=== PATIENT | male | born 1950 | race Caucasian/White ===

== ENCOUNTER 2024-09-20 18:44 | Emergency (ER) | payer MEDICARE, SELFPAY ==
[2024-09-20 18:48] VITALS: BP 142/91; PULSE 74; TEMP 37.2; O2SAT 94; BMI 26.5
[2024-09-20 19:08] VITALS: TEMP 36.7
--- NOTE | 2024-09-20 19:21 | ED.DIZZY1 ---
HPI - Dizziness General Chief Complaint: Dizziness Stated Complaint: Dizziness NECK PAIN Time Seen by Provider: 09/20/24 19:01 Source: patient and family Source comment: Daughter Mode of arrival: walk-in History of Present Illness HPI Narrative: This 74-year-old male with a history of vertigo is brought to the emergency department by his daughter. For the past 3 days he has had increased dizziness. The patient states he feels like he is on a boat. He has a history of vertigo and has been seen by neurologist and multiple specialist. It is thought that his dizziness may come from his neck. He does have a history of neck injuries in the past. Last December the patient was seen at [facility] and had a CT angio of the head and neck that was essentially normal. He has also had an MRI in the past year. The patient walks his dogs every day and uses a stroller to walk them to help with his balance but had trouble getting back to his house earlier today due to the dizziness. His daughter states he has also been walking into unger. The symptoms all started last spring when the patient was placed on doxycycline empirically after he had a tick bite. The patient complains of pain in both sides of his neck. Denies any recent neck injury. He has had some blurred vision recently. He has not had any slurred speech or confusion. The daughter states basically he just has not been feeling well for the past week. He denies any nausea vomiting or diarrhea. He is not currently taking any meclizine. Related Data Home Medications ?Medication ?Instructions ?Recorded ?Confirmed No Known Home Medications 09/20/24 09/20/24 Allergies Allergy/AdvReac Type Severity Reaction Status Date / Time doxycycline Allergy Severe Dizziness Verified 09/20/24 19:01 Review of Systems ROS Status of ROS 10 or more systems reviewed and unremarkable except as noted in history and below PFSH PFSH Social History Little interest or pleasure in doing things: not at all Feeling down, depressed, or hopeless: not at all Exam Narrative Exam Narrative: Vital signs and Nursing Notes reviewed: Is afebrile with a normal pulse, blood pressure is mildly elevated at 142/91, he is not hypoxic with pulse ox of 94% on room air General: Awake, alert, oriented, no acute distress, he is sitting on the stretcher and rocking his torso, GCS 15, no respiratory distress HEENT: Normocephalic atraumatic, mucous membranes are moist and pink, eyes are clear, normal conjunctiva, no nystagmus noted, vision is grossly intact, posterior pharynx is normal in appearance. Tympanic membranes are normal bilaterally Neck: Supple, no pulsatile masses. No bruits appreciated Chest: Lungs are clear to auscultation with good air entry, there is no wheezing rhonchi or rales appreciated no accessory muscle use, patient is speaking in complete sentences-no chest wall tenderness to palpation CVS: Regular rate and rhythm S1-S2, no murmurs rubs or gallops, pulses are brisk and equal bilaterally ABD: Soft, nondistended, nontender, no rebound guarding or rigidity, bowel sounds are normal, no pulsatile masses appreciated Extremities: Moving all extremities, no lower extremity tenderness or swelling noted, negative Homans' sign, pulses are brisk and equal bilaterally Skin: Normal in appearance without rash,pallor, petechiae or purpura Neuro: No focal deficits, speech is clear, 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, no facial droop noted Constitutional Vital Signs, click to edit/add: Last Vital Signs Temp 98.0 F 09/20/24 19:08 Pulse 74 09/20/24 18:48 Resp 16 09/20/24 18:48 BP 142/91 H 09/20/24 18:48 Pulse Ox 94 L 09/20/24 18:48 O2 Del Method Room Air 09/20/24 18:48 Course Vital Signs Vital signs: Vital Signs Temperature 99.0 F 09/20/24 18:48 Pulse Rate 74 09/20/24 18:48 Respiratory Rate 16 09/20/24 18:48 Blood Pressure 142/91 H 09/20/24 18:48 Pulse Oximetry 94 L 09/20/24 18:48 Oxygen Delivery Method Room Air 09/20/24 18:48 Temperature 98.0 F 09/20/24 19:08 Pulse Rate 74 09/20/24 18:48 Respiratory Rate 16 09/20/24 18:48 Blood Pressure 142/91 H 09/20/24 18:48 Pulse Oximetry 94 L 09/20/24 18:48 Oxygen Delivery Method Room Air 09/20/24 18:48 MDM - Dizziness MDM Narrative Medical decision making narrative: This 74-year-old male with a history of vertigo is brought to emergency department by his daughter for worsening vertiginous symptoms for the past 3 days. His workup was essentially normal. He has had a CT angio of the head and neck in the past year as well as MRIs and follows up with neurology. The patient's physical exam was benign. He states he feels like he is rocking on a boat. I ordered a cardiac workup on him as well as a CT scan of his brain and medications to treat his vertigo. Prior to initiation of his workup the patient stated that he wishes to leave and does not want any workup to be done at this time. I went to the room and discussed this with the patient and his daughter. The daughter states she feels that he is just tired of being in doctors offices and emergency departments. He was encouraged to return the emergency department for worsening symptoms or if he changes his mind. He does have a follow-up appointment with Dr. Laughlin on which he was encouraged to keep. Discharge Plan Discharge Stand Alone Forms: Portal Instructions Chief Complaint: Dizziness Clinical Impression: Dizziness, Neck pain Patient Disposition: Left Against Medical Advice Time of Disposition Decision: 19:33 Condition: Fair Prescriptions / Home Meds: No Action No Known Home Medications Print Language: Telugu Referrals: Physician,Non-Staff, MD [Primary Care Provider] - 1 week
== END 2024-09-20 19:31 | disposition left against medical advice (07) ==
PROVIDERS: Emergency Provider Emergency Medicine; Family Provider Family Medicine
DX: Z53.29 Procedure and treatment not carried out because of patient's decision for other reasons (principal); R42 Dizziness and giddiness; M54.2 Cervicalgia
CPT/HCPCS: 80053; 84484; 85652; 86140; 87804; 87811; 99285

== ENCOUNTER 2024-09-30 09:37 | Outpatient (OUT) | payer MEDICARE, SELFPAY ==
--- NOTE | 2024-09-30 09:46 | MR_ITS ---
The [address] [address] Patient Name: MARQUISE HOFFMAN MRN: [facility]:[id number] date: 1950 Sex: M Assigned Patient Location: MRI Current Patient Location: Accession/Order Number: [id number] Exam Date: 09/30/2024 10:00 Report Date: 10/01/2024 09:12 At the request of: WANG TAN Procedure: MR head/brain wo con EXAMINATION: MR head/brain wo con, 09/30/2024 10:00 AM EST HISTORY: Vertigo COMPARISON: None. TECHNIQUE: MRI of the brain was performed without IV contrast. HISTORY: Vertigo FINDINGS: CEREBRUM: No edema, hemorrhage, mass, acute infarction, or inappropriate atrophy. CEREBELLUM: No edema, hemorrhage, mass, acute infarction, or inappropriate atrophy. BRAINSTEM: No edema, hemorrhage, mass, acute infarction, or inappropriate atrophy. CSF SPACES: Ventricles, cisterns, and sulci are appropriate for age. No hydrocephalus, subarachnoid hemorrhage, or mass. SKULL: No mass or other significant visible lesion. SINUSES: Left ethmoid sinus disease ORBITS: Limited views are unremarkable. OTHER: Negative. MR/MR head/brain wo con IMPRESSION: No acute intracranial abnormality. Electronically authenticated by: LYNN BRADY Date: 10/01/2024 09:12
--- NOTE | 2024-09-30 09:46 | MR_ITS ---
[address] [address] Patient Name: MARQUISE HOFFMAN MRN: [facility]:[id number] date: 1950 Sex: M Assigned Patient Location: MRI Current Patient Location: MRI Accession/Order Number: [id number] Exam Date: 09/30/2024 10:00 Report Date: 10/01/2024 09:15 At the request of: WANG TAN Procedure: MR angio neck wo con PROCEDURE: MR angio neck wo con COMPARISON: None. HISTORY: Vertigo TECHNIQUE: MR images of the extracranial carotid and vertebral arteries were performed without and with Dotarem contrast in the usual manner. Multi-planar 2D and 3D reformatted images were created and interpreted to optimize visualization of vascular anatomy. Carotid stenosis is reported according to NASCET criteria. FINDINGS: RIGHT INTERNAL CAROTID: No hemodynamically significant stenosis or dissection. EXTERNAL CAROTID: No hemodynamically significant stenosis or dissection. COMMON CAROTID: No hemodynamically significant stenosis or dissection. VERTEBRAL: No hemodynamically significant stenosis or dissection. LEFT INTERNAL CAROTID: No hemodynamically significant stenosis or dissection. EXTERNAL CAROTID: No hemodynamically significant stenosis or dissection. COMMON CAROTID: No hemodynamically significant stenosis or dissection. VERTEBRAL: No hemodynamically significant stenosis or dissection. OTHER: The visualized soft tissues of the neck are also unremarkable. MR/MR angio neck wo con IMPRESSION: No hemodynamically significant stenosis or dissection. Electronically authenticated by: LYNN BRADY Date: 10/01/2024 09:15
--- NOTE | 2024-09-30 09:46 | MR_ITS ---
The [address] [address] Patient Name: MARQUISE HOFFMAN MRN: [id number] date: 1950 Sex: M Assigned Patient Location: MRI Current Patient Location: MRI Accession/Order Number: [id number] Exam Date: 09/30/2024 10:00 Report Date: 10/01/2024 09:19 At the request of: WANG TAN Procedure: MR angio head wo con EXAMINATION: MR angio head wo con HISTORY: Vertigo COMPARISON: No relevant comparison available. TECHNIQUE: MR angiography was performed in the usual manner. Multiplanar reconstructed 2D and 3D images of the cerebral arteries were created and interpreted. FINDINGS: INTERNAL CAROTIDS: No visible stenosis or aneurysm. ANTERIOR CEREBRALS: No visible stenosis or aneurysm. MIDDLE CEREBRALS: No visible stenosis or aneurysm. POSTERIOR CEREBRALS: No visible stenosis or aneurysm. BASILAR: No visible stenosis or aneurysm. VERTEBRALS: No visible stenosis or aneurysm. OTHER: Negative with no evidence of a vascular malformation. Diminutive right posterior communicating artery MR/MR angio head wo con IMPRESSION: No large vessel occlusion. Electronically authenticated by: LYNN BRADY Date: 10/01/2024 09:19
== END 2024-09-30 09:38 | disposition home or self-care (01) ==
LOC: MRI 09:38
PROVIDERS: Family Provider Family Medicine; PCP Family Medicine; Visit Provider Family Medicine
DX: R42 Dizziness and giddiness (principal)
CPT/HCPCS: 70544; 70547; 70551

== ENCOUNTER 2024-11-11 16:10 | Outpatient (OUT) | payer MEDICARE, SELFPAY ==
--- OUTSIDE RECORDS SUMMARY | 2024-11-11 16:28 | XMS_ITS | CCD ---
Author Organization [facility] Care Team Providers Care Data Center Manager Name Role Phone Unavailable Primary Care Provider Unavailabl e Starla Curry PA-C A Primary Care Provider Starla Curyr PA-C A Primary Care Provider Unavailable Primary Care Provider Unavailabl e NO FAMILY, PHYSICIAN Primary Care Provider Unava MD Patel Kelly Jr Emergency Provider MD Jorje Gu Admit Provider MD Jorje Gu Attending Provider DO Jared Easley Attending Provider NO FAMILY, PHYSICIAN Primary Care Provider Unava MD Patel Kelly Jr Emergency Provider MD Jorje Gu Admit Provider DO Jared Easley Attending Provider MD Fly Meza Attending Provider Unavailable Primary Care Provider Unavailabl e DO Micah Jackson Emergency Provider [phone] [place] STUDIO PRODUCER-C Rachel Primary Care Provider DO Yasmine Marc Emergency Provider DO Jared Easley Admit Provider [phone] Attila Luis Attending Unavailable Dr. Attila Luis Unavailable Unavailable DO Yasmine Marc Emergency Provider DO Jared Easley Admit Provider [phone] MD Kaitlynn Wiggins Attending Provider [phone] MD Olivia Fischer Other Provider MD Polly Cavazos Other Provider MD Robel Wallace Other Provider EUGENE Burr Other Provider DO Pascual Mares Jr Other Provider MD Emilio Christian Other Provider MD Olivia Fischer Attending Provider ANGELICA Harrington Attending Provider [phone] MD Owen Shea Referring Provider YUDELKA Byrd-C Rachel Primary Care Provider MD Love Tinsley Emergency Provider Aixa Tong DO Primary Care Provider HIRAM CASTILLO Attending Unavailable NERYYRACHEL Attending Unavailable NERYYRACHEL Referring Unavailable LUBYRACHEL Attending Unavailable CUTHIRAM PASCUAL Referring Unavailable LUBYRACHEL Attending Unavailable RACHEL BYRD Attending Unavailable AIXA TONG Referring Unavailable OLIVIA MCALLISTER Attending Unavailable NERYYDENILSONNA iMla Referring Unavailable DOUGIE MCKNIGHT Attending Unavailable DOUGIE MCKNIGHT Referring Unavailable OLIVIA MCALLISTER Attending Unavailable HIRAM CASTILLO Attending Unavailable DOUGIE MCKNIGHT Attending Unavailable ERIKA FELDER Attending Unavailable NERYY RACHEL L Referring Unavailable BRANDAN HARRINGTON Attending Unavailable AIXA TONG Referring Unavailable BRANDAN HARRINGTON Attending Unavailable AIXA TONG Referring Unavailable BRANDAN HARRINGTON Attending Unavailable OLIVIA MCALLISTER Attending Unavailable [facility] PHYSICIAN-NPC, WILFREDO Referring Unavailab ERIKA Plummer Attending Unavailable [facility]ICE PHYSICIAN-NPC, WILFREDO Referring Unavailab OLIVIA Bird Attending Unavailable SABAS, JOSE Referring Unavailable OLIVIA MCALLISTER Attending Unavailable SABAS, JOSE Referring Unavailable MIKO FINE Attending Unavailable SABAS, JOSE Referring Unavailable ERIKA FELDER Attending Unavailable SABAS, JOSE Referring Unavailable ERIKA FELDER Attending Unavailable SABAS, JOSE Referring Unavailable Luby STUDIO PRODUCER-C, Rachel Primary Care Provider [phone] Jessie Hammond Attending Provider Wang Laughlin MD Attending Provider Wang Laughlin MD Attending Unavaila lia Byrd STUDIO PRODUCER-C Rachel Primary Care Provider Rachel Byrd Primary Care Unavailable Melina Jacksoned M Admitting Unavailable Renetta Micah M Attending Unavailable Jessie Hammond Admitting Unavailable Jessie Hammond Attending Unavailable Rachel Byrd Primary Care Unavailable Rachel Byrd Primary Care Unavailable Wang Laughlin M Admitting Unavailable Wang Laughlin Attending Unavailable Kaitlynn Wiggins Attending Unavailable NeryRachel Primary Care Unavailable Jared Easley Admitting Unavailable Olivia Fischer Consulting Unavailable Polly Cavazos Consulting Unavailable Robel Wallace Consulting Unavailable Leno, Kayla Consulting Unavailable Pascual Marse Jr Consulting UnavailEmilio Waller Consulting Unavaila lia Rachel Byrd Primary Care Unavailable Wang Laughlin Admitting Unavailable Wang Laughlin Attending Unavailable NO FAMILY, PHYSICIAN Primary Care Unavailable Asaad, Imad Admitting Unavailable Asaad, Imad Attending Unavailable Rachel Byrd Primary Care Unavailable Olivia Fischer Admitting Unavailable Olivia Fischer Attending Unavailable Brandan Harrington Admitting Unavailable Brandan Harrington Attending Unavailable NeryRachel hand Primary Care Unavailable Owen Shea Referring Unavail able Love Tinsley Attending Unavailable Rachel Byrd Primary Care Unavailable Love Tinsley Admitting Unavailable Mirta LEE Referring Unavailable OLIVIA LAZCANO Referring Unavailable JANY STANTON Referring Unavailable BRANDAN HARRINGTON Referring Unavailable OLIVIA LAZCANO Attending Unavailable SELF Referring Unavailable JOSE BABIN Attending Unavailable Mirta LEE Attending Unavailable HAILE LEE Attending Unavailable SELF Referring Unavailable HAILE LEE Referring Unavailable HAILE LEE Attending Unavailable KATHARINA RUSSELL Attending Unavailable Allergies Allergy Classification Reported Allergen(s) Allergy Type Date of Onset Reaction(s) Facility (12 sources) Doxycycline; Translations: [Doxycycline] Drug Allergy 01-06-2024 [facility] Repository Medications Current Medications Medication Drug Class(es) Dates Sig (Normalized) Sig (Original) acetaminophen 325 mg oral tablet (6 sources) Start: 10-01-2023 End: 10-31-2023 take 2 tablets by mouth every six hours as needed acetaminophen (TYLENOL) 325 mg tablet Take 2 tablets by mouth every 6 hours as needed (Mild Pain (1-3) - Enteral). 40 tablet 0 10/01/2023 10/31/2023 Active Comment on above: Take 2 tablets by mo [facility] every 6 hours as needed (Mild Pain (1- 3) - Enteral). amoxicillin 875 mg / clavulanate 125 mg oral tablet (4 sources) Penicillin-class Antibacterial Start: 10-04-2023 End: 10-11-2023 take 1 tablet by mouth twice daily amoxicillin-clavul anate potassium (AUGMENTIN) 875-125 mg per tablet Take 1 tablet by mouth two times a day for 7 days. 14 tablet 0 10/04/2023 10/11/2023 Active Comment on above: Take 1 tablet by darryl two times a day for 7 days. aspirin 81 mg oral tablet (7 sources) Platelet Aggregation Inhibitor, Nonsteroidal Anti-inflammatory Drug Start: 12-31-2023 take 1 tablet by mouth in the morning Aspirin Tablet 81 MG 1 tablet Tablet Oral Give 1 tablet by mouth in the morning related to OTHER SPECIFIED PERSONAL RISK FACTORS, NOT ELSEWHERE CLASSIFIED (Z91.89 12/31/2023 9:00:00 Start: 12-30-2023 End: 02-10-2024 take 1 tablet by mouth once daily Aspirin 81 mg Tablet,Delayed Release (Dr/Ec) Discontinued 81 MG PO Daily 0 December 29, 2023 11:00pm February 10, 2024 1:12pm dexamethasone 2 mg oral tablet (9 sources) Corticosteroid Start: 02-29-2024 take 1 tablet by mouth in the morning dexAMETHasone (Decadron) 2 MG tablet Indications: Vestibular neuronitis of right ear Take 1 tablet (2 mg) by mouth in the morning and 1 tablet (2 mg) in the evening. Take with meals. 60 tablet 2 02/29/2024 Active diazePAM 5 mg oral tablet (7 sources) Benzodiazepine Start: 12-30-2023 take 1 tablet by mouth every twelve hours as needed for anxiety diazePAM Oral Tablet 5 MG 1 tablet Tablet Oral Give 1 tablet by mouth every 12 hours as needed for Anxiety/sleep related to OTHER SPECIFIED PERSONAL RISK FACTORS, NOT ELSEWHERE CLASSIFIED (Z91.89) 12/30/2023 15:45:00 Start: 12-30-2023 End: 02-10-2024 take 1 tablet by mouth twice daily as needed Diazepam 5 mg Tablet Discontinued 5 MG PO Twice daily as needed for vertigo 10 7 December 29, 2023 11:00pm February 10, 2024 1:13pm fludrocortisone acetate 0.1 mg oral tablet (9 sources) Start: 02-09-2024 take 0.5 tablet by mouth in the morning fludrocortisone (Florinef) 0.1 MG tablet Indications: Vestibular neuronitis of right ear Take 0.5 tablets (0.05 mg) by mouth in the morning and in the evening 60 tablet 3 02/09/2024 Active hydrOXYzine hydrochloride 10 mg oral tablet (9 sources) Antihistamine Start: 02-01-2024 take 1 tablet by mouth once hydrOXYzine HCl (Atarax) 10 MG tablet Indications: Vestibular neuronitis of right ear Take 1 tablet (10 mg) by mouth every 12 (twelve) hours if needed for anxiety (Vertigo) 60 tablet 2 02/01/2024 Active iv contrast (will be provided with radiology test) (1 source) Start: 09-08-2024 End: 09-09-2024 iv contrast (will be provided with radiology test) Indications: IPMN (intraductal papillary mucinous neoplasm) MRI PANC/WAI Inject, intravenously, once for 1 dose. No IV access, insert saline lock prior to the beginning of sedation, infusion, injection of imaging exam. Discontinue saline lock post exam. If Pt. has a central line or IVAD, may access for administration according to line specific nursing protocol. Once exam is complete flush line and de-access according to line specific nursing protocol in the MR contrast administration guidelines link. 1 Each 09/08/2024 09/09/2024 Active [place] (No Known Home Meds) (3 sources) Start: 04-09-2024 [place] (No Known Home Meds) Active April 08, 2024 11:00pm Start: 04-09-2024 [place] (No Kn own Home Meds) Active April 09, 2024 12:00am triazolam 0.25 mg oral tablet (1 source) Benzodiazepine Start: 10-30-2023 End: 10-30-2023 take 1 tablet by mouth once triazolam (HALCION) 0.25 mg tablet Indications: Retained dental root Take 1 tablet by mouth one time only for 1 dose. Take it 45 min before the dental procedure. 1 tablet 0 10/30/2023 10/30/2023 Active Comment on above: Take 1 tablet by mouth one time only for 1 dose. Take it 45 min before the dental procedure. Completed/Discontinued Medications Medication Drug Class(es) Dates Sig (Normalized) Sig (Original) atorvastatin 80 mg oral tablet (2 sources) HMG-CoA Reductase Inhibitor Start: 05-27-2023 take 1 tablet by mouth once daily atorvastatin (LIPITOR) 80 mg tablet Take 1 tablet by mouth once daily. 30 tablet 0 05/27/2023 Active Comment on above: Take 1 tablet by [facility] once daily. doxycycline hyclate 100 mg oral capsule (9 sources) Tetracycline-cla ss Drug Start: 12-17-2023 End: 12-27-2023 take 1 capsule by mouth twice daily Doxycycline Hyclate 100 mg capsule Discontinued 100 MG PO Twice daily December 16, 2023 11:00pm December 26, 2023 11:59pm Start: 12-22-2021 take 1 capsule by [facility] twice daily doxycycline hyclate (VIBRAMYCIN) 100 mg capsule TAKE 1 CAPSULE BY MOUTH TWICE DAILY FOR 7 DAYS 0 12/22/2021 Active Comment on above: TAKE 1 CAPSULE [address] [facility] TWICE DAILY FOR 7 DAYS famotidine 20 mg oral tablet (15 sources) Histamine-2 Receptor Antagonist Start: 05-27-20 End: 07-19-20 take 1 tablet enteral route every twelve hours as needed famotidine (PEPCID) 20 mg tablet 1 tablet by ORAL/FEEDING TUBE route two times a day as needed (heartburn). 05/27/2023 07/19/2024 Discontinued (Other) Comment on above: 1 tablet by ORAL/FEE DING TUBE route two times a day as needed (heartburn). fluticasone (12 sources) Corticosteroid Start: 12-08-19 End: 12-27-19 take 1 puff(s) by inhalation every twelve hours Fluticasone Propionate Discontinued 1 PUFF INHALATION Every 12 hours December 08, 2023 12:00am December 27, 2023 12:58am Start: 12-08-2023 take 1 puff(s) by in halation every twelve hours Fluticasone Propionate Active 1 PUFF INHALATION Every 12 hours December 08, 2023 12:00am Start: 12-21-2021 fluticasone (F LONASE) 50 mcg/actuation nasal spray Fluticasone Propionate 110 mcg/actuation HFA aerosol inhaler (2 sources) Start: 12-08-2023 End: 12-27-2023 take 1 puff(s) by inhalation every twelve hours Fluticasone Propionate 110 mcg/actuation HFA aerosol inhaler Discontinued 1 PUFF INHALATION Every 12 hours December 07, 2023 11:00pm December 26, 2023 11:58pm levoFLOXacin 500 mg oral tablet (2 sources) Quinolone Antimicrobial Start: 12-23-2021 take 1 tablet by mouth every twenty-four hours levoFLOXacin (LEVAQUIN) 500 mg tablet TAKE 1 TABLET BY MOUTH EVERY 24 HOURS FOR 5 DAYS 0 12/23/2021 Active Comment on above: TAKE 1 TABLET BY DARRYL TH EVERY 24 HOURS FOR 5 DAYS meclizine hydrochloride 25 mg oral tablet (20 sources) Antiemetic Start: 12-30-2023 End: 02-10-2024 take 1 tablet by mouth every eight hours as needed Meclizine 25 mg Tablet Discontinued 25 MG PO Q8H as needed for Vertigo December 29, 2023 11:00pm February 10, 2024 1:13pm Start: 12-26-2023 End: 12-27-2023 take 1 tablet by mouth three times daily as needed Meclizine 25 mg tablet Discontinued 25 MG PO Three times daily as needed for Vertigo December 25, 2023 11:00pm December 26, 2023 11:58pm omeprazole 20 mg delayed release oral capsule (20 sources) Proton Pump Inhibitor Start: 09-30-2023 End: 12-27-2023 take 1 capsule by mouth once daily as needed Omeprazole 20 mg capsule,delayed release(DR/EC) Discontinued 20 MG PO Daily as needed December 08, 2023 1:28pm December 26, 2023 11:58pm Start: 08-06-2022 End: 09-05-2022 take 1 capsule by mouth once daily omeprazole (PRILOSEC) 40 mg capsule Take 1 capsule by mouth once daily. 30 capsule 2 08/06/2022 Active Start: 01-09-2022 End: 08-04-2022 take 1 capsule by mouth once daily omeprazole (PRILOSEC) 40 mg capsule Take 1 capsule by mouth once daily. 30 capsule 2 04/23/2022 08/04/2022 Discontinued Comment on above: Take 1 capsule by mo [facility] once daily. ondansetron 4 mg disintegrating oral tablet (13 sources) Serotonin-3 Receptor Antagonist Start: 12-26-2023 End: 12-27-2023 Ondansetron 4 mg tablet,disintegrating Discontinued 4 MG PO every 6 to 8 hours as needed for Nausea December 25, 2023 11:00pm December 26, 2023 11:58pm Start: 10-01-2023 End: 10-31-2023 take 1 tablet by mouth every eight hours as needed ondansetron orally disintegrating (ZOFRAN ODT) 4 mg disintegrating tablet Take 1 tablet by mouth every 8 hours as needed for nausea/vomiting. 30 tablet 0 10/01/2023 10/31/2023 Active Comment on above: Take 1 tablet by darryl every 8 hours as needed for nausea/vomiting. sennosides, jail 8.6 mg oral tablet (15 sources) Start: 05-27-20 End: 07-19-20 take 1 tablet by mouth twice daily Senna 8.6 mg tab Take 1 tablet by mouth two times a day. 05/27/2023 07/19/2024 Discontinued (Other) Comment on above: Take 1 tablet by darryl two times a day. tadalafil 5 mg oral tablet (20 sources) Phosphodiesterase 5 Inhibitor Start: 01-29-20 End: 07-27-20 Tadalafil 5 mg tablet Discontinued 5 MG PO February 09, 2024 11:00pm April 09, 2024 4:40pm Start: 08-26-2019 take 1 tablet by darryl once daily Tadalafil (CIALIS) 5 mg tablet Take 1 tablet by mouth once daily. 90 tablet 3 08/26/2019 Active Comment on above: Take 1 tablet by darryl once daily. tamsulosin hydrochloride 0.4 mg oral capsule (20 sources) alpha-Adrenergic Bhargav Start: End: take 1 capsule by mouth once daily Tamsulosin 0.4 mg capsule Discontinued 0.4 MG PO Daily December 26, 2023 11:00pm February 10, 2024 1:13pm Comment on above: Take 1 capsule by mo [facility] once daily. 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] Onset: 5 09-08-2024 Chronic Conditions associated with dizziness or vertigo (1 source) Conditions associated with dizziness or vertigo Onset: 4 Diseases of white blood cells (20 sources) Elevated white blood cell count, unspecified; Translations: [Leukocytosis] Onset: 4 01-07-2024 Chronic Disorders of teeth and jaw (2 sources) Retained dental root; Translations: [Retained dental root] 10-30-2023 Episodic Esophageal disorders (20 sources) Gastroesophageal reflux disease; Translations: [Gastro-esophageal reflux disease without esophagitis] Onset: 2 Chronic Genitourinary symptoms and ill-defined conditions (2 sources) Retention of urine; Translations: [Retention of urine, unspecified] 10-05-2023 Episodic Hyperplasia of prostate (20 sources) Benign prostatic hyperplasia; Translations: [Benign prostatic hyperplasia without lower urinary tract symptoms] Onset: 2 Chronic Immunizations and screening for infectious disease (1 source) Viral screening status; Translations: [Encounter for screening for other viral diseases] Episodic Other aftercare (1 source) Encounter for other specified aftercare; Translations: [ENCOUNTER FOR OTHER SPECIFIED AFTERCARE] Onset: 4 Episodic Other circulatory disease (1 source) Low blood pressure; Translations: [Hypotension, unspecified] 03-14-2024 Episodic Other diseases of kidney and ureters (20 sources) Cyst of kidney; Translations: [Cyst of kidney, acquired] Onset: 4 09-30-2023 Episodic Other diseases of kidney and ureters (5 sources) Cyst of kidney, acquired; Translations: [Cystic kidney disease, unspecified] 09-30-2023 Episodic Other eye disorders (1 source) Unspecified nystagmus; Translations: [UNSPECIFIED NYSTAGMUS] Onset: 4 Chronic Other eye disorders (10 sources) Nystagmus; Translations: [Unspecified nystagmus] Onset: 4 2024 Chronic Other gastrointestinal disorders (15 sources) Diarrhea; Translations: [Diarrhea, unspecified] Onset: 4 01-07-2024 Episodic Other liver diseases (20 sources) Steatosis of liver; Translations: [Fatty (change of) liver, not elsewhere classified] Onset: 3 06-02-2023 Chronic Other liver diseases (18 sources) Liver cyst; Translations: [Other specified diseases of liver] Onset: 4 12-08-2023 Chronic Other liver diseases (8 sources) Fatty (change of) liver, not elsewhere classified; Translations: [Other chronic nonalcoholic liver disease] Onset: 4 12-08-2023 Chronic Other liver diseases (7 sources) Liver mass; Translations: [Hepatomegaly, not elsewhere classified] 12-11-2023 Episodic Other nervous system disorders (15 sources) Impairment of balance; Translations: [Other abnormalities of gait and mobility] Onset: 4 07-19-2024 Episodic Spondylosis; intervertebral disc disorders; other back problems (16 sources) Cervicocranial syndrome; 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] Onset: 4 07-19-2024 Episodic Syncope (1 source) Syncope and collapse; Translations: [Syncope and collapse] Onset: Episodic Unclassified (1 source) Parkinson's disease; Translations: [Parkinson's disease with dyskinesia, unspecified whether manifestations fluctuate (CMS/HCC)] 08-16-2024 Chronic Unclassified (8 sources) Onset: 4 Unclassified (1 source) APPOINTMENT CANCELLED 09-21-2024 Past or Other Problems Problem Classification Problem Date Documented Da te Episodic/Chronic Biliary tract disease (20 sources) Finding of measures of gallbladder; Translations: [Other specified diseases of gallbladder] Onset: 10-23-2023 09-30-2023 Episodic Conditions associated with dizziness or vertigo (20 sources) Vertigo; Translations: [Dizziness and giddiness] Onset: 12-28-2023 12-26-2023 Episodic E Codes: Natural/environment (20 sources) Tick bite; Translations: [Bitten or stung by nonvenomous insect and other nonvenomous arthropods, initial encounter] Onset: 12-28-2023 12-25-2023 Episodic Malaise and fatigue (10 sources) Asthenia; Translations: [Weakness] Onset: 12-30-2023 2024 Episodic Mood disorders (9 sources) Mood disorders Onset: 11-25-2023 11-25-2023 Nausea and vomiting (20 sources) Nausea and vomiting; Translations: [Nausea with vomiting, unspecified] Onset: 12-28-2023 12-26-2023 Episodic Neoplasms of unspecified nature or uncertain behavior (20 sources) Benign neoplasm of pancreas; Translations: [Neoplasm of unspecified behavior of digestive system] Onset: 05-27-2023 05-27-2023 Episodic Nonspecific chest pain (12 sources) Chest pain; Translations: [Chest pain, unspecified] Onset: 04-16-2018 Resolved: 04-17-2018 04-17-2018 Episodic Open wounds of extremities (1 source) Laceration without foreign body of right thumb without damage to nail, subsequent encounter; Translations: [Laceration of right thumb without foreign body, nail damage status unspecified, subsequent encounter] Onset: 11-16-2023 Episodic Other circulatory disease (9 sources) Elevated blood-pressure reading without diagnosis of hypertension; Translations: [Elevated blood-pressure reading, without diagnosis of hypertension] Onset: 2024 2024 Episodic Other circulatory disease (1 source) Hypotension, unspecified; Translations: [Hypotension, unspecified hypotension type] Onset: 03-15-2024 Episodic Other connective tissue disease (20 sources) Pain in right foot; Translations: [Pain in right foot] Onset: 06-02-2018 06-02-2018 Episodic Other gastrointestinal disorders (12 sources) Constipation; Translations: [Other constipation] Onset: 05-27-2023 Resolved: 05-27-2023 05-27-2023 Episodic Other gastrointestinal disorders (5 sources) Diarrhea, unspecified; Translations: [Diarrhea] Onset: 12-28-2023 12-30-2023 Episodic Other liver diseases (12 sources) Enzyme level - finding; Translations: [Transaminitis] Onset: 05-27-2023 Resolved: 05-27-2023 05-27-2023 Episodic Other nervous system disorders (20 sources) Postoperative pain ; Translations: [Other acute postprocedural pain] Onset: 10-01-2023 10-01-2023 Episodic Other nervous system disorders (9 sources) Tremor due to central nervous system disease; Translations: [Disorder of central nervous system, unspecified] Onset: 2024 03-16-2024 Episodic Other nervous system disorders (9 sources) Incoordination; Translations: [Other lack of coordination] Onset: 12-30-2023 2024 Episodic Other nutritional; endocrine; and metabolic disorders (9 sources) Body mass index 25-29 - overweight; Translations: [Overweight] Onset: 2024 2024 Episodic Other screening for suspected conditions (not mental disorders or infectious disease) (2 sources) Patient encounter status; Translations: [Encounter for screening for other disorder] Onset: 07-08-2024 10-05-2023 Episodic Other skin disorders (1 source) Disorder of pigmentation, unspecified; Translations: [Discoloration of skin] Onset: 11-16-2023 Episodic Pancreatic disorders (not diabetes) (20 sources) Mass of pancreas; Translations: [Other specified diseases of pancreas] Onset: 05-26-2023 Resolved: 10-02-2023 05-27-2023 Episodic Residual codes; unclassified (20 sources) Swelling; Translations: [Edema, unspecified] Onset: 06-02-2018 06-02-2018 Episodic Residual codes; unclassified (20 sources) Postprocedural state finding; Translations: [Other specified postprocedural states] Onset: 10-07-2023 10-07-2023 Episodic Residual codes; unclassified (10 sources) Other specified personal risk factors, not elsewhere classified; Translations: [Other specified personal history presenting hazards to health] Onset: 12-30-2023 2024 Episodic Skin and subcutaneous tissue infections (1 source) Cellulitis of right finger; Translations: [Cellulitis of finger of right hand] Onset: 11-16-2023 Episodic Sprains and strains (20 sources) Sprain of right ankle; Translations: [Sprain of unspecified ligament of right ankle, initial encounter] Onset: 06-02-2018 06-02-2018 Episodic Superficial injury; contusion (20 sources) Insect bite (nonvenomous), left thigh, subsequent encounter; Translations: [Insect bite (nonvenomous) of lower back and pelvis, subsequent encounter] Onset: 12-17-2023 2024 Episodic Results Test Name Value Interpretation Reference Range Facility MRI 3D POST PROCESSINGon MRI 3D POST PROCESSING * * *Final Report * * * DATE OF EXAM: Oct 18 2024 9:06PM QBM [id number] - MRI 3D POST PROCESSING / PROCEDURE REASON: IPMN (intraductal papillary mucinous neoplasm) * * * * Physician Interpretation * * * * MRI ABDOMEN WITHOUT AND WITH IV CONTRAST , 3D REFORMATTED IMAGES CLINICAL HISTORY: Follow-up cystic pancreatic lesion. TECHNIQUE: Magnet: 1.5T scanner. Multiplanar MRI of the abdomen with multiple sequences, performed before and after intravenous contrast. Additional MR cholangiopancreatography sequences were performed. Image post-processing {Maximum intensity Projection (MIP), Volume-rendered (VR), Surface shaded display images (SSD) or complex volumetric analysis} was performed at an off-line workstation with concurrent physician supervision, with images created, reviewed and archived. Contrast: Intravenous: 18 ml of Dotarem COMPARISON: CT abdomen pelvis 10/04/2023. RESULT: Liver: Normal morphology. Diffuse hepatic steatosis. Multiple small bilobar hepatic cysts. No suspicious mass. Biliary: No intrahepatic or extrahepatic bile duct dilation. No biliary filling defect. Cholecystectomy. Spleen: No mass. No splenomegaly. Pancreas: 0.7 cm cystic pancreatic tail lesion (4:17), unchanged from 05/25/2023. No worrisome features. No solid mass or duct dilation. Adrenals: No mass. Kidneys: Benign cysts, largest measuring 8.5 cm in the left interpolar region. No solid mass. No hydronephrosis. GI: Small hiatal hernia. No dilated bowel or wall thickening along imaged segments. Lymph nodes: No abdominal lymphadenopathy. Mesentery / Peritoneum / Retroperitoneum: No ascites or mass. Vasculature: The celiac axis and SMA are patent. The portal vein and branches, splenic vein, SMV, and hepatic veins are patent. No aortic or iliac artery aneurysm. Bones/Soft Tissues: Degenerative changes. Lower chest: Unremarkable. Localizer images: No additional findings. 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 Special Delivery Clerk: TATIANA Transcribe Date/Time: Oct 19 2024 8:12A Dictated by : TOY EPSTEIN MD This examination was interpreted and the report reviewed and electronically signed by: WANG MOONEY MD on Oct 19 2024 3:45PM EST [id number] Normal [facility] MRI PANC/WAI WO/W IVCONon MRI PANC/WAI WO/W IVCON * * *Final Report* * * DATE OF EXAM: Oct 18 2024 9:06PM QBM 0730 - MRI PANC/WAI WO/W IVCON / PROCEDURE REASON: multiple diagnoses * * * * Physician Interpretation * * * * MRI ABDOMEN WITHOUT AND WITH IV CONTRAST , 3D REFORMATTED IMAGES CLINICAL HISTORY: Follow-up cystic pancreatic lesion. TECHNIQUE: Magnet: 1.5T scanner. Multiplanar MRI of the abdomen with multiple sequences, performed before and after intravenous contrast. Additional MR cholangiopancreatography sequences were performed. Image post-processing {Maximum intensity Projection (MIP), Volume-rendered (VR), Surface shaded display images (SSD) or complex volumetric analysis} was performed at an off-line workstation with concurrent physician supervision, with images created, reviewed and archived. Contrast: Intravenous: 18 ml of Dotarem COMPARISON: CT abdomen pelvis 10/04/2023. RESULT: Liver: Normal morphology. Diffuse hepatic steatosis. Multiple small bilobar hepatic cysts. No suspicious mass. Biliary: No intrahepatic or extrahepatic bile duct dilation. No biliary filling defect. Cholecystectomy. Spleen: No mass. No splenomegaly. Pancreas: 0.7 cm cystic pancreatic tail lesion (4:17), unchanged from 05/25/2023. No worrisome features. No solid mass or duct dilation. Adrenals: No mass. Kidneys: Benign cysts, largest measuring 8.5 cm in the left interpolar region. No solid mass. No hydronephrosis. GI: Small hiatal hernia. No dilated bowel or wall thickening along imaged segments. Lymph nodes: No abdominal lymphadenopathy. Mesentery / Peritoneum / Retroperitoneum: No ascites or mass. Vasculature: The celiac axis and SMA are patent. The portal vein and branches, splenic vein, SMV, and hepatic veins are patent. No aortic or iliac artery aneurysm. Bones/Soft Tissues: Degenerative changes. Lower chest: Unremarkable. Localizer images: No additional findings. 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 Special Delivery Clerk: TATIANA Transcribe Date/Time: Oct 19 2024 8:12A Dictated by : TOY EPSTEIN MD This examination was interpreted and the report reviewed and electronically signed by: WANG OMONEY MD on Oct 19 2024 3:45PM EST [id number] Normal [facility] CT angio neckon 10-14-2024 CT angio neck [facility] [place] [address] [place] [address] CT Scan Report Signed Patient: Jama Green MR#: [id number] 122 : 1950 Acct:[id number] Age/Sex: 74 / M ADM Date: 10/14/24 Loc: CT Room: Type: [facility] Attending Dr: Wang Laughlin MD Copies to: Wang Laughlin MD Ordering Provider: Wang Laughlin MD Date of Service: 10/14/24 CT/CT angio neck: R42 CT angio neck 10/14/2024 4:18 PM SIGNS AND SYMPTOMS: R42 TECHNIQUE: Multi-detector CT angiography axial slices of the neck during intravenous administration of IV contrast material. Sagittal, coronal, and 3-D reconstructions were performed and viewed on a separate workstation. CT was performed with one or more of the following dose reduction techniques: Automated exposure control, adjustment of the mA and/or kV according to patient size, or use of iterative reconstruction technique. Stenoses were measured using the NASCET criteria. COMPARISON: 12/26/2023. FINDINGS: CTA NECK: There is a normal three-vessel arch. The subclavian arteries are within normal limits. The vertebral arteries arise from the subclavian arteries and are normal in course and caliber up to the skull base. The common and internal carotid arteries are within normal limits. origin left posterior cerebral artery. Visualized lung parenchyma demonstrates emphysematous changes.. No acute bony abnormalities are identified. The paraspinous soft tissues are within normal limits. CT/CT angio neck IMPRESSION: No evidence of hemodynamically significant stenosis or occlusion involving the cervical arterial vessels. Impression dictated by: Darrell Power M.D.10/14/2024 5:30 PM Dictation Location: [place] [address] Transcribed By: MANISHA 10/14/24 1730 Dictated By: Darrell Power MD 10/14/24 1727 Signed By: 10/14/24 1730 Normal [facility] A1C with Estimated Average G bola 10-01-2024 Glucose [Mass/Vol] 120 mg/dL Normal [facility] Comment on above: Order Comment: OTHER TEST FAIL MEDICAL NECESSITY, PT ISN'T DOING THOSE TESTS Result Comment: PERF ORMED BY: [place] [address] PATHOLOGIST [employer] F[employer]OR COVERING INSTALLER LAXMI HORTON M.D. Performed By: #### U RDS, ADDONUAPLUS #### [address] HbA1c (Bld) [Mass fraction] 5.8 % High 4.3-5.6 [facility] Comment on above: Order Comment: OTHER TEST FAIL MEDICAL NECESSITY, PT ISN'T DOING THOSE TESTS Result Comment: Incr eased risk for diabetes: 5.7 - 6.4 diabetes: >6.4 glycemic control for adults with diabetes: <7.0 Performed By: #### U RDS, ADDONUAPLUS #### [facility] [address] [place] [address] Alanine aminotransferase [En zymatic activity/volume] in Serum or PlasmaOrdered By: Wang Laughlin on 10-01-2024 ALT [Catalytic activity/Vol] Alanine aminotransferase [Enzymatic activity/volume] in Serum or Plasma 7-52 [facility] Albumin [Mass/volume] in Ser um or Plasma by Bromocresol green (BCG) dye binding methoOrdered By: Wang Laughlin on 10-01-2024 Albumin BCG dye [Mass/Vol] Albumin [Mass/volume] in Serum or Plasma by Bromocresol green (BCG) dye binding metho 3.5-5.7 [facility] Alkaline phosphatase [Enzyma tic activity/volume] in Serum or PlasmaOrdered By: Wang Laughlin on 10-01-2024 ALP [Catalytic activity/Vol] Alkaline phosphatase [Enzymatic activity/volume] in Serum or Plasma 34-104 [facility] Aspartate aminotransferase [ Enzymatic activity/volume] in Serum or PlasmaOrdered By: Wang Laughlin on 10-01-2024 AST [Catalytic activity/Vol] Aspartate aminotransferase [Enzymatic activity/volume] in Serum or Plasma 13-39 [facility] Basophils Auto (Bld) [#/Vol] Ordered By: Wang Laughlin on 10-01-2024 Basophils (Bld) [#/Vol] Automated basophil count 0.0-0.2 [facility] Basophils/100 WBC Auto (Bld) Ordered By: Wang Laughlin on 10-01-2024 Basophils/100 WBC (Bld) Automated basophil % . [facility] Bilirubin.total [Mass/volume ] in Serum or PlasmaOrdered By: Wang Laughlin on 10-01-2024 Bilirubin [Mass/Vol] Bilirubin.total [Mass/volume] in Serum or Plasma 0.3-1.0 [facility] Blood estimated average gluc ose determination by estimation from glycated hemoglobinOrdered By: Wang Laughlin on 10-01-2024 Average glucose Estimated from glycated hemoglobin (Bld) [Mass/Vol] Glucose mean value [Mass/volume] in Blood Estimated from glycated hemoglobin [facility] Borrelia burgdorferi Ab [Int erpretation] in SerumOrdered By: Wang Laughlin on 10-01-2024 B. burgdorferi Ab (S) [Interp] Borrelia burgdorferi Ab [Interpretation] in Serum [facility] Borrelia burgdorferi IgG Ab [Presence] in Serum or Plasma by ImmunoassayOrdered By: Wang Laughlin on 10-01-2024 B. burgdorferi IgG IA Ql Borrelia burgdorferi IgG Ab [Presence] in Serum or Plasma by Immunoassay [facility] Borrelia burgdorferi IgG+IgM Ab [Presence] in Serum by ImmunoassayOrdered By: Wang Laughlin on 10-01-2024 B. burgdorferi IgG+IgM IA Ql (S) Borrelia burgdorferi IgG+IgM Ab [Presence] in Serum by Immunoassay Negative [facility] Comment on above: Lyme antibodies not detected. Reflex testing is notindicated.No laboratory evidence of infection with B. burgdorferi(Lyme disease). Negative results may occur in patientsrecently infected (less than or equal to 14 days) with B.burgdorferi. If recent infection is suspected, repeattesting on a new sample collected in 7 to 14 days isrecommended.Performed at: [facility] [id number] [place], [place] [id number] Director: Raghu Richard PhD, Phone: [phone] Borrelia burgdorferi IgM Ab [Presence] in Serum or Plasma by ImmunoassayOrdered By: Wang Laughlin on 10-01-2024 B. burgdorferi IgM IA Ql Borrelia burgdorferi IgM Ab [Presence] in Serum or Plasma by Immunoassay [facility] Calcium [Mass/volume] in Ser um or PlasmaOrdered By: Wang Laughlin on 10-01-2024 Calcium [Mass/Vol] Calcium [Mass/volume ] in Serum or Plasma 8.6-10.3 [facility] Carbon dioxide, total [Moles /volume] in Serum or PlasmaOrdered By: Wang Laughlin on 10-01-2024 CO2 [Moles/Vol] Carbon dioxide, tota l [Moles/volume] in Serum or Plasma 21.0-31.0 [facility] Chloride [Moles/volume] in S bairon or PlasmaOrdered By: Wang Laughlin on 10-01-2024 Chloride [Moles/Vol] Chloride [Moles/vol ume] in Serum or Plasma High 98-107 [facility] Complete Blood Count Auto Di ffon 10-01-2024 Basophils (Bld) [#/Vol] 0.1 10*3/uL Normal 0.0-0.2 [facility] Comment on above: Order Comment: OTHER TEST FAIL MEDICAL NECESSITY, PT ISN'T DOING THOSE TESTS Result Comment: PERF ORMED BY: [place] [address] PATHOLOGIST [employer] COVERING INSTALLER LAXMI HORTON M.D. Performed By: #### U RDS, ADDONUAPLUS #### [facility] [address] [place] [address] [place] Basophils/100 WBC (Bld) 1.1 % Normal . [facility] Comment on above: Order Comment: OTHER TEST FAIL MEDICAL NECESSITY, PT ISN'T DOING THOSE TESTS Performed By: #### U RDS, ADDONUAPLUS #### [facility] [address] [place] [address] [place] Eosinophils (Bld) [#/Vol] 0.2 10*3/uL Normal 0.0-0.45 [facility] Comment on above: Order Comment: OTHER TEST FAIL MEDICAL NECESSITY, PT ISN'T DOING THOSE TESTS Performed By: #### U RDS, ADDONUAPLUS #### [facility] [address] [place] [address] [place] Eosinophils/100 WBC (Bld) 1.8 % Normal . [facility] Comment on above: Order Comment: OTHER TEST FAIL MEDICAL NECESSITY, PT ISN'T DOING THOSE TESTS Performed By: #### U RDS, ADDONUAPLUS #### [address] Erythrocyte distribution width (RBC) [Ratio] 13.2 % Normal 12.0-14.8 [facility] Comment on above: Order Comment: OTHER TEST FAIL MEDICAL NECESSITY, PT ISN'T DOING THOSE TESTS Performed By: #### U RDS, ADDONUAPLUS #### [place] [address] [place] Hematocrit (Bld) [Volume fraction] 45.3 % Normal 38.8-50.0 [facility] Comment on above: Order Comment: OTHER TEST FAIL MEDICAL NECESSITY, PT ISN'T DOING THOSE TESTS Performed By: #### U RDS, ADDONUAPLUS #### [place] [address] [place] Hemoglobin (Bld) [Mass/Vol] 15.5 g/dL Normal 13.0-17.0 [facility] Comment on above: Order Comment: OTHER TEST FAIL MEDICAL NECESSITY, PT ISN'T DOING THOSE TESTS Performed By: #### U RDS, ADDONUAPLUS #### [place] [id number] [place] Lymphocytes (Bld) [#/Vol] 2.7 10*3/uL Normal 1.00-4.8 [facility] Comment on above: Order Comment: OTHER TEST FAIL MEDICAL NECESSITY, PT ISN'T DOING THOSE TESTS Performed By: #### U RDS, ADDONUAPLUS #### [place] [id number] [place] Lymphocytes/100 WBC (Bld) 30.0 % Normal . [facility] Comment on above: Order Comment: OTHER TEST FAIL MEDICAL NECESSITY, PT ISN'T DOING THOSE TESTS Performed By: #### U RDS, ADDONUAPLUS #### [address] MCH (RBC) [Entitic mass] 33.9 pg Normal 27.5-35.2 [facility] Comment on above: Order Comment: OTHER TEST FAIL MEDICAL NECESSITY, PT ISN'T DOING THOSE TESTS Performed By: #### U RDS, ADDONUAPLUS #### [address] MCV (RBC) [Entitic vol] 98.9 fL Normal 83.5-101 [facility] Comment on above: Order Comment: OTHER TEST FAIL MEDICAL NECESSITY, PT ISN'T DOING THOSE TESTS Performed By: #### U RDS, ADDONUAPLUS #### [address] Mean Corpuscular HGB Conc 34.2 g/dL Normal 32.5-35.6 [facility] Comment on above: Order Comment: OTHER TEST FAIL MEDICAL NECESSITY, PT ISN'T DOING THOSE TESTS Performed By: #### U RDS, ADDONUAPLUS #### [address] Monocytes (Bld) [#/Vol] 0.9 10*3/uL High 0.0-0.8 [facility] Comment on above: Order Comment: OTHER TEST FAIL MEDICAL NECESSITY, PT ISN'T DOING THOSE TESTS Performed By: #### U RDS, ADDONUAPLUS #### [address] Monocytes/100 WBC (Bld) 10.2 % Normal . [facility] Comment on above: Order Comment: OTHER TEST FAIL MEDICAL NECESSITY, PT ISN'T DOING THOSE TESTS Performed By: #### U RDS, ADDONUAPLUS #### [address] Neutrophils (Bld) [#/Vol] 5.1 10*3/uL Normal 1.8-7.7 [facility] Comment on above: Order Comment: OTHER TEST FAIL MEDICAL NECESSITY, PT ISN'T DOING THOSE TESTS Performed By: #### U RDS, ADDONUAPLUS #### [address] Neutrophils/100 WBC (Bld) 56.9 % Normal . [facility] Comment on above: Order Comment: OTHER TEST FAIL MEDICAL NECESSITY, PT ISN'T DOING THOSE TESTS Performed By: #### U RDS, ADDONUAPLUS #### [address] NRBC% 0.1 /100{WBC} Normal 0-0.5 [facility] Comment on above: Order Comment: OTHER TEST FAIL MEDICAL NECESSITY, PT ISN'T DOING THOSE TESTS Performed By: #### U RDS, ADDONUAPLUS #### [address] Platelet mean volume (Bld) [Entitic vol] 7.9 fL Normal 6.6-10.1 [facility] Comment on above: Order Comment: OTHER TEST FAIL MEDICAL NECESSITY, PT ISN'T DOING THOSE TESTS Performed By: #### U RDS, ADDONUAPLUS #### [place] [id number] [place] Platelets (Bld) [#/Vol] 230 10*3/uL Normal 150-450 [facility] Comment on above: Order Comment: OTHER TEST FAIL MEDICAL NECESSITY, PT ISN'T DOING THOSE TESTS Performed By: #### U RDS, ADDONUAPLUS #### [address] RBC (Bld) [#/Vol] 4.58 10*6/uL Normal 3.90-5.60 [facility] Comment on above: Order Comment: OTHER TEST FAIL MEDICAL NECESSITY, PT ISN'T DOING THOSE TESTS Performed By: #### U RDS, ADDONUAPLUS #### [place] [id number] [facility] WBC (Bld) [#/Vol] 9.0 10*3/uL Normal 4.1-10.5 [facility] Comment on above: Order Comment: OTHER TEST FAIL MEDICAL NECESSITY, PT ISN'T DOING THOSE TESTS Performed By: #### U RDS, ADDONUAPLUS #### [address] Comprehensive Metabolic Pane umair 10-01-2024 Albumin [Mass/Vol] 4.1 g/dL Normal 3.5-5.7 [facility] Comment on above: Order Comment: OTHER TEST FAIL MEDICAL NECESSITY, PT ISN'T DOING THOSE TESTS Performed By: #### U RDS, ADDONUAPLUS #### [address] Albumin/Globulin [Mass ratio] 1.5 {ratio} Normal [facility] Comment on above: Order Comment: OTHER TEST FAIL MEDICAL NECESSITY, PT ISN'T DOING THOSE TESTS Performed By: #### U RDS, ADDONUAPLUS #### [address] ALP [Catalytic activity/Vol] 64 U/L Normal 34-104 [facility] Comment on above: Order Comment: OTHER TEST FAIL MEDICAL NECESSITY, PT ISN'T DOING THOSE TESTS Result Comment: PERF ORMED BY: [place] [address] PATHOLOGIST [employer]OVERING INSTALLER LAXMI HORTON M.D. Performed By: #### U RDS, ADDONUAPLUS #### [address] ALT [Catalytic activity/Vol] 27 U/L Normal 7-52 [facility] Comment on above: Order Comment: OTHER TEST FAIL MEDICAL NECESSITY, PT ISN'T DOING THOSE TESTS Performed By: #### U RDS, ADDONUAPLUS #### [place] [id number] [facility] Anion gap [Moles/Vol] 10.8 mmol/L Normal 6.0-15.0 [facility] Comment on above: Order Comment: OTHER TEST FAIL MEDICAL NECESSITY, PT ISN'T DOING THOSE TESTS Performed By: #### U RDS, ADDONUAPLUS #### [address] AST [Catalytic activity/Vol] 24 U/L Normal 13-39 [facility] Comment on above: Order Comment: OTHER TEST FAIL MEDICAL NECESSITY, PT ISN'T DOING THOSE TESTS Performed By: #### U RDS, ADDONUAPLUS #### [facility] [address] Bilirubin [Mass/Vol] 0.6 mg/dL Normal 0.3-1.0 [facility] Comment on above: Order Comment: OTHER TEST FAIL MEDICAL NECESSITY, PT ISN'T DOING THOSE TESTS Performed By: #### U RDS, ADDONUAPLUS #### [address] Calcium [Mass/Vol] 9.1 mg/dL Normal 8.6-10.3 [facility] Comment on above: Order Comment: OTHER TEST FAIL MEDICAL NECESSITY, PT ISN'T DOING THOSE TESTS Performed By: #### U RDS, ADDONUAPLUS #### [place] [address] [place] Chloride [Moles/Vol] 108 mmol/L High 98-107 [facility] Comment on above: Order Comment: OTHER TEST FAIL MEDICAL NECESSITY, PT ISN'T DOING THOSE TESTS Performed By: #### U RDS, ADDONUAPLUS #### [address] CO2 [Moles/Vol] 25.3 mmol/L Normal 21.0-31.0 [facility] Comment on above: Order Comment: OTHER TEST FAIL MEDICAL NECESSITY, PT ISN'T DOING THOSE TESTS Performed By: #### U RDS, ADDONUAPLUS #### [place] [address] [place] Creatinine [Mass/Vol] 0.86 mg/dL Normal 0.70-1.30 [facility] Comment on above: Order Comment: OTHER TEST FAIL MEDICAL NECESSITY, PT ISN'T DOING THOSE TESTS Performed By: #### U RDS, ADDONUAPLUS #### [place] [address] [place] GFR/1.73 sq M.predicted MDRD (S/P/Bld) [Vol rate/Area] mL/min/{1.73_m2} Normal [facility] Comment on above: Order Comment: OTHER TEST FAIL MEDICAL NECESSITY, PT ISN'T DOING THOSE TESTS Performed By: #### U RDS, ADDONUAPLUS #### [facility] [address] Globulin (S) [Mass/Vol] 2.7 g/dL Normal [facility] Comment on above: Order Comment: OTHER TEST FAIL MEDICAL NECESSITY, PT ISN'T DOING THOSE TESTS Performed By: #### U RDS, ADDONUAPLUS #### [address] Glucose [Mass/Vol] 88 mg/dL Normal 70-100 [facility] Comment on above: Order Comment: OTHER TEST FAIL MEDICAL NECESSITY, PT ISN'T DOING THOSE TESTS Result Comment: [facility] Glucose Reference Range is dependent on time and content of last meal. Glucose of more than 200 mg/dL in a nonstressed, ambulatory subject supports the diagnosis of Diabetes Mellitus. ADA recommended reference range Performed By: #### U RDS, ADDONUAPLUS #### [place] [address] [place] Potassium [Moles/Vol] 4.1 mmol/L Normal 3.5-5.1 [facility] Comment on above: Order Comment: OTHER TEST FAIL MEDICAL NECESSITY, PT ISN'T DOING THOSE TESTS Performed By: #### U RDS, ADDONUAPLUS #### [place] [address] [place] Protein [Mass/Vol] 6.8 g/dL Normal 6.4-8.9 [facility] Comment on above: Order Comment: OTHER TEST FAIL MEDICAL NECESSITY, PT ISN'T DOING THOSE TESTS Performed By: #### U RDS, ADDONUAPLUS #### [place] [id number] [place] Sodium [Moles/Vol] 140 mmol/L Normal 136-145 [facility] Comment on above: Order Comment: OTHER TEST FAIL MEDICAL NECESSITY, PT ISN'T DOING THOSE TESTS Performed By: #### U RDS, ADDONUAPLUS #### [address] [place] [address] [facility] Urea nitrogen [Mass/Vol] 18 mg/dL Normal 7-25 [facility] Comment on above: Order Comment: OTHER TEST FAIL MEDICAL NECESSITY, PT ISN'T DOING THOSE TESTS Performed By: #### U RDS, ADDONUAPLUS #### [facility] [address] [place] [id number] [facility] Creatinine [Mass/volume] in Serum or PlasmaOrdered By: Wang Laughlin on 10-01-2024 Creatinine [Mass/Vol] Creatinine [Mass/v olume] in Serum or Plasma 0.70-1.30 [facility] Eosinophils Auto (Bld) [#/Vo l]Ordered By: Wang Laughlin on 10-01-2024 Eosinophils (Bld) [#/Vol] Automated eosinophil count 0.0-0.45 [facility] Eosinophils/100 WBC Auto (Bl d)Ordered By: Wang Laughlin on 10-01-2024 Eosinophils/100 WBC (Bld) Automated eosinophil % . [facility] Erythrocyte distribution wid th Auto (RBC) [Ratio]Ordered By: Wang Laughlin on 10-01-2024 Erythrocyte distribution width (RBC) [Ratio] Erythrocyte distribution width [Ratio] by Automated count 12.0-14.8 [facility] Globulin Calc (S) [Mass/Vol] Ordered By: Wang Laughlin on 10-01-2024 Globulin (S) [Mass/Vol] Serum globulin measurement by calculation (mass/volume) [facility] Glucose [Mass/volume] in Ser um or PlasmaOrdered By: Wang Laughlin on 10-01-2024 Glucose [Mass/Vol] Glucose [Mass/volume ] in Serum or Plasma 70-100 [facility] Comment on above: ADA recommended refe rence rangeRandom Glucose Reference Range is dependent on time and content of last meal. Glucose of more than 200 mg/dL in a nonstressed, ambulatory subject supports the diagnosis of Diabetes Mellitus. Hematocrit Auto (Bld) [Volum e fraction]Ordered By: Wang Laughlin on 10-01-2024 Hematocrit (Bld) [Volume fraction] Hematocrit [Volume Fraction] of Blood by Automated count 38.8-50.0 [facility] Hemoglobin A1c/Hemoglobin.to jordon in BloodOrdered By: Wang Laughlin on 10-01-2024 HbA1c (Bld) [Mass fraction] Hemoglobin A1c percentage High 4.3-5.6 [facility] Comment on above: Increased risk for d iabetes: 5.7 - 6.4diabetes: >6.4glycemic control for adults with diabetes: <7.0 Hemoglobin [Mass/volume] in BloodOrdered By: Wang Laughlin on 10-01-2024 Hemoglobin (Bld) [Mass/Vol] Hemoglobin [Mass/volume] in Blood 13.0-17.0 [facility] Insulinon 10-01-2024 Insulin 9.8 u[iU]/mL Normal 2.6-24.9 [facility] Comment on above: Order Comment: OTHER TEST FAIL MEDICAL NECESSITY, PT ISN'T DOING THOSE TESTS Result Comment: Perf ormed at: [email or web address] [id number] Roller Helper: Raghu Richard PhD, Phone: [phone] Performed By: #### U RDS, ADDONUAPLUS #### [facility] [address] [place] [address] Leukocytes [#/volume] correc erum for nucleated erythrocytes in Blood by Automated counOrdered By: Wang Laughlin on 10-01-2024 WBC corrected for nucl RBC Auto (Bld) [#/Vol] Leukocytes [#/volume] corrected for nucleated erythrocytes in Blood by Automated coun 4.1-10.5 [facility] Lyme, Total Ab with Reflexon 10-01-2024 Lyme Total Antibody Negative Normal Negative [facility] Comment on above: Order Comment: OTHER TEST FAIL MEDICAL NECESSITY, PT ISN'T DOING THOSE TESTS Result Comment: Lyme antibodies not detected. Reflex testing is not indicated. No laboratory evidence of infection with B. burgdorferi (Lyme disease). Negative results may occur in patients recently infected (less than or equal to 14 days) with B. burgdorferi. If recent infection is suspected, repeat testing on a new sample collected in 7 to 14 days is recommended. Performed at: [employer] [facility] [id number] Roller Helper: Raghu Richard PhD, Phone: [phone] PERFORMED BY: [place] [address] PATHOLOGIST COMMERCIAL FLOOR COVERING INSTALLER LAXMI HORTON M.D. Performed By: #### LEROY MASON #### [address] Lymphocytes Auto (Bld) [#/Vo l]Ordered By: Wang Laughlin on 10-01-2024 Lymphocytes (Bld) [#/Vol] Lymphocytes [#/volume] in Blood by Automated count 1.00-4.8 [facility] Lymphocytes/100 WBC Auto (Bl d)Ordered By: Wang Laughlin on 10-01-2024 Lymphocytes/100 WBC (Bld) Lymphocytes/100 leukocytes in Blood by Automated count . [facility] MCH Auto (RBC) [Entitic mass ]Ordered By: Wang Laughlin on 10-01-2024 MCH (RBC) [Entitic mass] MCH [Entitic mass] by Automated count 27.5-35.2 [facility] MCHC Auto (RBC) [Mass/Vol]Or dered By: Wang Laughlin on 10-01-2024 MCHC (RBC) [Mass/Vol] MCHC [Mass/volume] by Automated count 32.5-35.6 [facility] MCV Auto (RBC) [Entitic vol] Ordered By: Wang Laughlin on 10-01-2024 MCV (RBC) [Entitic vol] MCV [Entitic volume] by Automated count 83.5-101 [facility] Monocytes Auto (Bld) [#/Vol] Ordered By: Wagn Laughlin on 10-01-2024 Monocytes (Bld) [#/Vol] Automated blood monocyte count High 0.0-0.8 [facility] Monocytes/100 WBC Auto (Bld) Ordered By: Wang Laughlin on 10-01-2024 Monocytes/100 WBC (Bld) Automated monocyte % . [facility] Neutrophils Auto (Bld) [#/Vo l]Ordered By: Wang Laughlin on 10-01-2024 Neutrophils (Bld) [#/Vol] Neutrophils [#/volume] in Blood by Automated count 1.8-7.7 [facility] Neutrophils/100 WBC Auto (Bl d)Ordered By: Wang Laughlin on 10-01-2024 Neutrophils/100 WBC (Bld) Automated neutrophil % . [facility] No Panel InformationOrdered By: Wang Laughlin on 10-01-2024 Estimated GFR (CKD-EPI) > 60.0 mL/Min [facility] Creatinine Clearance (Chem N/A [facility] Nucleated erythrocytes [Pres ence] in Blood by Automated countOrdered By: Wang Laughlin on 10-01-2024 Nucleated RBC Auto Ql (Bld) Nucleated erythrocytes [Presence] in Blood by Automated count 0-0.5 [facility] Platelet mean volume Auto (B ld) [Entitic vol]Ordered By: Wang Laughlin on 10-01-2024 Platelet mean volume (Bld) [Entitic vol] Platelet mean volume [Entitic volume] in Blood by Automated count 6.6-10.1 [facility] Platelets Auto (Bld) [#/Vol] Ordered By: Wang Laughlin on 10-01-2024 Platelets (Bld) [#/Vol] Platelets [#/volume] in Blood by Automated count 150-450 [facility] Potassium [Moles/volume] in Serum or PlasmaOrdered By: Wang Laughlin on 10-01-2024 Potassium [Moles/Vol] Potassium [Moles/v olume] in Serum or Plasma 3.5-5.1 [facility] Protein [Mass/volume] in Ser um or PlasmaOrdered By: Wang Laughlin on 10-01-2024 Protein [Mass/Vol] Protein [Mass/volume ] in Serum or Plasma 6.4-8.9 [facility] RBC Auto (Bld) [#/Vol]Ordere d By: Wang Laughlin on 10-01-2024 RBC (Bld) [#/Vol] Erythrocytes [#/volu me] in Blood by Automated count 3.90-5.60 [facility] Serum or plasma albumin/glob ulin mass ratioOrdered By: Wang Laughlin on 10-01-2024 Albumin/Globulin [Mass ratio] Serum or plasma albumin/globulin mass ratio [facility] Serum or plasma anion gap de terminationOrdered By: Wang Laughlin on 10-01-2024 Anion gap [Moles/Vol] Serum or plasma an ion gap determination 6.0-15.0 [facility] Serum or plasma insulin eleni urement (units/volume)Ordered By: Wang Laughlin on 10-01-2024 Insulin Qn Serum or plasma insu richie measurement (units/volume) 2.6-24.9 [facility] Comment on above: Performed at: [address] [id number] Director: Raghu Richard PhD, Phone: [phone] Sodium [Moles/volume] in Ser um or PlasmaOrdered By: Wang Laughlin on 10-01-2024 Sodium [Moles/Vol] Sodium [Moles/volume ] in Serum or Plasma 136-145 [facility] Urea nitrogen [Mass/volume] in Serum or PlasmaOrdered By: Wang Laughlin on 10-01-2024 Urea nitrogen [Mass/Vol] Urea nitrogen [Mass/volume] in Serum or Plasma 7-25 [facility] WBC Auto (Bld) [#/Vol]Ordere d By: Wang Laughlin on 10-01-2024 WBC (Bld) [#/Vol] Leukocytes [#/volume ] in Blood by Automated count 4.1-10.5 [facility] CNPNon 09-20-2024 CNPN Telephone (NHMNS2) -- JAMA GREEN ([id number]) 1950 M T Date Time Provider Department 09/20/24 JOSE BABIN [facility] During your visit today, we recorded the following information about you: Hannah Teague 09/20/2024 4:37 PM Signed Call received for Jose Babin MD regarding Jama Green 1950. Caller: Family member: Daughter Patient Identified by Name and : Yes Was permission obtained from patient ? Yes Reason for Call: Other: Patient's daughter would like a nurse to call [facility]. States that her father seems to be getting worse and suffering from Vertigo more and he is very weak. She said that this is an emergency and needs to talk to someone now. Dr. Babin's first available in November, I schedule with Yvonne, she would like to talk to someone to see if this is warranted. Patient's daughter said that he became very dizzy on a walk and felt very weak. Suggested ED, she said that wouldn't help. Last Office Visit: 07/19/2024 Last Distance Health visit: Visit date not found Next scheduled appointment: 09/21/2024 Best number to reach caller: [phone] Best time to reach caller: Is it OK to leave a detailed voice message? Yes Maria De Jesus Rondon, RN 09/20/2024 5:05 PM Signed Called pt and family back Pt walking and bad dizziness today while on his 2 mile/day walk with his dogs.. Stated felt Very weak. BP, POx no fever, all normal once home. Stated feels as if going to pass out. Walks weaving back and forth when occurs Pain in the neck L side on and off/ getting worse Having more frequent bouts of same for the past few weeks. Cardiology has cleared Carotids clear in December [place] better when lifted up neck during exam w/ Dr Babin PT appointment regularly every 2 weeks Exercises been done at home Daughter would like cervical spine x-rayed or imaged Pt wont go to ED. Too costly and dont find anything. PCP appt on afternoon scheduled. Would like to switch to virtual the scheduled appt, for tomorrow. Appt made for tomorrow but daughter unable to bring pt in Recommended pt be seen in ED, [place] if symptoms occur again or get worse. Pt on no medications. Doesn't want any Admin and schedulers notified. Message sent to Dr Babin and provider scheduled for any other advice. Advised message will be sent to provider and follow up will be provided with any further instructions or recommendations. Patient verbalized understanding. Maria De Jesus Sol, RN 09/23/2024 9:28 AM Signed Noted that pt saw PCP 09/22/24 - labs and imaging ordered Allergies As of Date: 09/20/2024 (No Known Allergies) Date Reviewed: 07/19/2024 Reviewed by: Luna Kay MA - Fully Assessed Reason for Visit: Patient Update [1234] Problem List As Of Date 09/20/2024 Noted Resolved Chest pain [R07.9] 04/16/2018 04/17/2018 Sprain of right ankle [S93.401A] 06/02/2018 Pain in right foot [M79.671] 06/02/2018 Swelling [R60.9] 06/02/2018 Chronic GERD [K21.9] 01/10/2022 Benign prostatic hyperplasia without lower urin*01/10/2022 Pancreatic mass [K86.89] 05/26/2023 Other constipation [K59.09] 05/27/2023 05/27/2023 IPMN (intraductal papillary mucinous neoplasm) *05/27/2023 Transaminitis [R74.01] 05/27/2023 05/27/2023 Hepatic steatosis [K76.0] 05/27/2023 Acute biliary pancreatitis with uninfected necr*09/30/2023 10/02/2023 Post-op pain [G89.18] 10/01/2023 S/P laparoscopic cholecystectomy [Z90.49] 10/02/2023 Other specified postprocedural states [Z98.890] 10/07/2023 Encounter Status:Closed by MARIA DE JESUS SOL on 09/23/24 [facility] 07-20-2024 CNPN Telephone (NHMNS2) -- JAMA GREEN ([id number]) 1950 M [facility] Date Time Provider Department 07/20/24 JOSE BABIN [id number] During your visit today, we recorded the following information about you: Graciela Rios 07/20/2024 10:10 AM Signed Call received for Jose Babin MD regarding Jama Green 1950. Caller: Self Patient Identified by Name and : Yes Was permission obtained from patient ? Yes Reason for Call: Orders Type of order requested : Vestibular Therapy Are you going to external facility ? YES. External order to be sent to [facility] at fax number [phone] Last Office Visit: 07/19/24 with [facility] Last Distance Health visit: Visit date not found Next scheduled appointment: Not scheduled. Best number to reach caller: [phone] Best time to reach caller: anytime Is it OK to leave a detailed voice message? Yes Jose Lynch MD 07/20/2024 11:01 AM Signed Script forwarded to you yesterday Thx Eve Davis 07/20/2024 2:11 PM Signed Faxed PT order dated 07/19/2024 and demographic facesheet to facility listed below. Allergies As of Date: 07/20/2024 (No Known Allergies) Date Reviewed: 07/19/2024 Reviewed by: Luna Kay MA - Fully Assessed Reason for Visit: Orders [681] Problem List As Of Date 07/20/2024 Noted Resolved Chest pain [R07.9] 04/16/2018 04/17/2018 Sprain of right ankle [S93.401A] 06/02/2018 Pain in right foot [M79.671] 06/02/2018 Swelling [R60.9] 06/02/2018 Chronic GERD [K21.9] 01/10/2022 Benign prostatic hyperplasia without lower urin*01/10/2022 Pancreatic mass [K86.89] 05/26/2023 Other constipation [K59.09] 05/27/2023 05/27/2023 IPMN (intraductal papillary mucinous neoplasm) *05/27/2023 Transaminitis [R74.01] 05/27/2023 05/27/2023 Hepatic steatosis [K76.0] 05/27/2023 Acute biliary pancreatitis with uninfected necr*09/30/2023 10/02/2023 Post-op pain [G89.18] 10/01/2023 S/P laparoscopic cholecystectomy [Z90.49] 10/02/2023 Other specified postprocedural states [Z98.890] 10/07/2023 Encounter Status:Closed by JOSE BABIN on 07/20/24 [facility] CNOVon 07-19-2024 CNOV Office Visit (NEUVMS ) -- JAMA GREEN ([id number]) 1950 M [facility] Date Time Provider Department 07/19/24 3:00 PM JOSE BABIN NEUVMS During your visit today, we recorded the following information about you: Pulse Blood pressure Weight Height 79/minute 149/78 89.5 kg 1.778 m Jose Babin MD 07/20/2024 11:29 PM Addendum OTONEUROLOGY CONSULTATION Referral source: Brandan Harrington PA (pcp) Chief Complaint: Dizziness: a slow turning sensation Off balanced Problems with concentration ########################## ########################## ############## ########################## ########################## ############## Impressions: Complex issues of dizziness, imbalance, and neck pain. Possibe overlap between a peripheral vestibular disturbance and abnormal upper cervical spine biomechanics. Initial onset may have been related to an acute peripheral vestibular event. Residual symptoms may be cervically-mediated. Disorders include: Possible peripheral vestibular disturbance on the right (neurolabyrinthitis) at some point in time. Patient manifests an asymmetry of upper cervical spine biomechanics. This may be the consequence of the combination of a peripheral vestibular disorder, trauma, arthritis, and posture. This may underlie issues of cervicalgia and may interfere with vestibular compensation. Recommendations/Plan: Physical therapy: cervical / vestibular - [facility] Further testing: none at this time Medications: May consider a medication such as gabapentin or duloxetine Follow-up: PRN. Patient to contact us after PT has been completed ########################## ########################## ############## ########################## ########################## ############## ########################## ########################## ############## History: Preceding URI symptoms: No Onset of symptoms: In usual state of health until 12/24/2023. (1st week of December - tick bite / red area / tested negative for Lyme though was put on doxycycline for two weeks though d/c after 4 days - started to feel dizzy / presyncope) About one week later, onset of severe dizziness and nausea after doing work in the yard (chainsaw / cutting trees). Had difficulty walking up steps. Started to vomit. EMS to Er / hosp x 5 days. Nothing found. The severe dizziness lasted at least 24 hours. Ongoing / no sig change except for one day of no dizziness last week for 6-8 hours Now: Dizziness: a slow turning sensation Constant w/ fluctuation (ave - severe ) Worse with looking up / down Off balanced Problems with concentration ########################## ########################## ############## # Dizziness # # Inc Dec N/C Visual motion sens. 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 # Bending Store: Y # Upon Up # # Stress x # # Time of Day x # ########################## ########################## ############## Vestibular: Dizziness: (see hpi) Imbalance: on/off - worse when more dizzy Veering: R/L Falls: x1 into the wall (was going to the right?) Hearing: I just ordered hearing aids / bad / worse on the right - gradual decline Tinnitus: intermittent AU - Ringing x yrs Left ear - sloshing sound at times - over the past few months No clear correlation with the dizziness Can hear it at times when sitting Musculosketal Ear: none Neck: sides of neck (below the ear) - sharp - on/off, over the past 3-4 weeks - 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 Self-massage is of benefit Headaches: Denies ########################## ########################## ############## Review of Systems: General: Energy: good Sleep: poor / newer issue - not sure why Insomnia - Yes Frequent awakenings - Yes Weakness: generalized at times / no clear correlation with the dizziness Sensory: normal GI - Bowel dysfunction: normal - Bladder dysfunction: normal Visual dysfunction: worse over time Wears glasses - for reading Swallow problems: normal Cardiac: Chest pain: no Orthstatic Intolerance: LOC - no Palp - none Pulmonary: Dyspnea on Exertion: none Psychiatry: Anxiety / Depression: none ########################## ########################## ############## The diagnostic work-up for this problem thus far has included: Consultation Dx Date Location Er/Hosp y vestibular neuritis PCP y ENT Y Neuro Marlin Mcknight ([facility]) - ? Cards M Faulx - evaluation of lightheadedness and malaise. (03/15/24) - His history and exam are otherwise reassuring without evidence of cardiac pathology. Given that this all began after tooth extraction, our highest suspicion would be for vestibul (more content not included)... Normal [facility] A1C with Estimated Average [facility] 07-08-2024 Glucose [Mass/Vol] 128 mg/dL Normal [facility] Comment on above: Result Comment: PERF ORMED BY: [facility] [address] [place] [address] PATHOLOGIST COMMERCIAL FLOOR COVERING INSTALLER LAXIM HORTON M.D. Performed By: #### L YME AB wRFX #### [facility] , HbA1c (Bld) [Mass fraction] 6.1 % High 4.3-5.6 [facility] Comment on above: Result Comment: Incr eased risk for diabetes: 5.7 - 6.4 diabetes: >6.4 glycemic control for adults with diabetes: <7.0 Performed By: #### L YME AB wRFX #### [facility] , Alanine aminotransferase [En zymatic activity/volume] in Serum or PlasmaOrdered By: Jessie Hammond on 07-08-2024 ALT [Catalytic activity/Vol] Alanine aminotransferase [Enzymatic activity/volume] in Serum or Plasma [facility] Albumin [Mass/volume] in Ser um or Plasma by Bromocresol green (BCG) dye binding methoOrdered By: Jessie Hammond on 07-08-2024 Albumin BCG dye [Mass/Vol] Albumin [Mass/volume] in Serum or Plasma by Bromocresol green (BCG) dye binding metho 3.5-5.7 [facility] Alkaline phosphatase [Enzyma tic activity/volume] in Serum or PlasmaOrdered By: Jessie Hammond on 07-08-2024 ALP [Catalytic activity/Vol] Alkaline phosphatase [Enzymatic activity/volume] in Serum or Plasma 34-104 [facility] Aspartate aminotransferase [ Enzymatic activity/volume] in Serum or PlasmaOrdered By: Jessie Hammond on 07-08-2024 AST [Catalytic activity/Vol] Aspartate aminotransferase [Enzymatic activity/volume] in Serum or Plasma 13-39 [facility] Basophils Auto (Bld) [#/Vol] Ordered By: Jessie Hammond on 07-08-2024 Basophils (Bld) [#/Vol] Automated basophil count 0.0-0.2 [facility] Basophils/100 WBC Auto (Bld) Ordered By: Jessie Hammond on 07-08-2024 Basophils/100 WBC (Bld) Automated basophil % . [facility] Bilirubin.total [Mass/volume ] in Serum or PlasmaOrdered By: Jessie Hammond on 07-08-2024 Bilirubin [Mass/Vol] Bilirubin.total [Mass/volume] in Serum or Plasma 0.3-1.0 [facility] Blood estimated average gluc ose determination by estimation from glycated hemoglobinOrdered By: Jessie Hammond on 07-08-2024 Average glucose Estimated from glycated hemoglobin (Bld) [Mass/Vol] Glucose mean value [Mass/volume] in Blood Estimated from glycated hemoglobin [facility] Calcium [Mass/volume] in Ser um or PlasmaOrdered By: Jessie Hammond on 07-08-2024 Calcium [Mass/Vol] Calcium [Mass/volume ] in Serum or Plasma 8.6-10.3 [facility] Carbon dioxide, total [Moles /volume] in Serum or PlasmaOrdered By: Jessie Hammond on 07-08-2024 CO2 [Moles/Vol] Carbon dioxide, tota l [Moles/volume] in Serum or Plasma 21.0-31.0 [facility] Chloride [Moles/volume] in S bairon or PlasmaOrdered By: Jessie Hammond on 07-08-2024 Chloride [Moles/Vol] Chloride [Moles/vol ume] in Serum or Plasma 98-107 [facility] Complete Blood Count Auto Di ffon 07-08-2024 Basophils (Bld) [#/Vol] 0.1 10*3/uL Normal 0.0-0.2 [facility] Comment on above: Result Comment: PERF ORMED BY: [place] [address] PATHOLOGIST COMMERCIAL FLOOR COVERING INSTALLER LAXMI HORTON M.D. Performed By: #### U RDS, ADDONUAPLUS #### [address] Basophils/100 WBC (Bld) 1.1 % Normal . [facility] Comment on above: Performed By: #### U RDS, ADDONUAPLUS #### [address] Eosinophils (Bld) [#/Vol] 0.1 10*3/uL Normal 0.0-0.45 [facility] Comment on above: Performed By: #### U RDS, ADDONUAPLUS #### [address] Eosinophils/100 WBC (Bld) 0.7 % Normal . [facility] Comment on above: Performed By: #### U RDS, ADDONUAPLUS #### [address] Erythrocyte distribution width (RBC) [Ratio] 13.2 % Normal 12.0-14.8 [facility] Comment on above: Performed By: #### U RDS, ADDONUAPLUS #### [address] Hematocrit (Bld) [Volume fraction] 43.4 % Normal 38.8-50.0 [facility] Comment on above: Performed By: #### U RDS, ADDONUAPLUS #### [address] Hemoglobin (Bld) [Mass/Vol] 14.7 g/dL Normal 13.0-17.0 [facility] Comment on above: Performed By: #### U RDS, ADDONUAPLUS #### [address] Lymphocytes (Bld) [#/Vol] 2.8 10*3/uL Normal 1.00-4.8 [facility] Comment on above: Performed By: #### U RDS, ADDONUAPLUS #### [address] Lymphocytes/100 WBC (Bld) 31.0 % Normal . [facility] Comment on above: Performed By: #### U RDS, ADDONUAPLUS #### [address] MCH (RBC) [Entitic mass] 33.2 pg Normal 27.5-35.2 [facility] Comment on above: Performed By: #### U RDS, ADDONUAPLUS #### [address] MCV (RBC) [Entitic vol] 98.2 fL Normal 83.5-101 [facility] Comment on above: Performed By: #### U RDS, ADDONUAPLUS #### [address] Mean Corpuscular HGB Conc 33.8 g/dL Normal 32.5-35.6 [facility] Comment on above: Performed By: #### U RDS, ADDONUAPLUS #### [address] Monocytes (Bld) [#/Vol] 0.9 10*3/uL High 0.0-0.8 [facility] Comment on above: Performed By: #### U RDS, ADDONUAPLUS #### [place] [address] [place] Monocytes/100 WBC (Bld) 9.8 % Normal . [facility] Comment on above: Performed By: #### U RDS, ADDONUAPLUS #### [address] Neutrophils (Bld) [#/Vol] 5.1 10*3/uL Normal 1.8-7.7 [facility] Comment on above: Performed By: #### U RDS, ADDONUAPLUS #### [address] Neutrophils/100 WBC (Bld) 57.4 % Normal . [facility] Comment on above: Performed By: #### U RDS, ADDONUAPLUS #### [address] NRBC% 0.1 /100{WBC} Normal 0-0.5 [facility] Comment on above: Performed By: #### U RDS, ADDONUAPLUS #### [address] Platelet mean volume (Bld) [Entitic vol] 7.9 fL Normal 6.6-10.1 [facility] Comment on above: Performed By: #### U RDS, ADDONUAPLUS #### [address] Platelets (Bld) [#/Vol] 248 10*3/uL Normal 150-450 [facility] Comment on above: Performed By: #### U RDS, ADDONUAPLUS #### [address] RBC (Bld) [#/Vol] 4.42 10*6/uL Normal 3.90-5.60 [facility] Comment on above: Performed By: #### U RDS, ADDONUAPLUS #### [address] WBC (Bld) [#/Vol] 8.9 10*3/uL Normal 4.1-10.5 [facility] Comment on above: Performed By: #### U RDS, ADDONUAPLUS #### [address] Comprehensive Metabolic Pane umair 07-08-2024 Albumin [Mass/Vol] 4.0 g/dL Normal 3.5-5.7 [facility] Comment on above: Performed By: #### U RDS, ADDONUAPLUS #### [address] Albumin/Globulin [Mass ratio] 1.5 {ratio} Normal [facility] Comment on above: Performed By: #### U RDS, ADDONUAPLUS #### [address] ALP [Catalytic activity/Vol] 69 U/L Normal 34-104 [facility] Comment on above: Performed By: #### U RDS, ADDONUAPLUS #### [address] ALT [Catalytic activity/Vol] 23 U/L Normal 7-52 [facility] Comment on above: Performed By: #### U RDS, ADDONUAPLUS #### [address] Anion gap [Moles/Vol] 10.5 mmol/L Normal 6.0-15.0 [facility] Comment on above: Performed By: #### U RDS, ADDONUAPLUS #### [address] AST [Catalytic activity/Vol] 24 U/L Normal 13-39 [facility] Comment on above: Performed By: #### U RDS, ADDONUAPLUS #### [address] Bilirubin [Mass/Vol] 0.5 mg/dL Normal 0.3-1.0 [facility] Comment on above: Performed By: #### U RDS, ADDONUAPLUS #### [address] Calcium [Mass/Vol] 9.0 mg/dL Normal 8.6-10.3 [facility] Comment on above: Performed By: #### U RDS, ADDONUAPLUS #### [place] [address] [place] Chloride [Moles/Vol] 105 mmol/L Normal 98-107 [facility] Comment on above: Performed By: #### U RDS, ADDONUAPLUS #### [place] [address] [place] CO2 [Moles/Vol] 27.5 mmol/L Normal 21.0-31.0 [facility] Comment on above: Performed By: #### U RDS, ADDONUAPLUS #### [address] [address] Creatinine [Mass/Vol] 0.90 mg/dL Normal 0.70-1.30 [facility] Comment on above: Performed By: #### U RDS, ADDONUAPLUS #### [place] [address] [place] GFR/1.73 sq M.predicted MDRD (S/P/Bld) [Vol rate/Area] mL/min/{1.73_m2} Normal [facility] Comment on above: Performed By: #### U RDS, ADDONUAPLUS #### [place] [address] [place] Globulin (S) [Mass/Vol] 2.7 g/dL Normal [facility] Comment on above: Performed By: #### U RDS, ADDONUAPLUS #### [address] Glucose [Mass/Vol] 107 mg/dL High 70-100 [facility] Comment on above: Result Comment: [place] Glucose Reference Range is dependent on time and content of last meal. Glucose of more than 200 mg/dL in a nonstressed, ambulatory subject supports the diagnosis of Diabetes Mellitus. ADA recommended reference range Performed By: #### U RDS, ADDONUAPLUS #### [place] [address] [place] Potassium [Moles/Vol] 4.0 mmol/L Normal 3.5-5.1 [facility] Comment on above: Performed By: #### U RDS, ADDONUAPLUS #### [place] [address] [place] Protein [Mass/Vol] 6.7 g/dL Normal 6.4-8.9 [facility] Comment on above: Performed By: #### U RDS, ADDONUAPLUS #### [place] [address] [place] Sodium [Moles/Vol] 139 mmol/L Normal 136-145 [facility] Comment on above: Performed By: #### U SWATI, ADDONUAPLUS #### [facility] [address] Urea nitrogen [Mass/Vol] 17 mg/dL Normal 7-25 [facility] Comment on above: Performed By: #### U SWATI, ADDONUAPLUS #### [facility] [address] [place] [address] [place] Creatinine [Mass/volume] in Serum or PlasmaOrdered By: Jessie Hammond on 07-08-2024 Creatinine [Mass/Vol] Creatinine [Mass/v olume] in Serum or Plasma 0.70-1.30 [facility] Eosinophils Auto (Bld) [#/Vo l]Ordered By: Jessie Hammond on 07-08-2024 Eosinophils (Bld) [#/Vol] Automated eosinophil count 0.0-0.45 [facility] Eosinophils/100 WBC Auto (Bl d)Ordered By: Jessie Hammond on 07-08-2024 Eosinophils/100 WBC (Bld) Automated eosinophil % . [facility] Erythrocyte distribution wid th Auto (RBC) [Ratio]Ordered By: Jessie Hammond on 07-08-2024 Erythrocyte distribution width (RBC) [Ratio] Erythrocyte distribution width [Ratio] by Automated count 12.0-14.8 [facility] Folateon 07-08-2024 Folate 15.9 ng/mL Normal >5.9 [facility] Comment on above: Result Comment: [place] reference range: >5.9 ng/ml The WHO technical consultation on folate and vitamin b12 deficiencies has determined that folate concentrations less than 4 ng/ml are considered deficient. Performed By: #### U SWATI, ADDONUAPLUS #### [facility] [address] [place] [address] [place] Folate [Mass/volume] in Seru m or PlasmaOrdered By: Jessie Hammond on 07-08-2024 Folate [Mass/Vol] Folate [Mass/volume] in Serum or Plasma >5.9 [facility] Comment on above: Folate reference ran ge: >5.9 ng/mlThe WHO technical consultation on folate and vitamin [id number] has determined that folate concentrations lessthan 4 ng/ml are considered deficient. Globulin Calc (S) [Mass/Vol] Ordered By: Jessie Hammond on 07-08-2024 Globulin (S) [Mass/Vol] Serum globulin measurement by calculation (mass/volume) [facility] Glucose [Mass/volume] in Ser um or PlasmaOrdered By: Jessie Hammond on 07-08-2024 Glucose [Mass/Vol] Glucose [Mass/volume ] in Serum or Plasma High 70-100 [facility] Comment on above: ADA recommended refe rence rangeRandom Glucose Reference Range is dependent on time and content of last meal. Glucose of more than 200 mg/dL in a nonstressed, ambulatory subject supports the diagnosis of Diabetes Mellitus. Hematocrit Auto (Bld) [Volum e fraction]Ordered By: Jessie Hammond on 07-08-2024 Hematocrit (Bld) [Volume fraction] Hematocrit [Volume Fraction] of Blood by Automated count 38.8-50.0 [facility] Hemoglobin A1c/Hemoglobin.to jordon in BloodOrdered By: Jessie Hammond on 07-08-2024 HbA1c (Bld) [Mass fraction] Hemoglobin A1c percentage High 4.3-5.6 [facility] Comment on above: Increased risk for d iabetes: 5.7 - 6.4diabetes: >6.4glycemic control for adults with diabetes: <7.0 Hemoglobin [Mass/volume] in BloodOrdered By: Jessie Hammond on 07-08-2024 Hemoglobin (Bld) [Mass/Vol] Hemoglobin [Mass/volume] in Blood 13.0-17.0 [facility] Leukocytes [#/volume] correc erum for nucleated erythrocytes in Blood by Automated counOrdered By: Jessie Hammond on 07-08-2024 WBC corrected for nucl RBC Auto (Bld) [#/Vol] Leukocytes [#/volume] corrected for nucleated erythrocytes in Blood by Automated coun 4.1-10.5 [facility] Lymphocytes Auto (Bld) [#/Vo l]Ordered By: Jessie Hammond on 07-08-2024 Lymphocytes (Bld) [#/Vol] Lymphocytes [#/volume] in Blood by Automated count 1.00-4.8 [facility] Lymphocytes/100 WBC Auto (Bl d)Ordered By: Jessie Hammond on 07-08-2024 Lymphocytes/100 WBC (Bld) Lymphocytes/100 leukocytes in Blood by Automated count . [facility] MCH Auto (RBC) [Entitic mass ]Ordered By: Jessie Hammond on 07-08-2024 MCH (RBC) [Entitic mass] MCH [Entitic mass] by Automated count 27.5-35.2 [facility] MCHC Auto (RBC) [Mass/Vol]Or dered By: Jessie Hammond on 07-08-2024 MCHC (RBC) [Mass/Vol] MCHC [Mass/volume] by Automated count 32.5-35.6 [facility] MCV Auto (RBC) [Entitic vol] Ordered By: Jessie Hammond on 07-08-2024 MCV (RBC) [Entitic vol] MCV [Entitic volume] by Automated count 83.5-101 [facility] Monocytes Auto (Bld) [#/Vol] Ordered By: Jessie Hammond on 07-08-2024 Monocytes (Bld) [#/Vol] Automated blood monocyte count High 0.0-0.8 [facility] Monocytes/100 WBC Auto (Bld) Ordered By: Jessie Hammond on 07-08-2024 Monocytes/100 WBC (Bld) Automated monocyte % . [facility] Neutrophils Auto (Bld) [#/Vo l]Ordered By: Jessie Hammond on 07-08-2024 Neutrophils (Bld) [#/Vol] Neutrophils [#/volume] in Blood by Automated count 1.8-7.7 [facility] Neutrophils/100 WBC Auto (Bl d)Ordered By: Jessie Hammond on 07-08-2024 Neutrophils/100 WBC (Bld) Automated neutrophil % . [facility] No Panel InformationOrdered By: Jessie Hammond on 07-08-2024 Estimated GFR (CKD-EPI) > 60.0 mL/Min [facility] Creatinine Clearance (Chem N/A [facility] Nucleated erythrocytes [Pres ence] in Blood by Automated countOrdered By: Jessie Hammond on 07-08-2024 Nucleated RBC Auto Ql (Bld) Nucleated erythrocytes [Presence] in Blood by Automated count 0-0.5 [facility] Platelet mean volume Auto (B ld) [Entitic vol]Ordered By: Jessie Hammond on 07-08-2024 Platelet mean volume (Bld) [Entitic vol] Platelet mean volume [Entitic volume] in Blood by Automated count 6.6-10.1 [facility] Platelets Auto (Bld) [#/Vol] Ordered By: Jessie Hammond on 07-08-2024 Platelets (Bld) [#/Vol] Platelets [#/volume] in Blood by Automated count 150-450 [facility] Potassium [Moles/volume] in Serum or PlasmaOrdered By: Jessie Hammond on 07-08-2024 Potassium [Moles/Vol] Potassium [Moles/v olume] in Serum or Plasma 3.5-5.1 [facility] Protein [Mass/volume] in Ser um or PlasmaOrdered By: Jessie Hammond on 07-08-2024 Protein [Mass/Vol] Protein [Mass/volume ] in Serum or Plasma 6.4-8.9 [facility] RBC Auto (Bld) [#/Vol]Ordere d By: Jessie Hammond on 07-08-2024 RBC (Bld) [#/Vol] Erythrocytes [#/volu me] in Blood by Automated count 3.90-5.60 [facility] Serum or plasma albumin/glob ulin mass ratioOrdered By: Jessie Hammond on 07-08-2024 Albumin/Globulin [Mass ratio] Serum or plasma albumin/globulin mass ratio [facility] Serum or plasma anion gap de terminationOrdered By: Jessie Hammond on 07-08-2024 Anion gap [Moles/Vol] Serum or plasma an ion gap determination 6.0-15.0 [facility] Sodium [Moles/volume] in Ser um or PlasmaOrdered By: Jessie Hammond on 07-08-2024 Sodium [Moles/Vol] Sodium [Moles/volume ] in Serum or Plasma 136-145 [facility] Thyroid Stimulating Hormoneo n 07-08-2024 TSH Qn 0.78 m[IU]/L Normal 0.45-5.33 [facility] Comment on above: Performed By: #### U RDS, ADDONUAPLUS #### [facility] [address] [place] [id number] [facility] Thyrotropin [Units/volume] i n Serum or PlasmaOrdered By: Jessie Hammond on 07-08-2024 TSH Qn Thyrotropin [Units/v olume] in Serum or Plasma 0.45-5.33 [facility] Urea nitrogen [Mass/volume] in Serum or PlasmaOrdered By: Jessie Hammond on 07-08-2024 Urea nitrogen [Mass/Vol] Urea nitrogen [Mass/volume] in Serum or Plasma 7-25 [facility] Vitamin B12on 07-08-2024 Cobalamin (Vitamin B12) [Mass/Vol] 225 pg/mL Normal 180-914 [facility] Comment on above: Performed By: #### U RDS, ADDONUAPLUS #### [facility] [address] [place] [id number] [facility] Vitamin B12 ser/plasOrdered By: Jessie Hammond on 07-08-2024 Cobalamin (Vitamin B12) [Mass/Vol] Vitamin B12 ser/plas 180-914 [facility] Vitamin D 25 Hydroxy Totalon 07-08-2024 Vitamin D 25 Hydroxy Total 11.6 ng/mL Low 30-100 [facility] Comment on above: Result Comment: KIRAN MIN D STATUS 25(OH)VITAMIN D RANGE (ng/mL) Deficient <20 Insufficient 20 to <30 Sufficient 30 to 100 Reference: Shanique MF,Rayna NC, Vijaya CHRISTINA, et al. Evaluation,treatment, and prevention of vitamin D deficiency; an Endocrine Society clinical practice guideline. JCEM. 2010; 96(7):1911-30. PERFORMED BY: [facility] [address] [place] [id number] PATHOLOGIST [employer] INST[employer]ER LAXMI HORTON M.D. Performed By: #### L YME AB wRFX #### [facility] , Vitamin D+Metabolites [Mass/ volume] in Serum or PlasmaOrdered By: Jessie Hammond on 07-08-2024 Vitamin D+Metabolites [Mass/Vol] Vitamin D+Metabolites [Mass/volume] in Serum or Plasma Low 30-100 [facility] Comment on above: VITAMIN D STATUS 25( [place])VITAMIN D RANGE (ng/mL) Deficient <20 Insufficient 20 to <30Sufficient 30 to 100Reference: Shanique MF,Rayna RODRIGUEZ, Vijaya CHRISTINA, et al. Evaluation,treatment, and prevention of vitamin D deficiency; an Endocrine Society clinical practice guideline. JCEM. 2010; 96(7):1911-30. WBC Auto (Bld) [#/Vol]Ordere d By: Jessie Hammond on 07-08-2024 WBC (Bld) [#/Vol] Leukocytes [#/volume ] in Blood by Automated count 4.1-10.5 [facility] CNPNon 04-26-2024 CNPN Telephone (NECVS8) -- JAMA GREEN ([id number]) 1950 [facility] Date Time Provider Department 04/26/24 NEUROLOGY PROVIDER NECVS8 During your visit today, we recorded the following information about you: Tatiana Dickson 04/26/2024 12:22 PM Signed CV PHONE Name of caller : Cassandra Relationship to patient : Daugther If not self Will need patient permission to release results or disclose health information with called documented in fyi. Patient identified by Name and Date of . ( Jama Green, 1950). Yes Number to return call [phone] Reason for Call: Patient's daughter is calling to advise is unable to assist with appointment. Patient is frustrated with Zoom and prefers to cancel appointment. Patient does not have Hx of Stroke. Patient daughter wanted to discuss his diagnosis to ensure this is an appropriate appointment. I encouraged his daughter Cassandra to call back and reschedule at later day if she prefers. She acknowledged understanding. No new appointment schedule at this time. FYI. Thank you calling [facility]. You will receive a return call within 48 hours ( or 2 business days if close to the weekend). If you feel that this is an urgent issue and needs immediate attention, it is recommended that you contact your primary care provider office or proceed to your nearest Urgent Care Center of Emergency Room ED for evaluation/treatment. Allergies As of Date: 04/26/2024 (No Known Allergies) Date Reviewed: 03/15/2024 Reviewed by: Izabela White MA - Fully Assessed Reason for Visit: Patient Question [5757] Prescriptions as of 06/07/2024 - Tadalafil (CIALIS) 5 mg tablet Take 1 tablet by mouth once daily as needed. Take 1-2 hours before sexual activity. - tamsulosin (FLOMAX) 0.4 mg Take 1 capsule by mouth once daily. - famotidine (PEPCID) 20 mg tablet 1 tablet by ORAL/FEEDING TUBE route two times a day as needed (heartburn). - Senna 8.6 mg tab Take 1 tablet by mouth two times a day. Problem List As Of Date 04/26/2024 Noted Resolved Chest pain [R07.9] 04/16/2018 04/17/2018 Sprain of right ankle [S93.401A] 06/02/2018 Pain in right foot [M79.671] 06/02/2018 Swelling [R60.9] 06/02/2018 Chronic GERD [K21.9] 01/10/2022 Benign prostatic hyperplasia without lower urin*01/10/2022 Pancreatic mass [K86.89] 05/26/2023 Other constipation [K59.09] 05/27/2023 05/27/2023 IPMN (intraductal papillary mucinous neoplasm) *05/27/2023 Transaminitis [R74.01] 05/27/2023 05/27/2023 Hepatic steatosis [K76.0] 05/27/2023 Acute biliary pancreatitis with uninfected necr*09/30/2023 10/02/2023 Post-op pain [G89.18] 10/01/2023 S/P laparoscopic cholecystectomy [Z90.49] 10/02/2023 Other specified postprocedural states [Z98.890] 10/07/2023 Encounter Status:Closed by TATIANA DICKSON on 06/07/24 Normal [facility] Activated partial thrombopla stin time (aPTT) in platelet poor plasma by coagulation aOrdered By: Love Tinsley on 04-09-2024 aPTT Coag (PPP) [Time] 29.6 s 25.1-36.5 [facility] Comment on above: A hematocrit value g reater than 55% may lead to inaccurate results in coagulation testing. Patients having hematocrit values >55% require a special collection tube for coagulation studies. Please contact the laboratory at [phone] for redraw instructions. Amylase [Enzymatic activity/ volume] in Serum or PlasmaOrdered By: Love Tinsley on 04-09-2024 Amylase [Catalytic activity/Vol] 66 U/L Normal 29-103 [facility] Comment on above: Performed By: #### U A, ADDONUAPLUS #### [address] Automated basophil %Ordered By: Love Tinsley on 04-09-2024 Basophils/100 WBC (Bld) 0.6 % Normal . [facility] Comment on above: Performed By: #### U A, ADDONUAPLUS #### [address] Automated basophil countOrde red By: Love Tinsley on 04-09-2024 Basophils (Bld) [#/Vol] 0.1 10*3/uL Normal 0.0-0.2 [facility] Comment on above: Result Comment: PERF ORMED BY: [place] [address] PATHOLOGIST [employer]ER MINESH MARTINES M.D. Performed By: #### U A, ADDONUAPLUS #### [address] Automated blood monocyte cou ntOrdered By: Love Tinsley on 04-09-2024 Monocytes (Bld) [#/Vol] 0.9 10*3/uL High 0.0-0.8 [facility] Comment on above: Performed By: #### U A, ADDONUAPLUS #### [address] Automated eosinophil %Ordere d By: Love Tinsley on 04-09-2024 Eosinophils/100 WBC (Bld) 2.4 % Normal . [facility] Comment on above: Performed By: #### U A, ADDONUAPLUS #### [address] Automated eosinophil countOr dered By: Love Tinsley on 04-09-2024 Eosinophils (Bld) [#/Vol] 0.2 10*3/uL Normal 0.0-0.45 [facility] Comment on above: Performed By: #### U A, ADDONUAPLUS #### [address] Automated monocyte %Ordered By: Love Tinsley on 04-09-2024 Monocytes/100 WBC (Bld) 10.7 % Normal . [facility] Comment on above: Performed By: #### U A, ADDONUAPLUS #### [address] Automated neutrophil %Ordere d By: Love Tinsley on 04-09-2024 Neutrophils/100 WBC (Bld) 51.9 % Normal . [facility] Comment on above: Performed By: #### U A, ADDONUAPLUS #### [address] BNP ser/plasOrdered By: Love Tinsley on 04-09-2024 Natriuretic peptide B (Bld) [Mass/Vol] 31.0 pg/mL Normal 5-100 [facility] Comment on above: Result Comment: PERF ORMED BY: [place] [address] PATHOLOGIST [employer] INST[employer]ER MINESH MARTINES M.D. Performed By: #### U A, ADDONUAPLUS #### [facility] [address] [place] [address] Bacteria [Presence] in Urine by AutomatedOrdered By: Love Tinsley on 04-09-2024 Bacteria Auto Ql (U) None seen [HPF] None Seen [facility] Basic Metabolic Panelon 03-18 Creatinine Clr Calc Pharmacy 76.33 Normal [facility] Comment on above: Performed By: #### U A, ADDONUAPLUS #### [address] GFR/1.73 sq M.predicted MDRD (S/P/Bld) [Vol rate/Area] mL/min/{1.73_m2} Normal [facility] Comment on above: Performed By: #### U A, ADDONUAPLUS #### [address] Bilirubin Test strip Ql (U)O rdered By: Love Tinsley on 04-09-2024 Bilirubin Ql (U) Negative Negative [facility] Calcium [Mass/volume] in Ser um or PlasmaOrdered By: Love Tinsley on 04-09-2024 Calcium [Mass/Vol] 8.8 mg/dL Normal 8.6-10.3 [facility] Comment on above: Performed By: #### U A, ADDONUAPLUS #### [address] Capillary blood glucose eleni urement by glucometer (mass/volume)Ordered By: Love Tinsley on 04-09-2024 Glucose [Mass/Vol] 95 mg/dL Normal [facility] Comment on above: Random Glucose Refer ence Range is dependent on time and content of last meal. Glucose of more than 200 mg/dL in a nonstressed, ambulatory subject supports the diagnosis of Diabetes Mellitus. Result Comment: [place] om Glucose Reference Range is dependent on time and content of last meal. Glucose of more than 200 mg/dL in a nonstressed, ambulatory subject supports the diagnosis of Diabetes Mellitus. PERFORMED BY: [place] [address] PATHOLOGIST [employer] INST[employer]ER MINESH MARTINES M.D. Performed By: #### G LEILANI #### Point of Care testing , Carbon dioxide, total [Moles /volume] in Serum or PlasmaOrdered By: Love Tinsley on 04-09-2024 CO2 [Moles/Vol] 24.2 mmol/L Normal 21.0-31.0 [facility] Comment on above: Performed By: #### U A, ADDONUAPLUS #### [place] [address] [place] Chloride [Moles/volume] in S bairon or PlasmaOrdered By: Love Tinsley on 04-09-2024 Chloride [Moles/Vol] 105 mmol/L Normal 98-107 [facility] Comment on above: Performed By: #### U A, ADDONUAPLUS #### [address] Color of Urine by AutoOrdere d By: Love Tinsley on 04-09-2024 Color (U) Light-yellow Normal Yellow [facility] Comment on above: Order Comment: Name Collection Type:: Clean-Voided Midstream Performed By: #### U A, ADDONUAPLUS #### [address] Complete Blood Count Auto Di ffon 04-09-2024 Mean Corpuscular HGB Conc 34.2 g/dL Normal 32.5-35.6 [facility] Comment on above: Performed By: #### U A, ADDONUAPLUS #### [place] [address] [place] Monocytes/100 WBC (Bld) 16.11 % Normal 0.00-20.00 [facility] Comment on above: Performed By: #### U A, ADDONUAPLUS #### [address] NRBC% 0.1 /100{WBC} Normal 0-0.5 [facility] Comment on above: Performed By: #### U A, ADDONUAPLUS #### [place] [address] [place] Creatine kinase [Enzymatic a ctivity/volume] in Serum or PlasmaOrdered By: Love Tinsley on 04-09-2024 CK [Catalytic activity/Vol] 189 U/L Normal 30-223 [facility] Comment on above: Performed By: #### U A, ADDONUAPLUS #### [place] [address] [place] Creatinine [Mass/volume] in Serum or PlasmaOrdered By: Love Tinsley on 04-09-2024 Creatinine [Mass/Vol] 0.89 mg/dL Normal 0.70-1.30 [facility] Comment on above: Performed By: #### U A, ADDONUAPLUS #### [facility] [address] [place] [address] [place] Dipstick and Microscopicon 0 04-09-2024 Bacteria,Urine None Seen Normal None Seen [facility] Comment on above: Order Comment: Name Collection Type:: Clean-Voided Midstream Performed By: #### U A, ADDONUAPLUS #### [place] [address] [place] Hyaline Casts,Urine None Normal 0-8 [facility] Comment on above: Order Comment: Name Collection Type:: Clean-Voided Midstream Performed By: #### U A, ADDONUAPLUS #### [place] [address] [place] Mucus,Urine Rare Normal [facility] Comment on above: Order Comment: Name Collection Type:: Clean-Voided Midstream Result Comment: PERF ORMED BY: [place] [address] PATHOLOGIST [employer] INST[employer]ER MINESH MARTINES M.D. Performed By: #### U A, ADDONUAPLUS #### [place] [address] [place] RBC,Urine 1-2 Normal 0-4 [facility] Comment on above: Order Comment: Name Collection Type:: Clean-Voided Midstream Performed By: #### U A, ADDONUAPLUS #### [place] [address] [place] WBC,Urine 1-2 Normal 0-4 [facility] Comment on above: Order Comment: Name Collection Type:: Clean-Voided Midstream Performed By: #### U A, ADDONUAPLUS #### [place] [address] [place] ECG 12 lead ECGon 04-09-2024 ECG 12 lead ECG [facility] [place] [address] [place] [address] Electrocardiograph Report Signed Patient: Jama Green MR#: [id number] 122 : 1950 Acct:[id number] Age/Sex: 74 / M ADM Date: 04/09/24 Loc: ER Room: Type: [facility] ER Attending Dr: Ordering Provider: Love Tinsley MD Date of Service: 04/09/24 ECG/ECG 12 lead ECG: blurry vision, dizzy Copies to: Test Reason : Blood Pressure : 143/73 mmHG Vent. Rate : 58 BPM Atrial Rate : 58 BPM P-R Int : 158 ms QRS Dur : 84 ms QT Int : 408 ms P-R-T Axes : 58 36 20 degrees QTcB Int : 400 ms Sinus bradycardia Otherwise normal ECG When compared with ECG of 26-Dec-2023 20:43, No significant change was found Confirmed by LOVE TINSLEY MD ([id number]) on 04/10/2024 1:21:46 AM Referred By: Electronically Signed By: LOVE TINSLEY MD Transcribed By: MUS Signed By Love Tinsley MD 04/10/24 0121 Normal [facility] Epithelial cells.squamous [# /area] in Urine sediment by Automated countOrdered By: Love Tinsley on 04-09-2024 Epithelial cells.squamous Auto (Urine sed) [#/Area] N/A [facility] Erythrocyte distribution wid th [Ratio] by Automated countOrdered By: Love Tinsley on 04-09-2024 Erythrocyte distribution width (RBC) [Ratio] 13.2 % Normal 12.0-14.8 [facility] Comment on above: Performed By: #### U LEROY Amador #### [address] Erythrocytes [#/area] in Uri ne sediment by Automated countOrdered By: Love Tinsley on 04-09-2024 RBC Auto (Urine sed) [#/Area] 1-2 [HPF] 0-4 [facility] Erythrocytes [#/volume] in B lood by Automated countOrdered By: Love Tinsley on 04-09-2024 RBC (Bld) [#/Vol] 4.32 10*6/uL Normal 3.90-5.60 [facility] Comment on above: Performed By: #### U LIZANDRO AmadorPLUS #### [facility] [address] [place] [address] [place] Glucose [Mass/volume] in Ser um or PlasmaOrdered By: Love Tinsley on 04-09-2024 Glucose [Mass/Vol] 84 mg/dL Normal 70-100 [facility] Comment on above: ADA recommended refe rence rangeRandom Glucose Reference Range is dependent on time and content of last meal. Glucose of more than 200 mg/dL in a nonstressed, ambulatory subject supports the diagnosis of Diabetes Mellitus. Result Comment: [place] om Glucose Reference Range is dependent on time and content of last meal. Glucose of more than 200 mg/dL in a nonstressed, ambulatory subject supports the diagnosis of Diabetes Mellitus. ADA recommended reference range Performed By: #### U A, ADDONUAPLUS #### [facility] [facility] [address] [place] [address] [place] Glucose [Mass/volume] in Uri ne by Test stripOrdered By: Love Tinsley on 04-09-2024 Glucose Test strip (U) [Mass/Vol] Normal mg/dL Normal [facility] Hematocrit [Volume Fraction] of Blood by Automated countOrdered By: Love Tinsley on 04-09-2024 Hematocrit (Bld) [Volume fraction] 42.3 % Normal 38.8-50.0 [facility] Comment on above: Performed By: #### U A, ADDONUAPLUS #### [address] Hemoglobin Test strip Ql (U) Ordered By: Love Tinsley on 04-09-2024 Hemoglobin Ql (U) Trace High Negative [facility] Hemoglobin [Mass/volume] in BloodOrdered By: Love Tinsley on 04-09-2024 Hemoglobin (Bld) [Mass/Vol] 14.5 g/dL Normal 13.0-17.0 [facility] Comment on above: Performed By: #### U A, ADDONUAPLUS #### [place] [address] [place] Hyaline casts [#/area] in Ur ine sediment by Automated countOrdered By: Love Tinsley on 04-09-2024 Hyaline casts Auto (Urine sed) [#/Area] None [LPF] 0-8 [facility] INR in Platelet poor plasma by Coagulation assayOrdered By: Love Tinsley on 04-09-2024 INR Coag (PPP) [Relative time] 0.9 {INR} Normal [facility] Comment on above: INR Therapeutic Rang e A) Pre- and Peroperative OAT started two weeks before surgery. NOT HIP SURGERY: 1.5 - 2.5 HIP SURGERY: 2 - 3B) Primary and secondary prevention of venous THROMBOSIS: 2 - 3C) Active venous thrombosis, pulmonary embolismand prevention of recurrent venous thrombosis: 2 - 3D) Prevention of arterial thromboembolismincluding patients with mechanical heart valves: 3 - 4.5 Result Comment: INR Therapeutic Range A) Pre- and Peroperative OAT started two weeks before surgery. NOT HIP SURGERY: 1.5 - 2.5 HIP SURGERY: 2 - 3 B) Primary and secondary prevention of venous THROMBOSIS: 2 - 3 C) Active venous thrombosis, pulmonary embolism and prevention of recurrent venous thrombosis: 2 - 3 D) Prevention of arterial thromboembolism including patients with mechanical heart valves: 3 - 4.5 Performed By: #### U A, ADDONUAPLUS #### [facility] [address] [place] [address] [place] Ketones [Presence] in Urine by Test stripOrdered By: Love Tinsley on 04-09-2024 Ketones Ql (U) Negative Normal Negative [facility] Comment on above: Order Comment: Name Collection Type:: Clean-Voided Midstream Performed By: #### U A, ADDONUAPLUS #### [facility] [address] [place] [address] [place] Leukocyte esterase [Presence ] in Urine by Test stripOrdered By: Love Tinsley on 04-09-2024 Leukocyte esterase Test strip Ql (U) Negative Normal Negative [facility] Comment on above: Order Comment: Name Collection Type:: Clean-Voided Midstream Performed By: #### U A, ADDONUAPLUS #### [facility] [address] [place] [address] [place] Leukocytes [#/area] in Urine sediment by Automated countOrdered By: Love Tinsley on 04-09-2024 WBC Auto (Urine sed) [#/Area] 1-2 [HPF] 0-4 [facility] Leukocytes [#/volume] correc erum for nucleated erythrocytes in Blood by Automated counOrdered By: Love Tinsley on 04-09-2024 WBC corrected for nucl RBC Auto (Bld) [#/Vol] 8.7 10*3/uL 4.1-10.5 [facility] Leukocytes [#/volume] in Blo od by Automated countOrdered By: Love Tinsley on 04-09-2024 WBC (Bld) [#/Vol] 8.7 10*3/uL Normal 4.1-10.5 [facility] Comment on above: Performed By: #### U A, ADDONUAPLUS #### [facility] [address] [place] [address] [place] Lipase [Enzymatic activity/v olume] in Serum or PlasmaOrdered By: Love Tinsley on 04-09-2024 Lipase [Catalytic activity/Vol] 15.0 U/L Normal 11.0-82.0 [facility] Comment on above: Result Comment: PERF ORMED BY: [place] [address] PATHOLOGIST [employer] INST[employer]ER MINESH MARTINES M.D. Performed By: #### U A, ADDONUAPLUS #### [facility] [address] [place] [address] [place] Lymphocytes [#/volume] in Bl ood by Automated countOrdered By: Love Tinsley on 04-09-2024 Lymphocytes (Bld) [#/Vol] 3.0 10*3/uL Normal 1.00-4.8 [facility] Comment on above: Performed By: #### U A, ADDONUAPLUS #### [facility] [address] [place] [address] [place] Lymphocytes/100 leukocytes i n Blood by Automated countOrdered By: Love Tinsley on 04-09-2024 Lymphocytes/100 WBC (Bld) 34.4 % Normal . [facility] Comment on above: Performed By: #### U A, ADDONUAPLUS #### [facility] [address] [place] [address] [place] MCH [Entitic mass] by Automa erum countOrdered By: Love Tinsley on 04-09-2024 MCH (RBC) [Entitic mass] 33.6 pg Normal 27.5-35.2 [facility] Comment on above: Performed By: #### U LIZANDRO AmadorPLUS #### [facility] [address] [place] [address] MCHC Auto (RBC) [Mass/Vol]Or dered By: Love Tinsley on 04-09-2024 MCHC (RBC) [Mass/Vol] 34.2 g/dL 32.5-35.6 [facility] MCV [Entitic volume] by Auto mated countOrdered By: Love Tinsley on 04-09-2024 MCV (RBC) [Entitic vol] 98.1 fL Normal 83.5-101 [facility] Comment on above: Performed By: #### U LIZANDRO AmadorPLUS #### [facility] [address] [place] [address] Monocyte distribution width [Entitic volume] in Blood by AutomatedOrdered By: Love Tinsley on 04-09-2024 Monocyte distribution width Auto (Bld) [Entitic vol] 16.11 % 0.00-20.00 [facility] Mucus [Presence] in Urine by AutomatedOrdered By: Love Tinsley on 04-09-2024 Mucus Auto Ql (U) Rare [LPF] [facility] Neutrophils [#/volume] in Bl ood by Automated countOrdered By: Love Tinsley on 04-09-2024 Neutrophils (Bld) [#/Vol] 4.5 10*3/uL Normal 1.8-7.7 [facility] Comment on above: Performed By: #### U LIZANDRO AmadorPLUS #### [facility] [address] [place] [address] Nitrite Test strip Ql (U)Ord ered By: Love Tinsley on 04-09-2024 Nitrite Ql (U) Negative Negative [facility] No Panel InformationOrdered By: Love Tinsley on 04-09-2024 Estimated GFR (CKD-EPI) > 60.0 mL/Min [facility] Creatinine Clearance (Chem 76.33 [facility] Nucleated erythrocytes [Pres ence] in Blood by Automated countOrdered By: Love Tinsley on 04-09-2024 Nucleated RBC Auto Ql (Bld) 0.1 /100{WBC} 0-0.5 [facility] Partial Thromboplastin Timeo n 04-09-2024 aPTT Coag (Bld) [Time] 29.6 s Normal 25.1-36.5 [facility] Comment on above: Result Comment: A he matocrit value greater than 55% may lead to inaccurate results in coagulation testing. Patients having hematocrit values >55% require a special collection tube for coagulation studies. Please contact the laboratory at [phone] for redraw instructions. PERFORMED BY: [place] [address] PATHOLOGIST [employer] INST[employer]ER MINESH MARTINES M.D. Performed By: #### U A, ADDONUAPLUS #### [address] Platelet mean volume [Entiti c volume] in Blood by Automated countOrdered By: Love Tinsley on 04-09-2024 Platelet mean volume (Bld) [Entitic vol] 7.3 fL Normal 6.6-10.1 [facility] Comment on above: Performed By: #### U A, ADDONUAPLUS #### [place] [address] [place] Platelets [#/volume] in Bloo d by Automated countOrdered By: Love Tinsley on 04-09-2024 Platelets (Bld) [#/Vol] 238 10*3/uL Normal 150-450 [facility] Comment on above: Performed By: #### U A, ADDONUAPLUS #### [place] [address] [place] Potassium [Moles/volume] in Serum or PlasmaOrdered By: Love Tinsley on 04-09-2024 Potassium [Moles/Vol] 3.9 mmol/L Normal 3.5-5.1 [facility] Comment on above: Performed By: #### U A, ADDONUAPLUS #### [address] Protein Test strip (U) [Mass /Vol]Ordered By: Love Tinsley on 04-09-2024 Protein (U) [Mass/Vol] Negative Negative [facility] Prothrombin time (PT)Ordered By: Love Tinsley on 04-09-2024 PT Coag (PPP) [Time] 11.0 s Normal 9.0-12.9 [facility] Comment on above: A hematocrit value g reater than 55% may lead to inaccurate results in coagulation testing. Patients having hematocrit values >55% require a special collection tube for coagulation studies. Please contact the laboratory at [phone] for redraw instructions. Result Comment: A he matocrit value greater than 55% may lead to inaccurate results in coagulation testing. Patients having hematocrit values >55% require a special collection tube for coagulation studies. Please contact the laboratory at [phone] for redraw instructions. Performed By: #### U A, ADDONUAPLUS #### [facility] [address] [place] [address] Serum or plasma anion gap de terminationOrdered By: Love Tinsley on 04-09-2024 Anion gap [Moles/Vol] 11.7 mmol/L Normal 6.0-15.0 [facility] Comment on above: Performed By: #### U A, ADDONUAPLUS #### [facility] [address] [place] [address] Sodium [Moles/volume] in Ser um or PlasmaOrdered By: Love Tinsley on 04-09-2024 Sodium [Moles/Vol] 137 mmol/L Normal 136-145 [facility] Comment on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 03/02/24 1650 Signed By: 03/07/24 0906 Normal [facility] Borrelia burgdorferi Ab [Int erpretation] in SerumOrdered By: Olivia Fischer on 02-10-2024 B. burgdorferi Ab (S) [Interp] N/A [facility] Borrelia burgdorferi IgG Ab [Presence] in Serum or Plasma by ImmunoassayOrdered By: Olivia Fischer on 02-10-2024 B. burgdorferi IgG IA Ql N/A [facility] Borrelia burgdorferi IgG+IgM Ab [Presence] in Serum by ImmunoassayOrdered By: Olivia Fischer on 02-10-2024 B. burgdorferi IgG+IgM IA Ql (S) Negative Negative [facility] Comment on above: Lyme antibodies not detected. Reflex testing is notindicated.No laboratory evidence of infection with B. burgdorferi(Lyme disease). Negative results may occur in patientsrecently infected (less than or equal to 14 days) with B.burgdorferi. If recent infection is suspected, repeattesting on a new sample collected in 7 to 14 days isrecommended.Performed at: [employer] [id number] Director: Raghu Richard PhD, Phone: [phone] Borrelia burgdorferi IgM Ab [Presence] in Serum or Plasma by ImmunoassayOrdered By: Olivia Fischer on 02-10-2024 B. burgdorferi IgM IA Ql N/A [facility] Lyme, Total Ab with Reflexon 02-10-2024 Lyme Total Antibody Negative Normal Negative [facility] Comment on above: Result Comment: Lyme antibodies not detected. Reflex testing is not indicated. No laboratory evidence of infection with B. burgdorferi (Lyme disease). Negative results may occur in patients recently infected (less than or equal to 14 days) with B. burgdorferi. If recent infection is suspected, repeat testing on a new sample collected in 7 to 14 days is recommended. Performed at: [employer] [address] [id number] Roller Helper: Raghu Richard PhD, Phone: [phone] PERFORMED BY: [facility] [place] [address] PATHOLOGIST [employer]OVERING INSTALLER MINESH MARTINES M.D. Performed By: #### L YME AB wRFX #### [facility] , Bacteria Ur Culton 4 Bacteria identified Cx Nom (U) ORGANISM ID: 1 10,000 -<50,000 CFU/ml Normal urogenital bob Normal [facility] Comment on above: Performed By: #### 6 30-4 ####[facility] LABCLIA [id number] [address] [address] [place] Basic metabolic 2000 panelon 02-08-2024 Anion gap [Moles/Vol] 11 mmol/L Normal 8-[address] [facility] Comment on above: Order Comment: Speci men Type: BLOOD SPECIMENOrdering Facility: [facility] Address: [address] [place] [address] Performed By: #### 2 4321-2, 11809-7 ####[facility] LABCLIA [id number] [place] [address] Calcium [Mass/Vol] 9.3 mg/dL Normal 8.5-10.2 [facility] Comment on above: Order Comment: Speci men Type: BLOOD SPECIMENOrdering Facility: [facility] Address: [address] [place] [address] Performed By: #### 2 4321-2, 70745-0 ####[facility] LABCLIA [id number] [place] [address] Chloride [Moles/Vol] 98 mmol/L Normal 98-107 [facility] Comment on above: Order Comment: Speci men Type: BLOOD SPECIMENOrdering Facility: [facility] Address: [address] [place] [address] Performed By: #### 2 4321-2, 10569-3 ####[facility] LABCLIA [id number] [place] [address] CO2 [Moles/Vol] 24 mmol/L Normal 22-30 [facility] Comment on above: Order Comment: Speci men Type: BLOOD SPECIMENOrdering Facility: [facility] Address: [address] [place] [address] Performed By: #### 2 432-2, 22955-0 ####[facility] LABCLIA [id number] [place] [address] Creatinine [Mass/Vol] 1.05 mg/dL Normal 0.73-1.[address] [facility] Comment on above: Order Comment: Speci men Type: BLOOD SPECIMENOrdering Facility: [facility] Address: [address] [place] [address] Performed By: #### 2 432-2, 46220-9 ####[facility] LABCLIA [id number] [place] [address] Creatinine and Glomerular filtration rate.predicted panel (S/P/Bld) 75 mL/min/1.73m??? Normal >=60 [facility] Comment on above: Order Comment: Speci men Type: BLOOD SPECIMENOrdering Facility: [facility] Address: [address] [place] [address] Result Comment: Humera mated Glomerular Filtration Rate (eGFR) is calculated using the 2020 CKD-EPI creatinine equation. This equation utilizes serum creatinine, sex, and age as parameters. The creatinine assay has traceable calibration to isotope dilution-mass spectrometry. Refer to KDIGO guidelines for clinical interpretation. In patients with unstable renal function, e.g. those with acute kidney injury, the eGFR may not accurately reflect actual GFR. Performed By: #### 2 4321-2, 62319-5 ####[facility] LABCLIA [id number] [place] [address] Glucose [Mass/Vol] 198 mg/dL High 74-99 [facility] Comment on above: Order Comment: Speci men Type: BLOOD SPECIMENOrdering Facility: [facility] Address: [address] [place] [address] Result Comment: The [place] Diabetes Association (ADA) provides guidance for cutoff values for fasting glucose and random glucose. The ADA defines fasting as no caloric intake for at least 8 hours. Fasting plasma glucose results between 100 to 125 mg/dL indicate increased risk for diabetes (prediabetes). Fasting plasma glucose results greater than or equal to 126 mg/dL meet the criteria for diagnosis of diabetes. In the absence of unequivocal hyperglycemia, results should be confirmed by repeat testing. In a patient with classic symptoms of hyperglycemia or hyperglycemic crisis, random plasma glucose results greater than or equal to 200 mg/dL meet the criteria for diagnosis of diabetes. Reference: Standards of Medical Care in Diabetes 2016, [place] [employer]. Diabetes Care. 2016.39(Suppl 1). Performed By: #### 2 4321-2, 26923-3 ####[facility] LABCLIA [id number] [place] [address] Potassium [Moles/Vol] 4.5 mmol/L Normal 3.7-5.[address] [facility] Comment on above: Order Comment: Speci men Type: BLOOD SPECIMENOrdering Facility: [facility] Address: [address] [place] [address] Performed By: #### 2 4321-2, 58845-6 ####[facility] LABCLIA [id number] [place] [address] Sodium [Moles/Vol] 133 mmol/L Low 136-144 [facility] Comment on above: Order Comment: Speci men Type: BLOOD SPECIMENOrdering Facility: [facility] Address: [address] [place] [address] Performed By: #### 2 432-2, 27702-0 ####[facility] LABCLIA [id number] [place] [address] Urea nitrogen [Mass/Vol] 21 mg/dL Normal 9-24 [facility] Comment on above: Order Comment: Speci men Type: BLOOD SPECIMENOrdering Facility: [facility] Address: [address] [place] [address] Performed By: #### 2 4321-2, 04594-3 ####[facility] LABCLIA [id number] [place] [address] CBC W Auto Differential pane l (Bld)on 02-08-2024 Basophils (Bld) [#/Vol] 0.06 10*3/uL Normal <0.11 [facility] Comment on above: Order Comment: Speci men Type: BLOOD SPECIMENOrdering Facility: [facility] Address: [address] [place] [address] Performed By: #### 5 7021-8 ####[facility] LABCLIA [id number] [place] [address] Basophils/100 WBC (Bld) 0.5 % Normal [facility] Comment on above: Order Comment: Speci men Type: BLOOD SPECIMENOrdering Facility: [facility] Address: [address] [place] [address] Performed By: #### 5 7021-8 ####[facility] LABCLIA [id number] [place] [address] Differential cell count method Nom (Bld) Auto Normal [facility] Comment on above: Order Comment: Speci men Type: BLOOD SPECIMENOrdering Facility: [facility] Address: [address] [place] [address] Performed By: #### 5 7021-8 ####[facility] LABCLIA [id number] [place] [address] Eosinophils (Bld) [#/Vol] 10*3/uL Normal <0.46 [facility] Comment on above: Order Comment: Speci men Type: BLOOD SPECIMENOrdering Facility: [facility] Address: [address] [place] [address] Performed By: #### 5 7021-8 ####[facility] LABCLIA [id number] [place] [address] Eosinophils/100 WBC (Bld) 0.0 % Normal [facility] Comment on above: Order Comment: Speci men Type: BLOOD SPECIMENOrdering Facility: [facility] Address: [address] [place] [address] Performed By: #### 5 7021-8 ####[facility] LABCLIA [id number] [place] [address] Erythrocyte distribution width (RBC) [Ratio] 12.6 % Normal 11.5-15.0 [facility] Comment on above: Order Comment: Speci men Type: BLOOD SPECIMENOrdering Facility: [facility] Address: [address] [place] [address] Performed By: #### 5 7021-8 ####[facility] LABCLIA [id number] [place] [address] Hematocrit (Bld) [Volume fraction] 46.1 % Normal 39.0-51.0 [facility] Comment on above: Order Comment: Speci men Type: BLOOD SPECIMENOrdering Facility: [facility] Address: [address] [place] [address] Performed By: #### 5 7021-8 ####[facility] LABCLIA [id number] [place] [address] Hemoglobin (Bld) [Mass/Vol] 15.6 g/dL Normal 13.0-17.0 [facility] Comment on above: Order Comment: Speci men Type: BLOOD SPECIMENOrdering Facility: [facility] Address: [address] [place] [address] Performed By: #### 5 7021-8 ####[facility] LABCLIA [id number] [place] [address] Immature granulocytes (Bld) [#/Vol] 0.46 10*3/uL High <0.10 [facility] Comment on above: Order Comment: Speci men Type: BLOOD SPECIMENOrdering Facility: [facility] Address: [address] [place] [address] Performed By: #### 5 7021-8 ####[facility] LABCLIA [id number] [place] [address] Immature granulocytes/100 WBC (Bld) 3.8 % Normal [facility] Comment on above: Order Comment: Speci men Type: BLOOD SPECIMENOrdering Facility: [facility] Address: [address] [place] [address] Performed By: #### 5 7021-8 ####[facility] LABCLIA [id number] [place] [address] Lymphocytes (Bld) [#/Vol] 1.51 10*3/uL Normal 1.00-4.00 [facility] Comment on above: Order Comment: Speci men Type: BLOOD SPECIMENOrdering Facility: [facility] Address: [address] [place] [address] Performed By: #### 5 7021-8 ####[facility] LABCLIA [id number] [place] [address] Lymphocytes/100 WBC (Bld) 12.5 % Normal [facility] Comment on above: Order Comment: Speci men Type: BLOOD SPECIMENOrdering Facility: [facility] Address: [address] [place] [address] Performed By: #### 5 7021-8 ####[facility] LABCLIA [id number] [place] [address] MCH (RBC) [Entitic mass] 32.6 pg Normal 26.0-34.0 [facility] [facility] Comment on above: Order Comment: Speci men Type: BLOOD SPECIMENOrdering Facility: [facility] Address: [address] [place] [address] Performed By: #### 5 7021-8 ####[facility] LABCLIA [id number] [place] [address] MCHC (RBC) [Mass/Vol] 33.8 g/dL Normal 30.5-36.[address] [facility] Comment on above: Order Comment: Speci men Type: BLOOD SPECIMENOrdering Facility: [facility] Address: [address] [place] [address] Performed By: #### 5 7021-8 ####[facility] LABCLIA [id number] [place] [address] MCV (RBC) [Entitic vol] 96.2 fL Normal 80.0-100.0 [facility] Comment on above: Order Comment: Speci men Type: BLOOD SPECIMENOrdering Facility: [facility] Address: [address] [place] [address] Performed By: #### 5 7021-8 ####[facility] LABCLIA [id number] [place] [address] Monocytes (Bld) [#/Vol] 0.59 10*3/uL Normal <0.87 [facility] Comment on above: Order Comment: Speci men Type: BLOOD SPECIMENOrdering Facility: [facility] Address: [address] [place] [address] Performed By: #### 5 7021-8 ####[facility] LABIA [id number] [place] [address] Monocytes/100 WBC (Bld) 4.9 % Normal [facility] Comment on above: Order Comment: Speci men Type: BLOOD SPECIMENOrdering Facility: [facility] Address: [address] [place] [address] Performed By: #### 5 7021-8 ####[facility] LABCLIA [id number] [place] [address] Neutrophils (Bld) [#/Vol] 9.43 10*3/uL High 1.45-7.50 [facility] Comment on above: Order Comment: Speci men Type: BLOOD SPECIMENOrdering Facility: [facility] Address: [address] [place] [address] Performed By: #### 5 7021-8 ####[facility] LABCLIA [id number] [place] [address] Neutrophils/100 WBC (Bld) 78.3 % Normal [facility] Comment on above: Order Comment: Speci men Type: BLOOD SPECIMENOrdering Facility: [facility] Address: [address] [place] [address] Performed By: #### 5 7021-8 ####[facility] LABCLIA [id number] [place] [address] Nucleated RBC (Bld) [#/Vol] 10*3/uL Normal <0.01 [facility] Comment on above: Order Comment: Speci men Type: BLOOD SPECIMENOrdering Facility: [facility] Address: [address] [place] [address] Performed By: #### 5 7021-8 ####[facility] LABCLIA [id number] [place] [address] Nucleated RBC/100 WBC (Bld) [Ratio] 0.0 /100 WBC Normal [facility] Comment on above: Order Comment: Speci men Type: BLOOD SPECIMENOrdering Facility: [facility] Address: [address] [place] [address] Performed By: #### 5 7021-8 ####[facility] LABCLIA [id number] [place] [address] Platelet mean volume (Bld) [Entitic vol] 8.9 fL Low 9.0-12.7 [facility] Comment on above: Order Comment: Speci men Type: BLOOD SPECIMENOrdering Facility: [facility] Address: [address] [place] [address] Performed By: #### 5 7021-8 ####[facility] LABCLIA [id number] [place] [address] Platelets (Bld) [#/Vol] 278 10*3/uL Normal 150-400 [facility] Comment on above: Order Comment: Speci men Type: BLOOD SPECIMENOrdering Facility: [facility] Address: [address] [place] [address] Performed By: #### 5 7021-8 ####[facility] LABIA [id number] [place] [address] RBC (Bld) [#/Vol] 4.79 10*6/uL Normal 4.20-6.00 [facility] Comment on above: Order Comment: Speci men Type: BLOOD SPECIMENOrdering Facility: [facility] Address: [address] [place] [address] Performed By: #### 5 7021-8 ####[facility] LABIA [id number] [place] [address] WBC (Bld) [#/Vol] 12.05 10*3/uL High 3.70-11.00 [facility] Comment on above: Order Comment: Speci men Type: BLOOD SPECIMENOrdering Facility: [facility] Address: [address] [place] [address] Performed By: #### 5 7021-8 ####[facility] LABIA [id number] [place] [address] Hepatic function 2000 panelo n 02-08-2024 Albumin [Mass/Vol] 4.2 g/dL Normal 3.9-4.9 [facility] Comment on above: Order Comment: Speci men Type: BLOOD SPECIMENOrdering Facility: [facility] Address: [address] [place] [address] Performed By: #### 2 4321-2, 90459-5 ####[facility] LABIA [id number] [place] [address] ALP [Catalytic activity/Vol] 93 U/L Normal 38-113 [facility] Comment on above: Order Comment: Speci men Type: BLOOD SPECIMENOrdering Facility: [facility] Address: [address] [place] [address] Performed By: #### 2 4321-2, 49406-5 ####[facility] LABCLIA [id number] [place] [address] ALT [Catalytic activity/Vol] 29 U/L Normal 10-54 [facility] Comment on above: Order Comment: Speci men Type: BLOOD SPECIMENOrdering Facility: [facility] Address: [address] [place] [address] Performed By: #### 2 4321-2, 42264-9 ####[facility] LABCLIA [id number] [place] [address] AST [Catalytic activity/Vol] 20 U/L Normal 14-40 [facility] Comment on above: Order Comment: Speci men Type: BLOOD SPECIMENOrdering Facility: [facility] Address: [address] [place] [address] Performed By: #### 2 4321-2, 86021-6 ####[facility] LABCLIA [id number] [place] [address] Bilirubin [Mass/Vol] 0.3 mg/dL Normal 0.2-1.3 [facility] Comment on above: Order Comment: Speci men Type: BLOOD SPECIMENOrdering Facility: [facility] Address: [address] [place] [address] Performed By: #### 2 4321-2, 95490-0 ####[facility] LABCLIA [id number] [place] [address] Bilirubin.conjugated [Mass/Vol] mg/dL Normal <0.2 [facility] Comment on above: Order Comment: Speci men Type: BLOOD SPECIMENOrdering Facility: [facility] Address: [address] [place] [address] Performed By: #### 2 4321-2, 16513-5 ####[facility] LABCLIA [id number] [place] [address] Protein [Mass/Vol] 7.5 g/dL Normal 6.3-8.0 [facility] Comment on above: Order Comment: Speci men Type: BLOOD SPECIMENOrdering Facility: [facility] Address: [address] [place] [address] Performed By: #### 2 4321-2, 66200-8 ####[facility] LABCLIA [id number] [place] [address] PT panel Coag (PPP)on 2023 INR Coag (PPP) [Relative time] 1.0 {INR} Normal 0.9-1.3 [facility] Comment on above: Order Comment: Speci men Type: BLOOD SPECIMENOrdering Facility: [facility] Address: [address] [place] [address] Result Comment: Kiran min K Antagonist (VKA) Therapeutic Range: INR 2 to 3 (Target INR of 2.5) Note: For patients treated with VKA drugs, such as warfarin, the [place] [employer] 2012 Guideline recommends a therapeutic INR range of 2 to 3 (target INR of 2.5). This recommendation includes high-risk patients with antiphospholipid syndrome with previous arterial or venous thromboembolism, current-generation mechanical or bioprosthetic aortic heart valve replacement. Note: Patients with mechanical aortic valve replacement and additional risk factors for thromboembolic events (atrial fibrillation, previous thromboembolism, LV dysfunction, hypercoagulable conditions) or an older generation mechanical AVR (i.e., ball in-Cage) or any mechanical MVR should have a INR therapeutic range of 2.5 to 3.5 (target INR of 3). Pauline GH, et al. Chest 2012, 141:7S-47S Mell RA et al. [facility] 2017, 70: 252-289 Performed By: #### 3 4528-0 ####[facility] LABCLIA [id number] [facility] [id number] [address] [place] PT Coag (PPP) [Time] 10.2 s Normal 9.7-13.0 [facility] Comment on above: Order Comment: Speci men Type: BLOOD SPECIMENOrdering Facility: [facility] Address: [address] [place] [address] Performed By: #### 3 4528-0 ####[facility] GEOFF [id number] [place] [id number] [place] Anshul 01-29-2024 RADHAN Telephone (UROLMN) -- NORMAJAMA Kirby ([id number]) 1950 M [facility] Date Time Provider Department 01/29/24 JAEL TATE During your visit today, we recorded the following information about you: Jael Tate PA 01/29/2024 5:56 PM Addendum Returned his daughter's call regarding complications with flomax. His daughter reports that he suddenly developed vertigo in early December. More recently his blood pressure has been much lower and was found to be 90/60. His PCP believes this may be caused by the flomax he was taking. He has not taken flomax in 2 days and feels like his blood pressure is better today. When his blood pressure was low he felt like he could pass out and he feels this has improved after discontinuing the flomax. The flomax does help his urine stream and he is worried that it will become more difficult to void after stopping the flomax. I discussed it is reasonable to discontinue the flomax. His daughter mentions that he has previously taken cialis and that had worked well for him. He did not have any side effects with cialis. I discussed he can try cialis and fully discontinue flomax at this time. Rx for cialis sent to their preferred pharmacy. His daughter also requests urine culture results and CBC check. All questions answered. 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 Take 1-2 hours before sexual activity.Disp: 30 tabletRfl: 5 COMPLETE BLOOD COUNT [SQCBC] Order #: [id number] FUTURE URINE CULTURE [SQURCUL] Order #: [id number] FUTURE Prescriptions as of 01/29/2024 - Tadalafil (CIALIS) 5 mg tablet Take 1 tablet by mouth once daily as needed. Take 1-2 hours before sexual activity. - tamsulosin (FLOMAX) 0.4 mg Take 1 capsule by mouth once daily. - famotidine (PEPCID) 20 mg tablet 1 tablet by ORAL/FEEDING TUBE route two times a day as needed (heartburn). - Senna 8.6 mg tab Take 1 tablet by mouth two times a day. Problem List As Of Date 01/29/2024 Noted Resolved Chest pain [R07.9] 04/16/2018 04/17/2018 Sprain of right ankle [S93.401A] 06/02/2018 Pain in right foot [M79.671] 06/02/2018 Swelling [R60.9] 06/02/2018 Chronic GERD [K21.9] 01/10/2022 Benign prostatic hyperplasia without lower urin*01/10/2022 Pancreatic mass [K86.89] 05/26/2023 Other constipation [K59.09] 05/27/2023 05/27/2023 IPMN (intraductal papillary mucinous neoplasm) *05/27/2023 Transaminitis [R74.01] 05/27/2023 05/27/2023 Hepatic steatosis [K76.0] 05/27/2023 Acute biliary pancreatitis with uninfected necr*09/30/2023 10/02/2023 Post-op pain [G89.18] 10/01/2023 S/P laparoscopic cholecystectomy [Z90.49] 10/02/2023 Other specified postprocedural states [Z98.890] 10/07/2023 Prescriptions ordered this encounter Disp Refills Start End TADALAFIL 5 MG TABLET 30 t* 5 01/29/2024 07/27/2024 Route: ORAL Sig: Take 1 tablet by mouth once daily as needed. Take 1-2 hours before sexual activity. Encounter Status:Closed by JAEL TATE on 01/29/24 Normal [facility] MR BRAIN W AND WO CONTRAST ( ROUTINE)on 01-21-2024 MR BRAIN W AND WO CONTRAST (ROUTINE) EXAM: MR BRAIN W AND WO CONTRAST (ROUTINE) History: Vertigo Technique: Multiplanar multisequence MRI of the brain was performed without and with contrast including thin slice pre and postcontrast sequences through the internal auditory canals. Comparison: None available Findings: Prominence of the sulci and ventricles compatible with mild generalized parenchymal volume loss. No edema, hemorrhage, mass, mass effect, midline shift, or abnormal extra-axial fluid collection. Midline structures are within normal limits. The posterior fossa is within normal limits. There is no diffusion restriction. No susceptibility artifact is identified on the gradient echo sequence. Cranial nerves VII and VIII are normal in course and contour. No enhancing mass is present in the cerebellopontine angles or internal auditory canals. There is normal fluid signal of the inner ear structures including cochlea and vestibules. There is intact osseous covering over the superior semicircular canals. The major intracranial vascular flow voids are maintained. Minimal paranasal sinus mucosal thickening. Small amount of fluid within the bilateral mastoid air cells, right greater than left compatible with nonspecific mastoid air cell effusions. IMPRESSION: No acute intracranial process. Normal appearance of cranial nerves VII/VIII. ELECTRONICALLY SIGNED BY: Musa Chowdhury, DO Normal Not Available Comment on above: Order Comment: WITH ATTENTION to: Internal Auditory Canal (IAC) Automated basophil %Ordered By: Kaitlynn Wiggins on 12-28-2023 Basophils/100 WBC (Bld) 0.5 % Normal . [facility] Comment on above: Performed By: #### L YME AB wRFX #### [facility] , Automated basophil countOrde red By: Kaitlynn Wiggins on 12-28-2023 Basophils (Bld) [#/Vol] 0.0 10*3/uL Normal 0.0-0.2 [facility] Comment on above: Result Comment: PERF ORMED BY: [facility] [place] [address] PATHOLOGIST [employer]ST[employer]ER MINESH MARTINES M.D. Performed By: #### L YME AB wRFX #### [facility] , Automated blood monocyte cou ntOrdered By: Kaitlynn Wiggins on 12-28-2023 Monocytes (Bld) [#/Vol] 0.9 10*3/uL High 0.0-0.8 [facility] Comment on above: Performed By: #### L YME AB wRFX #### [facility] , Automated eosinophil %Ordere d By: Kaitlynn Wiggins on 12-28-2023 Eosinophils/100 WBC (Bld) 1.6 % Normal . [facility] Comment on above: Performed By: #### L YME AB wRFX #### [facility] , Automated eosinophil countOr dered By: Kaitlynn Wiggins on 12-28-2023 Eosinophils (Bld) [#/Vol] 0.1 10*3/uL Normal 0.0-0.45 [facility] Comment on above: Performed By: #### L YME AB wRFX #### [facility] , Automated monocyte %Ordered By: Kaitlynn Wiggins on 12-28-2023 Monocytes/100 WBC (Bld) 9.1 % Normal . [facility] Comment on above: Performed By: #### L YME AB wRFX #### [facility] , Automated neutrophil %Ordere d By: Kaitlynn Wiggins on 12-28-2023 Neutrophils/100 WBC (Bld) 54.9 % Normal . [facility] Comment on above: Performed By: #### L YME AB wRFX #### [facility] , Basic Metabolic Panelon 05-1 3-2024 Creatinine Clr Calc Pharmacy 70.35 Normal [facility] Comment on above: Result Comment: PERF ORMED BY: [facility] [place] [address] PATHOLOGIST [employer] INST[employer]ER MINESH MARTINES M.D. Performed By: #### G LULS #### Point of Care testing , GFR/1.73 sq M.predicted MDRD (S/P/Bld) [Vol rate/Area] mL/min/{1.73_m2} Normal [facility] Comment on above: Performed By: #### G LULS #### Point of Care testing , Calcium [Mass/volume] in Ser um or PlasmaOrdered By: Jared Easley on 12-28-2023 Calcium [Mass/Vol] 8.3 mg/dL Low 8.6-10.3 [facility] Comment on above: Performed By: #### G LULS #### Point of Care testing , Carbon dioxide, total [Moles /volume] in Serum or PlasmaOrdered By: Jared Easley on 12-28-2023 CO2 [Moles/Vol] 28.9 mmol/L Normal 21.0-31.0 [facility] Comment on above: Performed By: #### G LULS #### Point of Care testing , Chloride [Moles/volume] in S bairon or PlasmaOrdered By: Jared Easley on 12-28-2023 Chloride [Moles/Vol] 105 mmol/L Normal 98-107 [facility] Comment on above: Performed By: #### G LULS #### Point of Care testing , Complete Blood Count Auto Di ffon 12-28-2023 Mean Corpuscular HGB Conc 34.0 g/dL Normal 32.5-35.6 [facility] Comment on above: Performed By: #### L YME AB wRFX #### [facility] , NRBC% 0.1 /100{WBC} Normal 0-0.5 [facility] Comment on above: Performed By: #### L YME AB wRFX #### [facility] , Creatinine [Mass/volume] in Serum or PlasmaOrdered By: Jared Easley on 12-28-2023 Creatinine [Mass/Vol] 0.98 mg/dL Normal 0.70-1.30 [facility] Comment on above: Performed By: #### G LULS #### Point of Care testing , Erythrocyte distribution wid th [Ratio] by Automated countOrdered By: Kaitlynn Wiggins on 12-28-2023 Erythrocyte distribution width (RBC) [Ratio] 12.9 % Normal 12.0-14.8 [facility] Comment on above: Performed By: #### L YME AB wRFX #### [facility] , Erythrocytes [#/volume] in B lood by Automated countOrdered By: Kaitlynn Wiggins on 12-28-2023 RBC (Bld) [#/Vol] 4.12 10*6/uL Normal 3.90-5.60 [facility] Comment on above: Performed By: #### L YME AB wRFX #### [facility] , Glucose [Mass/volume] in Ser um or PlasmaOrdered By: Jared Easley on 12-28-2023 Glucose [Mass/Vol] 83 mg/dL Normal 70-100 [facility] Comment on above: ADA recommended refe rence rangeRandom Glucose Reference Range is dependent on time and content of last meal. Glucose of more than 200 mg/dL in a nonstressed, ambulatory subject supports the diagnosis of Diabetes Mellitus. Result Comment: [place] om Glucose Reference Range is dependent on time and content of last meal. Glucose of more than 200 mg/dL in a nonstressed, ambulatory subject supports the diagnosis of Diabetes Mellitus. ADA recommended reference range Performed By: #### G LULS #### Point of Care testing , Hematocrit [Volume Fraction] of Blood by Automated countOrdered By: Kaitlynn Wiggins on 12-28-2023 Hematocrit (Bld) [Volume fraction] 40.3 % Normal 38.8-50.0 [facility] Comment on above: Performed By: #### L YME AB wRFX #### [facility] , Hemoglobin [Mass/volume] in BloodOrdered By: Kaitlynn Wiggins on 12-28-2023 Hemoglobin (Bld) [Mass/Vol] 13.7 g/dL Normal 13.0-17.0 [facility] Comment on above: Performed By: #### L YME AB wRFX #### [facility] , Leukocytes [#/volume] correc erum for nucleated erythrocytes in Blood by Automated counOrdered By: Kaitlynn Wiggins on 12-28-2023 WBC corrected for nucl RBC Auto (Bld) [#/Vol] 9.5 10*3/uL 4.1-10.5 [facility] Leukocytes [#/volume] in Blo od by Automated countOrdered By: Kaitlynn Wiggins on 12-28-2023 WBC (Bld) [#/Vol] 9.5 10*3/uL Normal 4.1-10.5 [facility] Comment on above: Performed By: #### L YME AB wRFX #### [facility] , Lymphocytes [#/volume] in Bl ood by Automated countOrdered By: Kaitlynn Wiggins on 12-28-2023 Lymphocytes (Bld) [#/Vol] 3.2 10*3/uL Normal 1.00-4.8 [facility] Comment on above: Performed By: #### L YME AB wRFX #### [facility] , Lymphocytes/100 leukocytes i n Blood by Automated countOrdered By: Kaitlynn Wiggins on 12-28-2023 Lymphocytes/100 WBC (Bld) 33.9 % Normal . [facility] Comment on above: Performed By: #### L YME AB wRFX #### [facility] , MCH [Entitic mass] by Automa erum countOrdered By: Kaitlynn Wiggins on 12-28-2023 MCH (RBC) [Entitic mass] 33.3 pg Normal 27.5-35.2 [facility] Comment on above: Performed By: #### L YME AB wRFX #### [facility] , MCHC Auto (RBC) [Mass/Vol]Or dered By: Kaitlynn Wiggins on 12-28-2023 MCHC (RBC) [Mass/Vol] 34.0 g/dL 32.5-35.6 [facility] MCV [Entitic volume] by Auto mated countOrdered By: Kaitlynn Wiggins on 12-28-2023 MCV (RBC) [Entitic vol] 97.8 fL Normal 83.5-101 [facility] Comment on above: Performed By: #### L YME AB wRFX #### [facility] , MR head/brain wo/w conon MR head/brain wo/w con [facility] Main [place] [address] [place] [address] MRI Report Signed Patient: Jama Green MR#: [id number] 122 : 1950 Acct:[id number] Age/Sex: 73 / M ADM Date: 12/28/23 Loc: Room: [address] [place] [address] Type: ADM IN Attending Dr: Kaitlynn Wiggins MD Copies to: Kaitlynn Wiggins MD Ordering Provider: Kaitlynn Wiggins MD Date of Service: 12/28/23 MR/MR head/brain wo/w con: vertigo MR head/brain wo/w con 12/27/2023 10:53 AM SIGN AND SYMPTOMS: Nausea, vomiting, diarrhea PROTOCOL: Multiplanar multisequence MR images of the brain were obtained with and without IV contrast CONTRAST: 17 mL of intravenous ProHance COMPARISON: 12/26/2023 FINDINGS: Extra axial spaces: Age appropriate. Hemorrhage: None. Ventricular system: Within normal limits. Basal cisterns: Within normal limits and not effaced. Cerebral parenchyma: Mild nonspecific T2 and FLAIR hyperintense signal is noted in the periventricular white matter suggesting mild chronic microvascular ischemic change. No abnormal postcontrast enhancement. Midline shift: None.. Cerebellum: Within normal limits. Brainstem: Within normal limits. OTHER: Calvarium: Normal marrow signal. Vascular system: Satisfactory flow voids within the anterior and posterior circulation. Visualized Paranasal sinuses: Within normal limits. Visualized Orbits: Within normal limits. Visualized upper cervical spine: Within normal limits. Sella and skull base: Within normal limits. MR/MR head/brain wo/w con IMPRESSION: No acute intracranial pathology or abnormal postcontrast enhancement. Mild chronic microvascular ischemic changes are noted. Impression dictated by: Kvng Ohara M.D.12/28/2023 12:53 PM Dictation Location: [place] [address] Transcribed By: [facility] 12/28/23 1253 Dictated By: Kvng Ohara II, MD 12/28/23 1240 Signed By: 12/28/23 1253 Normal [facility] Neutrophils [#/volume] in Bl ood by Automated countOrdered By: Kaitlynn Wiggins on 12-28-2023 Neutrophils (Bld) [#/Vol] 5.2 10*3/uL Normal 1.8-7.7 [facility] Comment on above: Performed By: #### L YME AB wRFX #### [facility] , No Panel InformationOrdered By: Jared Easley on 12-28-2023 Estimated GFR (CKD-EPI) > 60.0 mL/Min [facility] Creatinine Clearance (Chem 70.35 [facility] Nucleated erythrocytes [Pres ence] in Blood by Automated countOrdered By: Kaitlynn Wiggins on 12-28-2023 Nucleated RBC Auto Ql (Bld) 0.1 /100{WBC} 0-0.5 [facility] Platelet mean volume [Entiti c volume] in Blood by Automated countOrdered By: Kaitlynn Wiggins on 12-28-2023 Platelet mean volume (Bld) [Entitic vol] 7.7 fL Normal 6.6-10.1 [facility] Comment on above: Performed By: #### L YME AB wRFX #### [facility] , Platelets [#/volume] in Bloo d by Automated countOrdered By: Kaitlynn Wiggins on 12-28-2023 Platelets (Bld) [#/Vol] 223 10*3/uL Normal 150-450 [facility] Comment on above: Performed By: #### L YME AB wRFX #### [facility] , Potassium [Moles/volume] in Serum or PlasmaOrdered By: Jared Easley on 12-28-2023 Potassium [Moles/Vol] 4.3 mmol/L Normal 3.5-5.1 [facility] Comment on above: Performed By: #### G LULS #### Point of Care testing , Serum or plasma anion gap de terminationOrdered By: Jared Easley on 12-28-2023 Anion gap [Moles/Vol] 10.4 mmol/L Normal 6.0-15.0 [facility] Comment on above: Performed By: #### G LULS #### Point of Care testing , Sodium [Moles/volume] in Ser um or PlasmaOrdered By: Jared Easley on 12-28-2023 Sodium [Moles/Vol] 140 mmol/L Normal 136-145 [facility] Comment on above: Performed By: #### G LULS #### Point of Care testing , Urea nitrogen [Mass/volume] in Serum or PlasmaOrdered By: Jared Easley on 12-28-2023 Urea nitrogen [Mass/Vol] 11 mg/dL Normal 7-25 [facility] Comment on above: Performed By: #### G LULS #### Point of Care testing , A1C with Estimated Average G mitchellflavia 12-27-2023 Glucose [Mass/Vol] 120 mg/dL Normal [facility] Comment on above: Result Comment: PERF ORMED BY: [facility] [address] [place] [address] PATHOLOGIST [employer]ERCIAL FLOOR COVERING INSTALLER MINESH MARTINES M.D. Performed By: #### H BSAG, HAABT, HBSAB, HBCAB, HCV RX PCR #### [facility] , Amphetamine Screen Ql (U)Ord ered By: Yasmine Marc on 12-27-2023 Amphetamines Ql (U) Negative Negative [facility] Bacteria [Presence] in Urine by AutomatedOrdered By: Yasmine Marc on 12-27-2023 Bacteria Auto Ql (U) None seen [HPF] None Seen [facility] Bacterial blood cultureOrder ed By: Yasmine Marc on 12-27-2023 Bacteria identified Cx Nom (Bld) NO GROWTH 5 DAYS [facility] Bacteria identified Cx Nom (Bld) NO GROWTH 5 DAYS [facility] Barbiturates [Presence] in U rine by Screen methodOrdered By: Yasmine Marc on 12-27-2023 Barbiturates Screen Ql (U) Negative Negative [facility] Basic Metabolic Panelon 12-15 Anion gap [Moles/Vol] 12.1 mmol/L Normal 6.0-15.0 [facility] Comment on above: Performed By: #### L YME AB wRFX #### [facility] , Calcium [Mass/Vol] 8.7 mg/dL Normal 8.6-10.3 [facility] Comment on above: Performed By: #### L YME AB wRFX #### [facility] , Chloride [Moles/Vol] 104 mmol/L Normal 98-107 [facility] Comment on above: Performed By: #### L YME AB wRFX #### [facility] , CO2 [Moles/Vol] 26.9 mmol/L Normal 21.0-31.0 [facility] Comment on above: Performed By: #### L YME AB wRFX #### [facility] , Creatinine [Mass/Vol] 0.88 mg/dL Normal 0.70-1.30 [facility] Comment on above: Performed By: #### L YME AB wRFX #### [facility] , Creatinine Clr Calc Pharmacy 84.74 Normal [facility] Comment on above: Performed By: #### L YME AB wRFX #### [facility] , GFR/1.73 sq M.predicted MDRD (S/P/Bld) [Vol rate/Area] mL/min/{1.73_m2} Normal [facility] Comment on above: Performed By: #### L YME AB wRFX #### [facility] , Glucose [Mass/Vol] 104 mg/dL High 70-100 [facility] Comment on above: Result Comment: [place] Glucose Reference Range is dependent on time and content of last meal. Glucose of more than 200 mg/dL in a nonstressed, ambulatory subject supports the diagnosis of Diabetes Mellitus. ADA recommended reference range Performed By: #### L YME AB wRFX #### [facility] , Potassium [Moles/Vol] 4.0 mmol/L Normal 3.5-5.1 [facility] Comment on above: Performed By: #### L YME AB wRFX #### [facility] , Sodium [Moles/Vol] 139 mmol/L Normal 136-145 [facility] Comment on above: Performed By: #### L YME AB wRFX #### [facility] , Urea nitrogen [Mass/Vol] 10 mg/dL Normal 7-25 [facility] Comment on above: Performed By: #### L YME AB wRFX #### [facility] , Benzodiazepines Screen Ql (U )Ordered By: Yasmine Marc on 12-27-2023 Benzodiazepines Ql (U) Negative Negative [facility] Benzoylecgonine [Presence] i n Urine by Screen methodOrdered By: Yasmine Marc on 12-27-2023 Benzoylecgonine Screen Ql (U) Negative Negative [facility] Bilirubin Test strip Ql (U)O rdered By: Yasmine Marc on 12-27-2023 Bilirubin Ql (U) Negative Negative [facility] Blood Cultureon 12-27-2023 Bacteria identified Cx Nom (Bld) NO GROWTH 5 DAYS PERFORMED BY: [facility] [address] [place] [address] PATHOLOGIST COMMERCIAL FLOOR COVERING INSTALLER MINESH MARTINES M.D. Normal [facility] Comment on above: Performed By: #### G LULS #### Point of Care testing , Bacteria identified Cx Nom (Bld) NO GROWTH 5 DAYS PERFORMED BY: [address] [address] PATHOLOGIST COMMERCIAL FLOOR COVERING INSTALLER MINESH MARTINES M.D. Normal [facility] Comment on above: Performed By: #### G LULS #### Point of Care testing , Borrelia burgdorferi IgG+IgM Ab [Presence] in Serum by ImmunoassayOrdered By: Kaitlynn Wiggins on 12-27-2023 B. burgdorferi IgG+IgM IA Ql (S) Negative Negative [facility] Comment on above: Lyme antibodies not detected. Reflex testing is notindicated.No laboratory evidence of infection with B. burgdorferi(Lyme disease). Negative results may occur in patientsrecently infected (less than or equal to 14 days) with B.burgdorferi. If recent infection is suspected, repeattesting on a new sample collected in 7 to 14 days isrecommended.Performed at: [facility] [place] [id number] Director: Raghu Ricahrd PhD, Phone: [phone] C reactive protein [Mass/vol ume] in Serum or PlasmaOrdered By: Kaitlynn Wiggins on 12-27-2023 CRP [Mass/Vol] < 0.5 mg/dL 0.0-0.5 [facility] C-Reactive Proteinon 024 CRP [Mass/Vol] mg/L Normal 0.0-0.5 [facility] Comment on above: Result Comment: PERF ORMED BY: [address] [address] PATHOLOGIST COMMERCIAL FLOOR COVERING INSTALLER MINESH MARTINES M.D. Performed By: #### G LULS #### Point of Care testing , CT angio neckon 12-27-2023 CT angio neck [facility] Main [address] [address] [address] Scan Report Signed Patient: Jama Green MR#: [id number] 122 : 1950 Acct:[id number] Age/Sex: 73 / M ADM Date: 12/27/23 Loc: Room: [address] [place] [address] Type: ADM INOo Attending Dr: Kaitlynn Wiggins MD Copies to: DO Kaitlynn Livingston MD Ordering Provider: Yasmine Marc DO Date of Service: 12/26/23 CT/CT angio head: vertigo ([id number]) CT/CT angio neck: vertigo, ataxia CTA Head and Neck TECHNIQUE: Axial imaging of the head and neck with 2-D and 3-D reconstruction. 90cc of Isovue-370. The CT exam was performed using one or more the following dose reduction techniques: Automated exposure control, adjustment of the MA and/or Kv according to patient size, or use of the iterative reconstruction technique. Stenoses were measured using the NASCET criteria. COMPARISON: None HISTORY: Vertigo. Ataxia. The visualized aortic arch and great vessels are unremarkable. Subclavian arteries are patent mild atherosclerosis. No carotid dissection, critical stenosis or occlusion identified. No vertebral dissection, occlusion or abrupt cut off identified. The RIGHT vertebral artery poorly visualized secondary to motion artifact. The carotid siphons and vertebral basilar systems are patent. No intracranial aneurysm, dissection, abrupt cut off or critical stenosis identified.. 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 Emphysematous changes of the lung apices. Cervical spine degeneration. CT/CT angio head IMPRESSION: No occlusion, critical stenosis or dissection of the extracranial or intracranial circulation. Limited assessment of the RIGHT vertebral artery secondary to motion artifact. Impression dictated by: Dwanie Wilkinson M.D.12/27/2023 9:42 AM Dictation Location: [place] [address] Transcribed By: [facility] 12/27/23 0942 Dictated By: Dwaine Wilkinson DO 12/27/23 0938 Signed By: 12/27/23 0942 Normal [facility] CT head/brain wo [facility] 12-26 CT head/brain wo [facility] [place] [address] CT Scan Report Signed Patient: Jama Green MR#: [id number] 122 : 1950 Acct:[id number] Age/Sex: 73 / M ADM Date: 12/27/23 Loc: 3T Room: [address] [place] [address] Type: ADM INOo Attending Dr: Kaitlynn Wiggins MD Copies to: DO Kaitlynn Livingston MD Ordering Provider: Yasmine Marc DO Date of Service: 12/26/23 CT/CT head/brain wo con: vertigo Unenhanced head CT TECHNIQUE: Contiguous axial imaging of the head. The CT exam was performed using one or more the following dose reduction techniques: Automated exposure control, adjustment of the MA and/or Kv according to patient size, or use of the iterative reconstruction technique. COMPARISON: None HISTORY: Vertigo. Ataxia. Nausea and vomiting. VENTRICLES: Within normal limits ATROPHY: None BRAIN PARENCHYMA: Adequate lao-white matter differentiation identified. HEMORRHAGE: None HERNIATION: No mass effect or herniation INFARCTION: No recent vascular distribution infarction is seen. EXTRA-AXIAL FLUID COLLECTIONS None MIDBRAIN: Unremarkable COURTNEY: Unremarkable MEDULLA: Unremarkable SINUSES: Unremarkable ORBITS: Grossly unremarkable MASTOIDS: Unremarkable BONY STRUCTURES Intact ADDITIONAL FINDINGS: CT/CT head/brain wo con IMPRESSION: No acute findings. Impression dictated by: Dwaine Wilkinson M.D.12/27/2023 9:38 AM Dictation Location: [place] [address] Transcribed By: [facility] 12/27/23 0938 Dictated By: Dwaine Wilkinson DO 12/27/23 0936 Signed By: 12/27/2338 Normal [facility] Cannabinoids [Presence] in U rine by Screen methodOrdered By: Yasmine Marc on 12-27-2023 Cannabinoids Screen Ql (U) Negative Negative [facility] Comment on above: These are unconfirme d results and should not be used for legal purposes. Drug Cut-Off Concentration: AMPH 1000 ng/mL JOHANN 200 ng/mL MARAL 200 ng/mL COCM 300 ng/mL OP 300 ng/mL PCP 25 ng/mL THC 20 ng/mL Cholesterol [Mass/volume] in Serum or PlasmaOrdered By: Jared Easley on 12-27-2023 Cholesterol [Mass/Vol] 188 mg/dL Normal 140-200 [facility] Comment on above: Chol less than 200 m g/dl low riskChol 201-239 mg/dl borderline riskChol 240 mg/dl and greater high risk Result Comment: Chol less than 200 mg/dl low risk Chol 201-239 mg/dl borderline risk Chol 240 mg/dl and greater high risk Performed By: #### L YME AB wRFX #### [facility] , Cholesterol in LDL Calc [Mas s/Vol]Ordered By: Jared Easley on 12-27-2023 Cholesterol in LDL [Mass/Vol] 130 mg/dL High 0-100 [facility] Comment on above: LDL ATP III CLASSIFI CATIONLDL less than 100 mg/dL OptimalLDL 100-129 mg/dL Near or above optimalLDL 130-159 mg/dL Borderline highLDL 160-189 mg/dL HighLDL greater than 189 mg/dL Very high Cholesterol in VLDL Calc [Ma ss/Vol]Ordered By: Jared Easley on 12-27-2023 Cholesterol in VLDL [Mass/Vol] 20 mg/dL [facility] Color of Urine by AutoOrdere d By: Yasmine Marc on 12-27-2023 Color (U) Yellow Normal Yellow [facility] Comment on above: Order Comment: Name Collection Type:: Clean-Voided Midstream Performed By: #### U RDS, ADDONUAPLUS #### [address] Complete Blood Count Auto Di ffon 12-27-2023 Basophils (Bld) [#/Vol] 0.0 10*3/uL Normal 0.0-0.2 [facility] Comment on above: Result Comment: PERF ORMED BY: [place] [address] PATHOLOGIST COMMERCIAL FLOOR COVERING INSTALLER MINESH MARTINES M.D. Performed By: #### L YME AB wRFX #### [facility] , Basophils/100 WBC (Bld) 0.3 % Normal . [facility] Comment on above: Performed By: #### L YME AB wRFX #### [facility] , Eosinophils (Bld) [#/Vol] 0.0 10*3/uL Normal 0.0-0.45 [facility] Comment on above: Performed By: #### L YME AB wRFX #### [facility] , Eosinophils/100 WBC (Bld) 0.1 % Normal . [facility] Comment on above: Performed By: #### L YME AB wRFX #### [facility] , Erythrocyte distribution width (RBC) [Ratio] 13.2 % Normal 12.0-14.8 [facility] Comment on above: Performed By: #### L YME AB wRFX #### [facility] , Hematocrit (Bld) [Volume fraction] 40.3 % Normal 38.8-50.0 [facility] Comment on above: Performed By: #### L YME AB wRFX #### [facility] , Hemoglobin (Bld) [Mass/Vol] 13.7 g/dL Normal 13.0-17.0 [facility] Comment on above: Performed By: #### L YME AB wRFX #### [facility] , Lymphocytes (Bld) [#/Vol] 2.1 10*3/uL Normal 1.00-4.8 [facility] Comment on above: Performed By: #### L YME AB wRFX #### [facility] , Lymphocytes/100 WBC (Bld) 15.8 % Normal . [facility] Comment on above: Performed By: #### L YME AB wRFX #### [facility] , MCH (RBC) [Entitic mass] 33.0 pg Normal 27.5-35.2 [facility] Comment on above: Performed By: #### L YME AB wRFX #### [facility] , MCV (RBC) [Entitic vol] 97.2 fL Normal 83.5-101 [facility] Comment on above: Performed By: #### L YME AB wRFX #### [facility] , Mean Corpuscular HGB Conc 33.9 g/dL Normal 32.5-35.6 [facility] Comment on above: Performed By: #### L YME AB wRFX #### [facility] , Monocytes (Bld) [#/Vol] 0.9 10*3/uL High 0.0-0.8 [facility] Comment on above: Performed By: #### L YME AB wRFX #### [facility] , Monocytes/100 WBC (Bld) 19.42 % Normal 0.00-20.00 [facility] Comment on above: Performed By: #### L YME AB wRFX #### [facility] , Monocytes/100 WBC (Bld) 6.6 % Normal . [facility] Comment on above: Performed By: #### L YME AB wRFX #### [facility] , Neutrophils (Bld) [#/Vol] 10.4 10*3/uL High 1.8-7.7 [facility] Comment on above: Performed By: #### L YME AB wRFX #### [facility] , Neutrophils/100 WBC (Bld) 77.2 % Normal . [facility] Comment on above: Performed By: #### L YME AB wRFX #### [facility] , NRBC% 0.0 /100{WBC} Normal 0-0.5 [facility] Comment on above: Performed By: #### L YME AB wRFX #### [facility] , Platelet mean volume (Bld) [Entitic vol] 7.9 fL Normal 6.6-10.1 [facility] Comment on above: Performed By: #### L YME AB wRFX #### [facility] , Platelets (Bld) [#/Vol] 237 10*3/uL Normal 150-450 [facility] Comment on above: Performed By: #### L YME AB wRFX #### [facility] , RBC (Bld) [#/Vol] 4.14 10*6/uL Normal 3.90-5.60 [facility] Comment on above: Performed By: #### L YME AB wRFX #### [facility] , WBC (Bld) [#/Vol] 13.5 10*3/uL High 4.1-10.5 [facility] Comment on above: Performed By: #### L YME AB wRFX #### [facility] , Creatine kinase [Enzymatic a ctivity/volume] in Serum or PlasmaOrdered By: Kaitlynn Wiggins on 12-27-2023 CK [Catalytic activity/Vol] 121 U/L Normal 30-223 [facility] Comment on above: Result Comment: PERF ORMED BY: [place] [address] PATHOLOGIST COMMERCIAL FLOOR COVERING INSTALLER MINESH MARTINES M.D. Performed By: #### L YME AB wRFX #### [facility] , Dipstick and Microscopicon 0 12-27-2023 Appearance (U) Cloudy Critically abnormal Clear [facility] Comment on above: Order Comment: Name Collection Type:: Clean-Voided Midstream Performed By: #### U RDS, ADDONUAPLUS #### [address] Bacteria,Urine None Seen Normal None Seen [facility] Comment on above: Order Comment: Name Collection Type:: Clean-Voided Midstream Performed By: #### U RDS, ADDONUAPLUS #### [address] Bilirubin,Urine Negative Normal Negative [facility] Comment on above: Order Comment: Name Collection Type:: Clean-Voided Midstream Performed By: #### U RDS, ADDONUAPLUS #### [facility] [address] [place] [address] [place] Glucose Ql (U) Normal Normal Normal [facility] Comment on above: Order Comment: Name Collection Type:: Clean-Voided Midstream Performed By: #### U RDS, ADDONUAPLUS #### [place] [address] [place] Hyaline Casts,Urine None Seen Normal 0-8 [facility] Comment on above: Order Comment: Name Collection Type:: Clean-Voided Midstream Result Comment: PERF ORMED BY: [place] [address] PATHOLOGIST COMMER[employer] FLOOR COVERING INSTALLER MINESH MARTINES M.D. Performed By: #### U RDS, ADDONUAPLUS #### [address] Ketones Ql (U) 1+ High Negative [facility] Comment on above: Order Comment: Name Collection Type:: Clean-Voided Midstream Performed By: #### U RDS, ADDONUAPLUS #### [address] Leukocyte esterase Test strip Ql (U) Negative Normal Negative [facility] Comment on above: Order Comment: Name Collection Type:: Clean-Voided Midstream Performed By: #### U RDS, ADDONUAPLUS #### [place] [address] [place] Nitrite,Urine Negative Normal Negative [facility] Comment on above: Order Comment: Name Collection Type:: Clean-Voided Midstream Performed By: #### U RDS, ADDONUAPLUS #### [place] [address] [place] Occult Blood,Urine Negative Normal Negative [facility] Comment on above: Order Comment: Name Collection Type:: Clean-Voided Midstream Result Comment: PERF ORMED BY: [place] [address] PATHOLOGIST [employer]ER[employer] FLOOR COVERING INSTALLER MINESH MARTINES M.D. Performed By: #### U RDS, ADDONUAPLUS #### [place] [address] [place] Protein,Urine Negative Normal Negative [facility] Comment on above: Order Comment: Name Collection Type:: Clean-Voided Midstream Performed By: #### U RDS, ADDONUAPLUS #### [place] [address] [place] RBC,Urine 3-4 Normal 0-4 [facility] Comment on above: Order Comment: Name Collection Type:: Clean-Voided Midstream Performed By: #### U RDS, ADDONUAPLUS #### [address] Specificy [place],Urine 1.048 High 1.001-1.030 [facility] Comment on above: Order Comment: Name Collection Type:: Clean-Voided Midstream Performed By: #### U RDS, ADDONUAPLUS #### [place] [address] [place] Squamous Epithelial Cell,Urine None Seen Normal 0-2 [facility] Comment on above: Order Comment: Name Collection Type:: Clean-Voided Midstream Performed By: #### U RDS, ADDONUAPLUS #### [address] Urobilinogen,Urine Normal Normal Normal [facility] Comment on above: Order Comment: Name Collection Type:: Clean-Voided Midstream Performed By: #### U RDS, ADDONUAPLUS #### [place] [address] [place] WBC,Urine None Seen Normal 0-4 [facility] Comment on above: Order Comment: Name Collection Type:: Clean-Voided Midstream Performed By: #### U RDS, ADDONUAPLUS #### [place] [address] [place] Drug Screen,Urineon 12-27-19 24 Amphetamine Screen,Urine Negative Normal Negative [facility] Comment on above: Performed By: #### U RDS, ADDONUAPLUS #### [place] [address] [place] Barbiturate Screen,Urine Negative Normal Negative [facility] Comment on above: Performed By: #### U RDS, ADDONUAPLUS #### [place] [address] [place] Benzodiazepines Screen,Urine Negative Normal Negative [facility] Comment on above: Performed By: #### U RDS, ADDONUAPLUS #### [place] [address] [place] Cannabinoid Screen,Urine Negative Normal Negative [facility] Comment on above: Result Comment: Thes e are unconfirmed results and should not be used for legal purposes. Drug Cut-Off Concentration: AMPH 1000 ng/mL JOHANN 200 ng/mL MARAL 200 ng/mL COCM 300 ng/mL OP 300 ng/mL PCP 25 ng/mL THC 20 ng/mL PERFORMED BY: [place] [address] PATHOLOGIST [employer]LOOR COVERING INSTALLER MINESH MARTINES M.D. Performed By: #### U RDS, ADDONUAPLUS #### [address] Cocaine Screen,Urine Negative Normal Negative [facility] Comment on above: Performed By: #### U RDS, ADDONUAPLUS #### [address] Opiate Screen,Urine Negative Normal Negative [facility] Comment on above: Performed By: #### U RDS, ADDONUAPLUS #### [address] Phencyclidine Screen,Urine Negative Normal Negative [facility] Comment on above: Performed By: #### U RDS, ADDONUAPLUS #### [address] Erythrocyte Sedimentation Ra antonette 12-27-2023 ESR (Bld) [Velocity] 8 mm/h Normal 0-19 [facility] Comment on above: Result Comment: PERF ORMED BY: [place] [address] PATHOLOGIST [employer]ER[employer]OR COVERING INSTALLER MINESH MARTINES M.D. Performed By: #### L YME AB wRFX #### [facility] , Erythrocyte sedimentation ra te by Photometric methodOrdered By: Kaitlynn Wiggins on 12-27-2023 ESR Photometric method (Bld) [Velocity] 8 mm/hr 0-19 [facility] Erythrocytes [#/area] in Uri ne sediment by Automated countOrdered By: Yasmine Marc on 05-12-2024 RBC Auto (Urine sed) [#/Area] 3-4 [HPF] 0-4 [facility] Glucose mean value [Mass/vol ume] in Blood Estimated from glycated hemoglobinOrdered By: Jared Easley on 12-27-2023 Average glucose Estimated from glycated hemoglobin (Bld) [Mass/Vol] 120 mg/dL [facility] Hemoglobin A1c percentageOrd ered By: Jared Easley on 12-27-2023 HbA1c (Bld) [Mass fraction] 5.8 % High 4.3-5.6 [facility] Comment on above: Increased risk for d iabetes: 5.7 - 6.4diabetes: >6.4glycemic control for adults with diabetes: <7.0 Result Comment: Incr eased risk for diabetes: 5.7 - 6.4 diabetes: >6.4 glycemic control for adults with diabetes: <7.0 Performed By: #### H BSAG, HAABT, HBSAB, HBCAB, HCV RX PCR #### [facility] , Ketones Auto test strip (U) [Mass/Vol]Ordered By: Yasmine Marc on 12-27-2023 Ketones (U) [Mass/Vol] 1+ High Negative [facility] - UrinalysisOrder ed By: Yasmine Marc on 12-27-2023 Hyaline casts LM Ql (Urine sed) None seen [LPF] 0-8 [facility] Leukocytes [#/area] in Urine sediment by Automated countOrdered By: Yasmine Marc on 12-27-2023 WBC Auto (Urine sed) [#/Area] None seen [HPF] 0-4 [facility] Lipid Panelon 12-27-2023 LDL Cholesterol,Calculated 130 mg/dL High 0-100 [facility] Comment on above: Result Comment: LDL ATP III CLASSIFICATION LDL less than 100 mg/dL Optimal LDL 100-129 mg/dL Near or above optimal LDL 130-159 mg/dL Borderline high LDL 160-189 mg/dL High LDL greater than 189 mg/dL Very high Performed By: #### L YME AB wRFX #### [facility] , Triglyceride w/Reflex 100 mg/dL Normal 0-149 [facility] Comment on above: Result Comment: TRIG ATP III CLASSIFICATION TRIG less than 150 mg/dL Normal TRIG 150-199 mg/dL Borderline high TRIG 200-500 mg/dL High TRIG greater than 500 mg/dL Very high Standard traceable to the Center for Disease Conrtrol and Prevention (CDC) test method. Performed By: #### L YME AB wRFX #### [facility] , VLDL CHOLESTEROL 20 mg/dL Normal [facility] Comment on above: Performed By: #### L YME AB wRFX #### [facility] , Lyme, Total Ab with Reflexon 12-27-2023 Lyme Total Antibody Negative Normal Negative [facility] Comment on above: Result Comment: Lyme antibodies not detected. Reflex testing is not indicated. No laboratory evidence of infection with B. burgdorferi (Lyme disease). Negative results may occur in patients recently infected (less than or equal to 14 days) with B. burgdorferi. If recent infection is suspected, repeat testing on a new sample collected in 7 to 14 days is recommended. Performed at: [facility] [id number] Roller Helper: Raghu Richard PhD, Phone: [phone] PERFORMED BY: [place] [address] PATHOLOGIST COMMERCIAL FLOOR COVERING INSTALLER MINESH MARTINES M.D. Performed By: #### L YME AB wRFX #### [facility] , Magnesium [Mass/volume] in S bairon or PlasmaOrdered By: Jared Easley on 12-27-2023 Magnesium [Mass/Vol] 2.1 mg/dL Normal 1.9-2.7 [facility] Comment on above: Performed By: #### L YME AB wRFX #### [facility] , Monocyte distribution width [Entitic volume] in Blood by AutomatedOrdered By: Jared Easley on 12-27-2023 Monocyte distribution width Auto (Bld) [Entitic vol] 19.42 % 0.00-20.00 [facility] Nitrite Test strip Ql (U)Ord ered By: Yasmine Marc on 12-27-2023 Nitrite Ql (U) Negative Negative [facility] Opiates [Presence] in Urine by Screen methodOrdered By: Yasmine Marc on 12-27-2023 Opiates Screen Ql (U) Negative Negative [facility] Phencyclidine Screen Ql (U)O rdered By: Yasmine Marc on 12-27-2023 Phencyclidine Ql (U) Negative Negative [facility] Protein Auto test strip (U) [Mass/Vol]Ordered By: Yasmine Marc on 12-27-2023 Protein (U) [Mass/Vol] Negative Negative [facility] Serum or plasma high density lipoprotein (HDL) cholesterol measurementOrdered By: Jared Easley on 12-27-2023 Cholesterol in HDL [Mass/Vol] 38 mg/dL Normal 23-92 [facility] Comment on above: HDL CHOL ATP-III CLA SSIFICATION Cardiovascular RiskHDL > or equal to 60 mg/dL LOWHDL < 40 mg/dL HIGH Result Comment: HDL CHOL ATP-III CLASSIFICATION Cardiovascular Risk HDL > or equal to 60 mg/dL LOW HDL < 40 mg/dL HIGH Performed By: #### L YME AB wRFX #### [facility] , Serum or plasma total choles terol/high density lipoprotein (HDL) cholesterol mass ratOrdered By: Jared Easley on 12-27-2023 Cholesterol.total/Chol esterol in HDL [Mass ratio] 4.9 {ratio} Normal <5.0 [facility] Comment on above: Result Comment: PERF ORMED BY: [facility] [address] [place] [address] PATHOLOGIST COMMERCIAL FLOOR COVERING INSTALLER MINESH MARTINES M.D. Performed By: #### L YME AB wRFX #### [facility] , Specific gravity Auto test s trip (U) [Rel density]Ordered By: Yasmine Marc on 12-27-2023 Specific gravity (U) [Rel density] 1.048 High 1.001-1.030 [facility] Squamous epithelial cells de tection in urine sediment by light microscopyOrdered By: Yasmine Marc on 12-27-2023 Epithelial cells.squamous LM Ql (Urine sed) None seen [HPF] 0-2 [facility] Triglyceride [Mass/volume] i n Serum or PlasmaOrdered By: Jared Easley on 12-27-2023 Triglyceride [Mass/Vol] 100 mg/dL 0-149 [facility] Comment on above: TRIG ATP III CLASSIF ICATIONTRIG less than 150 mg/dL NormalTRIG 150-199 mg/dL Borderline highTRIG 200-500 mg/dL High TRIG greater than 500 mg/dL Very highStandard traceable to the Center for Disease Conrtrol and Prevention (CDC) test method. Urine clarity by refractomet ry automatedOrdered By: Yasmine Marc on 12-27-2023 Clarity Refractometry automated (U) Cloudy Abnormal Clear [facility] Urine glucose measurement by automated test strip (mass/volume)Ordered By: Yasmine Marc on 12-27-2023 Glucose Auto test strip (U) [Mass/Vol] Normal mg/dL Normal [facility] Urine hemoglobin detection b y automated test stripOrdered By: Yasmine Marc on 12-27-2023 Hemoglobin Auto test strip Ql (U) Negative Negative [facility] Urine leukocyte esterase det ection by automated test stripOrdered By: Yasmine Marc on 12-27-2023 Leukocyte esterase Auto test strip Ql (U) Negative Negative [facility] Urine pH measurement by auto mated test stripOrdered By: Yasmine Marc on 12-27-2023 pH (U) 7.5 [pH] Normal 5.0-9.0 [facility] Comment on above: Order Comment: Name Collection Type:: Clean-Voided Midstream Performed By: #### U RDS, ADDONUAPLUS #### [address] Urobilinogen Auto test strip (U) [Mass/Vol]Ordered By: Yasmine Marc on 12-27-2023 Urobilinogen (U) [Mass/Vol] Normal mg/dL Normal [facility] Alanine aminotransferase [En zymatic activity/volume] in Serum or PlasmaOrdered By: Yasmine Marc on 12-26-2023 ALT [Catalytic activity/Vol] 23 U/L Normal 7-52 [facility] Comment on above: Performed By: #### G LULS #### Point of Care testing , Albumin [Mass/volume] in Ser um or Plasma by Bromocresol green (BCG) dye binding methoOrdered By: Yasmine Marc on 12-26-2023 Albumin BCG dye [Mass/Vol] 4.3 g/dL 3.5-5.7 [facility] Alkaline phosphatase [Enzyma tic activity/volume] in Serum or PlasmaOrdered By: Yasmine Marc on 12-26-2023 ALP [Catalytic activity/Vol] 74 U/L Normal 34-104 [facility] Comment on above: Performed By: #### G LULS #### Point of Care testing , Aspartate aminotransferase [ Enzymatic activity/volume] in Serum or PlasmaOrdered By: Yasmine Marc on 12-26-2023 AST [Catalytic activity/Vol] 26 U/L Normal 13-39 [facility] Comment on above: Performed By: #### G LULS #### Point of Care testing , Automated basophil %Ordered By: Yasmine Marc on 12-26-2023 Basophils/100 WBC (Bld) 0.4 % Normal . [facility] Comment on above: Performed By: #### G LULS #### Point of Care testing , Automated basophil countOrde red By: Yasmine Marc on 12-26-2023 Basophils (Bld) [#/Vol] 0.1 10*3/uL Normal 0.0-0.2 [facility] Comment on above: Result Comment: PERF ORMED BY: [facility] [address] [place] [address] PATHOLOGIST [employer]ER[employer] FLOOR COVERING INSTALLER MINESH MARTINES M.D. Performed By: #### G LULS #### Point of Care testing , Automated blood monocyte cou ntOrdered By: Yasmine Marc on 12-26-2023 Monocytes (Bld) [#/Vol] 0.8 10*3/uL Normal 0.0-0.8 [facility] Comment on above: Performed By: #### G LULS #### Point of Care testing , Automated eosinophil %Ordere d By: Yasmine Marc on 12-26-2023 Eosinophils/100 WBC (Bld) 0.2 % Normal . [facility] Comment on above: Performed By: #### G LULS #### Point of Care testing , Automated eosinophil countOr dered By: Yasmine Marc on 12-26-2023 Eosinophils (Bld) [#/Vol] 0.0 10*3/uL Normal 0.0-0.45 [facility] Comment on above: Performed By: #### G LULS #### Point of Care testing , Automated monocyte %Ordered By: Yasmine Marc on 12-26-2023 Monocytes/100 WBC (Bld) 4.8 % Normal . [facility] Comment on above: Performed By: #### G LULS #### Point of Care testing , Automated neutrophil %Ordere d By: Yasmine Marc on 12-26-2023 Neutrophils/100 WBC (Bld) 78.3 % Normal . [facility] Comment on above: Performed By: #### G LULS #### Point of Care testing , Basic Metabolic Panelon 12-15 GFR/1.73 sq M.predicted MDRD (S/P/Bld) [Vol rate/Area] mL/min/{1.73_m2} Normal [facility] Comment on above: Performed By: #### G LULS #### Point of Care testing , Bilirubin.direct [Mass/volum e] in Serum or PlasmaOrdered By: Yasmine Marc on 12-26-2023 Bilirubin.direct [Mass/Vol] 0.10 mg/dL 0.03-0.18 [facility] Bilirubin.total [Mass/volume ] in Serum or PlasmaOrdered By: Yasmine Marc on 12-26-2023 Bilirubin [Mass/Vol] 0.6 mg/dL Normal 0.3-1.0 [facility] Comment on above: Performed By: #### G LULS #### Point of Care testing , Calcium [Mass/volume] in Ser um or PlasmaOrdered By: Yasmine Marc on 12-26-2023 Calcium [Mass/Vol] 9.3 mg/dL Normal 8.6-10.3 [facility] Comment on above: Performed By: #### G LULS #### Point of Care testing , Carbon dioxide, total [Moles /volume] in Serum or PlasmaOrdered By: Yasmine Kajal on 12-26-2023 CO2 [Moles/Vol] 26.3 mmol/L Normal 21.0-31.0 [facility] Comment on above: Performed By: #### G LULS #### Point of Care testing , Chloride [Moles/volume] in S bairon or PlasmaOrdered By: Yasmine Marc on 12-26-2023 Chloride [Moles/Vol] 103 mmol/L Normal 98-107 [facility] Comment on above: Performed By: #### G LULS #### Point of Care testing , Complete Blood Count Auto Di ffon 12-26-2023 Mean Corpuscular HGB Conc 33.9 g/dL Normal 32.5-35.6 [facility] Comment on above: Performed By: #### G LULS #### Point of Care testing , Monocytes/100 WBC (Bld) 17.70 % Normal 0.00-20.00 [facility] Comment on above: Performed By: #### G LULS #### Point of Care testing , NRBC% 0.1 /100{WBC} Normal 0-0.5 [facility] Comment on above: Performed By: #### G LULS #### Point of Care testing , Creatinine [Mass/volume] in Serum or PlasmaOrdered By: Yasmine Marc on 12-26-2023 Creatinine [Mass/Vol] 0.92 mg/dL Normal 0.70-1.30 [facility] Comment on above: Performed By: #### G LULS #### Point of Care testing , ECG 12 lead ECGon 12-26-2023 ECG 12 lead ECG [facility] [place] [address] Electrocardiograph Report Signed Patient: Jama Green MR#: [id number] 122 : 1950 Acct:[id number] Age/Sex: 73 / M ADM Date: 12/27/23 Loc: Room: [address] [place] [address] Type: ADM INOo Attending Dr: Jared Easley DO Ordering Provider: Yasmine Marc DO Date of Service: 12/26/2307/10/2103 ECG/ECG 12 lead ECG: Nausea/Vomiting/Diarrhea Copies to: Test Reason : Blood Pressure : 159/078 mmHG Vent. Rate : 074 BPM Atrial Rate : 074 BPM P-R Int : 158 ms QRS Dur : 086 ms QT Int : 402 ms P-R-T Axes : 071 060 047 degrees QTc Int : 446 ms Normal sinus rhythm Normal ECG When compared with ECG of 29-SEP-2023 22:27, Nonspecific T wave abnormality no longer evident in Anterior leads Confirmed by YASMINE MARC DO ([id number]) on 12/27/2023 5:13:04 AM Referred By: Electronically Signed By:YASMINE MARC DO Transcribed By: MUS Signed By Yasmine Marc DO 0513 Normal [facility] Erythrocyte distribution wid th [Ratio] by Automated countOrdered By: Yasmine Marc on 12-26-2023 Erythrocyte distribution width (RBC) [Ratio] 13.6 % Normal 12.0-14.8 [facility] Comment on above: Performed By: #### G LULS #### Point of Care testing , Erythrocytes [#/volume] in B lood by Automated countOrdered By: Yasmine Marc on 12-26-2023 RBC (Bld) [#/Vol] 4.54 10*6/uL Normal 3.90-5.60 [facility] Comment on above: Performed By: #### G LULS #### Point of Care testing , Ethanol [Mass/volume] in Ser um or PlasmaOrdered By: Yasmine Marc on 12-26-2023 Ethanol [Mass/Vol] mg/dL Normal [facility] Comment on above: Performed By: #### U RDS, ADDONUAPLUS #### [address] Ethanol [Mass/Vol] TNP [facility] Comment on above: Test not performed Ethyl Alcohol Profileon 12-15 Percent Ethanol Not performed Normal [facility] Comment on above: Result Comment: PERF ORMED BY: [facility] [address] [place] [address] PATHOLOGIST COMMERCIAL FLOOR COVERING INSTALLER MINESH MARTINES M.D. Performed By: #### U LEROY LONGORIA #### [facility] [address] Glucose [Mass/volume] in Ser um or PlasmaOrdered By: Yasmine Marc on 12-26-2023 Glucose [Mass/Vol] 165 mg/dL High 70-100 [facility] Comment on above: ADA recommended refe rence rangeRandom Glucose Reference Range is dependent on time and content of last meal. Glucose of more than 200 mg/dL in a nonstressed, ambulatory subject supports the diagnosis of Diabetes Mellitus. Result Comment: [place] om Glucose Reference Range is dependent on time and content of last meal. Glucose of more than 200 mg/dL in a nonstressed, ambulatory subject supports the diagnosis of Diabetes Mellitus. ADA recommended reference range Performed By: #### G LULS #### Point of Care testing , Hematocrit [Volume Fraction] of Blood by Automated countOrdered By: Yasmine Marc on 12-26-2023 Hematocrit (Bld) [Volume fraction] 44.2 % Normal 38.8-50.0 [facility] Comment on above: Performed By: #### G LULS #### Point of Care testing , Hemoglobin [Mass/volume] in BloodOrdered By: Yasmine Marc on 12-26-2023 Hemoglobin (Bld) [Mass/Vol] 15.0 g/dL Normal 13.0-17.0 [facility] Comment on above: Performed By: #### G LULS #### Point of Care testing , Hepatic Panelon 12-26-2023 Albumin [Mass/Vol] 4.3 g/dL Normal 3.5-5.7 [facility] Comment on above: Performed By: #### G LULS #### Point of Care testing , Bilirubin,Indirect 0.5 mg/dL Normal [facility] Comment on above: Performed By: #### G LULS #### Point of Care testing , Bilirubin.indirect [Mass/Vol] 0.10 mg/dL Normal 0.03-0.18 [facility] Comment on above: Performed By: #### G LULS #### Point of Care testing , Leukocytes [#/volume] correc erum for nucleated erythrocytes in Blood by Automated counOrdered By: Yasmine Marc on 12-26-2023 WBC corrected for nucl RBC Auto (Bld) [#/Vol] 16.1 10*3/uL 4.1-10.5 [facility] Leukocytes [#/volume] in Blo od by Automated countOrdered By: Yasmine Marc on 12-26-2023 WBC (Bld) [#/Vol] 16.1 10*3/uL High 4.1-10.5 [facility] Comment on above: Performed By: #### G LULS #### Point of Care testing , Lipase [Enzymatic activity/v olume] in Serum or PlasmaOrdered By: Yasmine Marc on 12-26-2023 Lipase [Catalytic activity/Vol] 8.0 U/L Low 11.0-82.0 [facility] Comment on above: Result Comment: PERF ORMED BY: [place] [address] PATHOLOGIST COMMER[employer] FLOOR COVERING INSTALLER MINESH MARTINES M.D. Performed By: #### U RDS, ADDONUAPLUS #### [address] Lymphocytes [#/volume] in Bl ood by Automated countOrdered By: Yasmine Marc on 12-26-2023 Lymphocytes (Bld) [#/Vol] 2.6 10*3/uL Normal 1.00-4.8 [facility] Comment on above: Performed By: #### G LULS #### Point of Care testing , Lymphocytes/100 leukocytes i n Blood by Automated countOrdered By: Yasmine Marc on 12-26-2023 Lymphocytes/100 WBC (Bld) 16.3 % Normal . [facility] Comment on above: Performed By: #### G LULS #### Point of Care testing , MCH [Entitic mass] by Automa erum countOrdered By: Yasmine Marc on 12-26-2023 MCH (RBC) [Entitic mass] 33.0 pg Normal 27.5-35.2 [facility] Comment on above: Performed By: #### G LULS #### Point of Care testing , MCHC Auto (RBC) [Mass/Vol]Or dered By: Yasmine Marc on 12-26-2023 MCHC (RBC) [Mass/Vol] 33.9 g/dL 32.5-35.6 [facility] MCV [Entitic volume] by Auto mated countOrdered By: Yasmine Marc on 12-26-2023 MCV (RBC) [Entitic vol] 97.4 fL Normal 83.5-101 [facility] Comment on above: Performed By: #### G LULS #### Point of Care testing , Magnesiumon 12-26-2023 Magnesium [Mass/Vol] 2.1 mg/dL Normal 1.9-2.7 [facility] Comment on above: Performed By: #### U RDS, ADDONUAPLUS #### [facility] [address] Monocyte distribution width [Entitic volume] in Blood by AutomatedOrdered By: Yasmine Marc on 12-26-2023 Monocyte distribution width Auto (Bld) [Entitic vol] 17.70 % 0.00-20.00 [facility] Neutrophils [#/volume] in Bl ood by Automated countOrdered By: Yasmine Marc on 12-26-2023 Neutrophils (Bld) [#/Vol] 12.6 10*3/uL High 1.8-7.7 [facility] Comment on above: Performed By: #### G LULS #### Point of Care testing , No Panel InformationOrdered By: Yasmine Marc on 12-26-2023 Estimated GFR (CKD-EPI) > 60.0 mL/Min [facility] Creatinine Clearance (Chem N/A [facility] Nucleated erythrocytes [Pres ence] in Blood by Automated countOrdered By: Yasmine Marc on 12-26-2023 Nucleated RBC Auto Ql (Bld) 0.1 /100{WBC} 0-0.5 [facility] Platelet mean volume [Entiti c volume] in Blood by Automated countOrdered By: Yasmine Marc on 12-26-2023 Platelet mean volume (Bld) [Entitic vol] 7.9 fL Normal 6.6-10.1 [facility] Comment on above: Performed By: #### G LULS #### Point of Care testing , Platelets [#/volume] in Bloo d by Automated countOrdered By: Yasmine Marc on 12-26-2023 Platelets (Bld) [#/Vol] 262 10*3/uL Normal 150-450 [facility] Comment on above: Performed By: #### G LULS #### Point of Care testing , Potassium [Moles/volume] in Serum or PlasmaOrdered By: Yasmine Marc on 12-26-2023 Potassium [Moles/Vol] 3.8 mmol/L Normal 3.5-5.1 [facility] Comment on above: Performed By: #### G LULS #### Point of Care testing , Protein [Mass/volume] in Ser um or PlasmaOrdered By: Yasmine Marc on 12-26-2023 Protein [Mass/Vol] 7.5 g/dL Normal 6.4-8.9 [facility] Comment on above: Performed By: #### G LULS #### Point of Care testing , Serum globulin measurement b y calculation (mass/volume)Ordered By: Yasmine Marc on 12-26-2023 Globulin (S) [Mass/Vol] 3.2 g/dL Normal [facility] Comment on above: Performed By: #### G LULS #### Point of Care testing , Serum or plasma albumin/glob ulin mass ratioOrdered By: Yasmine Marc on 12-26-2023 Albumin/Globulin [Mass ratio] 1.3 {ratio} [facility] Comment on above: Performed By: #### G LULS #### Point of Care testing , Serum or plasma anion gap de terminationOrdered By: Yasmine Marc on 12-26-2023 Anion gap [Moles/Vol] 12.5 mmol/L Normal 6.0-15.0 [facility] Comment on above: Performed By: #### G LULS #### Point of Care testing , Serum or plasma non-glucuron idated bilirubin measurement (mass/volume)Ordered By: Yasmine Marc on 12-26-2023 Bilirubin.indirect [Mass/Vol] 0.5 mg/dL [facility] Sodium [Moles/volume] in Ser um or PlasmaOrdered By: Yasmine Marc on 12-26-2023 Sodium [Moles/Vol] 138 mmol/L Normal 136-145 [facility] Comment on above: Performed By: #### G LULS #### Point of Care testing , Urea nitrogen [Mass/volume] in Serum or PlasmaOrdered By: Yasmine Marc on 12-26-2023 Urea nitrogen [Mass/Vol] 14 mg/dL Normal 7-25 [facility] Comment on above: Performed By: #### G LULS #### Point of Care testing , CNOVon 12-14-2023 CNOV Office Visit (DMFPMN ) -- JAMA GREEN ([id number]) 1950 [facility] Date Time Provider Department 12/14/23 9:30 AM [facility] During [facility] visit today, we recorded the following information about you: oJshua Worthy DDS 12/14/2023 7:14 PM Signed SOCIOLOGY ADJUNCT INSTRUCTOR PROCEDURE Date: December 14, 2023 Name: Jama Green HISTORY OF PRESENT ILLNESS: This is a 73 year old male patient who presents, accompanied by his daughter, for dental extraction #10. Today's procedure was originally planned to be completed under oral sedation however patient's daughter reports that his oxygen levels have been low since his recent cholecystectomy. Due to this, she had concerns regarding oral sedation. We discussed the R/B/A of oral sedation and advised the patient to either complete the procedure under local anesthesia alone or to postpone the extraction until the patient is feeling better and no longer noting any respiratory concerns, if he would like to have oral sedation. After discussion at length, the patient opted to complete the procedure today with local anesthesia alone. PROCEDURE: Extraction #10 DIAGNOSIS: Retained root tip None one hour prior to dental appointment. 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 famotidine (PEPCID) 20 mg tablet 1 tablet by ORAL/FEEDING TUBE route two times a day as needed (heartburn). Senna 8.6 mg tab Take 1 tablet by mouth two times a day. No current facility-administered medications on file prior to visit. ALLERGIES No Known Allergies INFORMED CONSENT: The procedure including risks, benefits, options and personnel performing the procedure was discussed with the patient. Jama Green expressed understanding and agreed to proceed. UNIVERSAL PROTOCOL / SAFETY CHECKLIST Procedure to be Performed: Extraction #10 Sign In: A Moment of CARE was completed. Personnel directly involved with the procedure wore the appropriate PPE (Personal Protective Equipment). Patient/Surrogate Stated/Verified: PATIENT VERIFIED(optional for EMERGENT procedures): Patient name, Date of , Relevant allergies, and The intended procedure Time Out Communication: Intended patient and procedure match the source documents. Consent documented and matches the intended procedure. Sign Out: SIGN OUT (optional for EMERGENT procedures): No specimen collected. Post-procedure follow-up management communicated and Plan of Care Visit completed when applicable. Joshua Worthy DDS Anesthetic: 20% benzocaine topical anesthetic gel 1 carpule of (1.8mL) 4% Articaine with 1/100,000 epinephrine via infiltration Proc: Throat shield used throughout procedure #15 blade to create sulcular incision #9-11. Periosteal elevator to release mucoperiosteal tissue and gently reflect full thickness flap tooth #10. Elevator and forceps delivery of tooth #10. Curette socket, irrigate thoroughly with sterile saline. No complications. Gauze placed under biting pressure, hemostasis achieved. Gingival tissue re approximated using 3-0 chromic gut sutures in simple interrupted fashion. Post-operative instructions were given written and verbally. The patient was dismissed in stable condition. The patient tolerated the procedure well. Rx: Rx: None Follow Up: as needed YI Aguirre Sagar, DDS 12/15/2023 10:24 AM Signed STAFF NOTE: I was present with the resident during the history and exam. I discussed the case with the resident and agree with the findings and plan as documented in the resident's note. 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 - famotidine (PEPCID) 20 mg tablet 1 tablet by ORAL/FEEDING TUBE route two times a day as needed (heartburn). - Senna 8.6 mg tab Take 1 tablet by mouth two times a day. Problem List As Of Date 12/14/2023 Noted Resolved Chest pain [R07.9] 04/16/2018 04/17/2018 Sprain of righ (more content not included)... Normal [facility] Hep C Ab wRfx to Qnt PCRon 0 12-10-2023 Hepatitis C Virus Antibody Non-Reactive Normal Non Reactive [facility] Comment on above: Performed By: #### H BSAG, HAABT, HBSAB, HBCAB, HCV RX PCR #### [facility] , Interpretation Hepatitis C Normal . [facility] Comment on above: Result Comment: Not infected with HCV unless early or acute infection is suspected (which may be delayed in an immunocompromised individual), or other evidence exists to indicate HCV infection. Performed By: #### H BSAG, HAABT, HBSAB, HBCAB, HCV RX PCR #### [facility] , Hepatitis A Antibody Totalon 12-10-2023 Hepatitis A Antibody Total Negative Normal Negative [facility] Comment on above: Result Comment: Comm ent: The HAV total antibody assay detects both IgG and IgM but does not differentiate between them. A negative result suggests susceptibility to infection. A positive result could be due to vaccination, previously resolved infection or active infection. Testing for HAV IgM should be performed if active HAV infection is suspected. [facility] offers profiles that will automatically reflex positive HAV total antibody results to IgM (e.g., panel #[id number] HAV Antibody w/ Rfx). Performed at: [address] [id number] Roller Helper: Raghu Richard PhD, Phone: [phone] Performed By: #### H BSAG, HAABT, HBSAB, HBCAB, HCV RX PCR #### [facility] , Hepatitis B Core Antibodyon 12-10-2023 Hepatitis B Core Antibody Negative Normal Negative [facility] Comment on above: Performed By: #### H BSAG, HAABT, HBSAB, HBCAB, HCV RX PCR #### [facility] , Hepatitis B Surface Antibody on 12-10-2023 Hepatitis B Surface Antibody Non-Reactive Normal . [facility] Comment on above: Result Comment: Non Reactive: Inconsistent with immunity, less than 10 mIU/mL Reactive: Consistent with immunity, greater than 9.9 mIU/mL Performed By: #### H BSAG, HAABT, HBSAB, HBCAB, HCV RX PCR #### [facility] , Hepatitis B Surface Antigeno n 12-10-2023 HBsAg Screen Negative Normal Negative [facility] Comment on above: Result Comment: PERF ORMED BY: [place] [address] PATHOLOGIST [employer]OVERING INSTALLER MINESH MARTINES M.D. Performed By: #### U A, ADDONUAPLUS #### [place] [address] [place] CBC W Auto Differential pane l (Bld)on 11-16-2023 Basophils (Bld) [#/Vol] 0.06 10*3/uL Normal <0.11 [facility] Comment on above: Order Comment: Speci men Type: BLOOD SPECIMENOrdering Facility: [facility] Address: [address] [place] [address] Performed By: #### 5 7021-8, 4536-7 ####[facility] LABCLIA [id number] [facility] [place] [address] [place] Basophils/100 WBC (Bld) 0.7 % Normal [facility] Comment on above: Order Comment: Speci men Type: BLOOD SPECIMENOrdering Facility: [facility] Address: [address] [place] [address] Performed By: #### 5 7021-8, 4536-7 ####[facility] LABCLIA [id number] [place] [address] [place] Differential cell count method Nom (Bld) Auto Normal [facility] Comment on above: Order Comment: Speci men Type: BLOOD SPECIMENOrdering Facility: [facility] Address: [address] [place] [address] Performed By: #### 5 7021-8, 4536-7 ####[facility] LABCLIA [id number] [place] [address] [place] Eosinophils (Bld) [#/Vol] 10*3/uL Normal <0.46 [facility] Comment on above: Order Comment: Speci men Type: BLOOD SPECIMENOrdering Facility: [facility] Address: [address] [place] [address] Performed By: #### 5 7021-8, 4536-7 ####[facility] LABCLIA [id number] [place] [address] [place] Eosinophils/100 WBC (Bld) 0.0 % Normal [facility] Comment on above: Order Comment: Speci men Type: BLOOD SPECIMENOrdering Facility: [facility] Address: [address] [place] [address] Performed By: #### 5 7021-8, 7-7 ####[facility] LABIA [id number] [place] [address] [place] Erythrocyte distribution width (RBC) [Ratio] 12.0 % Normal 11.5-15.0 [facility] Comment on above: Order Comment: Speci men Type: BLOOD SPECIMENOrdering Facility: [facility] Address: [address] [place] [address] Performed By: #### 5 7021-8, 4536-7 ####[facility] LABIA [id number] [place] [address] [place] Hematocrit (Bld) [Volume fraction] 45.6 % Normal 39.0-51.0 [facility] Comment on above: Order Comment: Speci men Type: BLOOD SPECIMENOrdering Facility: [facility] Address: [address] [place] [address] Performed By: #### 5 7021-8, 4536-7 ####[facility] LABIA [id number] [place] [address] [place] Hemoglobin (Bld) [Mass/Vol] 15.5 g/dL Normal 13.0-17.0 [facility] Comment on above: Order Comment: Speci men Type: BLOOD SPECIMENOrdering Facility: [facility] Address: [address] [place] [address] Performed By: #### 5 7021-8, 7-7 ####[facility] LABIA [id number] [place] [address] [place] Immature granulocytes (Bld) [#/Vol] 0.05 10*3/uL Normal <0.10 [facility] Comment on above: Order Comment: Speci men Type: BLOOD SPECIMENOrdering Facility: [facility] Address: [address] [place] [address] Performed By: #### 5 7021-8, 4536-7 ####[facility] LABCLIA [id number] [place] [address] [place] Immature granulocytes/100 WBC (Bld) 0.6 % Normal [facility] Comment on above: Order Comment: Speci men Type: BLOOD SPECIMENOrdering Facility: [facility] Address: [address] [place] [address] Performed By: #### 5 7021-8, 4536-7 ####[facility] LABCLIA [id number] [place] [address] [place] Lymphocytes (Bld) [#/Vol] 2.66 10*3/uL Normal 1.00-4.00 [facility] Comment on above: Order Comment: Speci men Type: BLOOD SPECIMENOrdering Facility: [facility] Address: [address] [place] [address] Performed By: #### 5 7021-8, 4536-7 ####[facility] LABIA [id number] [place] [address] [place] Lymphocytes/100 WBC (Bld) 29.3 % Normal [facility] Comment on above: Order Comment: Speci men Type: BLOOD SPECIMENOrdering Facility: [facility] Address: [address] [place] [address] Performed By: #### 5 7021-8, 4536-7 ####[facility] LABCLIA [id number] [place] [address] [place] MCH (RBC) [Entitic mass] 32.8 pg Normal 26.0-34.0 [facility] Comment on above: Order Comment: Speci men Type: BLOOD SPECIMENOrdering Facility: [facility] Address: [address] [place] [address] Performed By: #### 5 7021-8, 7-7 ####[facility] LABIA [id number] [place] [address] [place] MCHC (RBC) [Mass/Vol] 34.0 g/dL Normal 30.5-36.[address] [facility] Comment on above: Order Comment: Speci men Type: BLOOD SPECIMENOrdering Facility: [facility] Address: [address] [place] [address] Performed By: #### 5 7021-8, 4537-7 ####[facility] LABCLIA [id number] [place] [address] [place] MCV (RBC) [Entitic vol] 96.4 fL Normal 80.0-100.0 [facility] Comment on above: Order Comment: Speci men Type: BLOOD SPECIMENOrdering Facility: [facility] Address: [address] [place] [address] Performed By: #### 5 7021-8, 4537-7 ####[facility] LABCLIA [id number] [place] [address] [place] Monocytes (Bld) [#/Vol] 0.77 10*3/uL Normal <0.87 [facility] Comment on above: Order Comment: Speci men Type: BLOOD SPECIMENOrdering Facility: [facility] Address: [address] [place] [address] Performed By: #### 5 7021-8, 7-7 ####[facility] LABCLIA [id number] [place] [address] [place] Monocytes/100 WBC (Bld) 8.5 % Normal [facility] Comment on above: Order Comment: Speci men Type: BLOOD SPECIMENOrdering Facility: [facility] Address: [address] [place] [address] Performed By: #### 5 7021-8, 4537-7 ####[facility] LABCLIA [id number] [place] [address] [place] Neutrophils (Bld) [#/Vol] 5.55 10*3/uL Normal 1.45-7.50 [facility] Comment on above: Order Comment: Speci men Type: BLOOD SPECIMENOrdering Facility: [facility] Address: [address] [place] [address] Performed By: #### 5 7021-8, 4536-7 ####[facility] LABCLIA [id number] [place] [address] [place] Neutrophils/100 WBC (Bld) 60.9 % Normal [facility] Comment on above: Order Comment: Speci men Type: BLOOD SPECIMENOrdering Facility: [facility] Address: [address] [place] [address] Performed By: #### 5 7021-8, 4536-7 ####[facility] LABCLIA [id number] [place] [address] [place] Nucleated RBC (Bld) [#/Vol] 10*3/uL Normal <0.01 [facility] Comment on above: Order Comment: Speci men Type: BLOOD SPECIMENOrdering Facility: [facility] Address: [address] [place] [address] Performed By: #### 5 7021-8, 4536-7 ####[facility] LABCLIA [id number] [place] [address] [place] Nucleated RBC/100 WBC (Bld) [Ratio] 0.0 /100 WBC Normal [facility] Comment on above: Order Comment: Speci men Type: BLOOD SPECIMENOrdering Facility: [facility] Address: [address] [place] [address] Performed By: #### 5 7021-8, 4536-7 ####[facility] LABCLIA [id number] [place] [address] [place] Platelet mean volume (Bld) [Entitic vol] 9.2 fL Normal 9.0-12.7 [facility] Comment on above: Order Comment: Speci men Type: BLOOD SPECIMENOrdering Facility: [facility] Address: [address] [place] [address] Performed By: #### 5 7021-8, 4537-7 ####[facility] LABCLIA [id number] [place] [address] [place] Platelets (Bld) [#/Vol] 268 10*3/uL Normal 150-400 [facility] Comment on above: Order Comment: Speci men Type: BLOOD SPECIMENOrdering Facility: [facility] Address: [address] [place] [address] Performed By: #### 5 7021-8, 4537-7 ####[facility] LABCLIA [id number] [place] [address] [place] RBC (Bld) [#/Vol] 4.73 10*6/uL Normal 4.20-6.00 [facility] Comment on above: Order Comment: Speci men Type: BLOOD SPECIMENOrdering Facility: [facility] Address: [address] [place] [address] Performed By: #### 5 7021-8, 4537-7 ####[facility] LABIA [id number] [place] [address] [place] WBC (Bld) [#/Vol] 9.09 10*3/uL Normal 3.70-11.00 [facility] Comment on above: Order Comment: Speci men Type: BLOOD SPECIMENOrdering Facility: [facility] Address: [address] [place] [address] Performed By: #### 5 7021-8, 4537-7 ####[facility] LABIA [id number] [place] [address] [place] CRP SerPl-mCncon 11-16-2023 CRP [Mass/Vol] mg/L Normal <0.9 [facility] Comment on above: Order Comment: Speci men Type: BLOOD SPECIMENOrdering Facility: [facility] Address: [address] [place] [address] Performed By: #### 2 4323-03, 1987-12 ####[facility] LABCLIA [id number] [address] [address] [place] Comprehensive metabolic 2000 panelon 11-16-2023 Albumin [Mass/Vol] 4.2 g/dL Normal 3.9-4.9 [facility] Comment on above: Order Comment: Speci men Type: BLOOD SPECIMENOrdering Facility: [facility] Address: [address] [id number] Performed By: #### 2 4323-03, 1987-12 ####[facility] LABCLIA [id number] [place] [id number] [place] ALP [Catalytic activity/Vol] 87 U/L Normal 38-113 [facility] Comment on above: Order Comment: Speci men Type: BLOOD SPECIMENOrdering Facility: [facility] Address: [address] [place], [place] [address] Performed By: #### 2 4323-03, 1987-12 ####[facility] LABCLIA [id number] [place] [address] [place] ALT [Catalytic activity/Vol] 27 U/L Normal 10-54 [facility] Comment on above: Order Comment: Speci men Type: BLOOD SPECIMENOrdering Facility: [facility] Address: [address] [place], [place] [address] Performed By: #### 2 4323-03, 1987-12 ####[facility] LABCLIA [id number] [address] [address] [place] Anion gap [Moles/Vol] 12 mmol/L Normal 9-[address] [facility] Comment on above: Order Comment: Speci men Type: BLOOD SPECIMENOrdering Facility: [facility] Address: [address] [place], [place] [address] Performed By: #### 2 4323-03, 1987-12 ####[facility] LABCLIA [id number] [place] [address] [place] AST [Catalytic activity/Vol] 25 U/L Normal 14-40 [facility] Comment on above: Order Comment: Speci men Type: BLOOD SPECIMENOrdering Facility: [facility] Address: [address] [place] [address] Performed By: #### 2 4328, 1987-12 ####[facility] LABCLIA [id number] [place] [address] [place] Bilirubin [Mass/Vol] 0.3 mg/dL Normal 0.2-1.3 [facility] Comment on above: Order Comment: Speci men Type: BLOOD SPECIMENOrdering Facility: [facility] Address: [address] [place] [address] Performed By: #### 2 43210-22, 1987-12 ####[facility] LABCLIA [id number] [place] [address] [place] Calcium [Mass/Vol] 9.2 mg/dL Normal 8.5-10.2 [facility] Comment on above: Order Comment: Speci men Type: BLOOD SPECIMENOrdering Facility: [facility] Address: [address] [place] [address] Performed By: #### 2 43210-22, 1987-12 ####[facility] LABCLIA [id number] [place] [address] [place] Chloride [Moles/Vol] 103 mmol/L Normal 97-105 [facility] Comment on above: Order Comment: Speci men Type: BLOOD SPECIMENOrdering Facility: [facility] Address: [address] [place] [address] Performed By: #### 2 43210-22, 1987-12 ####[facility] LABCLIA [id number] [place] [id number] [place] CO2 [Moles/Vol] 23 mmol/L Normal 22-30 [facility] Comment on above: Order Comment: Speci men Type: BLOOD SPECIMENOrdering Facility: [facility] Address: [address] [place] [address] Performed By: #### 2 43210-22, 1987-12 ####[facility] LABCLIA [id number] [address] [address] [place] Creatinine [Mass/Vol] 0.80 mg/dL Normal 0.73-1.[address] [facility] Comment on above: Order Comment: Speci men Type: BLOOD SPECIMENOrdering Facility: [facility] Address: [address] [place] [address] Performed By: #### 2 43210-22, 1987-12 ####[facility] LABIA [id number] [place] [address] [place] Creatinine and Glomerular filtration rate.predicted panel (S/P/Bld) 94 mL/min/1.73m??? Normal >=60 [facility] Comment on above: Order Comment: Speci men Type: BLOOD SPECIMENOrdering Facility: [facility] Address: [address] [place] [address] Result Comment: Humera mated Glomerular Filtration Rate (eGFR) is calculated using the 2020 CKD-EPI creatinine equation. This equation utilizes serum creatinine, sex, and age as parameters. The creatinine assay has traceable calibration to isotope dilution-mass spectrometry. Refer to KDIGO guidelines for clinical interpretation. In patients with unstable renal function, e.g. those with acute kidney injury, the eGFR may not accurately reflect actual GFR. Performed By: #### 2 4323, 1987-12 ####[facility] LABIA [id number] [place] [address] [place] Glucose [Mass/Vol] 90 mg/dL Normal 74-99 [facility] Comment on above: Order Comment: Speci men Type: BLOOD SPECIMENOrdering Facility: [facility] Address: [address] [place] [address] Result Comment: The [place] Diabetes Association (ADA) provides guidance for cutoff values for fasting glucose and random glucose. The ADA defines fasting as no caloric intake for at least 8 hours. Fasting plasma glucose results between 100 to 125 mg/dL indicate increased risk for diabetes (prediabetes). Fasting plasma glucose results greater than or equal to 126 mg/dL meet the criteria for diagnosis of diabetes. In the absence of unequivocal hyperglycemia, results should be confirmed by repeat testing. In a patient with classic symptoms of hyperglycemia or hyperglycemic crisis, random plasma glucose results greater than or equal to 200 mg/dL meet the criteria for diagnosis of diabetes. Reference: Standards of Medical Care in Diabetes 2016, [place] [employer] Association. Diabetes Care. 2016.39(Suppl 1). Performed By: #### 2 4323-03, 1987-12 ####[facility] LABCLIA [id number] [place] [address] [place] Potassium [Moles/Vol] 4.2 mmol/L Normal 3.7-5.[address] [facility] Comment on above: Order Comment: Speci men Type: BLOOD SPECIMENOrdering Facility: [facility] Address: [address] [place] [address] Performed By: #### 2 4323-03, 1987-12 ####[facility] LABCLIA [id number] [place] [address] [place] Protein [Mass/Vol] 7.4 g/dL Normal 6.3-8.0 [facility] Comment on above: Order Comment: Speci men Type: BLOOD SPECIMENOrdering Facility: [facility] Address: [address] [place], [place] [address] Performed By: #### 2 4323-03, 1987-12 ####[facility] LABIA [id number] [place] [id number] [place] Sodium [Moles/Vol] 138 mmol/L Normal 136-144 [facility] Comment on above: Order Comment: Speci men Type: BLOOD SPECIMENOrdering Facility: [facility] Address: [address] [id number] Performed By: #### 2 4323-03, 1987-12 ####[facility] LABCLIA [id number] [address] [address] [place] Urea nitrogen [Mass/Vol] 11 mg/dL Normal 9-24 [facility] Comment on above: Order Comment: Speci men Type: BLOOD SPECIMENOrdering Facility: [facility] Address: [address] [place] [address] Performed By: #### 2 4323-8, 1987-12 ####[facility] LABCLIA [id number] [address] [address] [place] ED NOTEon 11-16-2023 ED NOTE HNO ID: [id number] Author: PHILL WESLEY CT Service: Emergency Medicine Author Type: Clinical Avid Editor Type: ED Notes Filed: 11/16/2023 17:30 Note Text: Pt declined updating vs Normal [facility] ED PROV NOTEon 11-16-2023 ED PROV NOTE HNO ID: [id number] Author: CASS WILCOX MD Service: Emergency Medicine Author Type: Physician Type: ED Provider Notes Filed: 11/18/2023 21:03 Note Text: ED Provider Note Patient Name: Jama Green : 1950 SERVICE DATE: 11/16/23 History Patient presents with: Hand Pain: Pt presents to the ED with R thumb/hand swelling and pain. Pt notes that he sliced his hand about a month ago, was placed on atb and now noting blueness to his thumb . Jama Green is a 73 year old male with a PMH of GERD, hepatic steatosis, and laparoscopic cholecystectomy who presents to [facility] ED with R thumb pain and discoloration. Patient reports that he cut his right thumb one month ago and was seen two weeks later by an outpatient provider on 11/10/23 at which time he was 1) started on cephlexin 500 mg BID for 10 days and 2) given the Tdap vaccine. He reports that the pain and swelling have improved over the past month; however, he notes that his R thumb appears to be more blue since he was seen outpatient last week. He denies worsening swelling, pain, or changes in range of motion. Patient does report that he had R shoulder pain that limited his range of movement two days ago; however, this fully resolved by the following day and appears to be separate from thumb infection. Denies fevers, chills, nausea, or any new symptoms other than discoloration. PAST MEDICAL HISTORY Diagnosis Date Benign prostatic hyperplasia without lower urinary tract symptoms 01/10/2022 No past surgical history on file. No family history on file. Social History Tobacco Use Smoking status: Never Smokeless tobacco: Never Substance and Sexual Activity Alcohol use: No Drug use: No Sexual activity: Not on file ALLERGIES No Known Allergies Review of Systems Constitutional: Negative for fever. Physical Exam Vitals [11/16/23 1318] BP Pulse Temp Temp src Resp SpO2 Weight Height 113/76 71 36.2 ?C (97.2 ?F) Oral 18 100 % -- -- Physical Exam HENT: Head: Normocephalic and atraumatic. Eyes: Extraocular Movements: Extraocular movements intact. Pupils: Pupils are equal, round, and reactive to light. Cardiovascular: Rate and Rhythm: Regular rhythm. Pulmonary: Effort: No respiratory distress. Breath sounds: Normal breath sounds. No wheezing. Abdominal: General: There is no distension. Palpations: Abdomen is soft. Tenderness: There is no abdominal tenderness. Musculoskeletal: General: No swelling or tenderness. Hands: Comments: Blue quileute - area of mild blue discoloration. Red line - area of cut one month ago. Skin: Capillary Refill: Capillary refill takes less than 2 seconds. Comments: No signs of necrosis. No swelling or other signs concerning for cellulitis. Neurological: Mental Status: He is alert and oriented to person, place, and time. Comments: Resting tremor Psychiatric: Mood and Affect: Mood normal. Diagnostic Testing ED Labs Ordered and Reviewed COMP METABOLIC PANEL - Normal CBC + DIFF LACTATE - ED (POC) LACTATE - ED (POC) Procedures ED Course / Clinical Impression Clinical Impressions as of 11/16/232148 Cellulitis of finger of right hand Discoloration of skin - RESOLVED Laceration of right thumb without foreign body, nail damage status unspecified, subsequent encounter MDM / Disposition / Plan Jmaa Green is a 73 year old male with a PMH of GERD, hepatic steatosis, and laparoscopic cholecystectomy who presents to [facility] ED with R thumb pain and discoloration. Differential diagnosis includes cellulitis from worsening R thumb infection. CBC, CMP, ESR, and CRP were WNL. Lactate on VBG was WNL. Hand XR in ED showed no radiographic evidence of acute osteomyelitis and no radiopaque soft tissue foreign body. Given negative workup, low suspicion for cellulitis, necrotizing fascitis, or osteomyelitis. Area of blue discoloration does not have signs c/f infarction or infection and he has good capillary refill at tip of thumb. Patient reports that he does not use soap regularly on his hands and bluediscoloration resolved after he washed his hands. As such, discoloration was likely residue from a material that patient recently came into contact with. Patient was instructed to complete course of keflex and return if any new or worsening symptoms. Disposition The patient was discharged. Counseled patient regarding lab results, suspected diagnosis and radiology results. SIGNATURE: Daisy Sidhu MD ATTENDING NOTE: I evaluated the patient and personally participated in the moreno components. The moreno components include the history, physical exam, and medical decision making. I agree with the resident's findings and plan as documented and have discussed the case and management of the patient's care with the resident. 73 year old male here with History as above, presenting with bluish discoloration. Cut his tip of his thumb a (more content not included)... Normal [facility] ED Triage Noteon 11-16-2023 ED Triage Note HNO ID: [id number] Author: CHRISTOPHER GRIMM MD Service: Emergency Medicine Author Type: Physician Type: ED Triage Notes Filed: 11/16/2023 13:32 Note Text: ED TRIAGE PROVIDER NOTE Patient Name: Jama Green Service Date: 11/16/23 BRIEF HPI: This is a 73 year old male who presents to the ED with: right hand wound. Remote cut wound, treated, now with blue spot and pain. Outpatient team c/f necrosis BRIEF EXAM: NAD Awake and Alert Non labored breathing Blue ecchymosis at dorsal base right thumb, skin intact, wwp distally, brisk cap refill TRIAGE WORKUP: Orders Placed This Encounter XR HAND GENERAL 3V PA/LAT/OBL RT Lactate - ED (POC) Repeat Lactate (ED-POC) 30 minutes after IV bolus started - Only send if first lactate was greater than 2 CBC with Diff CMP NaCl 0.9% iv flush bag No diagnosis found. SIGNATURE: Christopher Grimm MD Normal [facility] ESR Westergren method (Bld) [Velocity]on 11-16-2023 ESR (Bld) [Velocity] 2 mm/h Normal 0-15 [facility] Comment on above: Order Comment: Speci men Type: BLOOD SPECIMENOrdering Facility: [facility] Address: [address] [place] [address] Performed By: #### 5 [id number], [id number] ####[facility] LABCLIA [id number] [place] [address] [place] XR HAND 3V PA/LAT/OBL RTon 0 11-16-2023 XR HAND 3V PA/LAT/OBL RT * * *Final Report* * * DATE OF EXAM: Nov 16 2023 1:43PM EGX [id number] - XR HAND 3V PA/LAT/OBL RT / PROCEDURE REASON: Osteomyelitis * * * * Physician Interpretation * * * * EXAMINATION: XR HAND 3V PA/LAT/OBL RT PATIENT/TECHNOLOGIST PROVIDED HISTORY: r/o FB base of right thumb; small cut. concern for infection CLINICAL INFORMATION ( PROVIDED BY ORDERING CLINICIAN) : Osteomyelitis TECHNIQUE: XR HAND 3V PA/LAT/OBL RT Laterality: RIGHT Number of different views (projections): 3 M: XB_1 COMPARISON: None RESULT: No acute fracture or dislocation. No focal osseous erosion or periostitis. Mild degenerative change noted at scattered IP joints and MCP joints. Moderate degenerative change of the first CMC joint and severe degenerative change of the triscaphe joint. Mild degenerative change of the distal radioulnar joint. There is soft tissue swelling of the thumb without radiopaque soft tissue foreign body. No dissecting soft tissue gas. IMPRESSION: No radiographic evidence of acute osteomyelitis. No radiopaque soft tissue foreign body. Osteoarthritis. Special Delivery Clerk: PSCB Transcribe Date/Time: Nov 16 2023 1:58P Dictated by : HAYLIE FRANK MD This examination was interpreted and the report reviewed and electronically signed by: HAYLIE FRANK MD on Nov 16 2023 1:59PM EST [id number] Normal [facility] XR HAND 3+ VIEWS RIGHTon XR HAND 3+ VIEWS RIGHT EXAMINATION: XR H AND 3+ VIEWS RIGHT CLINICAL HISTORY: Laceration right thumb 1 month ago COMPARISONS: Comparisons FINDINGS: Three views of the right hand are submitted. There is diffuse generalized osteopenia. No significant periarticular abnormalities or erosions. No dislocations. No focal bony abnormality. No radiographic foreign body. 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 HPI: Underwent gallbladder surgery last month and tooth fractured during the procedure/intubation.prior h/o infection in the tooth. Review of Symptoms: Yes No Symptoms Yes No Symptoms X Facial pain X Spitting out blood X Pain with chewing X Bleeding gums X Recent dental work X Bleeding disorder X Lumps in the neck X Difficulty swallowing X Allergies ___ X Pain on swallowing X Shortness of breath X Bad breath X TMJ pain X Limited mouth opening X Dry mouth X Numbness or tingling X Headaches X Sinus pain X Fever X Chills X Hoarseness X Nausea/Vomiting X Snoring X Nose bleeding Past Medical History: PAST MEDICAL HISTORY Diagnosis Date Benign prostatic hyperplasia without lower urinary tract symptoms 01/10/2022 Past Surgical History: No past surgical history on file. Medication: n Current Outpatient Medications Medication Sig Dispense Refill triazolam (HALCION) 0.25 mg tablet Take 1 tablet by mouth one time only for 1 dose. Take it 45 min before the dental procedure. 1 tablet 0 tamsulosin (FLOMAX) 0.4 mg Take 1 capsule by mouth once daily. 30 capsule 1 acetaminophen (TYLENOL) 325 mg tablet Take 2 tablets by mouth every 6 hours as needed (Mild Pain (1-3) - Enteral). 40 tablet 0 ondansetron orally disintegrating (ZOFRAN ODT) 4 mg disintegrating tablet Take 1 tablet by mouth every 8 hours as needed for nausea/vomiting. 30 tablet 0 famotidine (PEPCID) 20 mg tablet 1 tablet by ORAL/FEEDING TUBE route two times a day as needed (heartburn). Senna 8.6 mg tab Take 1 tablet by mouth two times a day. No current facility-administered medications for this visit. Social History: Social History Tobacco Use Smoking status: Never Smokeless tobacco: Never Substance Use Topics Alcohol use: No Drug use: No Family History: No family history on file. ALLERGIES No Known Allergies CLINICAL EXAMINATION: Extraoral, Head and Neck exam: Constitutional: general appearance of patient NAD No extraoral swelling or erythema Musculoskeletal: TMJ joint seems to be normal. No poping upon opening Maximum mouth opening within normal range Intraoral Soft Tissues: Clear saliva extruded from bilateral [place]'s and [place]'s ducts Tongue soft and non-tender with no apparent lesions Buccal mucosa without lesions bilaterally Hard palate, soft palate, and pharynx are within normal limits no pathology visualized Floor of mouth without an evidence of pathology Gingival tissues are pink, firm, and stippled and without erythema or swelling Dentition: Partially edentulous maxillary and mandibular dental arch No pain to percussion #17 partially fractured - asymptomatic. 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 Severe dental anxiety. Procedure to be done under oral sedation Extraction of #10 under oral sedation. Halcion 0.25mg prescribed. Will monitor #17 for now. 20 Minutes total visit spent face to face with patient. Greater than 50% of the time was spent for counseling and coordination of care, discussing treatment options and recommendations. All of patients questions answered to the best of my ability. The diagnosis and treatment plan options including risks, benefits, options and personnel involved were discussed with the patient. There are no contraindications to the procedure. Jama Green expressed understanding and agreed to proceed. My final recommendations will be communicated back to the requesting physician by way of shared medical record or letter via US mail. Referring Provider: SELF [[id number]] Allergies As of Date: 10/30/2023 (No Known Allergies) Date Reviewed: 10/30/2023 Reviewed by: Guy Richey RD - Fully Assessed Primary Visit Diagnosis:Retained dental root [K08.3] Order(s):EXTRACTION, ERUPTED TOOTH REQUIRING REMOVAL OF BONE AND/OR SECTIONING OF TOOTH, AND INCLUDING ELEVATION OF MUCOPERIOSTE [D7210] Order #: [id number]: 1 FUTURE triazolam (HALCION) 0.25 mg tabletTake 1 tablet by mouth one time only for 1 dose. Take it 45 min before the dental procedure.Disp: 1 tabletRfl: 0 LIMITED ORAL EVALUATION - PROBLEM FOCUSED [D0140] Order #: [id number]: 1 FUTURE PANORAMIC RADIOGRAPHIC IMAGE [D0330] Order #: [id number]: 1 FUTURE LIMITED ORAL EVALUATION - PROBLEM FOCUSED [D0140] Order # (more content not included)... Normal [facility] CNOVon 10-23-2023 CNOV Office Visit (NILSON ) -- JAMA GREEN ([id number]) 1950 [facility] Date Time Provider Department 10/23/23 11:00 AM Mirta LEE During your visit today, we recorded the following information about you: Temperature Pulse Blood pressure Weight 98.4 degrees 121/minute 114/70 81.7 kg Height 1.778 m Cassandra Watson 10/23/2023 12:14 PM Signed What is the reason for your visit today? Post op Who is your referring physician? Dr. Lee Are you having poor oral intake? NO Have you had unintentional weight loss of 15 lbs/7 Kg in the last 3-6 months? NO Bowels: regular or soft Wound: clean AND dry Temperature: No Drains: No Mirta Lee MD 10/23/2023 12:24 PM Signed [facility] STAFF PHYSICIAN NOTE OF PERSONAL INVOLVEMENT IN CARE I have reviewed the progress note obtained and documented by the resident and I personally participated in the moreno components. I have discussed the case and management of the patient's care. The following comments revise or confirm relevant moreno components of the note. IMPRESSION: This is a 73 year old post lap maryann. doing great. incisions well healed. no fever. path discussed. PLAN: follow up in a year with MRI for 4 mm tail cyst. 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 - acetaminophen (TYLENOL) 325 mg tablet Take 2 tablets by mouth every 6 hours as needed (Mild Pain (1-3) - Enteral). - ondansetron orally disintegrating (ZOFRAN ODT) 4 mg disintegrating tablet Take 1 tablet by mouth every 8 hours as needed for nausea/vomiting. - famotidine (PEPCID) 20 mg tablet 1 tablet by ORAL/FEEDING TUBE route two times a day as needed (heartburn). - Senna 8.6 mg tab Take 1 tablet by mouth two times a day. Problem List As Of Date 10/23/2023 Noted Resolved Chest pain [R07.9] 04/16/2018 04/17/2018 Sprain of right ankle [S93.401A] 06/02/2018 Pain in right foot [M79.671] 06/02/2018 Swelling [R60.9] 06/02/2018 Chronic GERD [K21.9] 01/10/2022 Benign prostatic hyperplasia without lower urin*01/10/2022 Pancreatic mass [K86.89] 05/26/2023 Other constipation [K59.09] 05/27/2023 05/27/2023 IPMN (intraductal papillary mucinous neoplasm) *05/27/2023 Transaminitis [R74.01] 05/27/2023 05/27/2023 Hepatic steatosis [K76.0] 05/27/2023 Acute biliary pancreatitis with uninfected necr*09/30/2023 10/02/2023 Post-op pain [G89.18] 10/01/2023 S/P laparoscopic cholecystectomy [Z90.49] 10/02/2023 Other specified postprocedural states [Z98.890] 10/07/2023 Visit Notes: >> Cassandra Watson ThuOct 23, 2023 12:11 PM Status: Signed What is the reason for your visit today? Post op Who is your referring physician? Dr. Lee Are you having poor oral intake? NO Have you had unintentional weight loss of 15 lbs/7 Kg in the last 3-6 months? NO Bowels: regular or soft Wound: clean AND dry Temperature: No Drains: No Encounter Status:Closed by Mirta LEE on 10/23/23 Normal [facility] Alanine aminotransferase [En zymatic activity/volume] in Serum or PlasmaOrdered By: Anita Tinsley on 09-30-2023 ALT [Catalytic activity/Vol] 352 U/L 7-52 [facility] Albumin [Mass/volume] in Ser um or Plasma by Bromocresol green (BCG) dye binding methoOrdered By: Anita Tinsley on 09-30-2023 Albumin BCG dye [Mass/Vol] 4.1 g/dL 3.5-5.7 [facility] Alkaline phosphatase [Enzyma tic activity/volume] in Serum or PlasmaOrdered By: Anita Tinsley on 09-30-2023 ALP [Catalytic activity/Vol] 74 U/L 34-104 [facility] Anisocytosis LM Ql (Bld)Orde red By: Anita Tinsley on 09-30-2023 Anisocytosis Ql (Bld) Slight Fir [facility] Aspartate aminotransferase [ Enzymatic activity/volume] in Serum or PlasmaOrdered By: Anita Tinsley on 09-30-2023 AST [Catalytic activity/Vol] 361 U/L 13-39 [facility] Comment on above: Hemolysis is present at a level that could interfere with the result. Automated erythrocytes count in urine sediment (number/area)Ordered By: Patel Pierson on 09-30-2023 RBC Auto (Urine sed) [#/Area] 0-1 [HPF] 0-4 [facility] Automated leukocytes count i n urine sediment (number/area)Ordered By: Patel Pierson on 09-30-2023 WBC Auto (Urine sed) [#/Area] 0-1 [HPF] 0-4 [facility] Basophils Auto (Bld) [#/Vol] Ordered By: Anita Tinsley on 09-30-2023 Basophils (Bld) [#/Vol] 0.1 10*3/uL 0.0-0.2 [facility] Basophils/100 WBC Auto (Bld) Ordered By: Anita Tinsley on 09-30-2023 Basophils/100 WBC (Bld) 0.4 % . [facility] Bilirubin Test strip Ql (U)O rdered By: Patel Pierson on 09-30-2023 Bilirubin Ql (U) Negative Negative [facility] Bilirubin.direct [Mass/volum e] in Serum or PlasmaOrdered By: Anita Tinsley on 09-30-2023 Bilirubin.direct [Mass/Vol] 0.40 mg/dL 0.03-0.18 [facility] Comment on above: Hemolysis is present at a level that could interfere with the result. Bilirubin.total [Mass/volume ] in Serum or PlasmaOrdered By: Anita Tinsley on 09-30-2023 Bilirubin [Mass/Vol] 1.8 mg/dL 0.3-1.0 [facility] Comment on above: Samples from patient s who have taken Naproxen have shown spurious elevation in Total Bilirubin levels. A metabolite of Naproxen, O-desmethylnaproxen, has been shown to interfere with the Whitley-Kera method for measuring Total Bilirubin. Calcium [Mass/volume] in Ser um or PlasmaOrdered By: Anita Tinsley on 09-30-2023 Calcium [Mass/Vol] 8.5 mg/dL 8.6-10.3 [facility] Carbon dioxide, total [Moles /volume] in Serum or PlasmaOrdered By: Anita Tinsley on 09-30-2023 CO2 [Moles/Vol] 23.6 mmol/L 21.0-31.0 [facility] Chloride [Moles/volume] in S bairon or PlasmaOrdered By: Anita Tinsley on 09-30-2023 Chloride [Moles/Vol] 104 mmol/L 98-107 [facility] Cholesterol [Mass/volume] in Serum or PlasmaOrdered By: Anita Tinsley on 09-30-2023 Cholesterol [Mass/Vol] 194 mg/dL 140-200 [facility] Comment on above: Chol less than 200 m g/dl low riskChol 201-239 mg/dl borderline riskChol 240 mg/dl and greater high risk Cholesterol in LDL Calc [Mas s/Vol]Ordered By: Anita Tinsley on 09-30-2023 Cholesterol in LDL [Mass/Vol] 135 mg/dL 0-100 [facility] Comment on above: LDL ATP III CLASSIFI CATIONLDL less than 100 mg/dL OptimalLDL 100-129 mg/dL Near or above optimalLDL 130-159 mg/dL Borderline highLDL 160-189 mg/dL HighLDL greater than 189 mg/dL Very high Cholesterol in VLDL Calc [Ma ss/Vol]Ordered By: Anita Tinsley on 09-30-2023 Cholesterol in VLDL [Mass/Vol] 17 mg/dL [facility] Color Auto (U)Ordered By: Marely Pierson on 09-30-2023 Color (U) Yellow Yellow [facility] Creatinine [Mass/volume] in Serum or PlasmaOrdered By: Anita Tinsley on 09-30-2023 Creatinine [Mass/Vol] 0.95 mg/dL 0.70-1.30 [facility] Eosinophils Auto (Bld) [#/Vo l]Ordered By: Anita Tinsley on 09-30-2023 Eosinophils (Bld) [#/Vol] 0.0 10*3/uL 0.0-0.45 [facility] Eosinophils/100 WBC Auto (Bl d)Ordered By: Anita Tinsley on 09-30-2023 Eosinophils/100 WBC (Bld) 0.2 % . [facility] Erythrocyte distribution wid th Auto (RBC) [Ratio]Ordered By: Anita Tinsley on 09-30-2023 Erythrocyte distribution width (RBC) [Ratio] 13.3 % 12.0-14.8 [facility] Globulin Calc (S) [Mass/Vol] Ordered By: Anita Tinsley on 09-30-2023 Globulin (S) [Mass/Vol] 2.9 g/dL [facility] Glucose [Mass/volume] in Ser um or PlasmaOrdered By: Anita Tinsley on 09-30-2023 Glucose [Mass/Vol] 137 mg/dL 70-100 [facility] Comment on above: ADA recommended refe rence rangeRandom Glucose Reference Range is dependent on time and content of last meal. Glucose of more than 200 mg/dL in a nonstressed, ambulatory subject supports the diagnosis of Diabetes Mellitus. Hematocrit Auto (Bld) [Volum e fraction]Ordered By: Anita Tinsley on 09-30-2023 Hematocrit (Bld) [Volume fraction] 41.7 % 38.8-50.0 [facility] Hemoglobin [Mass/volume] in BloodOrdered By: Anita Tinsley on 09-30-2023 Hemoglobin (Bld) [Mass/Vol] 14.4 g/dL 13.0-17.0 [facility] Ketones Auto test strip (U) [Mass/Vol]Ordered By: Patel Pierson on 09-30-2023 Ketones (U) [Mass/Vol] Trace Negative [facility] - UrinalysisOrder ed By: Patel Pierson on 09-30-2023 Hyaline casts LM Ql (Urine sed) 0-8 [LPF] 0-8 [facility] Leukocytes [#/volume] correc erum for nucleated erythrocytes in Blood by Automated counOrdered By: Anita Tinsley on 09-30-2023 WBC corrected for nucl RBC Auto (Bld) [#/Vol] 22.6 10*3/uL 4.1-10.5 [facility] Lipase [Enzymatic activity/v olume] in Serum or PlasmaOrdered By: Anita Tinsley on 09-30-2023 Lipase [Catalytic activity/Vol] 2096.0 U/L 11.0-82.0 [facility] Lymphocytes Auto (Bld) [#/Vo l]Ordered By: Anita Tinsley on 09-30-2023 Lymphocytes (Bld) [#/Vol] 1.2 10*3/uL 1.00-4.8 [facility] Lymphocytes/100 WBC Auto (Bl d)Ordered By: Anita Tinsley on 09-30-2023 Lymphocytes/100 WBC (Bld) 5.5 % . [facility] MCH Auto (RBC) [Entitic mass ]Ordered By: Anita Tinsley on 09-30-2023 MCH (RBC) [Entitic mass] 33.6 pg 27.5-35.2 [facility] MCHC Auto (RBC) [Mass/Vol]Or dered By: Anita Tinsley on 09-30-2023 MCHC (RBC) [Mass/Vol] 34.6 g/dL 32.5-35.6 [facility] MCV Auto (RBC) [Entitic vol] Ordered By: Anita Tinsley on 09-30-2023 MCV (RBC) [Entitic vol] 97.0 fL 83.5-101 [facility] Magnesium [Mass/volume] in S bairon or PlasmaOrdered By: Anita Tinsley on 09-30-2023 Magnesium [Mass/Vol] 2.0 mg/dL 1.9-2.7 [facility] Comment on above: Hemolysis is present at a level that could interfere with the result. Monocytes Auto (Bld) [#/Vol] Ordered By: Anita Tinsley on 09-30-2023 Monocytes (Bld) [#/Vol] 1.7 10*3/uL 0.0-0.8 [facility] Monocytes/100 WBC Auto (Bld) Ordered By: Anita Tinsley on 09-30-2023 Monocytes/100 WBC (Bld) 7.6 % . [facility] Neutrophils Auto (Bld) [#/Vo l]Ordered By: Anita Tinsley on 09-30-2023 Neutrophils (Bld) [#/Vol] 19.5 10*3/uL 1.8-7.7 [facility] Neutrophils/100 WBC Auto (Bl d)Ordered By: Anita Tinsley on 09-30-2023 Neutrophils/100 WBC (Bld) 86.3 % . [facility] Nitrite Test strip Ql (U)Ord ered By: Patel Pierson on 09-30-2023 Nitrite Ql (U) Negative Negative [facility] No Panel InformationOrdered By: Anita Tinsley on 09-30-2023 Estimated GFR (CKD-EPI) > 60.0 mL/Min [facility] Creatinine Clearance (Chem 78.94 [facility] Nucleated erythrocytes [Pres ence] in Blood by Automated countOrdered By: Anita Tinsley on 09-30-2023 Nucleated RBC Auto Ql (Bld) 0.1 /100{WBC} 0-0.5 [facility] Platelet adequacy [Presence] in Blood by Light microscopyOrdered By: Anita Tinsley on 09-30-2023 Platelets LM Ql (Bld) Normal Normal [facility] Platelet mean volume Auto (B ld) [Entitic vol]Ordered By: Anita Tinsley on 09-30-2023 Platelet mean volume (Bld) [Entitic vol] 8.3 fL 6.6-10.1 [facility] Platelet morphology finding [Identifier] in BloodOrdered By: Anita Tinsley on 09-30-2023 Platelet morphology finding Nom (Bld) Normal Normal [facility] Platelets Auto (Bld) [#/Vol] Ordered By: Anita Tinsley on 09-30-2023 Platelets (Bld) [#/Vol] 221 10*3/uL 150-450 [facility] Potassium [Moles/volume] in Serum or PlasmaOrdered By: Anita Tinsley on 09-30-2023 Potassium [Moles/Vol] 4.6 mmol/L 3.5-5.1 [facility] Comment on above: Hemolysis is present at a level that could interfere with the result. Protein Auto test strip (U) [Mass/Vol]Ordered By: Patel Pierson on 09-30-2023 Protein (U) [Mass/Vol] Negative Negative [facility] Protein [Mass/volume] in Ser um or PlasmaOrdered By: Anita Tinsley on 09-30-2023 Protein [Mass/Vol] 7.0 g/dL 6.4-8.9 [facility] RBC Auto (Bld) [#/Vol]Ordere d By: Anita Tinsley on 09-30-2023 RBC (Bld) [#/Vol] 4.30 10*6/uL 3.90-5.60 [facility] RBC morphologyOrdered By: Nina Tinsley on 09-30-2023 RBC morphology finding Nom (Bld) N/A [facility] Red blood cell stomatocyte d etectionOrdered By: Anita Tinsley on 09-30-2023 Stomatocytes LM Ql (Bld) Slight [facility] Serum or plasma albumin/glob ulin mass ratioOrdered By: Anita Tinsley on 09-30-2023 Albumin/Globulin [Mass ratio] 1.4 {ratio} [facility] Serum or plasma anion gap de terminationOrdered By: Anita Tinsley on 09-30-2023 Anion gap [Moles/Vol] 12.0 mmol/L 6.0-15.0 [facility] Serum or plasma high density lipoprotein (HDL) cholesterol measurementOrdered By: Anita Tinsley on 09-30-2023 Cholesterol in HDL [Mass/Vol] 41 mg/dL 23-92 [facility] Comment on above: HDL CHOL ATP-III CLA SSIFICATION Cardiovascular RiskHDL > or equal to 60 mg/dL LOWHDL < 40 mg/dL HIGH Serum or plasma non-glucuron idated bilirubin measurement (mass/volume)Ordered By: Anita Tinsley on 09-30-2023 Bilirubin.indirect [Mass/Vol] 1.4 mg/dL [facility] Serum or plasma total choles terol/high density lipoprotein (HDL) cholesterol mass ratOrdered By: Anita Tinsley on 09-30-2023 Cholesterol.total/Chol esterol in HDL [Mass ratio] 4.7 {ratio} <5.0 [facility] Sodium [Moles/volume] in Ser um or PlasmaOrdered By: Anita Tinsley on 09-30-2023 Sodium [Moles/Vol] 135 mmol/L 136-145 [facility] Specific gravity Auto test s trip (U) [Rel density]Ordered By: Patel Pierson on 09-30-2023 Specific gravity (U) [Rel density] 1.045 1.001-1.030 [facility] Squamous epithelial cells de tection in urine sediment by light microscopyOrdered By: Patel Pierson on 09-30-2023 Epithelial cells.squamous LM Ql (Urine sed) None seen [HPF] 0-2 [facility] Triglyceride [Mass/volume] i n Serum or PlasmaOrdered By: Anita Tinsley on 09-30-2023 Triglyceride [Mass/Vol] 88 mg/dL 0-149 [facility] Comment on above: TRIG ATP III CLASSIF ICATIONTRIG less than 150 mg/dL NormalTRIG 150-199 mg/dL Borderline highTRIG 200-500 mg/dL High TRIG greater than 500 mg/dL Very highStandard traceable to the Center for Disease Conrtrol and Prevention (CDC) test method. Urea nitrogen [Mass/volume] in Serum or PlasmaOrdered By: Anita Tinsley on 09-30-2023 Urea nitrogen [Mass/Vol] 15 mg/dL 7-25 [facility] Urine bacteria detection by automated methodOrdered By: Patel Pierson on 09-30-2023 Bacteria Auto Ql (U) None seen None Seen [facility] Urine clarity by refractomet ry automatedOrdered By: Patel Pierson on 09-30-2023 Clarity Refractometry automated (U) Clear Clear [facility] Urine glucose measurement by automated test strip (mass/volume)Ordered By: Patel Pierson on 09-30-2023 Glucose Auto test strip (U) [Mass/Vol] Normal mg/dL Normal [facility] Urine hemoglobin detection b y automated test stripOrdered By: Patel Pierson on 09-30-2023 Hemoglobin Auto test strip Ql (U) Trace Negative [facility] Urine leukocyte esterase det ection by automated test stripOrdered By: Patel Pierson on 09-30-2023 Leukocyte esterase Auto test strip Ql (U) Negative Negative [facility] Urobilinogen Auto test strip (U) [Mass/Vol]Ordered By: Patel Pierson on 09-30-2023 Urobilinogen (U) [Mass/Vol] Normal mg/dL Normal [facility] WBC Auto (Bld) [#/Vol]Ordere d By: Anita Tinsley on 09-30-2023 WBC (Bld) [#/Vol] 22.6 10*3/uL 4.1-10.5 [facility] pH Auto test strip (U)Ordere d By: Patel Pierson on 09-30-2023 pH (U) 5.5 [pH] 5.0-9.0 [facility] [facility] Activated partial thrombopla stin time (aPTT) in platelet poor plasma by coagulation aOrdered By: Patel Pierson on 09-29-2023 aPTT Coag (PPP) [Time] 25.8 s 25.1-36.5 [facility] Comment on above: A hematocrit value g reater than 55% may lead to inaccurate results in coagulation testing. Patients having hematocrit values >55% require a special collection tube for coagulation studies. Please contact the laboratory at [phone] for redraw instructions. Alanine aminotransferase [En zymatic activity/volume] in Serum or PlasmaOrdered By: Patel Pierson on 09-29-2023 ALT [Catalytic activity/Vol] 201 U/L 7-52 [facility] Albumin [Mass/volume] in Ser um or Plasma by Bromocresol green (BCG) dye binding methoOrdered By: Patel Pierson on 09-29-2023 Albumin BCG dye [Mass/Vol] 4.4 g/dL 3.5-5.7 [facility] Alkaline phosphatase [Enzyma tic activity/volume] in Serum or PlasmaOrdered By: Patel Pierson on 09-29-2023 ALP [Catalytic activity/Vol] 81 U/L 34-104 [facility] Aspartate aminotransferase [ Enzymatic activity/volume] in Serum or PlasmaOrdered By: Patel Pierson on 09-29-2023 AST [Catalytic activity/Vol] 272 U/L 13-39 [facility] Basophils Auto (Bld) [#/Vol] Ordered By: Patel Pierson on 09-29-2023 Basophils (Bld) [#/Vol] 0.2 10*3/uL 0.0-0.2 [facility] Basophils/100 WBC Auto (Bld) Ordered By: Patel Pierson on 09-29-2023 Basophils/100 WBC (Bld) 0.9 % . [facility] Bilirubin.total [Mass/volume ] in Serum or PlasmaOrdered By: Patel Pierson on 09-29-2023 Bilirubin [Mass/Vol] 2.1 mg/dL 0.3-1.0 [facility] Comment on above: Samples from patient s who have taken Naproxen have shown spurious elevation in Total Bilirubin levels. A metabolite of Naproxen, O-desmethylnaproxen, has been shown to interfere with the Jendrassik-Grof method for measuring Total Bilirubin. Calcium [Mass/volume] in Ser um or PlasmaOrdered By: Patel Pierson on 09-29-2023 Calcium [Mass/Vol] 9.0 mg/dL 8.6-10.3 [facility] Carbon dioxide, total [Moles /volume] in Serum or PlasmaOrdered By: Patel Pierson on 09-29-2023 CO2 [Moles/Vol] 23.9 mmol/L 21.0-31.0 [facility] Chloride [Moles/volume] in S bairon or PlasmaOrdered By: Patel Pierson on 09-29-2023 Chloride [Moles/Vol] 103 mmol/L 98-107 [facility] Creatinine [Mass/volume] in Serum or PlasmaOrdered By: Patel Pierson on 09-29-2023 Creatinine [Mass/Vol] 1.08 mg/dL 0.70-1.30 [facility] Eosinophils Auto (Bld) [#/Vo l]Ordered By: Patel Pierson on 09-29-2023 Eosinophils (Bld) [#/Vol] 0.0 10*3/uL 0.0-0.45 [facility] Eosinophils/100 WBC Auto (Bl d)Ordered By: Patel Pierson on 09-29-2023 Eosinophils/100 WBC (Bld) 0.1 % . [facility] Erythrocyte distribution wid th Auto (RBC) [Ratio]Ordered By: Patel Pierson on 09-29-2023 Erythrocyte distribution width (RBC) [Ratio] 13.6 % 12.0-14.8 [facility] Globulin Calc (S) [Mass/Vol] Ordered By: Patel Pierson on 09-29-2023 Globulin (S) [Mass/Vol] 3.2 g/dL [facility] Glucose [Mass/volume] in Ser um or PlasmaOrdered By: Patel Pierson on 09-29-2023 Glucose [Mass/Vol] 133 mg/dL 70-100 [facility] Comment on above: ADA recommended refe rence rangeRandom Glucose Reference Range is dependent on time and content of last meal. Glucose of more than 200 mg/dL in a nonstressed, ambulatory subject supports the diagnosis of Diabetes Mellitus. Hematocrit Auto (Bld) [Volum e fraction]Ordered By: Patel Pierson on 09-29-2023 Hematocrit (Bld) [Volume fraction] 45.7 % 38.8-50.0 [facility] Hemoglobin [Mass/volume] in BloodOrdered By: Patel Pierson on 09-29-2023 Hemoglobin (Bld) [Mass/Vol] 15.4 g/dL 13.0-17.0 [facility] INR in Platelet poor plasma by Coagulation assayOrdered By: Patel Pierson on 09-29-2023 INR Coag (PPP) [Relative time] 1.0 {INR} [facility] Comment on above: INR Therapeutic Rang e A) Pre- and Peroperative OAT started two weeks before surgery. NOT HIP SURGERY: 1.5 - 2.5 HIP SURGERY: 2 - 3B) Primary and secondary prevention of venous THROMBOSIS: 2 - 3C) Active venous thrombosis, pulmonary embolismand prevention of recurrent venous thrombosis: 2 - 3D) Prevention of arterial thromboembolismincluding patients with mechanical heart valves: 3 - 4.5 Lactate [Moles/volume] in Se rum or PlasmaOrdered By: Patel Pierson on 09-29-2023 Lactate [Moles/Vol] 1.5 mmol/L 0.5-2.2 [facility] Leukocytes [#/volume] correc erum for nucleated erythrocytes in Blood by Automated counOrdered By: Patel Pierson on 09-29-2023 WBC corrected for nucl RBC Auto (Bld) [#/Vol] 25.1 10*3/uL 4.1-10.5 [facility] Lipase [Enzymatic activity/v olume] in Serum or PlasmaOrdered By: Patel Pierson on 09-29-2023 Lipase [Catalytic activity/Vol] 6901.0 U/L 11.0-82.0 [facility] Lymphocytes Auto (Bld) [#/Vo l]Ordered By: Patel Pierson on 09-29-2023 Lymphocytes (Bld) [#/Vol] 3.0 10*3/uL 1.00-4.8 [facility] Lymphocytes/100 WBC Auto (Bl d)Ordered By: Patel Pierson on 09-29-2023 Lymphocytes/100 WBC (Bld) 11.8 % . [facility] MCH Auto (RBC) [Entitic mass ]Ordered By: Patel Pierson on 09-29-2023 MCH (RBC) [Entitic mass] 32.8 pg 27.5-35.2 [facility] MCHC Auto (RBC) [Mass/Vol]Or dered By: Patel Pierson on 09-29-2023 MCHC (RBC) [Mass/Vol] 33.7 g/dL 32.5-35.6 [facility] MCV Auto (RBC) [Entitic vol] Ordered By: Patel Pierson on 09-29-2023 MCV (RBC) [Entitic vol] 97.4 fL 83.5-101 [facility] Monocyte distribution width [Entitic volume] in Blood by AutomatedOrdered By: Patel Pierson on 09-29-2023 Monocyte distribution width Auto (Bld) [Entitic vol] 17.90 % 0.00-20.00 [facility] Monocytes Auto (Bld) [#/Vol] Ordered By: Patel Pierson on 09-29-2023 Monocytes (Bld) [#/Vol] 1.4 10*3/uL 0.0-0.8 [facility] Monocytes/100 WBC Auto (Bld) Ordered By: Patel Pierson on 09-29-2023 Monocytes/100 WBC (Bld) 5.6 % . [facility] Neutrophils Auto (Bld) [#/Vo l]Ordered By: Patel Pierson on 09-29-2023 Neutrophils (Bld) [#/Vol] 20.5 10*3/uL 1.8-7.7 [facility] Neutrophils/100 WBC Auto (Bl d)Ordered By: Patel Pierson on 09-29-2023 Neutrophils/100 WBC (Bld) 81.6 % . [facility] No Panel InformationOrdered By: Patel Pierson on 09-29-2023 Estimated GFR (CKD-EPI) > 60.0 mL/Min [facility] Creatinine Clearance (Chem 63.84 [facility] Nucleated erythrocytes [Pres ence] in Blood by Automated countOrdered By: Patel Pierson on 09-29-2023 Nucleated RBC Auto Ql (Bld) 0.0 /100{WBC} 0-0.5 [facility] Platelet mean volume Auto (B ld) [Entitic vol]Ordered By: Patel Pierson on 09-29-2023 Platelet mean volume (Bld) [Entitic vol] 7.6 fL 6.6-10.1 [facility] Platelets Auto (Bld) [#/Vol] Ordered By: Patel Pierson on 09-29-2023 Platelets (Bld) [#/Vol] 291 10*3/uL 150-450 [facility] Potassium [Moles/volume] in Serum or PlasmaOrdered By: Patel Pierson on 09-29-2023 Potassium [Moles/Vol] 3.9 mmol/L 3.5-5.1 [facility] Protein [Mass/volume] in Ser um or PlasmaOrdered By: Patel Pierson on 09-29-2023 Protein [Mass/Vol] 7.6 g/dL 6.4-8.9 [facility] Prothrombin time (PT)Ordered By: Patel Pierson on 09-29-2023 PT Coag (PPP) [Time] 11.2 s 9.0-12.9 [facility] Comment on above: A hematocrit value g reater than 55% may lead to inaccurate results in coagulation testing. Patients having hematocrit values >55% require a special collection tube for coagulation studies. Please contact the laboratory at [phone] for redraw instructions. RBC Auto (Bld) [#/Vol]Ordere d By: Patel Pierson on 09-29-2023 RBC (Bld) [#/Vol] 4.69 10*6/uL 3.90-5.60 [facility] Serum or plasma albumin/glob ulin mass ratioOrdered By: Patel Pierson on 09-29-2023 Albumin/Globulin [Mass ratio] 1.4 {ratio} [facility] Serum or plasma anion gap de terminationOrdered By: Patel Pierson on 09-29-2023 Anion gap [Moles/Vol] 12.0 mmol/L 6.0-15.0 [facility] Sodium [Moles/volume] in Ser um or PlasmaOrdered By: Patel Pierson on 09-29-2023 Sodium [Moles/Vol] 135 mmol/L 136-145 [facility] Troponin I.cardiac [Mass/vol ume] in Serum or Plasma by Detection limit <= 0.01 ng/Ordered By: Patel Pierson on 09-29-2023 Troponin I.cardiac DL <= 0.01 ng/mL [Mass/Vol] 4.1 pg/mL 0.0-20.0 [facility] Urea nitrogen [Mass/volume] in Serum or PlasmaOrdered By: Patel Pierson on 09-29-2023 Urea nitrogen [Mass/Vol] 18 mg/dL 7-25 [facility] WBC Auto (Bld) [#/Vol]Ordere d By: Patel Pierson on 09-29-2023 WBC (Bld) [#/Vol] 25.1 10*3/uL 4.1-10.5 [facility] Vital Signs Date Time Vital Sign Value Performing Clinician Facility 07-19-2024 14:56-0500 Body height 177.8 cm Jose Babin MD Work Phone: [facility] 07-19-2024 14:56-0500 Body mass index (BMI) [Ratio] 28.31 kg/m2 Jose Babin MD Work Phone: [facility] 07-19-2024 14:56-0500 Body weight 89.5 kg Jose Babin MD Work Phone: [facility] 07-19-2024 14:56-0500 Diastolic blood pressure 78 mm[Hg] Jose Babin MD Work Phone: [facility] 07-19-2024 14:56-0500 Heart rate 79 /min Jose Babin MD Work Phone: [facility] 07-19-2024 14:56-0500 Systolic blood pressure 149 mm[Hg] Jose Babin MD Work Phone: [facility] 04-09-2024 18:15-0400 Diastolic blood pressure 70 mm[Hg] STUDIO PRODUCER-C Rachel Byrd Work Phone: [facility] 04-09-2024 18:15-0400 Heart rate 57 /min STUDIO PRODUCER-C Rachel Byrd Work Phone: [facility] 04-09-2024 18:15-0400 Respiratory rate 20 /min STUDIO PRODUCER-C Rachel Byrd Work Phone: [facility] 04-09-2024 18:15-0400 SaO2% (BldA) [Mass fraction] 98 % STUDIO PRODUCER-C Rachel Byrd Work Phone: [facility] 04-09-2024 18:15-0400 Systolic blood pressure 130 mm[Hg] STUDIO PRODUCER-C Rachel Byrd Work Phone: [facility] 04-09-2024 16:33-0400 Body height 177.8 cm STUDIO PRODUCER-C Rachel Byrd Work Phone: [facility] 04-09-2024 16:33-0400 Body temperature 98 [degF] STUDIO PRODUCER-C Rachel Byrd Work Phone: [facility] 04-09-2024 16:33-0400 Body weight 86 kg STUDIO PRODUCER-C Rachel Byrd Work Phone: [facility] 03-15-2024 14:32-0400 Body height 177.8 cm Olivia Lazcano MD Work Phone: [facility] 03-15-2024 14:32-0400 Body mass index (BMI) [Ratio] 25.54 kg/m2 Olivia Lazcano MD Work Phone: [facility] 03-15-2024 14:32-0400 Body weight 80.74 kg Olivia Lazcano MD Work Phone: [facility] 03-15-2024 14:32-0400 Diastolic blood pressure 68 mm[Hg] Olivia Lazcano MD Work Phone: [facility] 03-15-2024 14:32-0400 Heart rate 71 /min Olivia Lazcano MD Work Phone: [facility] 03-15-2024 14:32-0400 Respiratory rate 16 /min Olivia Lazcano MD Work Phone: [facility] 03-15-2024 14:32-0400 SaO2% (BldA) [Mass fraction] 94 % Olivia Lazcano MD Work Phone: [facility] 03-15-2024 14:32-0400 Systolic blood pressure 118 mm[Hg] Olivia Lazcano MD Work Phone: [facility] 03-02-2024 10:39-0400 Diastolic blood pressure 84 mm[Hg] DO Micah Renetta Work Phone: [facility] 03-02-2024 10:39-0400 Heart rate 53 /min DO Micah Renetta Work Phone: [facility] 03-02-2024 10:39-0400 Systolic blood pressure 148 mm[Hg] DO Micah Renetta Work Phone: [facility] 02-10-2024 14:14-0400 Body height 177.8 cm DO Micah Renetta Work Phone: [facility] 02-10-2024 14:14-0400 Body mass index (BMI) [Ratio] 27.3 kg/m2 DO Micah Renetta Work Phone: [facility] 02-10-2024 14:14-0400 Body temperature 97.4 [degF] DO Micah Renetta Work Phone: [facility] 02-10-2024 14:14-0400 Body weight 86.63 kg DO Micah Renetta Work Phone: [facility] 02-10-2024 14:14-0400 Diastolic blood pressure 70 mm[Hg] DO Micah Renetta Work Phone: [facility] 02-10-2024 14:14-0400 Heart rate 58 /min DO Micah Renetta Work Phone: [facility] 02-10-2024 14:14-0400 Systolic blood pressure 120 mm[Hg] DO Micah Renetta Work Phone: [facility] 01-03-2024 09:55-0400 PAIN LEVEL 0 {score} Dr. Attila Luis [address] [facility] 01-03-2024 09:53-0400 PAIN LEVEL 0 {score} [facility] 01-03-2024 06:11-0400 Body temperature 98.1 [degF] Dr. Attila Serrano [facility] 01-03-2024 06:11-0400 Diastolic blood pressure 74 mm[Hg] Dr. Attila Luis [facility] 01-03-2024 06:11-0400 Heart rate 75 /min Dr. Attila Serrano [facility] 01-03-2024 06:11-0400 Oxygen saturation in Blood 93 % Dr. Attila Luis [facility] 01-03-2024 06:11-0400 Respiratory rate 17 /min Dr. Attila Serrano [facility] 01-03-2024 06:11-0400 Systolic blood pressure 118 mm[Hg] Dr. Attila Luis [facility] 01-03-2024 04:29-0400 Body temperature 98.1 [degF] Dr. Attila Serrano [facility] 01-03-2024 04:29-0400 Diastolic blood pressure 74 mm[Hg] Dr. Attila Luis [facility] 01-03-2024 04:29-0400 Heart rate 75 /min Dr. Attila Serrano [facility] 01-03-2024 04:29-0400 Oxygen saturation in Blood 93 % Dr. Attila Luis [facility] 01-03-2024 04:29-0400 Respiratory rate 17 /[facility] 04:29-0400 Systolic blood pressure 118 mm[Hg] Dr. Attila Luis [facility] 01-03-2024 01:25-0400 PAIN LEVEL 0 {score} Dr. Attila Serrano [facility] 01-02-2024 19:59-0400 Body temperature 98.1 [degF] Dr. Attila Serrano [facility] 01-02-2024 19:59-0400 Diastolic blood pressure 68 mm[Hg] Dr. Attila Luis [facility] 01-02-2024 19:59-0400 Heart rate 66 /min Dr. Attila Serrano [facility] 01-02-2024 19:59-0400 Oxygen saturation in Blood 91 % Dr. Attila Luis [facility] 01-02-2024 19:59-0400 Respiratory rate 17 /min Dr. Attila Serrano [facility] 01-02-2024 19:59-0400 Systolic blood pressure 113 mm[Hg] Dr. Attila Luis [facility] 01-02-2024 19:31-0400 PAIN LEVEL 0 {score} Dr. Attila Serrano [facility] 01-02-2024 15:58-0400 Body weight 86.[address] Attila Serrano [facility] 01-02-2024 14:18-0400 Body temperature 98.1 [degF] Dr. Attila Serrano [facility] 01-02-2024 14:18-0400 Diastolic blood pressure 68 mm[Hg] Dr. Attila Luis [facility] 01-02-2024 14:18-0400 Heart rate 65 /min Dr. Attila Serrano [facility] 01-02-2024 14:18-0400 Oxygen saturation in Blood 91 % Dr. Attila Luis [facility] 01-02-2024 14:18-0400 Respiratory rate 17 /[facility] 14:18-0400 Systolic blood pressure 108 mm[facility] 08:32-0400 PAIN LEVEL 0 {score} Dr. Attila Serrano [facility] 01-02-2024 08:32-0400 PAIN LEVEL 0 {score} Dr. Attila Serrano [facility] 01-02-2024 03:09-0400 Body temperature 98.1 [degF] Dr. Attila Serrano [facility] 01-02-2024 03:09-0400 Diastolic blood pressure 68 mm[Hg] Dr. Attila Luis [facility] 01-02-2024 03:09-0400 Heart rate 69 /min Dr. Attila Serrano [facility] 01-02-2024 03:09-0400 Oxygen saturation in Blood 91 % Dr. Attila Luis [facility] 01-02-2024 03:09-0400 Respiratory rate 16 /[facility]-02-[facility] 03:09-0400 Systolic blood pressure 105 mm[facility]Hg[facility]-02-[facility] 01:55-0400 Body temperature 98.1 [degF] Dr. Attila Serrano [facility] 01-02-2024 01:55-0400 Diastolic blood pressure 68 mm[Hg] Dr. Attila Luis [facility] 01-02-2024 01:55-0400 Heart rate 69 /min Dr. Attila Serrano [facility] 01-02-2024 01:55-0400 Oxygen saturation in Blood 91 % Dr. Attila Luis [facility] 01-02-2024 01:55-0400 Respiratory rate 16 /min Dr. Attila Serrano [facility] 01-02-2024 01:55-0400 Systolic blood pressure 105 mm[facility]Hg[facility] 01-02-[facility] 00:35-0400 PAIN LEVEL 0 {score} Dr. Attila Serrano [facility] 01-01-2024 20:34-0400 Body temperature 98 [degF] Dr. Attila Serrano [facility] 01-01-2024 20:34-0400 Diastolic blood pressure 78 mm[Hg] Dr. Attila Luis [facility] 01-01-2024 20:34-0400 Heart rate 89 /min Dr. Attila Serrano [facility] 01-01-2024 20:34-0400 Oxygen saturation in Blood 94 % Dr. Attila Luis [facility] 01-01-2024 20:34-0400 Respiratory rate 17 /min Dr. Attila Serrano [facility] 01-01-2024 20:34-0400 Systolic blood pressure 119 mm[Hg] Dr. Attila Luis [facility] 01-01-2024 18:21-0400 PAIN LEVEL 0 {score} Dr. Attila Serrano [facility] 01-01-2024 09:44-0400 PAIN LEVEL 0 {score} Dr. Attial Serrano [facility] 01-01-2024 01:48-0400 Body temperature 98.1 [degF] Dr. Attila Serrano [facility] 01-01-2024 01:48-0400 Diastolic blood pressure 73 mm[Hg] Dr. Attila Luis [facility] 01-01-2024 01:48-0400 Heart rate 74 /min Dr. Attila Serrano [facility] 01-01-2024 01:48-0400 Oxygen saturation in Blood 90 % Dr. Attila Luis [facility] 01-01-2024 01:48-0400 Respiratory rate 16 /min Dr. Attila Luis [facility] 01-01-2024 01:48-0400 Systolic blood pressure 115 mm[Hg] Dr. Attila Luis [facility] 01-01-2024 01:29-0400 Diastolic blood pressure 74 mm[Hg] Dr. Attila Luis [facility] 01-01-2024 01:29-0400 Systolic blood pressure 132 mm[Hg] Dr. Attila Luis [facility] 01-01-2024 00:01-0400 PAIN LEVEL 0 {score} Dr. Attila Serrano [facility] 12-31-2023 21:38-0400 Body temperature 97.9 [facility]degF[facility] 12-[facility]23 21:38-0400 Diastolic blood pressure 74 mm[facility]Hg[facility] 12-31-[facility]23 21:38-0400 Heart rate 81 /min Dr. Attila Serrano [facility] 12-31-2023 21:38-0400 Oxygen saturation in Blood 90 % Dr. Attila Luis [facility] 12-31-2023 21:38-0400 Respiratory rate 18 /min Dr. Attila Serrano [facility] 12-31-2023 21:38-0400 Systolic blood pressure 132 mm[Hg[facility] 12-31-2023 14:29-0400 Body temperature 97.5 [degF] Dr. Attila Serrano [facility] 12-31-2023 14:29-0400 Diastolic blood pressure 76 mm[Hg] Dr. Attila uLis [facility] 12-31-2023 14:29-0400 Heart rate 85 /min Dr. Attila Serrano [facility] 12-31-2023 14:29-0400 Oxygen saturation in Blood 93 % Dr. Attila Luis [facility] 12-31-2023 14:29-0400 Respiratory rate 16 /min Dr. Attila Luis [facility] 12-31-2023 14:29-0400 Systolic blood pressure 113 mm[Hg] Dr. Attila Luis [facility] 12-31-2023 14:12-0400 Body weight 85.[address] Attila Serrano [facility] 12-31-2023 09:48-0400 PAIN LEVEL 0 {score} [facility] 12-31-2023 05:44-0400 Diastolic blood pressure 69 mm[Hg] Dr. Attila Luis [facility] 12-31-2023 05:44-0400 Systolic blood pressure 113 mm[Hg] Dr. Attila Luis [facility] 12-31-2023 02:42-0400 Body temperature 97.9 [degF] Dr. Attila Serrano [facility] 12-31-2023 02:42-0400 Diastolic blood pressure 69 mm[Hg] Dr. Attila Luis [facility] 12-31-2023 02:42-0400 Heart rate 69 /[facility]23 02:42-0400 Oxygen saturation in Blood 92 % Dr. Attila Luis [facility] 12-31-2023 02:42-0400 Respiratory rate 17 /min Dr. Attila Luis [facility] 12-31-2023 02:42-0400 Systolic blood pressure 113 mm[Hg] Dr. Attila Luis [facility] 12-30-2023 23:44-0400 PAIN LEVEL 0 {score} Dr. Attila Deleonrui [facility] 12-30-2023 23:35-0400 Body height 177.[address] Attila Serrano [facility] 12-30-2023 23:35-0400 Diastolic blood pressure 81 mm[Hg] Dr. Attila Luis [facility] 12-30-2023 23:35-0400 Systolic blood pressure 147 mm[Hg] Dr. Attila Luis [facility] 12-30-2023 23:31-0400 Body height 177.[address] Attila Serrano [facility] 12-30-2023 23:24-0400 Body temperature 97.5 [degF] Dr. Attila Serrano [facility] 12-30-2023 23:24-0400 Diastolic blood pressure 81 mm[Hg] Dr. Attila Luis [facility] 12-30-2023 23:24-0400 Systolic blood pressure 147 mm[facility]Hg[facility] 12-30-[facility]23 17:20-0400 PAIN LEVEL 0 {score} Dr. Attila Serrano [facility] 12-30-2023 16:14-0400 Body temperature 97.5 [degF[facility] 16:14-0400 Diastolic blood pressure 81 mm[Hg] Dr. Attila Luis [facility] 12-30-2023 16:14-0400 Heart rate 76 /min Dr. Attila Serrano [facility] 12-30-2023 16:14-0400 Oxygen saturation in Blood 90 % Dr. Attila Luis [facility] 12-30-2023 16:14-0400 Respiratory rate 17 /[facility] 12-30-2023 16:14-0400 Systolic blood pressure 147 mm[Hg] Dr. Attila Luis [facility] 12-30-2023 15:09-0400 [facility] [facility] 13:03-0400 Body temperature 97.6 [degF] DO Micah Renetta Work Phone: [facility] 12-30-2023 13:03-0400 Diastolic blood pressure 86 mm[Hg] DO Micah Renetta Work Phone: [facility] 12-30-2023 13:03-0400 Heart rate 69 /min DO Micah Renetta Work Phone: [facility] 12-30-2023 13:03-0400 Respiratory rate 14 /min DO Micah Renetta Work Phone: [facility] 12-30-2023 13:03-0400 SaO2% (BldA) [Mass fraction] 95 % DO Micah Renetta Work Phone: [facility] 12-30-2023 13:03-0400 Systolic blood pressure 146 mm[Hg] DO Micah Renetta Work Phone: [facility] 12-30-2023 05:37-0400 Body weight 85 kg DO Micah Renetta Work Phone: [facility] 12-29-2023 13:35-0400 Body height 177.8 cm DO Imcah Renetta Work Phone: [facility] 12-27-2023 00:40-0400 Diastolic blood pressure 74 mm[Hg] PHYSICIAN NO [facility] 12-27-2023 00:40-0400 Heart rate 68 /min PHYSICIAN NO [facility] 12-27-2023 00:40-0400 Respiratory rate 20 /min PHYSICIAN NO [facility] 12-27-2023 00:40-0400 SaO2% (BldA) [Mass fraction] 93 % PHYSICIAN NO [facility] 12-27-2023 00:40-0400 Systolic blood pressure 133 mm[Hg] PHYSICIAN NO [facility] 12-27-2023 00:26-0400 Body height 177.8 cm PHYSICIAN NO [facility] 12-27-2023 00:26-0400 Body weight 91.2 kg PHYSICIAN NO [facility] 12-26-2023 23:29-0400 Body temperature 97.5 [degF] PHYSICIAN NO [facility] 12-17-2023 00:51-0400 Body height 177.8 cm PHYSICIAN NO [facility] 12-17-2023 00:51-0400 Body temperature 97.7 [degF] PHYSICIAN NO [facility] 12-17-2023 00:51-0400 Body weight 85.85 kg PHYSICIAN NO [facility] 12-17-2023 00:51-0400 Diastolic blood pressure 69 mm[Hg] PHYSICIAN NO [facility] 12-17-2023 00:51-0400 Heart rate 78 /min PHYSICIAN NO [facility] 12-17-2023 00:51-0400 Respiratory rate 18 /min PHYSICIAN NO [facility] 12-17-2023 00:51-0400 SaO2% (BldA) [Mass fraction] 92 % PHYSICIAN NO [facility] 12-17-2023 00:51-0400 Systolic blood pressure 126 mm[Hg] PHYSICIAN NO [facility] 12-08-2023 14:25-0400 Body height 177.8 cm PHYSICIAN NO [facility] 12-08-2023 14:25-0400 Body mass index (BMI) [Ratio] 26.6 kg/m2 PHYSICIAN NO [facility] 12-08-2023 14:25-0400 Body weight 84.36 kg PHYSICIAN NO [facility] 12-08-2023 14:25-0400 Diastolic blood pressure 63 mm[Hg] PHYSICIAN NO [facility] 12-08-2023 14:25-0400 Heart rate 65 /min PHYSICIAN NO [facility] 12-08-2023 14:25-0400 Systolic blood pressure 115 mm[Hg] PHYSICIAN NO [facility] 10-23-2023 12:09-0500 Body height 177.8 cm RASHID Lee MD Work Phone: [facility] 10-23-2023 12:09-0500 Body temperature 98.4 [degF] RASHID Lee MD Work Phone: [facility] 10-23-2023 12:09-0500 Body weight 81.69 kg RASHID Lee MD Work Phone: [facility] 10-23-2023 12:09-0500 Diastolic blood pressure 70 mm[Hg] RASHID Lee MD Work Phone: [facility] 10-23-2023 12:09-0500 Heart rate 121 /min RASHID Lee MD Work Phone: [facility] 10-23-2023 12:09-0500 Systolic blood pressure 114 mm[Hg] RASHID Lee MD Work Phone: [facility] 10-05-2023 08:53-0500 Body weight 83 kg Marilee Covarrubias HOSPICE PHYSICIAN.[employer] Work Phone: [facility] 10-05-2023 08:53-0500 Diastolic blood pressure 84 mm[Hg] Marilee Covarrubias HOSPICE PHYSICIAN.[employer] Work Phone: [facility] 10-05-2023 08:53-0500 Heart rate 97 /min Marilee Covarrubias HOSPICE PHYSICIAN.[employer] Work Phone: [facility] 10-05-2023 08:53-0500 Systolic blood pressure 134 mm[Hg] Marilee Covarrbuias HOSPICE PHYSICIAN.[employer] Work Phone: [facility] 09-30-2023 08:08-0500 Body temperature 98.2 [degF] PHYSICIAN NO [facility] 09-30-2023 08:08-0500 Diastolic blood pressure 66 mm[Hg] PHYSICIAN NO [facility] 09-30-2023 08:08-0500 Heart rate 63 /min PHYSICIAN NO [facility] 09-30-2023 08:08-0500 Respiratory rate 12 /min PHYSICIAN NO [facility] 09-30-2023 08:08-0500 SaO2% (BldA) [Mass fraction] 91 % PHYSICIAN NO [facility] 09-30-2023 08:08-0500 Systolic blood pressure 107 mm[Hg] PHYSICIAN NO [facility] 09-30-2023 04:42-0500 Body height 177.8 cm PHYSICIAN NO [facility] 09-30-2023 04:42-0500 Body weight 89 kg PHYSICIAN NO [facility] 09-30-2023 01:00-0500 Diastolic blood pressure 79 mm[Hg] PHYSICIAN NO [facility] 09-30-2023 01:00-0500 Heart rate 71 /min PHYSICIAN NO [facility] 09-30-2023 01:00-0500 Inhaled oxygen flow rate 2 L/min PHYSICIAN NO [facility] 09-30-2023 01:00-0500 Respiratory rate 18 /min PHYSICIAN NO [facility] 09-30-2023 01:00-0500 SaO2% (BldA) [Mass fraction] 95 % PHYSICIAN NO [facility] 09-30-2023 01:00-0500 Systolic blood pressure 117 mm[Hg] PHYSICIAN NO [facility] 09-29-2023 22:00-0500 Body height 177.8 cm PHYSICIAN NO [facility] 09-29-2023 22:00-0500 Body temperature 97.7 [degF] PHYSICIAN NO [facility] 09-29-2023 22:00-0500 Body weight 87.1 kg PHYSICIAN NO [facility] 06-02-2023 14:03-0400 Body height 177.8 cm Jany Stanton APRN.[employer] Work Phone: [facility] 06-02-2023 14:03-0400 Body temperature 98.8 [degF] Jany Stanton APRN.[employer] Work Phone: [facility] 06-02-2023 14:03-0400 Body weight 88.54 kg Jany Stanton HOSPICE PHYSICIAN.[employer] Work Phone: [facility] 06-02-2023 14:03-0400 Diastolic blood pressure 63 mm[Hg] Jany Stanton HOSPICE PHYSICIAN.[employer] Work Phone: [facility] 06-02-2023 14:03-0400 Heart rate 67 /min Jany Stanton HOSPICE PHYSICIAN.[employer] Work Phone: [facility] 06-02-2023 14:03-0400 SaO2% (BldA) [Mass fraction] 97 % Jany Stanton HOSPICE PHYSICIAN.[employer] Work Phone: [facility] 06-02-2023 14:03-0400 Systolic blood pressure 132 mm[Hg] Jany Stanton HOSPICE PHYSICIAN.[employer] Work Phone: [facility] 01-09-2022 10:41-0400 Body height 177.8 cm StarlaMamaya PA-C Work Phone: [facility] 01-09-2022 10:41-0400 Body weight 88.91 kg Audiolife PA-C Work Phone: [facility] 01-09-2022 10:41-0400 Diastolic blood pressure 64 mm[Hg] StarlaMamaya PA-C Work Phone: [facility] 01-09-2022 10:41-0400 Heart rate 65 /min StarlaMamaya PA-C Work Phone: [facility] 01-09-2022 10:41-0400 SaO2% (BldA) [Mass fraction] 95 % Starla XOXO Kitchen PA-C Work Phone: [facility] 01-09-2022 10:41-0400 Systolic blood pressure 120 mm[Hg] Audiolife PA-C Work Phone: [facility] Encounters Encounter Date Encounter Type Care Provider Facility Start: 10-05-2025 ambulatory Wang Laughlin MD Facility:[facility] Start: 10-18-2024 ambulatory Mirta Quezada y:[facility] Start: 10-18-2024 End: 10-18-2024 Subsequent hospital visit by physician Mri 7 Radio Main Q (I-Stat/1.5t/3t) Work Phone: MRI Q Comment on above: 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] Start: 10-14-2024 End: 10-14-2024 Patient encounter procedure Rachel Byrd STUDIO PRODUCER-C Work Phone: [facility] [place] Work Phone: Start: 10-14-2024 End: 10-14-2024 ambulatory Rachel Byrd STUDIO PRODUCER-C Work Phone: [facility] Work Phone: Start: 10-01-2024 End: 10-01-2024 Patient encounter procedure Rachel Byrd STUDIO PRODUCER-C Work Phone: [facility]Lab [facility] [place] Work Phone: Start: 10-01-2024 End: 10-01-2024 ambulatory Rachel Byrd STUDIO PRODUCER-C Work Phone: [facility] Work Phone: Start: 09-21-2024 End: 09-21-2024 ambulatory KATHARINA Mendoza DAYAYVESKOFI Facility:[facility] Start: 09-21-2024 End: 09-21-2024 Patient encounter procedure aKtharina Mendoza Yvonne HOSPICE PHYSICIAN.[employer] Work Phone: Neurology Comment on above: APPOINTMENT CANCELLE D (Primary Dx) Start: 09-21-2024 End: 09-21-2024 Telemedicine consultation with patient Katharina Russell HOSPICE PHYSICIAN.[employer] Work Phone: Neurology Start: 09-20-2024 End: 09-23-2024 Telephone encounter Jose Babin MD Work Phone: Neurology Comment on above: Patient Update Start: 09-08-2024 End: 09-08-2024 Orders Only Ivette Turk RN Work Phone: General Surgery Comment on above: Biliary cyst (Primar y Dx); IPMN (intraductal papillary mucinous neoplasm) Start: 08-23-2024 End: 08-23-2024 Bamboo flowsheet Erika Felder TEMPERATURE CONTROL INSPECTOR [facility] Start: 08-23-2024 End: 08-23-2024 Bamboo flowsheet Erika Felder TEMPERATURE CONTROL INSPECTOR [facility] Start: 08-23-2024 End: 08-23-2024 Treatment Erika Felder TEMPERATURE CONTROL INSPECTOR [facility] Comment on above: Cervicalgia (Primary Dx); Vertigo of central origin; Vestibular neuronitis of right ear; Balance disorder; Right-sided vestibular weakness Start: 08-16-2024 End: 08-16-2024 Bamboo flowsheet Erika Felder TEMPERATURE CONTROL INSPECTOR [facility] Start: 08-16-2024 End: 08-16-2024 Bamboo flowsheet Erika Felder TEMPERATURE CONTROL INSPECTOR [facility] Start: 08-16-2024 End: 08-16-2024 Treatment Erika Felder TEMPERATURE CONTROL INSPECTOR [facility] Comment on above: Vertigo of central o rigin (Primary Dx); Cervicalgia; Vestibular neuronitis of right ear; Balance disorder; Right-sided vestibular weakness; Parkinson's disease with dyskinesia, unspecified whether manifestations fluctuate (CMS/HCC); Weakness; Vertigo Start: 08-01-2024 End: 08-01-2024 Bamboo flowsheet Miko Depoy TEMPERATURE CONTROL INSPECTOR Work Phone: [facility] Start: 08-01-2024 End: 08-01-2024 Bamboo flowsheet Miko Depoy TEMPERATURE CONTROL INSPECTOR Work Phone: [facility] Start: 08-01-2024 End: 08-01-2024 Treatment Miko Depoy TEMPERATURE CONTROL INSPECTOR Work Phone: [facility] PT Comment on above: Cervicalgia (Primary Dx); Vertigo of central origin; Vestibular neuronitis of right ear; Balance disorder Start: 07-25-2024 End: 07-25-2024 Treatment Olivia Mcallister PT Work Phone: [facility] PT Comment on above: Cervicalgia (Primary Dx); Vertigo of central origin; Vestibular neuronitis of right ear; Balance disorder Start: 07-22-2024 End: 07-22-2024 Bamboo flowsheet Olivia Mcallister PT Work Phone: [facility] Start: 07-22-2024 End: 07-22-2024 Bamboo flowsheet Olivia Mcallister PT Work Phone: [facility] Start: 07-22-2024 End: 07-22-2024 Evaluation Olivia Mcallister PT Work Phone: [facility] PT Comment on above: Cervicalgia (Primary Dx); Vertigo of central origin; Balance disorder; Right-sided vestibular weakness Start: 07-20-2024 End: 07-20-2024 Telephone encounter Jose Babin MD Work Phone: Neurology Comment on above: Orders Start: 07-19-2024 End: 07-20-2024 ambulatory JOSE BABIN Facility:[facility] Start: 07-19-2024 End: 07-19-2024 Patient encounter procedure Jose Babin MD Work Phone: Neurology Comment on above: Dizziness and giddin ess (Primary Dx); Cervicocranial syndrome; Labyrinthitis of right ear; Imbalance; Neck pain Start: 07-08-2024 End: 07-08-2024 Patient encounter procedure Rachel VALLEJO Work Phone: [facility] [place] Work Phone: Start: 07-08-2024 End: 07-08-2024 ambulatory Jessie Hammond Facility:[facility] Start: 04-26-2024 End: 06-07-2024 Telephone encounter Neurology Provider [facility] Comment on above: Patient Question Start: 04-09-2024 End: 04-09-2024 Emergency department patient visit STUDIO PRODUCER-Silvia Byrd Work Phone: [facility]-Emergency Room Work Phone: Start: 03-30-2024 End: 03-30-2024 ambulatory ERIKA FELDER Not Available Start: 03-23-2024 End: 03-23-2024 ambulatory OLIVIA MCALLISTER Not Available Start: 03-15-2024 End: 03-15-2024 Patient encounter procedure Olivia Lazcano MD Work Phone: Cardiology Comment on above: Vertigo (Primary Dx) ; IPMN (intraductal papillary mucinous neoplasm); Chronic GERD Start: 03-15-2024 End: 03-15-2024 ambulatory OLIVIA LAZCANO Facility:[facility] Start: 03-14-2024 End: 03-14-2024 Orders Only Olivia Lazcano MD Work Phone: Cardiology Comment on above: Hypotension, unspeci fied hypotension type (Primary Dx) Start: 03-02-2024 End: 03-02-2024 Patient encounter procedure DO Micah Renetta Work Phone: [facility] Work Phone: Start: 03-02-2024 End: 03-02-2024 ambulatory DO Micah M Renetta Work Phone: [facility] Work Phone: Start: 02-29-2024 End: 02-29-2024 ambulatory BRANDAN HARRINGTON Not Available Start: 02-10-2024 End: 02-10-2024 ambulatory DO Micah M Renetta Work Phone: [facility] Work Phone: Start: 02-10-2024 End: 02-10-2024 Patient encounter procedure DO Micah Renetta Work Phone: [facility] Work Phone: Start: 02-09-2024 End: 02-09-2024 ambulatory BRANDAN HARRINGTON Not Available Start: 02-08-2024 End: 02-09-2024 ambulatory BRANDAN HARRINGTON Not Available Start: 02-02-2024 End: 02-02-2024 ambulatory ERIKA FELDER Not Available Start: 02-01-2024 End: 02-01-2024 ambulatory DOUGIE MCKNIGHT Not Available Start: 01-29-2024 ambulatory Debra Woods RN [employer]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 Comment on above: Patient Update Start: 01-29-2024 Telephone encounter Jael WOOD Work Phone: Urology Comment on above: Returning Patient's Call Start: 01-28-2024 End: 01-28-2024 ambulatory HIRAM CASTILLO Not Available Start: 01-26-2024 End: 01-26-2024 ambulatory OLIVIA MCALLISTER Not Available Start: 01-21-2024 End: 01-21-2024 ambulatory DOUGIE MCKNIGHT Not Available Start: 2024 End: 2024 ambulatory DOUGIE MCKNIGHT Not Available Start: 01-14-2024 End: 01-14-2024 ambulatory OLIVIA MCALLISTER Not Available Start: 01-06-2024 End: 01-06-2024 ambulatory RACHEL BYRD Not Available Start: 12-30-2023 End: 01-03-2024 Evaluation and management of inpatient Attila Luis [facility] Start: 12-29-2023 End: 12-30-2023 Non-patient / Non-visit DO Micah Renetta Work Phone: [facility] Work Phone: Start: 12-28-2023 End: 12-30-2023 Non-patient / Non-visit DO Micah Renetta Work Phone: [facility] Work Phone: Start: 12-28-2023 End: 12-30-2023 Evaluation and management of inpatient DO Micah Renetta Work Phone: [facility] Work Phone: Start: 12-27-2023 Evaluation and management of inpatient PHYSICIAN EVA THOMPSON [facility] Work Phone: Start: 12-27-2023 observation encounter PHYSICIAN EVA CHAMBERS [facility] Work Phone: Start: 12-17-2023 End: 12-17-2023 ambulatory RACHEL BYRD Not Available Start: 12-17-2023 End: 12-17-2023 Emergency department patient visit PHYSICIAN EVA THOMPSON [facility]Emer[facility] Work Phone: Start: 12-14-2023 End: 12-14-2023 ambulatory HAILE LEE Facility:[facility] Start: 12-14-2023 End: 12-14-2023 Patient encounter procedure Haile Lee DDS Work Phone: Dentistry Comment on above: Retained dental root (Primary Dx) Start: 12-10-2023 End: 12-10-2023 Patient encounter procedure PHYSICIAN NO [facility] Work Phone: Start: 12-10-2023 End: 12-10-2023 ambulatory PHYSICIAN NO [facility] Work Phone: Start: 12-10-2023 Non-patient / Non-visit PHYSICIAN NO [facility] Work Phone: Start: 12-08-2023 End: 12-08-2023 ambulatory PHYSICIAN NO [facility] Work Phone: Start: 12-08-2023 End: 12-08-2023 Patient encounter procedure PHYSICIAN NO [facility] Work Phone: Start: 11-25-2023 Patient encounter status Olivia Mcallister PT Work Phone: [facility] Start: 11-25-2023 End: 11-25-2023 ambulatory RACHEL BYRD Not Available Start: 11-16-2023 End: 11-16-2023 Emergency department patient visit RASHID LEE Facility:[facility] Start: 11-12-2023 End: 11-12-2023 ambulatory RACHEL ROYALY Not Available Start: 11-10-2023 End: 11-10-2023 ambulatory HIRAM CASTILLO Not Available Start: 10-30-2023 End: 10-30-2023 ambulatory HAILE LEE Facility:[facility] Start: 10-30-2023 End: 10-30-2023 Patient encounter procedure Haile Lee DDS Work Phone: Dentistry Comment on above: Retained dental root (Primary Dx) Start: 10-23-2023 End: 10-23-2023 ambulatory Mirta LEE Facility:[facility] Start: 10-23-2023 End: 10-23-2023 Patient encounter procedure Mirta Lee MD Work Phone: General Surgery Comment on above: IPMN (intraductal pa pillary mucinous neoplasm) (Primary Dx); Calculus of gallbladder with acute cholecystitis without obstruction Start: 10-08-2023 Telephone encounter Mirta Lee MD Work Phone: General Surgery Comment on above: Appointment Start: 10-05-2023 ambulatory Marilee calixto HOSPICE PHYSICIAN.[employer] DR[employer] Work Phone: Urology Start: 10-05-2023 Telephone encounter Mirta Lee MD Work Phone: General Surgery Comment on above: Appointment Start: 10-05-2023 End: 10-05-2023 Patient encounter procedure Marilee Covarrubias HOSPICE PHYSICIAN.[employer] Work Phone: Urology Comment on above: Retention of urine ( Primary Dx); Acute urinary retention Start: 10-02-2023 ambulatory Facility:[facility] Start: 09-30-2023 Non-patient / Non-visit PHYSICIAN NO [facility] Work Phone: Start: 09-30-2023 Telephone encounter Jany man HOSPICE PHYSICIAN.[employer] Work Phone: Gastroenterology Comment on above: Patient Update Start: 09-30-2023 End: 09-30-2023 Evaluation and management of inpatient PHYSICIAN NO [facility] Work Phone: Start: 09-29-2023 End: 09-29-2023 Emergency department patient visit Facility:[facility] Start: 06-23-2023 Patient encounter status PHYSICIAN NO [facility] Start: 06-02-2023 End: 06-02-2023 Patient encounter procedure Jany Stanton HOSPICE PHYSICIAN.[employer] Work Phone: Gastroenterology Comment on above: Fatty liver (Primary Dx) Start: 01-21-2023 E-mail encounter fro m caregiver Musa Gonzalez PA-C Work Phone: [facility] Start: 01-21-2023 Patient encounter procedure Musa Gonzalez PA-C Work Phone: Urology Comment on above: Upcoming Appointment and PSA Test Reminder Start: 2023 Orders Only Musa Carlos PA-C Work Phone: Urology Comment on above: BPH with urinary obs truction (Primary Dx) Start: 08-04-2022 Refill Starla Perry Swanson ton PA-C Work Phone: Internal Medicine [facility] Comment on above: Refill Request Start: 04-22-2022 Refill Starla Perry Swanson ton PA-C Work Phone: Neurology Comment on above: Refill Request Start: 01-09-2022 End: 01-09-2022 Patient encounter procedure Starla Curry PA-C Work Phone: Internal Medicine [facility] Comment on above: Chronic GERD (Primar y Dx); Special screening examination for viral disease; Benign prostatic hyperplasia without lower urinary tract symptoms Start: 12-26-2021 ambulatory Stella sutton MD Work Phone: Infectious Disease Procedures Date Procedure Procedure Detail Performing Clinician Start: 10-14-2024 CT angiography of neck vessels Rachel Byrd NP-C Work Phone: Start: 04-09-2024 Plain chest X-ray STUDIO PRODUCER-C Rachel Byrd Work Phone: Start: 03-02-2024 Radionuclide myocardial perfusion stress study STUDIO PRODUCER-Silvia Byrd Work Phone: Start: 12-28-2023 MRI of head DO Micah Renetta Work Phone: Start: 12-27-2023 Blood culture for bacteria, including anaerobic screen DO Micah Renetta Work Phone: Start: 12-26-2023 CT angiography of head DO Micah Renetta Work Phone: Start: 12-26-2023 CT angiography of neck vessels DO Micah Renetta Work Phone: Start: 12-26-2023 CT of head without contrast DO Micah Renetta Work Phone: Start: 12-14-2023 10 REMOVAL OF RESIDUAL TOOTH ROOTS (CUTTING PROCEDURE) Haile Lee DDS Work Phone: Start: 12-10-2023 Ultrasound elastography of liver PHYSICIAN NO FAMILY Start: 10-30-2023 LIMITED ORAL EVALUATION - PROBLEM FOCUSED Haile Lee DDS Work Phone: Start: 10-02-2023 History of cholecystectomy S/P laparoscopic cholecystectomy RASHID Lee MD Work Phone: Start: 09-30-2023 US scan of gallbladder PHYSICIAN NO FAMI [facility] Start: 09-29-2023 Computed tomography of abdomen and pelvis with contrast PHYSICIAN NO FAMILY Start: 09-29-2023 Plain chest X-ray PHYSICIAN NO FAMILY Start: 05-25-2023 Lipid 1996 panel - Serum or Plasma Jany Stanton APRN.CNP Work Phone: Plan of Treatment Date Care Activity Detail Author Start: 11-09-2033 Urine microalbumin profile DTaP,Tdap,Td Vaccine (3 - Td or Tdap) [facility] Start: 04-24-2032 Urine microalbumin profile [facility] Start: 05-25-2028 Lipid 1996 panel - Serum or Plasma Lipid Screening [facility] Start: 05-25-2028 Lipid panel Lipid Screening [facility] Start: 03-14-2027 Diabetes Screening Diabetes Screening [facility] Start: 02-07-2027 Diabetes Screening Diabetes Screening [facility] Start: 11-19-2026 Screening for malignant neoplasm of colon [facility] Start: 11-15-2026 Diabetes Screening Diabetes Screening [facility] Start: 10-04-2026 Diabetes Screening Diabetes Screening [facility] Start: 05-27-2026 Diabetes Screening Diabetes Screening [facility] Start: 2026 RSV Vaccine (1 - 1-dose 75+ series) RSV Vaccine (1 - 1-dose 75+ series) [facility] Start: 12-24-2024 DIABETES SCREEN DIABETES SCREEN [facility] Start: 12-06-2024 End: 12-06-2024 Patient encounter procedure Audiology Comment on above: vertigo/ balance Start: 11-25-2024 End: 11-25-2024 Patient encounter procedure 11/25/2024 11:00 AM EDT Office Visit [facility] [address] [place] [address] Rachel Byrd, STUDIO PRODUCER [address] [place] [address] [facility] Start: 11-24-2024 Pneumococcal Vaccine: 65+ Years (1 of 1 - PCV) Pneumococcal Vaccine: 65+ Years (1 of 1 - PCV) [facility] Comment on above: Postponed from 01/21/2016 (Patient Refus ed) Start: 10-03-2024 End: 10-03-2024 Patient encounter procedure Neurology Comment on above: Dizziness Start: 10-01-2024 [facility] Start: 08-31-2024 End: 08-31-2024 ambulatory 08/31/2024 10:00 AM EST Treatment [facility] [address] [place] [address] Erika Felder PTA [facility] Start: 08-23-2024 End: 08-23-2024 ambulatory [facility] Comment on above: Arrived Start: 08-17-2024 Advance Directive Discussion Advance Directive Discussion [facility] Start: 08-16-2024 End: 08-16-2024 ambulatory [facility] Comment on above: Arrived Start: 08-01-2024 End: 08-01-2024 ambulatory [facility] Comment on above: Arrived Start: 07-26-2024 End: 11-23-2024 MR Biliary ducts and Pancreatic duct WO and W contrast IV MRI PANC/WAI WO/W IVCON Radiology Routine IPMN (intraductal papillary mucinous neoplasm) Expected: 07/26/2024, Expires: 11/23/2024 [facility] Work Phone: Comment on above: Expected: 07/26/2024, Expires: Start: 07-25-2024 End: 07-25-2024 ambulatory 07/25/2024 10:00 AM EST Treatment [facility] [address] [place] [address] Olivia Mcallister, PT [address] [place], [place] [id number] [facility] Start: 07-22-2024 End: 07-22-2024 Evaluation 07/22/2024 8:20 AM EST Evaluation [facility] [address] [place] [id number] Olivia Mcallister, PT [address] [place] [address] Cervicalgia (Primary Dx); Vertigo of central origin; Balance disorder; Right-sided vestibular weakness [facility] Comment on above: Cervicalgia (Primary Dx); Vertigo of central origin; Balance disorder; Right-sided vestibular weakness Start: 07-13-2024 End: 07-13-2024 Patient encounter procedure 07/13/2024 10:00 AM EST Office Visit Urology [address] [address] German Dennis MD [address] [place] [address] B[facility] Urology Comment on above: BPH Start: 06-24-2024 End: 06-24-2024 ambulatory 06/24/2024 1:00 PM EST [facility] Neurology [address] [address] Maya Morgan MD [address] [place], [place] [id number] dizziness,blurry vision sometimes Neurology Comment on above: dizziness,blurry vision sometimes Start: 04-26-2024 End: 04-26-2024 ambulatory 04/26/2024 1:00 PM EDT [facility] [address] [place] [address] Loyd Gregory MD [address] [place] [address] [facility] Comment on above: MILD CHRONIC MICROVASCULAR ISCHEMIA Start: 04-20-2024 End: 04-20-2024 Patient encounter procedure Audiology Comment on above: dizzness Start: 04-17-2024 Covid-19 Vaccine ( season) Covid-19 Vaccine () [facility] Start: 04-17-2024 Influenza vaccination [facility] Start: 03-15-2024 End: 03-15-2024 Patient encounter procedure 03/15/2024 2:30 PM EDT Office Visit Cardiology [address] [id number] Olivia Lazcano MD [address] [place] [address] low blood pressure Cardiology Comment on above: low blood pressure Start: 03-15-2024 End: 03-15-2024 ambulatory 03/15/2024 1:45 PM EDT Results Only Cardiology [address] [id number] low blood pressure Cardiology Comment on above: low blood pressure Start: 03-14-2024 End: 03-14-2024 Patient encounter procedure 03/14/2024 2:15 PM EDT Office Visit [facility] [address] [place] [address] Outside Lab Orders by NINA Harrington [facility] Comment on above: Outside Lab Orders by NINA Harrington Start: 03-02-2024 Radionuclide myocardial perfusion stress study NM jalen perf SPECT rest & str [facility] Start: 02-10-2024 [facility] Start: 02-01-2024 End: 02-01-2024 ambulatory 02/01/2024 3:45 PM EDT Results Only [facility] [address] [place] [address] [facility] Start: 01-29-2024 End: 04-29-2024 Bacteria identified in Urine by Culture URINE CULTURE Microbiology Routine BPH with obstruction/lower urinary tract symptoms Expected: 01/29/2024, Expires: 04/29/2024 [facility] Comment on above: Expected: 01/29/2024, Expires: Start: 01-29-2024 End: 04-29-2024 CBC panel - Blood by Automated count COMPLETE BLOOD COUNT Lab Routine BPH with obstruction/lower urinary tract symptoms Expected: 01/29/2024, Expires: 04/29/2024 [facility] Work Phone: Comment on above: Expected: 01/29/2024, Expires: Start: 12-31-2023 [facility] Start: 12-30-2023 End: 12-30-2023 [facility] Start: 12-29-2023 [facility] Start: 12-28-2023 Referral to rehabilitation physician [facility] Start: 12-28-2023 [facility] Start: 12-27-2023 Bacteria identified in Blood by Culture Blood Culture [facility] Start: 12-27-2023 Referral to infectious diseases physician [facility] Start: 12-27-2023 [facility] Start: 12-27-2023 Sleep disorder assessment [facility] Start: 12-27-2023 Hospital admission [facility] Start: 12-27-2023 Physical therapy procedure [facility] Start: 12-27-2023 Referral to occupational therapist [facility] Start: 12-27-2023 [facility] Start: 12-26-2023 CT angiography of head [facility] Start: 12-26-2023 CT angiography of neck vessels [facility] Start: 12-26-2023 CT of head without contrast CT head/brain wo con [facility] Start: 12-26-2023 CT Unspecified body region WO contrast [facility] Start: 12-26-2023 [facility] Start: 12-10-2023 [facility] Start: 12-10-2023 Hepatitis A virus Ab [Presence] in Serum by Immunoassay [facility] Start: 12-10-2023 Hepatitis B core antibody measurement [facility] Start: 12-10-2023 Hepatitis B virus surface Ab [Presence] in Serum [facility] Start: 12-10-2023 [facility] Start: 09-30-2023 Hepatic function panel [facility] Start: 09-30-2023 US scan of gallbladder US gall bladder [facility] Start: 09-30-2023 End: 09-30-2023 [facility] Start: 09-30-2023 Hospital admission [facility] Start: 09-29-2023 Computed tomography of abdomen and pelvis with contrast CT abdomen pelvis w con [facility] Start: 09-29-2023 CT Abdomen and Pelvis W contrast IV [facility] Start: 09-29-2023 Plain chest X-ray XR chest 1V portable [facility] Start: 09-29-2023 XR Chest Single view [facility] Start: 08-17-2023 Advance Directive Discussion Advance Directive Discussion [facility] Start: 08-17-2023 Behavioral Health Screening Behavioral Health Screening [facility] Start: 08-17-2023 Depression Assessment Depression Assessment [facility] Start: 06-02-2023 End: 09-01-2023 Alpha 1 antitrypsin [Mass/volume] in Serum or Plasma [id number] Lab Routine Fatty liver Expected: 06/02/2023, Expires: 09/01/2023 [facility] Work Phone: Comment on above: Expected: 06/02/2023, Expires: Start: 06-02-2023 End: 06-02-2024 Basic metabolic 2000 panel - Serum or Plasma BASIC METABOLIC PNL Lab Routine Fatty liver Expected: 06/02/2023, Expires: 06/02/2024 [facility] Work Phone: Comment on above: Expected: 06/02/2023, Expires: 4 Start: 06-02-2023 End: 06-02-2024 CBC W Auto Differential panel - Blood CBC + DIFF Lab Routine Fatty liver Expected: 06/02/2023, Expires: 06/02/2024 [facility] Work Phone: Comment on above: Expected: 06/02/2023, Expires: 4 Start: 06-02-2023 End: 09-01-2023 Chronic hepatitis differentiation between hepatitis B and C virus panel - Serum or Plasma HEP REMOTE PANEL BL Lab Routine Fatty liver Expected: 06/02/2023, Expires: 09/01/2023 [facility] Work Phone: Comment on above: Expected: 06/02/2023, Expires: Start: 06-02-2023 End: 09-01-2023 Ferritin [Mass/volume] in Serum or Plasma FERRITIN BLD Lab Routine Fatty liver Expected: 06/02/2023, Expires: 09/01/2023 [facility] Work Phone: Comment on above: Expected: 06/02/2023, Expires: 4 Start: 06-02-2023 End: 06-02-2024 Hepatic function 2000 panel - Serum or Plasma HEPATIC FUNCTION PNL Lab Routine Fatty liver Expected: 06/02/2023, Expires: 06/02/2024 [facility] Work Phone: Comment on above: Expected: 06/02/2023, Expires: Start: 06-02-2023 End: 09-01-2023 HEPATITIS A ANTIBODY, IGG HEPATITIS A ANTIBODY, IGG Lab Routine Fatty liver Expected: 06/02/2023, Expires: 09/01/2023 [facility] Work Phone: Comment on above: Expected: 06/02/2023, Expires: 4 Start: 06-02-2023 End: 09-01-2023 HFE gene targeted mutation analysis in Blood or Tissue by Molecular genetics method HFE (HEMOCHROMATOSIS) Lab Routine Fatty liver Expected: 06/02/2023, Expires: 09/01/2023 [facility] Work Phone: Comment on above: Expected: 06/02/2023, Expires: 4 Start: 06-02-2023 End: 09-01-2023 Iron and Iron binding capacity panel - Serum or Plasma IRON + TIBC Lab Routine Fatty liver Expected: 06/02/2023, Expires: 09/01/2023 [facility] Work Phone: Comment on above: Expected: 06/02/2023, Expires: 4 Start: 06-02-2023 End: 09-01-2023 Nuclear Ab [Presence] in Serum by Immunoassay ANNIKA BLOOD Lab Routine Fatty liver Expected: 06/02/2023, Expires: 09/01/2023 [facility] Work Phone: Comment on above: Expected: 06/02/2023, Expires: 4 Start: 06-02-2023 End: 06-02-2024 PT panel - Platelet poor plasma by Coagulation assay PROTHROMBIN TIME/PT Lab Routine Fatty liver Expected: 06/02/2023, Expires: 06/02/2024 [facility] Work Phone: Comment on above: Expected: 06/02/2023, Expires: 4 Start: 04-17-2023 Covid-19 Vaccine () Covid-19 Vaccine () [facility] Start: 04-17-2023 Covid-19 Vaccine () Covid-19 Vaccine () [facility] Start: 04-17-2023 Influenza vaccination [facility] Start: 04-16-2023 LIPID SCREEN LIPID SCREEN [facility] Start: 2023 End: 03-22-2023 Prostate Specific Ag Free [Mass/volume] in Serum or Plasma PSA FREE Lab Routine BPH with urinary obstruction Expected: 2023, Expires: 03/22/2023 [facility] Work Phone: Comment on above: Expected: 2023, Expires: 3 Start: 01-10-2023 COLORECTAL CANCER SCREENING COLORECTAL CANCER SCREENING [facility] Comment on above: Postponed from 01/21/1996 (Declined at t his time) Start: 01-09-2023 COVID-19 VACCINE (#1) COVID-19 VACCINE (#1) [facility] Comment on above: Postponed from 01/21/1956 (Declined at t his time) Postponed from 07/22 (Declined at this time) Start: 08-17-2022 ADVANCE DIRECTIVE DISCUSSION ADVANCE DIRECTIVE DISCUSSION [facility] Start: 08-17-2022 DEPRESSION ASSESSMENT DEPRESSION ASSESSMENT [facility] Start: 04-17-2022 Influenza vaccination [facility] Start: 04-12-2022 PNEUMOCOCCAL: 65+ (1 - PCV) PNEUMOCOCCAL: 65+ (1 - PCV) [facility] Comment on above: Postponed from 01/21/2016 (Postponed To Appropriate Date) Start: 04-12-2022 SHINGRIX VACCINE (1 of 2) SHINGRIX VACCINE (1 of 2) [facility] Comment on above: Postponed from 2001 (Postponed To Appropriate Date) Start: 04-12-2022 Urine microalbumin profile DTAP,TDAP,TD (1 - Tdap) [facility] Comment on above: Postponed from 1970 (Postponed To Appropriate Date) Start: 01-09-2022 End: 03-11-2022 Hepatitis C virus Ab [Presence] in Serum HEP C AB IA W/CONF SCRN Lab Routine Special screening examination for viral disease Expected: 01/09/2022, Expires: 03/11/2022 [facility] Work Phone: Comment on above: Expected: 01/09/2022, Expires: 2 Start: 08-17-2021 ADVANCE DIRECTIVE DISCUSSION ADVANCE DIRECTIVE DISCUSSION [facility] Start: 08-17-2021 DEPRESSION ASSESSMENT DEPRESSION ASSESSMENT [facility] Start: 01-21-2016 Pneumococcal Vaccine: 65+ (1 - PCV) Pneumococcal Vaccine: 65+ (1 - PCV) [facility] Start: 01-21-2016 Pneumococcal Vaccine: 65+ (1 of 1 - PCV) Pneumococcal Vaccine: 65+ (1 of 1 - PCV) [facility] Start: 01-21-2016 PNEUMOCOCCAL: 65+ (1 - PCV) PNEUMOCOCCAL: 65+ (1 - PCV) [facility] Start: 01-21-2016 PNEUMOVAX AGE 65 AND OVER WITH 5YR LOOKBACK (#1) PNEUMOVAX AGE 65 AND OVER WITH 5YR LOOKBACK (#1) [facility] Start: 2011 RSV Vaccine (1 - 1-dose 60+ series) RSV Vaccine (1 - 1-dose 60+ series) [facility] Start: 2011 RSV Vaccine (1 - Risk 60-74 years 1-dose series) RSV Vaccine (1 - Risk 60-74 years 1-dose series) [facility] Start: 2001 Pneumococcal Vaccine: 50+ (1 of 1 - PCV) Pneumococcal Vaccine: 50+ (1 of 1 - PCV) [facility] Start: 2001 SHINGRIX VACCINE (1 of 2) SHINGRIX VACCINE (1 of 2) [facility] Start: 01-21-1996 COLOGUARD (FIT-DNA) COLOGUARD (FIT-DNA) [facility] Start: 01-21-1996 Colonoscopy COLONOSCOPY [facility] Start: 01-21-1996 COLORECTAL CANCER SCREENING COLORECTAL CANCER SCREENING [facility] Start: 01-21-[address] COLONOGRAPHY [facility] Start: 01-21-1996 FECAL OCCULT BLOOD FECAL OCCULT BLOOD [facility] Start: 01-21-1996 Screening for malignant neoplasm of colon [facility] Start: 01-21-1996 SIGMOIDOSCOPY SIGMOIDOSCOPY [facility] Start: 1970 Urine microalbumin profile DTAP,TDAP,TD (1 - Tdap) [facility] Start: 1969 Anxiety Screening Anxiety Screening [facility] Start: 1969 Depression Screening Depression Screening [facility] Start: 1969 HEPATITIS C SCREENING HEPATITIS C SCREENING [facility] Start: 1963 Adult depression screening assessment DEPRESSION SCREENING [facility] Start: 01-21-1956 COVID-19 VACCINE (#1) COVID-19 VACCINE (#1) [facility] Start: 1951 COVID-19 VACCINE (#1) COVID-19 VACCINE (#1) [facility] Start: 1951 Screening for malignant neoplasm of colon [facility] 10 EXTRACTION, ERUPT ED TOOTH REQUIRING REMOVAL OF BONE AND/OR SECTIONING OF TOOTH, AND INCLUDING ELEVATION OF MUCOPERIOSTE 10 EXTRACTION, ERUPTED TOOTH REQUIRING REMOVAL OF BONE AND/OR SECTIONING OF TOOTH, AND INCLUDING ELEVATION OF MUCOPERIOSTE Dental Routine 1 Occurrences starting 10/30/2023 [facility] Work Phone: Comment on above: 1 Occurrences starting 10/30/2023 Albumin/Globulin ratio [facility] Anion gap measurement [facility] Anion gap measurement [facility] Bacteria identified in Blood by Culture [facility] Basophils [#/volume] in Blood by Automated count [facility] Basophils [#/volume] in Blood by Automated count [facility] Basophils/100 leukocytes in Blood by Automated count [facility] Basophils/100 leukocytes in Blood by Automated count [facility] Bilirubin.indirect [Mass/volume] in Serum or Plasma [facility] Borrelia burgdorferi Ab [Interpretation] in Serum [facility] Borrelia burgdorferi Ab [Interpretation] in Serum [facility] Borrelia burgdorferi IgG Ab [Presence] in Serum or Plasma by Immunoassay [facility] Borrelia burgdorferi IgG Ab [Presence] in Serum or Plasma by Immunoassay [facility] Borrelia burgdorferi IgG+IgM Ab [Presence] in Serum by Immunoassay [facility] Borrelia burgdorferi IgG+IgM Ab [Presence] in Serum by Immunoassay [facility] Borrelia burgdorferi IgM Ab [Presence] in Serum or Plasma by Immunoassay [facility] Borrelia burgdorferi IgM Ab [Presence] in Serum or Plasma by Immunoassay [facility] Calculated LDL cholesterol level [facility] Calculated LDL cholesterol level [facility] Cholesterol.total/Ch ole sterol in HDL [Mass Ratio] in Serum or Plasma [facility] Cholesterol.total/Ch ole sterol in HDL [Mass Ratio] in Serum or Plasma [facility] DDI VIBRATION CONTROLLED TRANSIENT ELASTOGRAPHY (VCTE) DDI VIBRATION CONTROLLED TRANSIENT ELASTOGRAPHY (VCTE) Endoscopy Routine Fatty liver Ordered: 06/02/2023 [facility] Work Phone: Comment on above: Ordered: 06/02/2023 End: 03-14-2025 ECG COMPLETE ECG COMPLETE ECG Routine Hypotension, unspecified hypotension type 1 Occurrences starting 03/14/2024 until 03/14/2025 [facility] Work Phone: Comment on above: 1 Occurrences starting 03/14/2024 until 03/14/2025 Eosinophils/100 leukocytes in Blood by Automated count [facility] Eosinophils/100 leukocytes in Blood by Automated count [facility] Erythrocyte distribution width [Ratio] by Automated count [facility] Erythrocyte distribution width [Ratio] by Automated count [facility] Erythrocytes [#/volu me] in Blood [facility] Erythrocytes [#/volu me] in Blood [facility] Globulin [Mass/volum e] in Serum [facility] Glucose measurement estimated from glycated hemoglobin [facility] Hematocrit [Volume Fraction] of Blood [facility] Hematocrit [Volume Fraction] of Blood [facility] Hemoglobin [Mass/volume] in Blood [facility] Hemoglobin [Mass/volume] in Blood [facility] Hepatitis A virus Ab [Presence] in Serum by Immunoassay [facility] Hepatitis B core antibody measurement [facility] Hepatitis B virus surface Ab [Presence] in Serum [facility] Hepatitis B virus surface Ag [Presence] in Serum or Plasma by Immunoassay [facility] Hepatitis C virus Ig G Ab [Presence] in Serum or Plasma by Immunoassay [facility] Hepatitis C virus RN A [Units/volume] (viral load) in Serum or Plasma by ASHVIN with probe detection [facility] Insulin [Units/volum e] in Serum or Plasma [facility] Leukocytes [#/volume ] corrected for nucleated erythrocytes in Blood by Automated coun [facility] Leukocytes [#/volume ] corrected for nucleated erythrocytes in Blood by Automated coun [facility] Leukocytes [#/volume ] in Blood [facility] Leukocytes [#/volume ] in Blood [facility] Lymphocytes [#/volum e] in Blood by Automated count [facility] Lymphocytes [#/volum e] in Blood by Automated count [facility] Lymphocytes/100 leukocytes in Blood by Automated count [facility] Lymphocytes/100 leukocytes in Blood by Automated count [facility] MCH [Entitic mass] b y Automated count [facility] MCH [Entitic mass] b y Automated count [facility] MCHC [Mass/volume] b y Automated count [facility] MCHC [Mass/volume] b y Automated count [facility] MCV [Entitic volume] by Automated count [facility] MCV [Entitic volume] by Automated count [facility] Monocytes [#/volume] in Blood by Automated count [facility] Monocytes [#/volume] in Blood by Automated count [facility] Monocytes/100 leukocytes in Blood by Automated count [facility] Monocytes/100 leukocytes in Blood by Automated count [facility] End: 10-08-2025 MR Biliary ducts and Pancreatic duct WO and W contrast IV MRI PANC/WAI WO/W IVCON Radiology Routine Biliary cyst IPMN (intraductal papillary mucinous neoplasm) 1 Occurrences starting 09/08/2024 until 10/08/2025 [facility] Work Phone: Comment on above: 1 Occurrences starting 09/08/2024 until 10/08/2025 End: 10-18-2024 MR Biliary ducts and Pancreatic duct WO and W contrast IV [facility] Work Phone: Comment on above: 1 Occurrences starting 10/18/2024 until 10/18/2024 End: 10-08-2025 MR Unspecified body region 3D post processing MRI 3D POST PROCESSING Radiology Routine IPMN (intraductal papillary mucinous neoplasm) 1 Occurrences starting 09/08/2024 until 10/08/2025 [facility] Comment on above: 1 Occurrences starting 09/08/2024 until 10/08/2025 End: 10-18-2024 MR Unspecified body region 3D post processing [facility] Comment on above: 1 Occurrences starting 10/18/2024 until 10/18/2024 Neutrophils [#/volum e] in Blood by Automated count [facility] Neutrophils [#/volum e] in Blood by Automated count [facility] Neutrophils/100 leukocytes in Blood by Automated count [facility] Neutrophils/100 leukocytes in Blood by Automated count [facility] Nucleated erythrocyt es [Presence] in Blood by Automated count [facility] Nucleated erythrocyt es [Presence] in Blood by Automated count [facility] Patient Education [facility] Work Phone: Patient referral [facility] Work Phone: Platelet mean volume [Entitic volume] in Blood by Automated count [facility] Platelet mean volume [Entitic volume] in Blood by Automated count [facility] Platelets [#/volume] in Blood [facility] Platelets [#/volume] in Blood [facility] URINALYSIS, REFLEX MICROSCOPIC URINALYSIS, REFLEX MICROSCOPIC Lab Routine Screening for genitourinary condition Ordered: 10/05/2023 [facility] Work Phone: Comment on above: Ordered: 10/05/2023 VLDL cholesterol measurement [facility] VLDL cholesterol measurement [facility] Immunizations Immunization Date Immunization Notes Care Provider Juma gerard 11-10-2023 tetanus and diphther ia toxoids, adsorbed, preservative free, for adult use (5 Lf of tetanus toxoid and 2 Lf of diphtheria toxoid) Olivia Mcallister PT Work Phone: [facility] 04-24-2022 tetanus toxoid, redu loren diphtheria toxoid, and acellular pertussis vaccine, adsorbed Starla Curry PA-C Work Phone: [facility] 12-20-2021 pneumococcal Conjuga te, unspecified formulation Olivia Mcallister PT Work Phone: [facility] 07-21-2021 Influenza, Seasonal, Quadrivalent, Adjuvanted Olivia Mcallister PT Work Phone: [facility] 07-21-2021 influenza virus vacc ine, unspecified formulation Haile Lee DDS Work Phone: [facility] 12-19-2020 zoster vaccine recombinant Olivia Mcallister PT Work Phone: [facility] 08-12-2020 zoster vaccine recombinant Olivia Mcallister PT Work Phone: [facility] Payers Date Payer Category Payer Self-pay 2016 Medicare (Managed Care) 1.2. [id number] 2016 Unknown [employer] [place] [id number] 2016-Present [phone] [address] [place] [address] HMO [id number] 2016 Unknown [id number]. [id number] .[id number] 2016 Medicare [id number] 1951 Unknown [id number] 2.16.840.1.438099.3.579.2.1 259 1951 Unknown [id number] 2.16.840.1.798480.3.579.2.1 259 1951 Unknown [id number] 2.16.840.1.782082.3.579.2.1 259 1951 Unknown [id number] 2.16.840.1.016349.3.579.2.1 259 1951 Unknown [id number] 2.16.840.1.165370.3.579.2.1 259 1951 Unknown [id number] 2.16.840.1.267639.3.579.2.1 259 1951 Unknown [id number] 2.16.840.1.681861.3.579.2.1 259 1951 Unknown [id number] 2.16.840.1.762372.3.579.2.1 259 1951 Unknown [id number] 2.16.840.1.663580.3.579.2.1 259 1951 Unknown [id number] 2.16.840.1.829287.3.579.2.1 259 1951 Unknown [id number] 2.16.840.1.214262.3.579.2.1 259 1951 Unknown [id number] 2.16.840.1.071773.3.579.2.1 259 1951 Unknown [id number] 2.16.840.1.590864.3.579.2.1 259 1951 Unknown [id number] 2.16.840.1.536960.3.579.2.1 259 1951 Unknown [id number] 2.16.840.1.077840.3.579.2.1 259 1951 Unknown [id number] 2.16.840.1.916331.3.579.2.1 259 1951 Unknown [id number] 2.16.840.1.211234.3.579.2.1 259 1951 Unknown [id number] 2.16.840.1.937613.3.579.2.1 259 1951 Unknown [id number] 2.16.840.1.870296.3.579.2.1 259 1951 Unknown [id number] 2.16.840.1.854256.3.579.2.1 259 1951 Unknown [id number] 2.16.840.1.902948.3.579.2.1 259 1951 Unknown [id number] 2.16.840.1.643717.3.579.2.1 259 1951 Unknown [id number] 2.16.840.1.198392.3.579.2.1 259 Medicare Medicare [id number] Unknown [id number] Unknown [id number] 2.16.840.1.399696.3.579.2.5 31 Unknown [id number] 2.16840.1.039603.3.579.2.5 31 Unknown [id number] 2.16840.1.632733.3.579.2.5 31 Unknown [id number] 2.16.840.1.533323.3.579.2.5 31 Unknown [id number] 2.16.840.1.674691.3.579.2.5 31 Unknown [id number] 2.16840.1.327979.3.579.2.5 31 Unknown [id number] 2.16.840.1.902035.3.579.2.5 31 Social History Date Type Detail Facility Start: 04-16-2018 End: 06-02-2023 Tobacco smoking status NHIS Never smoked tobacco [facility] Start: 04-16-2018 End: 06-02-2023 Tobacco use and exposure Smokeless tobacco non-user [facility] Start: 12-24-2021 End: 07-19-2024 Alcohol intake Current non-drinker of alcohol (finding) [facility] Start: 1950 Sex Assigned At Not on file [facility] Start: 12-14-2021 End: 01-09-2022 Exposure to SARS-CoV-2 (event) Not sure [facility] Start: 12-30-2021 End: 01-07-2023 History SDOH Alcohol Frequency 1 [facility] Start: 12-30-2021 End: 01-07-2023 History SDOH Social Connections Phone 5 [facility] Start: 12-30-2021 End: 01-07-2023 History SDOH Social Connections Get Together 2 [facility] Start: 12-30-2021 End: 01-07-2023 History SDOH Social Connections Shinto 3 [facility] Start: 12-30-2021 End: 01-07-2023 History SDOH Physical Activity DPW 7 [facility] Start: 12-30-2021 History SDOH Physical Activity MPS 6 [facility] Start: 01-07-2023 History SDOH Alcohol Std Drinks 0 [facility] Start: 01-07-2023 History SDOH Physical Activity MPS 15 [facility] Start: 1950 Sex Assigned At Male [facility] Start: 01-07-2023 End: 05-26-2023 History of Social function [facility] Start: 01-07-2023 End: 05-26-2023 Social connection and isolation panel [facility] Do you belong to any clubs or organizations such as pentecostal groups, unions, fraternal or athletic groups, or school groups? Yes [facility] Are you now , , , , never or living with a partner? [facility] How often to you hav e a drink containing alcohol? Never [facility] How many standard dr inks containing alcohol do you have on a typical day? Patient does not drink [facility] Do you feel stress - tense, restless, nervous, or anxious, or unable to sleep at night because your mind is troubled all the time - these days [OSQ] Not at all [facility] (I/We) worried wheth er (my/our) food would run out before (I/we) got money to buy more. Never true [facility] Work Phone: In the past 12 month s, was there a time when you were not able to pay the mortgage or rent on time? No [facility] Work Phone: Start: 12-09-2022 Gender identity Identifies as male gender (finding) [facility] Start: 09-30-2023 End: 04-09-2024 Tobacco smoking status NHIS Ex-smoker (finding) [facility] Start: 01-15-2024 Sexual orientation Heterosexual (finding) [facility] Start: 12-16-2023 Unknown if ever smoked [facility] Start: 02-29-2024 Alcoholic beverage intake Lifetime non-drinker (finding) [facility] Start: 10-02-2024 End: 10-15-2024 Sex Male (finding) [facility] Goals Date Patient Goal Desired Activity /State Personal health goal Functional Status Date Assessment Result Facility 12-30-2023 Functional status Patient at Baseline [facility] Work Phone: 10-02-2023 Are you deaf, or do you have serious difficulty hearing No 10/02/2023 12:19 PM Jorje Juárez, XAVI No [facility] 10-02-2023 Are you blind, or do you have serious difficulty seeing, even when wearing glasses No 10/02/2023 12:19 PM Jorje Juárez, XAVI No [facility] 10-02-2023 Do you have serious difficulty walking or climbing stairs No 10/02/2023 12:19 PM Jorje Juárez, XAVI No [facility] 10-02-2023 Do you have difficul ty dressing or bathing No 10/02/2023 12:19 PM Jorje Juárez, RN No [facility] 10-02-2023 Because of a physica l, mental, or emotional condition, do you have difficulty doing errands alone such as visiting a physician's office or shopping No 10/02/2023 12:19 PM Jorje Juárez, XAVI No [facility] 09-30-2023 Functional status Patient at Baseline [facility] Work Phone: Mental Status Date Assessment Result Facility 12-30-2023 Cognitive function Cognitive Sta tus Patient at Baseline [facility] Work Phone: 10-02-2023 Because of a physica l, mental, or emotional condition, do you have serious difficulty concentrating, remembering, or making decisions No 10/02/2023 12:19 PM Jorje Juárez, XAVI No [facility] 09-30-2023 Cognitive function Cognitive Sta tus Patient at Baseline [facility] Work Phone: Clinical Notes 04-16-2018 to 10-18-2024 Mellisa Michelle RN - 10/18/2024 7:50 PM Nani Hays, RT(R) - 10/18/2024 7:50 PM ESTTelephone Encounter - Maria De Jesus Sol RN - 09/23/2024 9:27 AM Jose Chacko MD - 07/19/2024 2:58 PM EST Note Date & Type Note Facility 10-18-2024 History of Present illness Narrative Radiology Service Progress Note DATE OF SERVICE: October 18, 2024 TIME: 7:35 PM PATIENT WEIGHT: 197 LBS PATIENT IDENTITY VERIFICATION COMPLETED USING TWO (2) STANDARD IDENTIFIERS: Name and Date of confirmed by patient verbally and Name and Date of confirmed by identification band. FALL SCREENING: Has the patient had 2 falls in the last year or 1 fall with injury or currently using an Ambulatory Assistive Device (Walker, Cane, Wheelchair, Crutches, etc.)? No PATIENT GENDER DATA: Assigned male at ALLERGIES: Reviewed and unchanged CONTRAST ALLERGY: No EXAM: MRI - CONTRAST TYPE: GROUP II IV SITE: Ambulatory: A peripheral IV was started in the Left antecubital site with a Angio cath: 22 gauge. IV SITE APPEARANCE: Clean,Dry and Intact SIGNATURE: Mellisa Michelle RN PATIENT NAME: Jama Green DATE: October 18, 2024 TIME: 7:35 PM Radiology Service Progress Note PATIENT NAME: aJma Green DATE OF SERVICE: October 18, 2024 TIME: 8:32 PM PATIENT IDENTITY VERIFICATION COMPLETED USING TWO (2) IDENTIFIERS: Name and Date of confirmed by patient verbally. FALL SCREENING: Has the patient had 2 falls in the last year or 1 fall with injury or currently using an Ambulatory Assistive Device (Walker, Cane, Wheelchair, Crutches, etc.)? No PATIENT GENDER DATA: Assigned male at PATIENT RELEVANT IMPLANT DATA REVIEWED: Yes PATIENT PRESENTS WITH AN IMPLANTABLE OR ATTACHED DIRECTOR EDUCATION: No RADIOLOGY DEPARTMENT: MR; Exam(s) Completed: Body: Pancreas/Biliary PERIPHERAL IV DATA: Site assessment: Clean,Dry and Intact, Site disposition Discontinued SIGNED BY: VOLODYMYR West) October 18, 2024 8:32 PM documented in this encounter [facility] 10-18-2024 Note HNO ID: [id number] Author: NANI PEÑALOZA RT(R) Service: ? Author Type: Technologist Type: Progress Notes Filed: 10/18/2024 20:33 Note Text: Radiology Service Progress Note PATIENT NAME: Jama Green DATE OF SERVICE: October 18, 2024 TIME: 8:32 PM PATIENT IDENTITY VERIFICATION COMPLETED USING TWO (2) IDENTIFIERS: Name and Date of confirmed by patient verbally. FALL SCREENING: Has the patient had 2 falls in the last year or 1 fall with injury or currently using an Ambulatory Assistive Device (Walker, Cane, Wheelchair, Crutches, etc.)? No PATIENT GENDER DATA: Assigned male at PATIENT RELEVANT IMPLANT DATA REVIEWED: Yes PATIENT PRESENTS WITH AN IMPLANTABLE OR ATTACHED DIRECTOR EDUCATION: No RADIOLOGY DEPARTMENT: MR; Exam(s) Completed: Body: Pancreas/Biliary PERIPHERAL IV DATA: Site assessment: Clean,Dry and Intact, Site disposition Discontinued SIGNED BY: VOLODYMYR [place]) October 18, 2024 8:32 PM [facility] 10-18-2024 Note HNO ID: [id number] Author: MELLISA MICHELLE RN Service: Nursing Author Type: Registered Nurse Type: Progress Notes Filed: 10/18/2024 19:45 Note Text: Radiology Service Progress Note DATE OF SERVICE: October 18, 2024 TIME: 7:35 PM PATIENT WEIGHT: 197 LBS PATIENT IDENTITY VERIFICATION COMPLETED USING TWO (2) STANDARD IDENTIFIERS: Name and Date of confirmed by patient verbally and Name and Date of confirmed by identification band. FALL SCREENING: Has the patient had 2 falls in the last year or 1 fall with injury or currently using an Ambulatory Assistive Device (Walker, Cane, Wheelchair, Crutches, etc.)? No PATIENT GENDER DATA: Assigned male at ALLERGIES: Reviewed and unchanged CONTRAST ALLERGY: No EXAM: MRI - CONTRAST TYPE: GROUP II IV SITE: Ambulatory: A peripheral IV was started in the Left antecubital site with a Angio cath: 22 gauge. IV SITE APPEARANCE: Clean,Dry and Intact SIGNATURE: Mellisa Michelle RN PATIENT NAME: Jama Green DATE: October 18, 2024 TIME: 7:35 PM [facility] 10-14-2024 Radiology Diagnostic study note [facility] Main [place] [address] [place] [address] CT Scan Report Signed Patient: Jama Green MR#: [id number] : 1950 Acct:[id number] Age/Sex: 74 / M ADM Date: 5 Loc: CT Room: Type: [facility] Attending Dr: Wang Laughlin MD Copies to: Wang Laughlin MD~ Ordering Provider: Wang Laughlin MD Date of Service: 10/14/24 CT/CT angio neck: R42 CT angio neck 10/14/2024 4:18 PM SIGNS AND SYMPTOMS: ^R42 TECHNIQUE: Multi-detector CT angiography axial slices of the neck during intravenous administration of IV contrast material. Sagittal, coronal, and 3-D reconstructions were performed and viewed on a separate workstation. CT was performed with one or more of the following dose reduction techniques: Automatedexposure control, adjustment of the mA and/or kV according to patient size, or use of iterative reconstruction technique. Stenoses were measured using the NASCET criteria. COMPARISON: 12/26/2023. FINDINGS: CTA NECK: There is a normal three-vessel arch. The subclavian arteries are within normal limits. The vertebral arteries arise from the subclavian arteries and are normal in course and caliber up to the skull base. The common and internal carotid arteries are within normal limits. origin left posterior cerebralartery. Visualized lung parenchyma demonstrates emphysematous changes.. No acute bony abnormalities are identified. The paraspinous soft tissues are within normal limits. CT/CT angio neck IMPRESSION: No evidence of hemodynamically significant stenosis or occlusion involving the cervical arterial vessels. Impression dictated by: Darrell Power M.D.10/14/2024 5:30 PM Dictation Location: [place] [address] Transcribed By: MANISHA 10/14/241729 Dictated By: Darrell Power MD 10/14/241726 Signed By: 10/14/241729 [facility] Work Phone: 09-23-2024 Telephone encounter Note Noted that pt saw PCP 09/22/24 - labs and imaging ordered [facility] 09-23-2024 Miscellaneous Notes Noted that pt saw PCP 09/22/24 - labs and imaging ordered Called pt and family back Pt walking and bad dizziness today while on his 2 mile/day walk with his dogs.. Stated felt Very weak. BP, POx no fever, all normal once home. Stated feels as if going to pass out. Walks weaving back and forth when occurs Pain in the neck L side on and off/ getting worse Having more frequent bouts of same for the past few weeks. Cardiology has cleared Carotids clear in December [place] better when lifted up neck during exam w/ Dr Babin PT appointment regularly every 2 weeks Exercises been done at home Daughter would like cervical spine x-rayed or imaged Pt wont go to ED. Too costly and dont find anything. PCP appt on afternoon scheduled. Would like to switch to virtual the scheduled appt, for tomorrow. Appt made for tomorrow but daughter unable to bring pt in Recommended pt be seen [place] if symptoms occur again or get worse. Pt on no medications. Doesn't want any Admin and schedulers notified. Message sent to Dr Babin and provider scheduled for any other advice. Advised message will be sent to provider and follow up will be provided with any further instructions or recommendations. Patient verbalized understanding. Call received for Jose Babin MD regarding Jama Green 1950. Caller: Family member: Daughter Patient Identified by Name and : Yes Was permission obtained from patient ? Yes Reason for Call: Other: Patient's daughter would like a nurse to call [facility]. States that her father seems to be getting worse and suffering from Vertigo more and he is very weak. She said that this is an emergency and needs to talk to someone now. Dr. Babin's first available in November, I schedule with Yvonne, she would like to talk to someone to see if this is warranted. Patient's daughter said that he became very dizzy on a walk and felt very weak. Suggested ED, she said that wouldn't help. Last Office Visit: 07/19/2024 Last Distance Health visit: Visit date not found Next scheduled appointment: 09/21/2024 Best number to reach caller: [phone] Best time to reach caller: Is it OK to leave a detailed voice message? Yes Hannah Teague documented in this encounter [facility] 09-21-2024 History of Present illness Narrative Patient did not log in. I was having trouble logging in with zoom Schedulers to contact patient for a new appointment Katharina Russell APRN.[employer] documented in this encounter [facility] 09-21-2024 Note HNO ID: [id number] Author: KATHARINA RUSSELL APRN.RADHA Service: ? Author Type: Nurse Practitioner Type: Progress Notes Filed: 09/21/2024 14:51 Note Text: Patient did not log in. I was having trouble logging in with zoom Schedulers to contact patient for a new appointment Katharina Russell APRN.RADHA [facility] 09-20-2024 Telephone encounter Note Called pt and family back Pt walking and bad dizziness today while on his 2 mile/day walk with his dogs.. Stated felt Very weak. BP, POx no fever, all normal once home. Stated feels as if going to pass out. Walks weaving back and forth when occurs Pain in the neck L side on and off/ getting worse Having more frequent bouts of same for the past few weeks. Cardiology has cleared Carotids clear in December [place] better when lifted up neck during exam w/ Dr Babin PT appointment regularly every 2 weeks Exercises been done at home Daughter would like cervical spine x-rayed or imaged Pt wont go to ED. Too costly and dont find anything. PCP appt on afternoon scheduled. Would like to switch to virtual the scheduled appt, for tomorrow. Appt made for tomorrow but daughter unable to bring pt in Recommended pt be seen [place] if symptoms occur again or get worse. Pt on no medications. Doesn't want any Admin and schedulers notified. Message sent to Dr Babin and provider scheduled for any other advice. Advised message will be sent to provider and follow up will be provided with any further instructions or recommendations. Patient verbalized understanding. [facility] 09-20-2024 Telephone encounter Note Call received for Jose Babin MD regarding Jama Green 1950. Caller: Family member: Daughter Patient Identified by Name and : Yes Was permission obtained from patient ? Yes Reason for Call: Other: Patient's daughter would like a nurse to call [facility]. States that her father seems to be getting worse and suffering from Vertigo more and he is very weak. She said that this is an emergency and needs to talk to someone now. Dr. Babin's first available in November, I schedule with elizabethkofi, she would like to talk to someone to see if this is warranted. Patient's daughter said that he became very dizzy on a walk and felt very weak. Suggested ED, she said that wouldn't help. Last Office Visit: 07/19/2024 Last Distance Health visit: Visit date not found Next scheduled appointment: 09/21/2024 Best number to reach caller: [phone] Best time to reach caller: Is it OK to leave a detailed voice message? Yes Hannah Teague [facility] 07-22-2024 History of Present illness Narrative Images from the original note were not included. Jama Green [id number] 07/20/24 Subjective: Phone consult 07/20: 74 yom sent to PT by Dr Jose Babin Pt received 5 sessions of therapy earlier in year by undersigned & TEMPERATURE CONTROL INSPECTOR Originally sent to PT by Dr Carson babin suspects dizziness is coming from neck (per pt) Dr Babin also mentions R vestibular loss Last visit administered 03/30/24 Previously (03/30/24) undersigned documented the following: Spoke to pts daughter, Cassandra Onset of dizziness about 2 wks ago Chainsaw over head preceding day Next day reaching upward and looking up and became very dizzy Hospitalized several days Mamie helped some and returned MRI CT brain r/o stroke No cardiac tests but labs looked good Very active walks 2 miles per day No complaints of neck pain or headaches Denies recent vision hearing problems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 throughout procedure #15 blade to create sulcular incision #9-11. Periosteal elevator to release mucoperiosteal tissue and gently reflect full thickness flap tooth #10. Elevator and forceps delivery of tooth #10. Curette socket, irrigate thoroughly with sterile saline. No complications. Gauze placed under biting pressure, hemostasis achieved. Gingival tissue re approximated using 3-0 chromic gut sutures in simple interrupted fashion. Post-operative instructions were given written and verbally. The patient was dismissed in stable condition. The patient tolerated the procedure well. 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 Today's procedure was originally planned to be completed under oral sedation however patient's daughter reports that his oxygen levels have been low since his recent cholecystectomy. Due to this, she had concerns regarding oral sedation. We discussed the R/B/A of oral sedation and advised the patient to either complete the procedure under local anesthesia alone or to postpone the extraction until the patient is feeling better and no longer noting any respiratory concerns, if he would like to have oral sedation. After discussion at length, the patient opted to complete the procedure today with local anesthesia alone. PROCEDURE: Extraction #10 DIAGNOSIS: Retained root tip None one hour prior to dental appointment. 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 famotidine (PEPCID) 20 mg tablet 1 tablet by ORAL/FEEDING TUBE route two times a day as needed (heartburn). Senna 8.6 mg tab Take 1 tablet by mouth two times a day. No current facility-administered medications on file prior to visit. ALLERGIES No Known Allergies INFORMED CONSENT: The procedure including risks, benefits, options and personnel performing the procedure was discussed with the patient. Jama Kirby Norma expressed understanding and agreed to proceed. UNIVERSAL PROTOCOL / SAFETY CHECKLIST Procedure to be Performed: Extraction #10 Sign In: A Moment of CARE was completed. Personnel directly involved with the procedure wore the appropriate PPE (Personal Protective Equipment). Patient/Surrogate Stated/Verified: PATIENT VERIFIED(optional for EMERGENT procedures): Patient name, Date of , Relevant allergies, and The intended procedure Time Out Communication: Intended patient and procedure match the source documents. Consent documented and matches the intended procedure. Sign Out: SIGN OUT (optional for EMERGENT procedures): No specimen collected. Post-procedure follow-up management communicated and Plan of Care Visit completed when applicable. Joshua Worthy DDS Anesthetic: 20% benzocaine topical anesthetic gel 1 carpule of (1.8mL) 4% Articaine with 1/100,000 epinephrine via infiltration Proc: Throat shield used throughout procedure #15 blade to create sulcular incision #9-11. Periosteal elevator to release mucoperiosteal tissue and gently reflect full thickness flap tooth #10. Elevator and forceps delivery of tooth #10. Curette socket, irrigate thoroughly with sterile saline. No complications. Gauze placed under biting pressure, hemostasis achieved. Gingival tissue re approximated using 3-0 chromic gut sutures in simple interrupted fashion. Post-operative instructions were given written and verbally. The patient was dismissed in stable condition. The patient tolerated the procedure well. Rx: Rx: None Follow Up: as needed Joshua Worthy DDS documented in this encounter [facility] 12-08-2023 Evaluation note Authored December 08, 2023 2:57pm 74-year-old man with history of acute Pancreatitis S/p Cholecystectomy in 09/2023 who is referred to the gastroenterology clinic for evaluation of pancreatic cyst liver mass and fatty liver Patient does not have secondary causes of hepatic fat accumulation such as significant alcohol consumption, viral hepatitis, steatogenic medications (e.g., tamoxifen, amiodarone, methotrexate), or lipodystrophy. Pt was counseled about weight loss(10%) mediterranean diet and exercise ( >45 minutes X5 per week). Will arrange for fibroscan Will check viral hepatitis serologies Will get [facility] records regarding history of pancreatic cyst and liver mass then determine need for further imaging [facility] Work Phone: [phone]) 949-732804-01-2024 NoteHNO ID: [id number] Author: SHARRON DONOVAN, RT(R) Service: ? Author Type: Technologist Type: Progress Notes Filed: 11/16/2023 13:46 Note Text[facility] NoteHNO ID: [id number] Author: HAILE LEE DDS Service: ? 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 HPI: Underwent gallbladder surgery last month and tooth fractured during the procedure/intubation.prior h/o infection in the tooth. Review of Symptoms: Yes No Symptoms Yes No Symptoms X Facial pain X Spitting out blood X Pain with chewing X Bleeding gums X Recent dental work X Bleeding disorder X Lumps in the neck X Difficulty swallowing X Allergies X Pain on swallowing X Shortness of breath X Bad breath X TMJ pain X Limited mouth opening X Dry mouth X Numbness or tingling X Headaches X Sinus pain X Fever X Chills X Hoarseness X Nausea/Vomiting X Snoring X Nose bleeding Past Medical History: PAST MEDICAL HISTORY Diagnosis Date Benign prostatic hyperplasia without lower urinary tract symptoms 01/10/2022 Past Surgical History: No past surgical history on file. Medication: n Current Outpatient Medications Medication Sig Dispense Refill triazolam (HALCION) 0.25 mg tablet Take 1 tablet by mouth one time only for 1 dose. Take it 45 min before the dental procedure. 1 tablet 0 tamsulosin (FLOMAX) 0.4 mg Take 1 capsule by mouth once daily. 30 capsule 1 acetaminophen (TYLENOL) 325 mg tablet Take 2 tablets by mouth every 6 hours as needed (Mild Pain (1-3) - Enteral). 40 tablet 0 ondansetron orally disintegrating (ZOFRAN ODT) 4 mg disintegrating tablet Take 1 tablet by mouth every 8 hours as needed for nausea/vomiting. 30 tablet 0 famotidine (PEPCID) 20 mg tablet 1 tablet by ORAL/FEEDING TUBE route two times a day as needed (heartburn). Senna 8.6 mg tab Take 1 tablet by mouth two times a day. No current facility-administered medications for this visit. Social History: Social History Tobacco Use Smoking status: Never Smokeless tobacco: Never Substance Use Topics Alcohol use: No Drug use: No Family History: No family history on file. ALLERGIES No Known Allergies CLINICAL EXAMINATION: Extraoral, Head and Neck exam: Constitutional: general appearance of patient NAD No extraoral swelling or erythema Musculoskeletal: TMJ joint seems to be normal. No poping upon opening Maximum mouth opening within normal range Intraoral Soft Tissues: Clear saliva extruded from bilateral [place]'s and Valencia's ducts Tongue soft and non-tender with no apparent lesions Buccal mucosa without lesions bilaterally Hard palate, soft palate, and pharynx are within normal limits no pathology visualized Floor of mouth without an evidence of pathology Gingival tissues are pink, firm, and stippled and without erythema or swelling Dentition: Partially edentulous maxillary and mandibular dental arch No pain to percussion #17 partially fractured - asymptomatic. 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 Severe dental anxiety. Procedure to be done under oral sedation Extraction of #10 under oral sedation. Halcion 0.25mg prescribed. Will monitor #17 for now. 20 Minutes total visit spent face to face with patient. Greater than 50% of the time was spent for counseling and coordination of care, discussing treatment options and recommendations. All of patients questions answered to the best of my ability. The diagnosis and treatment plan options including risks, benefits, options and personnel involved were discussed with the patient. There are no contraindications to the procedure. Jama Green expressed understanding and agreed to proceed. 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 HPI: Underwent gallbladder surgery last month and tooth fractured during the procedure/intubation.prior h/o infection in the tooth. Review of Symptoms: Yes No Symptoms Yes No Symptoms X Facial pain X Spitting out blood X Pain with chewing X Bleeding gums X Recent dental work X Bleeding disorder X Lumps in the neck X Difficulty swallowing X Allergies X Pain on swallowing X Shortness of breath X Bad breath X TMJ pain X Limited mouth opening X Dry mouth X Numbness or tingling X Headaches X Sinus pain X Fever X Chills X Hoarseness X Nausea/Vomiting X Snoring X Nose bleeding Past Medical History: PAST MEDICAL HISTORY Diagnosis Date Benign prostatic hyperplasia without lower urinary tract symptoms 01/10/2022 Past Surgical History: No past surgical history on file. Medication: n Current Outpatient Medications Medication Sig Dispense Refill triazolam (HALCION) 0.25 mg tablet Take 1 tablet by mouth one time only for 1 dose. Take it 45 min before the dental procedure. 1 tablet 0 tamsulosin (FLOMAX) 0.4 mg Take 1 capsule by mouth once daily. 30 capsule 1 acetaminophen (TYLENOL) 325 mg tablet Take 2 tablets by mouth every 6 hours as needed (Mild Pain (1-3) - Enteral). 40 tablet 0 ondansetron orally disintegrating (ZOFRAN ODT) 4 mg disintegrating tablet Take 1 tablet by mouth every 8 hours as needed for nausea/vomiting. 30 tablet 0 famotidine (PEPCID) 20 mg tablet 1 tablet by ORAL/FEEDING TUBE route two times a day as needed (heartburn). Senna 8.6 mg tab Take 1 tablet by mouth two times a day. No current facility-administered medications for this visit. \ Social History: Social History Tobacco Use Smoking status: Never Smokeless tobacco: Never Substance Use Topics Alcohol use: No Drug use: No Family History: No family history on file. ALLERGIES No Known Allergies CLINICAL EXAMINATION: Extraoral, Head and Neck exam: Constitutional: general appearance of patient NAD No extraoral swelling or erythema Musculoskeletal: TMJ joint seems to be normal. No poping upon opening Maximum mouth opening within normal range Intraoral Soft Tissues: Clear saliva extruded from bilateral [place]am[place]it's and Valencia's ducts Tongue soft and non-tender with no apparent lesions Buccal mucosa without lesions bilaterally Hard palate, soft palate, and pharynx are within normal limits no pathology visualized Floor of mouth without an evidence of pathology Gingival tissues are pink, firm, and stippled and without erythema or swelling Dentition: Partially edentulous maxillary and mandibular dental arch No pain to percussion #17 partially fractured - asymptomatic. 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 Severe dental anxiety. Procedure to be done under oral sedation Extraction of #10 under oral sedation. Halcion 0.25mg prescribed. Will monitor #17 for now. 20 Minutes total visit spent face to face with patient. Greater than 50% of the time was spent for counseling and coordination of care, discussing treatment options and recommendations. All of patients questions answered to the best of my ability. The diagnosis and treatment plan options including risks, benefits, options and personnel involved were discussed with the patient. There are no contraindications to the procedure. Jama Green expressed understanding and agreed to proceed. My final recommendations will be communicated back to the requesting physician by way of shared medical record or letter via US mail. documented in this encounterUniversity Hospitals Lake [facility] Center03-08-2024 NoteHNO ID: [id number] Author: Mirta LEE MD Service: ? Author Type: Physician Type: Progress Notes Filed: 10/23/2023 12:24 Note Text: [facility] STAFF PHYSICIAN NOTE OF PERSONAL INVOLVEMENT IN CARE I have reviewed the progress note obtained and documented by the resident and I personally participated in the moreno components. I have discussed the case and management of the patient's care. The following comments revise or confirm relevant moreno components of the note. IMPRESSION: This is a 73 year old post lap maryann. doing great. incisions well healed. no fever. path discussed. PLAN: follow up in a year with MRI for 4 mm tail cyst. Yandel Lee MD Date of Service: October 23, 2023 Time of Service: 12:22 [facility]03-08-2024 History of Present illness Narrative* Mirta Lee MD - 10/23/2023 12:17 PM EST [facility] STAFF PHYSICIAN NOTE OF PERSONAL INVOLVEMENT IN CARE I have reviewed the progress note obtained and documented by the resident and I personally participated in the moreno components. I have discussed the case and management of the patient's care. The following comments revise or confirm relevant moreno components of the note. IMPRESSION: This is a 73 year old post lap maryann. doing great. incisions well healed. no fever. path discussed. PLAN: follow up in a year with MRI for 4 mm tail cyst. Yandel Lee MD Date of Service: October 23, 2023 Time of Service: 12:22 PM documented in this encounterUniversity Hospitals Lake West Medical Center03-08-2024 Nurse Note* Cassandra Watson - 10/23/2023 12:11 PM EST What is the reason for your visit today? Post op Who is your referring physician? Dr. Lee Are you having poor oral intake? NO Have you had unintentional weight loss of 15 lbs/7 Kg in the last 3-6 months? NO Bowels: regular or soft Wound: clean & dry Temperature: No Drains: No documented in this encounterUniversity Hospitals Lake West Medical Center02-22-2024 Miscellaneous Notes* Telephone Encounter - Ivette Turk RN - 10/08/2023 12:48 PM EST Patient will come at noon for appointment. * Telephone Encounter - Serene Agee - 10/08/2023 12:35 PM EST Pt daughter called and want to know if she can bring her father in at 230pm on his post opt appointment cause her mother has one at [address] [facility]. Return call [phone] documented in this encounterUniversity Hospitals Lake West Medical Center02-19-2024 Miscellaneous Notes* Telephone Encounter - Ivette Turk RN - 10/05/2023 9:05 AM EST Offered appointment with dr. Lee on 10/22 at 11 am * Telephone Encounter - Mg De La Cruz - 10/05/2023 8:52 AM EST Pt's daughter Cassandra is calling to get pt chris'd for his Post Op appt in 3 weeks, she tried getting it chris'd through the Call center but they couldn't accommodate and instructed her to call the office for assistance because pt has had some complications. Contact info: [phone] documented in this encounterUniversity Hospitals Lake West Medical Center02-19-2024 History of Present illness Narrative* Marilee Covarrubias APRN.[employer] - 10/05/2023 9:03 AM EST Images from the original note were not included. [facility] NEW PATIENT HISTORY AND PHYSICAL EXAM PATIENT INFO: Jama Kirby White 73 year old PCP: No primary care provider on file. HPI 73 year old male presenting for acute urinary retention. Was admitted on 09/30 for biliary pancreatitis. On 10/01 had laparoscopic cholecystectomy with IOC. After duarte removal in hospital he was only able to void small amount of urine that required catheterization. He was discharged with a duarte in place on 10/02/2023. Was started on Flomax. States he has not had issues with urination prior to this just endorsing a slower stream. PATHOLOGY: N/A LAB: Creatinine Date Value Ref Range Status 10/04/2023 0.87 0.73 - 1.22 mg/dL Final PSA (ng/mL) Date Value 05/20/2019 0.79 Color (no units) Date Value 12/24/2021 Yellow Clarity (no units) Date Value 12/24/2021 Clear Glucose, Urine (no units) Date Value 12/24/2021 Negative Bilirubin, Urine (no units) Date Value 12/24/2021 Negative Ketones, Urine (no units) Date Value 12/24/2021 Negative Specific [place], Ur (no units) Date Value 12/24/2021 1.018 Hemoglobin/Blood,Ur (no units) Date Value 12/24/2021 Negative pH, Urine (no units) Date Value 12/24/2021 6.5 Protein, Urine (no units) Date Value 12/24/2021 Negative Urobilinogen (no units) Date Value 12/24/2021 0.2 EU/dL Nitrites (no units) Date Value 12/24/2021 Negative Leuk Esterase (no units) Date Value 12/24/2021 Negative IMAGING: CT abd/pelvis 10/04/2023 IMPRESSION: Skin thickening and fat stranding in the periumbilical region, probably cellulitis. No drainable fluid collection. No acute intra-abdominal pathology. ALLERGIES: ALLERGIES No Known Allergies MEDICATIONS: amoxicillin-clavulanate potassium (AUGMENTIN) 875-125 mg per tablet Take 1 tablet by mouth two times a day for 7 days. tamsulosin (FLOMAX) 0.4 mg Take 1 capsule by mouth once daily. acetaminophen (TYLENOL) 325 mg tablet Take 2 tablets by mouth every 6 hours as needed (Mild Pain (1-3) - Enteral). ondansetron orally disintegrating (ZOFRAN ODT) 4 mg disintegrating tablet Take 1 tablet by mouth every 8 hours as needed for nausea/vomiting. famotidine (PEPCID) 20 mg tablet 1 tablet by ORAL/FEEDING TUBE route two times a day as needed (heartburn). Senna 8.6 mg tab Take 1 tablet by mouth two times a day. HISTORIES PAST MEDICAL HISTORY Diagnosis Date Benign prostatic hyperplasia without lower urinary tract symptoms 01/10/2022 No family history on file. No past surgical history on file. SOCIAL HISTORY Social History Tobacco Use Smoking status: Never Smokeless tobacco: Never Substance Use Topics Alcohol use: No Drug use: No REVIEW OF SYSTEMS General: No weight loss, malaise or fevers. Gastrointestinal: Negative for abdominal discomfort, blood in stools or black stools or change in bowel habits Genitourinary: duarte in place The remainder of the ROS was reviewed and was negative. PHYSICAL EXAMINATION BP 134/84 (BP Site: Right Arm, BP Position: Sitting, BP Cuff Size: Regular Adult) Pulse 97 Wt 83 kg (182 lb 15.7 oz) BMI 26.26 kg/m Constitutional: Well appearing, alert, in no acute distress, and well-hydrated, well nourished Gastrointestinal: Normal abdominal exam, Abdomen soft, non-tender. Bowel sounds normal. No masses, organomegaly Genitourinary: MALE EXAM: Duarte catheter in place draining clear, yellow urine. TOV completed, instilled 120cc of sterile water into bladder and removed catheter, he was able to void 150cc of clear, yellow urine. ASSESSMENT & PLAN: 73 year old male presenting for acute urinary retention s/p cholecystectomy on 10/01. Catheter was removed in the hospital and he was only able to void a small amount requiring catheterization. Was discharged with duarte in place and started on Flomax. TOV successful in office today. - Continue Flomax 0.4mg daily at bedtime - Educated patient and his daughter that if he is unable to urinate for 6-8 hours he should go to the ED. I spent a total of 40 minutes on the date of the service which included preparing to see the patient, [id number] patient care, completing clinical documentation, performing a medically appropriate examination, counseling and educating the patient/family/caregiver, and independently interpreting results (not separately reported). 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 09/30/2023 10/02/2023 Other constipation 05/27/2023 3 Transaminitis 05/27/2023 05/27/2023 Chest pain 04/16/2018 04/17/2018 documented as of this encounter (statuses as of 10/05/2023) [facility]02-14-[facility] History of Past illness Narrative* Problem Noted Date Diagnosed Date Resolved Date 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 09/30/2023 10/02/2023 Other constipation 05/27/2023 3 Transaminitis 05/27/2023 05/27/2023 Chest pain 04/16/2018 04/17/2018 documented as of this encounter (statuses as of 10/08/2023) [address]14-2024 History of Past illness Narrative* Problem Noted Date Diagnosed Date Resolved Date 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 09/30/2023 10/02/2023 Other constipation 05/27/2023 3 Transaminitis 05/27/2023 05/27/2023 Chest pain 04/16/2018 04/17/2018 documented as of this encounter (statuses as of 10/08/2023) [facility]02-[facility] History of Past illness Narrative* Problem Noted Date Diagnosed Date Resolved Date 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 09/30/2023 10/02/2023 Other constipation 05/27/2023 3 Transaminitis 05/27/2023 05/27/2023 Chest pain 04/16/2018 04/17/2018 documented as of this encounter (statuses as of 10/23/2023) [facility]02-14-[facility] History of Past illness Narrative* Problem Noted Date Diagnosed Date Resolved Date 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 09/30/2023 10/02/2023 Other constipation 05/27/2023 3 Transaminitis 05/27/2023 05/27/2023 Chest pain 04/16/2018 04/17/2018 documented as of this encounter (statuses as of 10/30/2023) [facility]02-14-2024 Miscellaneous Notes* Telephone Encounter - Jany Stanton APRN.CNP - 09/30/2023 8:39 AM EST He's been accepted under general surgery it looks like. * Telephone Encounter - Regine Green - 09/30/2023 8:25 AM EST Patient's daughter Cassandra called to state that her dad is currently admitted to [facility] in [place] and she is stating that he has low pulse ox and he passes out and his lips would turn blue. Right now we are waiting for transfer to [facility], not sure the status on a bed just yet. Cassandra Moyer () [phone] (Mobile documented in this encounterUniversity Hospitals Lake West Medical Center02-01-2024 Evaluation note* Author Fly [facility] Authored December 08, 2023 2:5 7pm 74-year-old man with history of acute Pancreatitis S/p Cholecystectomy in 09/2023 who is referred to the gastroenterology clinic for evaluation of pancreatic cyst liver mass and fatty liver Patient does not have secondary causes of hepatic fat accumulation such as significant alcohol consumption, viral hepatitis, steatogenic medications (e.g., tamoxifen, amiodarone, methotrexate), or lipodystrophy. Pt was counseled about weight loss(10%) mediterranean diet and exercise ( >45 minutes X5 per week). Will arrange for fibroscan Will check viral hepatitis serologies Will get [facility] records regarding history of pancreatic cyst and liver mass then determine need for further imaging [facility] Work Phone: [phone]) 412-164110-17-2023 Instructions* Patient Instructions* Jany Stanton APRN.CNP - 06/02/2023 2:39 PM EDT Blood work today on the first floor or at any [facility] labs Schedule Fibroscan Avoid any liver detox or cleanses Ok to take up to 2,000 mg of tylenol/day Black coffee helps with fatty liver As we discussed at your appointment fatty liver is addressed through lifestyle changes with improving eating habits and increasing physical activity. We recommend the Mediterranean Diet which includes lean meats/proteins (chicken, fish, turkey), fresh fruit & veggies, cutting back on red meat, eating more whole grains, cutting out starchy carbs/fried foods. Follow up in 6 months documented in this encounterUniversity Hospitals Lake West Medical Center10-17-2023 History of Present illness Narrative* Jany Stanton APRN.CNP - 06/02/2023 2:00 PM EDT NAME: Jama Green AGE: [id number] year old Patient is referred in consultation by Self for an opinion regarding fatty liver and my final recommendations will be communicated back to the requesting physician by way of shared Medical Record. PRESENTING COMPLAINT & HISTORY Jama Green is a 73 year old year old male who presents with fatty liver. Pmhx includes GERD. Recently hospitalized 05/25-05/27 for abdominal pain. Found to have an elevated AST/ALT and lipase. Imaging showed a 4mm pancreatic IPMN and hepatic steatosis. Labs began to improve on their own and abdominal pain was suspected to be due to constipation and GERD Here today with his daughter States that abdominal discomfort is significantly better; states that abdominal pain may have been in relation to eating old frozen beef (had been frozen for 14 months) He walks around 2 miles/day Last Labs on 05/27: AST 39, ALT 85 Metabolic Syndrome Risk factors: 2/5 1) Diabetes/ Abnormal FBS >100mg/dL: no 2) Hypertension : no 3)Triglycerides more then 150 : yes 4) HDL (<50 female and <40 male): Yes 5) Central obesity ( Waist >102 men and >88 female) - Body mass index is 28.01 kg/(m^2) Risk Factors for Liver Disease: 1. Blood transfusions before 1991: No 2. IVDA: No 3. Intranasal coccaine use: No 4. Tattoos: No 5. Service: No 6. High risk sexual behavior: No 7. Alcohol: Previously, none since 1994 8. Obesity: No 9. Hyperlipidemia: No 10. Prolonged exposure to hepatotoxic meds: No 11. Other autoimmune disorders No No daily tylenol use No herbal supplements No past surgical history on file. PAST MEDICAL HISTORY Diagnosis Date Benign prostatic hyperplasia without lower urinary tract symptoms 01/10/2022 Social History Tobacco Use Smoking status: Never Smokeless tobacco: Never Substance Use Topics Alcohol use: No Drug use: No Current Outpatient Medications Medication Sig Dispense Refill famotidine (PEPCID) 20 mg tablet 1 tablet by ORAL/FEEDING TUBE route two times a day as needed (heartburn). Senna 8.6 mg tab Take 1 tablet by mouth two times a day. atorvastatin (LIPITOR) 80 mg tablet Take 1 tablet by mouth once daily. 30 tablet 0 Tadalafil (CIALIS) 5 mg tablet Take 1 tablet by mouth once daily. 90 tablet 3 No current facility-administered medications for this visit. ALLERGIES No Known Allergies FAMILY HISTORY Liver Problems: Yes, father had alcoholic cirrhosis, daughter with fatty liver Colitis: No Colon Cancer: Yes Father Other Cancers: Sister with breast cancer No family history on file. GENERAL ROS Colon polyps: No hx of colonoscopy, has cologuard Colon cancer: No Other cancer: No Radiation / Chemotherapy: No Crohn's disease / Ulcerative colitis: No High cholesterol or triglycerides: No Ulcers: No Gallstones: No Hepatitis / jaundice: No Heart Disease: No Lung Disease: No Liver problems: No Thyroid disease: No Kidney stones: No Pancreatitis: No Diabetes: No Arthritis: No Rheumatic fever: No Gastrointestinal bleeding: No Depression or other mental illness: No Other personal illness: No GI SPECIFIC ROS Difficulty swallowing / foods sticking in throat: No Heartburn: No Hoarseness: No Chronic cough: No Regurgitation: No Chest pain: No Filling up quickly at meals: No Loss of appetite: No Nausea: No Vomiting: No Abdominal pain: No Recent change in bowel movements: No Bloody or black, bowel movements: No Constipation: No Diarrhea: No Loss of control of bowel movements: No Night sweats, fever, chills: No Thought or memory problems: No Fluid in abdomen (ascites): No Prominent leg swelling: No Vomiting blood: No Recent change in weight: No PHYSICAL EXAMINATION BP 132/63 Pulse 67 Temp (Src) 98.8 (Temporal) Ht 5' 10 (1.78m) Wt 195 lb 3.2 oz (88.5kg) SpO2 97% BMI 28.01 kg/(m^2). General Appearance: Well appearing, alert, in no acute distress, well-hydrated, well nourished. Eyes: PERRLA, conjunctiva and sclera normal Oropharynx: Lips, tongue, and oral mucosa normal. There is no thrush or oral ulcers. Lungs:breath sounds clear to auscultation bilaterally, no crackles, rhonchi, or wheezes Heart: regular rate and rhythm, no murmurs or gallops. Abdomen: not distended, normal bowel sounds, soft and depressible, no guarding or rebound, no palpable mass, no organomegaly Extremities: no cyanosis or edema Skin: no jaundice, no spider angiomas, no palmar erythema Neuro:alert, oriented x 3, pleasant and in no acute distress Recent Labs: Hemoglobin (g/dL) Date Value 05/27/2023 15.1 10/01/2019 14.8 Hematocrit (%) Date Value 05/27/2023 45.4 10/01/2019 44.3 WBC (k/uL) Date Value 05/27/2023 11.42 10/01/2019 9.75 Glucose (mg/dL) Date Value 05/27/2023 115 10/01/2019 92 Potassium (mmol/L) Date Value 05/27/2023 3.8 10/01/2019 4.2 Sodium (mmol/L) Date Value 05/27/2023 139 10/01/2019 139 Chloride (mmol/L) Date Value 05/27/2023 104 10/01/2019 105 CO2 (mmol/L) Date Value 05/27/2023 22 10/01/2019 24 Creatinine (mg/dL) Date Value 05/27/2023 0.98 10/01/2019 0.79 BUN (mg/dL) Date Value 05/27/2023 11 10/01/2019 15 Anion Gap (mmol/L) Date Value 05/27/2023 13 10/01/2019 10 Calcium (mg/dL) Date Value 10/01/2019 9.1 Calcium, Total (mg/dL) Date Value 05/27/2023 9.3 Albumin (g/dL) Date Value 05/27/2023 4.2 Bilirubin, Total (mg/dL) Date Value 05/27/2023 0.5 Alkaline Phosphatase (U/L) Date Value 05/27/2023 97 AST (U/L) Date Value 05/27/2023 39 ALT (U/L) Date Value 05/27/2023 85 (H) Protein, Total (g/dL) Date Value 05/27/2023 7.3 Computed MELD 3.0 unavailable. Necessary lab results were not found in the last year. Computed MELD-Na unavailable. Necessary lab results were not found in the last year. Imaging/procedure CT AP 05/25/23 IMPRESSION: No acute abdominal or pelvic abnormality. Diffuse hepatic steatosis. 4 mm hypoattenuating pancreatic tail lesion, which likely represents a sidebranch IPMN. Further evaluation with MRI pancreas is recommended in one year RUQ US 05/25/23 IMPRESSION: Hepatic steatosis. Stable hepatic cyst compared to CT 12/24/2021. Biliary sludge. Assessment IMPRESSION Jama Green is a 73 year old male who presents with fatty liver. Prior to recent hospitalization, no previous knowledge of liver disease. Daughter is interested in having genetic testing done as she has been diagnosed with fatty liver as well. -Discussed liver disease and it's progression -Discussed personal risk factors for the development of liver disease/cirrhosis -Discussed sx of worsening liver disease -Discussed need to avoid alcohol intake -Discussed maintaining a healthy, Mediterranean diet PLAN Serological evaluation: A1AT, ANNIKA, AMA, Ceruloplasmin, Smooth Muscle, Iron/TIBC, Ferritin, Hep Remote, HFE Fibroscan for noninvasive fibrosis/steatosis assessment Check immunity to HAV/HBV HFP, INR, CBC, BMP recent Follow up MRCP in 6-12 months Follow up in 6 months Jany Stanton APRN.CNP During this patient visit I have spent approximately 30 minutes in counseling regarding weight loss, exercise, treatment options, medications, test results, and coordinating care and coordinating care. Jany Stanton APRN.CNP June 02, 2023 12:59 PM documented in this encounterUniversity [facility] History of Past illness Narrative* Problem Noted Date Diagnosed Date Resolved Date Other constipation 05/27/2023 3 Transaminitis 05/27/2023 05/27/2023 Chest pain 04/16/2018 04/17/2018 documented as of this encounter (statuses as of 06/03/2023) [facility] History of Past illness Narrative* Problem Noted Date Diagnosed Date Resolved Date Other constipation 05/27/2023 3 Transaminitis 05/27/2023 05/27/2023 Chest pain 04/16/2018 04/17/2018 documented as of this encounter (statuses as of 09/30/2023) [facility] Miscellaneous Notes* Telephone Encounter - Giulia Hernandez MA - 08/04/2022 1:31 PM EST Patient is requesting a medication refill. Last appointment: 01/09/2022 Next scheduled appointment: none Requested Prescriptions Pending Prescriptions Disp Refills omeprazole (PRILOSEC) 40 mg capsule 30 capsule 2 Sig: Take 1 capsule by mouth once daily. Giulia Hernandez MA August 04, 2022 1:31 PM documented in this encounterUniversity [facility]als [facility]09-06-2022 Miscellaneous Notes* Telephone Encounter - Giulia Hernandez MA - 04/22/2022 8:03 AM EDT Patient is requesting a medication refill. Last appointment: 01/09/22 Next scheduled appointment: none Requested Prescriptions Pending Prescriptions Disp Refills omeprazole (PRILOSEC) 40 mg capsule 30 capsule 2 Sig: Take 1 capsule by mouth once daily. Giulia Hernandez MA April 22, 2022 8:04 AM documented in this encounterUniversity Hospitals [facility]05-26-2022 History of Present illness Narrative* Starla Curry PA-C - 01/09/2022 10:53 AM EDT This note was created using [employer]. Subjective Jama Green is a 71 year old male. CC: ER follow up (ER 12/24/21) for fever and headache (both resolved). Needs to establish primary care. Complains of more than ten years of chronic GERD/ stomach problems . No blood in stool, no unexplained weight loss. No nausea and no vomiting. Review of Systems Constitutional: Negative for activity change, appetite change, chills, diaphoresis, fatigue, fever and unexpected weight change. HENT: Negative for congestion, ear pain, nosebleeds, postnasal drip, sinus pain, sore throat and trouble swallowing. Eyes: Negative for photophobia, redness and visual disturbance. Respiratory: Negative for cough, shortness of breath and wheezing. Gastrointestinal: Positive for abdominal pain. Negative for abdominal distention, anal bleeding, blood in stool, constipation, diarrhea and nausea. Endocrine: Negative for heat intolerance and polydipsia. Genitourinary: Negative for dysuria, flank pain, frequency, hematuria and urgency. Musculoskeletal: Negative for gait problem, neck pain and neck stiffness. Skin: Negative for rash. Neurological: Positive for tremors. Head tremor for more than a decade, stable Hematological: Negative for adenopathy. Does not bruise/bleed easily. All other systems reviewed and are negative. Objective BP 120/64 Pulse 65 Ht 177.8 cm (5' 10 ) Wt 88.9 kg (196 lb) SpO2 95% BMI 28.12 kg/m Physical Exam Vitals reviewed. Constitutional: General: He is not in acute distress. Appearance: Normal appearance. He is not ill-appearing. HENT: Head: Normocephalic and atraumatic. Right Ear: Tympanic membrane, ear canal and external ear normal. There is no impacted cerumen. Left Ear: Tympanic membrane, ear canal and external ear normal. There is no impacted cerumen. Nose: Nose normal. No congestion or rhinorrhea. Mouth/Throat: Mouth: Mucous membranes are moist. Pharynx: No oropharyngeal exudate or posterior oropharyngeal erythema. Eyes: General: No scleral icterus. Right eye: No discharge. Left eye: No discharge. Extraocular Movements: Extraocular movements intact. Conjunctiva/sclera: Conjunctivae normal. Neck: Vascular: No carotid bruit. Cardiovascular: Rate and Rhythm: Normal rate and regular rhythm. Heart sounds: Normal heart sounds. Pulmonary: Effort: Pulmonary effort is normal. No respiratory distress. Breath sounds: Normal breath sounds. No wheezing or rhonchi. Abdominal: General: Bowel sounds are normal. There is no distension. Palpations: Abdomen is soft. There is no mass. Tenderness: There is no abdominal tenderness. There is no right CVA tenderness, left CVA tenderness, guarding or rebound. Hernia: No hernia is present. Musculoskeletal: General: Normal range of motion. Cervical back: Normal range of motion and neck supple. No rigidity or tenderness. Right lower leg: No edema. Left lower leg: No edema. Skin: General: Skin is warm and dry. Coloration: Skin is not jaundiced. Findings: No rash. Neurological: General: No focal deficit present. Mental Status: He is alert. Cranial Nerves: No cranial nerve deficit. Motor: No weakness. Gait: Gait normal. Assessment and Plan ASSESSMENT/PLAN: 1. Chronic GERD - ICD9: 530.81, ICD10: K21.9 (primary diagnosis) - Discussed lifestyle modifications including losing weight, limiting caffeine, no meals three hours before sleep and head of bed elevation - Begin treatment with Prilosec 40 mg QD - Refer for GI consult - CONSULT TO GASTROENTEROLOGY - follow up in one month 2. Special screening examination for viral disease - ICD9: V73.99, ICD10: Z11.59 - HEP C AB IA W/CONF SCRN Starla Curry PA-C documented in this encounterUniversity Hospitals [facility]05-26-2022 Instructions* Patient Instructions* Giulia Hernandez MA - 01/09/2022 10:41 AM EDT [facility] FACTS Please visit our lab at least 3-5 days before your scheduled appointment to have your lab work drawn, if lab work is ordered. This will allow us the ability to review your lab work results with you during your scheduled visit. [facility] HOURS: Lab is open Thursday - Thursday from 6:30am to 5pm and open 8am -12pm on Saturdays. [facility] HOURS: Thursday- 7:30am to 5:30pm. Fridays 7:30-5:00pm and Thursday 8:00am to 12:00 pm. Routine Lab Orders 365 days after they are entered. If your lab orders , you may be required to wait in the lab while they are reinstated FUTURE ORDERS are lab tests to be completed on the EXPECTED date. These orders 60 days afterthe expected date. STANDING ORDERS are recurring orders with an expiration date. The interval will indicate how often the test should be completed. FASTING LAB means nothing to eat or drink (except water) 10-12 hours before your blood is drawn. CT/MRI/IVP If you have one of these radiology exams ordered along with blood work, please complete the blood work at least one day prior to the scheduled exam. My Chart Schedule My Appointment enables you to view your established primary care provider's open schedule and book an appointment online in real-time. This feature is available in internal medicine, family medicine, or pediatrics at any of our [facility] and main campus. documented in this encounterUniversity Hospitals [facility]05-12-2022 History of Present illness Narrative* Stella Victor MD - 12/26/2021 7:02 PM EDT I have reviewed the available records and referral. Does the patient need to be scheduled? Yes If yes, virtual or in-person? [place] If yes, date appointment scheduled? 01/03/22 or 01/07/22 If no, please leave brief impression: MRSA Exposure History sinusitis Stella Victor MD December 26, 2021 documented [place] encounter[place] [id number] History of Past illness Narrative* Problem Noted Date Resolved Date Chest pain 04/16/2018 04/17/2018 documented as of this encounter (statuses as of 12/26/2021) [address]-2018 History of Past illness Narrative* Problem Noted Date Resolved Date Chest pain 04/16/2018 04/17/2018 documented as of this encounter (statuses as of 01/10/2022) [address]2018 History of Past illness Narrative* Problem Noted Date Resolved Date Chest pain 04/16/2018 04/17/2018 documented as of this encounter (statuses as of 04/23/2022) [address]2018 History of Past illness Narrative* Problem Noted Date Resolved Date Chest pain 04/16/2018 04/17/2018 documented as of this encounter (statuses as of 08/06/2022) [address]2018 History of Past illness Narrative* Problem Noted Date Resolved Date Chest pain 04/16/2018 04/17/2018 documented as of this encounter (statuses as of 2023) [address]2018 History of Past illness Narrative* Problem Noted Date Resolved Date Chest pain 04/16/2018 04/17/2018 documented as of this encounter (statuses as of 01/21/2023) [facility] note* Diagnosis Chronic GERD- Primary Special screening examination for viral disease Special screening examination for unspecified viral disease Benign prostatic hyperplasia without lower urinary tract symptoms [facility] Diagnosis BPH with urinary obstruction- Primary Hypertrophy of prostate with urinary obstruction and other lower urinary tract symptoms (LUTS) documented in this encounter [facility]* Diagnosis Fatty liver- Primary Other chronic nonalcoholic liver disease documented in this encounter [facility]* Diagnosis Onset Date Resolution Status Pancreatitis acute Renal cyst, left acute Thickening of wall of gallbladder acute [facility] Work Phone: Evaluation note* Diagnosis Retention of urine- Primary Retention of urine, unspecified Acute urinary retention Other specified retention of urine [facility]* Diagnosis Screening for genitourinary condition Screening for other and unspecified genitourinary condition [facility]* Diagnosis IPMN (intraductal papillary mucinous neoplasm)- Primary Neoplasm of unspecified nature of digestive system Calculus of gallbladder with acute cholecystitis without obstruction Calculus of gallbladder with acute cholecystitis, without mention of obstruction [facility]* Diagnosis Retained dental root- Primary [facility]* Diagnosis Retained dental root- Primary [facility]* Diagnosis BPH with obstruction/lower urinary tract symptoms- Primary Hypertrophy of prostate with urinary obstruction and other lower urinary tract symptoms (LUTS) [facility]* Diagnosis Hypotension, unspecified hypotension type- Primary Dizziness and giddiness- Primary Other fatigue Idiopathic chronic hypotension Chronic hypotension Fatty liver Other chronic nonalcoholic liver disease Leukocytosis, unspecified type [facility]* Diagnosis Vertigo- Primary Dizziness and giddiness IPMN (intraductal papillary mucinous neoplasm) Neoplasm of unspecified nature of digestive system Chronic GERD [facility]* Diagnosis Onset Date Resolution Status Tick bite resolved [facility] Work Phone: Evaluation note* Diagnosis Dizziness and giddiness- Primary Cervicocranial syndrome Labyrinthitis of right ear Labyrinthitis, unspecified Imbalance Abnormality of gait Neck pain Cervicalgia [facility]* Diagnosis Cervicalgia- Primary Vertigo of central origin Balance disorder Right-sided vestibular weakness [facility] Diagnosis Cervicalgia- Primary Vertigo of central origin Vestibular neuronitis of right ear Balance disorder documented in this [facility]* Diagnosis Cervicalgia- Primary Vertigo of central origin Vestibular neuronitis of right ear Balance disorder documented in this encounter [facility]* Diagnosis Vertigo of central origin- Primary Cervicalgia Vestibular neuronitis of right ear Balance disorder Right-sided vestibular weakness Parkinson's disease with dyskinesia, unspecified whether manifestations fluctuate (CMS/HCC) Weakness Other malaise and fatigue Vertigo Dizziness and giddiness [facility]* Diagnosis Cervicalgia- Primary Vertigo of central origin Vestibular neuronitis of right ear Balance disorder Right-sided vestibular weakness documented in this encounter [facility]* Diagnosis Biliary cyst- Primary Other specified disorder of gallbladder IPMN (intraductal papillary mucinous neoplasm) Neoplasm of unspecified nature of digestive system [facility] AP[facility]MENT CANCELLED- Primary [facility] Work [facility]: Evaluation note* Diagnosis Biliary cyst Other specified disorder of gallbladder IPMN (intraductal papillary mucinous neoplasm) Neoplasm of unspecified nature of digestive system documented in this encounter [facility] for referral (narrative)* Outpatient Procedure (Routine) - Pending Review Specialty Diagnoses / Procedures Referred By Ade knox Referred To Contact [facility] Diagnoses Fatty liver Procedures DDI VIBRATION CONTROLLED TRANSIENT ELASTOGRAPHY (VCTE) LIVER ELASTOGRAPHY W/O IMAG W/I&R Jany Stanton APRN.CNP [address] [place] [address] [facility] [place] [address] Referral ID Status Reason Start Date Expiration Date Visits Requested Visits Authorized [id number] Pending Review Auto-Generat ed Referral 06/02/2024 1 1 [facility] for referral (narrative)* Outpatient Procedure (Routine) - Authorized Specialty Diagnoses / Procedures Referred By Ade knox [facility] Diagnoses Hypotension, unspecified hypotension type Procedures ECG COMPLETE ECG ROUTINE ECG W/LEAST 12 LDS W/I&R Olivia Lazcano MD [address] [id number] [facility] [place] [address] Referral ID Status Reason Start Date Expiration Date Visits Requested Visits Authorized [id number] Authorized Auto-Generat ed Referral 03/14/2024 03/14/2025 1 1 [facility] for visit Narrative* Rehabilitation - Outpatient (Routine) - Authorized Specialty Diagnoses / Procedures Referred By Contac t Referred To Contact Physical Therapy Diagnoses Dizziness and giddiness Cervicocranial syndrome Labyrinthitis, right ear Other abnormalities of gait and mobility Cervicalgia Procedures [place] PHYSICAL THERAPY EVALUATION MOD COMPLEX 30 MINS Jose Babin MD [address] [id number] Phone: tel: fax: Olivia Mcallister, PT [address] [place] [address] Phone: tel: fax: Referral ID Status Reason Start Date Expiration Date V isits Requested Visits Authorized [id number] Authorized 07/20/2024 01/16/2025 99 99 [facility]* [facility] - Outpatient (Routine) - Authorized Specialty Diagnoses / Procedures Referred By Contac t Referred To Contact Physical Therapy Diagnoses Dizziness and giddiness Cervicocranial syndrome Labyrinthitis, right ear Other abnormalities of gait and mobility Cervicalgia Procedures [place] PHYSICAL THERAPY EVALUATION MOD COMPLEX 30 MINS Jose Babin MD [address] [facility] [place] [id number] Phone: tel: fax: Olivia Mcallister, PT [address] [facility] [address] [place] [address] Phone: tel: fax: Referral ID Status Reason Start Date Expiration Date V isits Requested Visits Authorized [id number] Authorized 07/20/2024 08/16/2024 99 99 [facility] Narrative* Rehabilitation - Outpatient (Routine) - Authorized Specialty Diagnoses / Procedures Referred By Contac t Referred To Contact Physical Therapy Diagnoses Dizziness and giddiness Cervicocranial syndrome Labyrinthitis, right ear Other abnormalities of gait and mobility Cervicalgia Procedures [place] PHYSICAL THERAPY EVALUATION MOD COMPLEX 30 MINS Jose Babin MD [address] [facility] [place] [id number] Phone: tel: fax: Olivia Mcallister, PT [address] [place] [address] Phone: tel: fax: Referral ID Status Reason Start Date Expiration Date Visits Requested Visits Authorized [id number] Authorized Consult and Treat 08/23/2024 09/19/2024 1 99 [facility] Advance Directives No Advanced Directives Records FoundDocuments on File Type Date Recorded Patient Academic Support Assistant Expl anation Advance Directive(s) 12/24/2021 6:39 PM Advance Directive(s) 01/13/2020 8:10 PM Advance Directive(s) 10/01/2019 12:13 PM Advance Directive(s) 05/01/2019 7:51 PM Advance Directive(s) 06/01/2018 11:52 AM Advance Directive(s) 04/16/2018 11:12 AM Documents on File Type Date Recorded Patient Academic Support Assistant Expl anation Advance Directive(s) 12/24/2021 6:39 PM Advance Directive(s) 01/13/2020 8:10 PM Advance Directive(s) 10/01/2019 12:13 PM Advance Directive(s) 05/01/2019 7:51 PM Advance Directive(s) 06/01/2018 11:52 AM Advance Directive(s) 04/16/2018 11:12 AM Latest Code Status on File Code Status Date Activated Date Inactivated Comments Full Code 05/26/2023 12:22 AM 05/27/2023 8:34 PM Question Answer Comments Full Code Order Discussed With: Patient Advance Directive Response Recorded Date/ Time Advance Directives No June 23, 2023 7:50am Latest Code Status on File Code Status Date Activated Date Inactivated Comments Full Code 05/26/2023 12:22 AM 05/27/2023 8:34 PM Question Answer Comments Full Code Order Discussed With: Patient Date Activated Date Inactivated Comments 05/26/2023 12:22 AM 05/27/2023 8:34 PM Question Answer Comments Full Code Order Discussed With: Patient Advance Directive Response Recorded Date/ Time Advance Directives No June 23, 2023 8:50am Date Activated Date Inactivated Comments 05/26/2023 12:22 AM 05/27/2023 8:34 PM Question Answer Comments Full Code Order Discussed With: Patient Reason for Referral Specialty Diagnoses / Procedures Referred By Contmeenakshi t Referred To Contact Gastroenterology Diagnoses Chronic GERD Procedures CONSULT TO GASTROENTEROLOGY OFFICE/OUTPATIENT NEW HIGH MDM 60-74 MINUTES Starla Curry PA-C [address] [facility] [address] Referral ID Status Reason Start Date Expiration Date Visits Requested Visits Authorized [id number] Authorized PCP Requested Referral 01/09/2022 01/09/2023 1 1 Specialty Diagnoses / Procedures Referred By Contac t [facility] Procedures CARDIOVASCULAR MEDICINE OP FOLLOW UP APPT ORDER Olivia Lazcano MD [address] [place] [address] [facility] [place] [address] Referral ID Status Reason Start Date Expiration Date Visits Requested Visits Authorized [id number] Ref Not Required PCP Requested Referral 03/15/2024 03/15/2025 1 1 Specialty Diagnoses / Procedures Referred By Contac t Referred To Contact [facility] Diagnoses IPMN (intraductal papillary mucinous neoplasm) Procedures MRI PANC/WAI WO/W IVCON MRI ABDOMEN W/O & W/CONTRAST MATERIAL Olivia Lazcano MD [address] [place] [address] [facility] [place] [address] Referral ID Status Reason Start Date Expiration Date Visits Requested Visits Authorized [id number] New Request Auto-Generat ed Referral 04/14/2025 1 1 Specialty Diagnoses / Procedures Referred By Contac t Referred To Contact [facility] Diagnoses IPMN (intraductal papillary mucinous neoplasm) Procedures MRI 3D POST PROCESSING 3D RENDERING W/INTERP&POSTPROC DIFF WORK STATION Mirta Lee MD [address] [place], [place] [id number] [facility] [place] [address] Referral ID Status Reason Start Date Expiration Date Visits Requested Visits Authorized [id number] New Request Auto-Generat ed Referral 09/08/2024 10/08/2025 1 1 Specialty Diagnoses / Procedures Referred By Contac t Referred To Contact [facility] Diagnoses Biliary cyst IPMN (intraductal papillary mucinous neoplasm) Procedures MRI PANC/WAI WO/W IVCON MRI ABDOMEN W/O & [place] [address] [place] [id number] [place] [address] Referral ID Status Reason Start Date Expiration Date Visits Requested Visits Authorized [id number] New Request Auto-Generat ed Referral 09/08/2024 10/08/2025 1 1 Chief Complaint and Reason for Visit Chief Complaint Abd pain hx Pancreat itis Reason for Visit Pancreatitis Renal cyst, left Thickening of wall of gallbladder Chief Complaint Abd pain hx Pancreat itis Abd pain hx Pancreatitis fatty liver/cyst on liver/ mass in pancreas Reason for Visit Pancreatitis Renal cyst, left Thickening of wall of gallbladder Fatty liver Chief Complaint Abd pain hx Pancreat itis Abd pain hx Pancreatitis fatty liver/cyst on liver/ mass in pancreas fatty liver Reason for Visit Pancreatitis Renal cyst, left Thickening of wall of gallbladder Fatty liver Chief Complaint Abd pain hx Pancreat itis Abd pain hx Pancreatitis fatty liver/cyst on liver/ mass in pancreas fatty liver tick in left leg n/v Reason for Visit Pancreatitis Renal cyst, left Thickening of wall of gallbladder Fatty liver Nausea and vomiting Vertigo Chief Complaint fatty liver/cyst on liver/ mass in pancreas fatty liver tick in left leg n/v n/v n/v seen in [facility]- has a spot on thigh Reason for Visit Fatty liver Diarrhea Leukocytosis Nausea and vomiting Tick bite Vertigo Tick bite Chief Complaint fatty liver/cyst on liver/ mass in pancreas fatty liver tick in left leg n/v n/v n/v seen in [facility]- has a spot on thigh W57.XXA Reason for Visit Fatty liver Diarrhea Leukocytosis Nausea and vomiting Tick bite Vertigo Tick bite Chief Complaint fatty liver/cyst on liver/ mass in pancreas fatty liver tick in left leg n/v n/v n/v seen in [facility]- has a spot on thigh W57.XXA R42 R53.83 R06.02 I95.9 Reason for Visit Fatty liver Diarrhea Leukocytosis Nausea and vomiting Tick bite Vertigo Tick bite Chief Complaint seen in [facility]- has a spot on thigh W57.XXA R42 R53.83 R06.02 I95.9 high sugar blurred vision dizzy Reason for Visit Tick bite Chief Complaint Admit Date z13.1 r53.82 e55.9 July 08, 2024 10:51am R55 R42 [id number] October 01, 2024 9:18am Chief Complaint Admit Date R55 R42 [id number] October 01, 2024 9:18am R42.0 October 14, 2024 3:44pm Family History No Family History Records Found Relationship Condition Age at Onset Recorded Date/T nika father Myocardial infarction Unknown Malignant neoplasm Unknown Alcoholic cirrhosis Unknown brother Myocardial infarction Unknown Diabetes mellitus Unknown sister Diabetes mellitus Unknown daughter Nonalcoholic fatty liver disease Unknown Summary Purpose Additional Source Comments Source Comments (unrecognize d section and content) In the event this informatio n is protected by the Federal Confidentiality of Alcohol and Drug Abuse Patient Records regulations: The Federal rules restrict any use of the information to criminally investigate or prosecute any alcohol or drug abuse patient.[facility] the event this information is protected by the Federal Confidentiality of Alcohol and Drug Abuse Patient Records regulations: The Federal rules restrict any use of the information to criminally investigate or prosecute any alcohol or drug abuse patient.[facility] CenterIn the event this information is protected by the Federal Confidentiality of Alcohol and Drug Abuse Patient Records regulations: The Federal rules restrict any use of the information to criminally investigate or prosecute any alcohol or drug abuse patient.[facility] CenterIn the event this information is protected by the Federal Confidentiality of Alcohol and Drug Abuse Patient Records regulations: The Federal rules restrict any use of the information to criminally investigate or prosecute any alcohol or drug abuse patient.[facility] CenterIn the event this information is protected by the Federal Confidentiality of Alcohol and Drug Abuse Patient Records regulations: The Federal rules restrict any use of the information to criminally investigate or prosecute any alcohol or drug abuse patient.[facility] CenterIn the event this information is protected by the Federal Confidentiality of Alcohol and Drug Abuse Patient Records regulations: The Federal rules restrict any use of the information to criminally investigate or prosecute any alcohol or drug abuse patient.[facility] CenterIn the event this information is protected by the Federal Confidentiality of Alcohol and Drug Abuse Patient Records regulations: The Federal rules restrict any use of the information to criminally investigate or prosecute any alcohol or drug abuse patient.[facility] CenterIn the event this information is protected by the Federal Confidentiality of Alcohol and Drug Abuse Patient Records regulations: The Federal rules restrict any use of the information to criminally investigate or prosecute any alcohol or drug abuse patient.[facility] CenterIn the event this information is protected by the Federal Confidentiality of Alcohol and Drug Abuse Patient Records regulations: The Federal rules restrict any use of the information to criminally investigate or prosecute any alcohol or drug abuse patient.[facility] CenterIn the event this information is protected by the Federal Confidentiality of Alcohol and Drug Abuse Patient Records regulations: The Federal rules restrict any use of the information to criminally investigate or prosecute any alcohol or drug abuse patient.[facility] CenterIn the event this information is protected by the Federal Confidentiality of Alcohol and Drug Abuse Patient Records regulations: The Federal rules restrict any use of the information to criminally investigate or prosecute any alcohol or drug abuse patient.[facility] CenterIn the event this information is protected by the Federal Confidentiality of Alcohol and Drug Abuse Patient Records regulations: The Federal rules restrict any use of the information to criminally investigate or prosecute any alcohol or drug abuse patient.[facility] CenterIn the event this information is protected by the Federal Confidentiality of Alcohol and Drug Abuse Patient Records regulations: The Federal rules restrict any use of the information to criminally investigate or prosecute any alcohol or drug abuse patient.[facility] CenterIn the event this information is protected by the Federal Confidentiality of Alcohol and Drug Abuse Patient Records regulations: The Federal rules restrict any use of the information to criminally investigate or prosecute any alcohol or drug abuse patient.[facility] CenterIn the event this information is protected by the Federal Confidentiality of Alcohol and Drug Abuse Patient Records regulations: The Federal rules restrict any use of the information to criminally investigate or prosecute any alcohol or drug abuse patient.[facility] CenterIn the event this information is protected by the Federal Confidentiality of Alcohol and Drug Abuse Patient Records regulations: The Federal rules restrict any use of the information to criminally investigate or prosecute any alcohol or drug abuse patient.[facility] CenterIn the event this information is protected by the Federal Confidentiality of Alcohol and Drug Abuse Patient Records regulations: The Federal rules restrict any use of the information to criminally investigate or prosecute any alcohol or drug abuse patient.[facility] CenterIn the event this information is protected by the Federal Confidentiality of Alcohol and Drug Abuse Patient Records regulations: The Federal rules restrict any use of the information to criminally investigate or prosecute any alcohol or drug abuse patient.[facility] CenterIn the event this information is protected by the Federal Confidentiality of Alcohol and Drug Abuse Patient Records regulations: The Federal rules restrict any use of the information to criminally investigate or prosecute any alcohol or drug abuse patient.[facility] CenterIn the event this information is protected by the Federal Confidentiality of Alcohol and Drug Abuse Patient Records regulations: The Federal rules restrict any use of the information to criminally investigate or prosecute any alcohol or drug abuse patient.[facility] CenterIn the event this information is protected by the Federal Confidentiality of Alcohol and Drug Abuse Patient Records regulations: The Federal rules restrict any use of the information to criminally investigate or prosecute any alcohol or drug abuse patient.[facility] CenterIn the event this information is protected by the Federal Confidentiality of Alcohol and Drug Abuse Patient Records regulations: The Federal rules restrict any use of the information to criminally investigate or prosecute any alcohol or drug abuse patient.[facility] CenterIn the event this information is protected by the Federal Confidentiality of Alcohol and Drug Abuse Patient Records regulations: The Federal rules restrict any use of the information to criminally investigate or prosecute any alcohol or drug abuse patient.[facility] CenterIn the event this information is protected by the Federal Confidentiality of Alcohol and Drug Abuse Patient Records regulations: The Federal rules restrict any use of the information to criminally investigate or prosecute any alcohol or drug abuse patient.[facility] CenterIn the event this information is protected by the Federal Confidentiality of Alcohol and Drug Abuse Patient Records regulations: The Federal rules restrict any use of the information to criminally investigate or prosecute any alcohol or drug abuse patient.[facility] CenterIn the event this information is protected by the Federal Confidentiality of Alcohol and Drug Abuse Patient Records regulations: The Federal rules restrict any use of the information to criminally investigate or prosecute any alcohol or drug abuse patient.[facility] Reason for Visit (unrecogniz ed section and content) Reason Comments ED Follow-up abd pain still hurts when he eats food Reason Onset Date Comments Refill Request 04/22/2022 Reason Onset Date Comments Refill Request 08/04/2022 Reason Comments New Patient Hepatic steatosis Reason Comments Patient Update Reason Comments Appointment Reason Comments Urinary Retention Specialty Diagnoses / Procedures Referred By Contac t Referred To Contact Urology / UROLOGY Diagnoses Acute urinary retention Procedures CONSULT TO UROLOGY OFFICE/OUTPATIENT NEW HIGH MDM 60 MINUTES Marilee Covarrubias APRN.[employer] [address] [phone] [address] [place] [address] Referral ID Status Reason Start Date Expiration Date V isits Requested Visits Authorized [id number] Closed PCP Requested Referral 10/03/2023 10/01/2024 1 1 Reason Comments Post Op Specialty Diagnoses / Procedures Referred By Contac t Referred To Contact Dentistry / DENTISTRY Diagnoses OMFS Consult: Ext #[phone] - [place] 10/19/23 in [facility], referral in scanned docs Procedures OMFS CONSULT Self Mike Merritt DDS [address] [phone] Referral ID Status Reason Start Date Expiration Date Visits Requested Visits Authorized [id number] Outside PCP Financial Clearance Required - OON Payor 10/16/2023 02/18/2024 1 1 Reason Comments Tooth Extraction Specialty Diagnoses / Procedures Referred By Contac t Referred To Contact Dentistry / DENTISTRY Diagnoses Sched in clininc oral sedation Procedures OMFS PROCEDURE Haile Lee DDS [address] [phone] Haile Lee DDS [address] [place] [address] Referral ID Status Reason Start Date Expiration Date V isits Requested Visits Authorized [id number] Closed Financial Clearance Required - OON Payor OON/Self Pay Override Dental - Patient Cleared required payment collected 08/17/2022 08/16/2024 1 1 Reason Comments Returning Patient's Call Reason Comments New Patient Consult Reason Comments Patient Question Reason Comments New Patient Reason Comments Orders Reason Comments Dizziness Appointment Cancelled Reason Comments Radiology MRI Specialty Diagnoses / Procedures Referred By Contac t Referred To Contact MR IMAGING Diagnoses Biliary cyst IPMN (intraductal papillary mucinous neoplasm) Procedures MRI PANC/WAI WO/W IVCON MRI ABDOMEN W/O & W/[place] [address] [place] [address] Phone: tel: fax: [place] [id number] Referral ID Status Reason Start Date Expiration Date V isits Requested Visits Authorized [id number] Closed Auto-Generate d Referral 10/10/2024 08/16/2025 1 1 Care Teams (unrecognized sec tion and content) Team Status: Active Member Role Status Dates Rachel Byrd NP-C Primary Care Provider Active Team Status: Inactive Member Role Status Dates PHYSICIAN NO FAMILY Primary Care Provider Active Start: September 30, 2023 End: September 30, 2023 Patel Pierson Jr, MD Emergency Provider Active Start: September 30, 2023 End: September 30, 2023 Jorje Gu MD Admit Provider Active S tart: September 30, 2023 End: September 30, 2023 Jared Easley DO Attending Provider Active St art: September 30, 2023 End: September 30, 2023 Team Status: Active Member Role Status Dates PHYSICIAN NO FAMILY Primary Care Provider Active Start: September 30, 2023 Patel Pierson Jr, MD Emergency Provider Active Start: September 30, 2023 Jorje Gu MD Admit Provider Active S tart: September 30, 2023 Jared Easley DO Attending Provider, Other Provider Active Start: September 30, 2023 Team Status: Inactive Member Role Status Dates PHYSICIAN NO FAMILY Primary Care Provider Active Start: December 08, 2023 End: December 08, 2023 Fly Meza MD Attending Provider Active Start: December 08, 2023 End: December 08, 2023 Team Status: Active Member Role Status Dates PHYSICIAN NO FAMILY Primary Care Provider Active Start: December 10, 2023 Fly Meza MD Attending Provider, Other Provider Act madhuri Start: December 10, 2023 Team Status: Inactive Member Role Status Dates Micah Jackson DO Emergency Provider Active Sta rt: December 17, 2023 End: December 17, 2023 Rachel Byrd NP-Silvia Primary Care Provider Active S tart: December 17, 2023 End: December 17, 2023 Team Status: Active Member Role Status Dates Rachel Byrd NP-C Primary Care Provider Active S tart: December 27, 2023 Yasmine Marc DO Emergency Provider Active St art: December 27, 2023 Jared Easley DO Admit Provider, Attending Provider Active Start: December 27, 2023 Team Status: Active Member Role Status Dates PHYSICIAN NO FAMILY Primary Care Provider Active Data Center Manager Relationship Specialty Start Date End Date Starla Curry PA-C [address] [place] [address] PCP - General Internal Medicine 01/10/22 Data Center Manager Relationship Specialty Start Date End Date Patricio Starla Amador PA-C [address] [place] [address] PCP - General Internal Medicine 01/10/22 Data Center Manager Relationship Specialty Start Date End Date PatricioStarla PA-C [address] [place] [address] PCP - General Internal Medicine 01/10/22 Data Center Manager Relationship Specialty Start Date End Date Patricio Starla Amador PA-C [address] [place] [address] PCP - General Internal Medicine 01/10/22 Team Status: Active Member Role Status Dates PHYSICIAN NO FAMILY Primary Care Provider Active Start: September 30, 2023 Patel Pierson Jr, MD Emergency Provider Active Start: September 30, 2023 Jorje Gu MD Admit Provider, Attending Provider Active Start: September 30, 2023 Team Status: Inactive Member Role Status Dates PHYSICIAN NO FAMILY Primary Care Provider Active Start: December 10, 2023 End: December 10, 2023 Fly Meza MD Attending Provider Active Start: December 10, 2023 End: December 10, 2023 Team Status: Inactive Member Role Status Dates Rachel Byrd NP-C Primary Care Provider Active S tart: December 28, 2023 End: December 30, 2023 Yasmine Marc DO Emergency Provider Active St art: December 28, 2023 End: December 30, 2023 Jared Easley , Admit Provider Active Start: December 28, 2023 End: December 30, 2023 Kaitlynn Wiggins MD Attending Provider Active S tart: December 28, 2023 End: December 30, 2023 Olivia Fischer MD Other Provider Active Start: December 28, 2023 End: December 30, 2023 Polly Cavazos MD Other Provider Active Start: Yfn hand 2023 End: December 30, 2023 Robel Wallace MD Other Provider Active Start: Saima addison 2023 End: December 30, 2023 Kayla Burr APRN Other Provider Active St art: December 28, 2023 End: December 30, 2023 Pascual Mares Jr, DO Other Provider Active S tart: December 28, 2023 End: December 30, 2023 Emilio Christian MD Other Provider Active Start: December 28, 2023 End: December 30, 2023 Team Status: Active Member Role Status Dates Rachel Byrd NP-C Primary Care Provider Active S tart: December 28, 2023 End: December 30, 2023 Yasmine Marc DO Emergency Provider Active St art: December 28, 2023 End: December 30, 2023 Jared Easley DO Admit Provider Active Start: December 28, 2023 End: December 30, 2023 Kaitlynn Wiggins MD Other Provider Active Start : December 28, 2023 End: December 30, 2023 Olivia Fischer MD Attending Provider, Other Provider Active Start: December 28, 2023 End: December 30, 2023 Team Status: Active Member Role Status Shawna Byrd NP-C Primary Care Provider Active S tart: December 29, 2023 End: December 30, 2023 Yasmine Marc DO Emergency Provider Active St art: December 29, 2023 End: December 30, 2023 Jared Easley DO Admit Provider Active Start: December 29, 2023 End: December 30, 2023 Kaitlynn Wiggins MD Other Provider Active Start : December 29, 2023 End: December 30, 2023 Olivia Fischer MD Other Provider Active Start: December 29, 2023 End: December 30, 2023 Polly Cavazos MD Other Provider Active Start: Yfn hand 2023 End: December 30, 2023 Robel Wallace MD Other Provider Active Start: M cyn 2023 End: December 30, 2023 Kaylarashid Burr , HOSPICE PHYSICIAN Other Provider Active St art: December 29, 2023 End: December 30, 2023 Pascual Mares Jr, DO Other Provider Active S tart: December 29, 2023 End: December 30, 2023 Emilio Christian MD Attending Pr janet, Other Provider Active Start: December 29, 2023 End: December 30, 2023 Team Status: Inactive Member Role Status Dates Rachel Byrd NP-C Primary Care Provider Active S tart: February 10, 2024 End: February 10, 2024 Olivia Fischer MD Attending Provider Active Sta rt: February 10, 2024 End: February 10, 2024 Team Status: Inactive Member Role Status Dates Rachel Byrd NP-C Primary Care Provider Active S tart: March 02, 2024 End: March 02, 2024 NINA Anna-C Attending Provider Active St art: March 02, 2024 End: March 02, 2024 Owen Shea MD Referring Provider Active Start: March 02, 2024 End: March 02, 2024 Team Status: Inactive Member Role Status Dates Rachel Byrd NP-C Primary Care Provider Active S tart: April 09, 2024 End: April 09, 2024 Love Tinsley MD Emergency Provider Active Star t: April 09, 2024 End: April 09, 2024 Data Center Manager Relationship Specialty Start Date End Date Aixa Tong DO [address] [place] [address] PCP - General Family Medicine 01/04/24 Data Center Manager Relationship Specialty Start Date End Date Aixa Tong DO [address] [place] [address] PCP - General Family Medicine 01/04/24 Data Center Manager Relationship Specialty Start Date End Date Aixa Tong, [address] [place] [address] PCP - General Family Medicine 01/04/24 Data Center Manager Relationship Specialty Start Date End Date Aixa Tong DO [address] [place] [address] PCP - General Family Medicine 01/04/24 Data Center Manager Relationship Specialty Start Date End Date Aixa Tong DO [address] [place] [address] PCP - General Family Medicine 01/04/24 Team Status: Inactive Member Role Status Dates GENEVIEVE Landaverde Primary Care Provider Active S tart: July 08, 2024 End: July 08, 2024 Jessie Hammond Attending Provider Active Start: N ov2023 End: July 08, 2024 Team Status: Inactive Member Role Status Dates MARKO LandaverdeC Primary Care Provider Active S tart: October 01, 2024 End: October 01, 2024 Wang Laughlin MD Attending Provider Active Sta rt: October 01, 2024 End: October 01, 2024 Team Status: Inactive Member Role Status Dates MARKO LandaverdeC Primary Care Provider Active S tart: October 14, 2024 End: October 14, 2024 Wang Laughlin MD Attending Provider Active Sta rt: October 14, 2024 End: October 14, 2024 Goals (unrecognized section and content) Goals may be documented in a n alternate sectionGoals may be documented in an alternate sectionGoals may be documented in an alternate sectionGoals may be documented in an alternate sectionGoals may be documented in an alternate sectionGoals may be documented in an alternate sectionGoals may be documented in an alternate section (unrecognized sect ion and content) No Status Records FoundNo Status Records FoundNo Status Records FoundNo Status Records FoundNo Status Records FoundNo Status Records FoundNo Status Records Found INFORMATION SOURCE (unrecogn ized section and content) DATE CREATED AUTHOR 10/01/2023 [facility] DATE CREATED AUTHOR AUTHOR'S ORGANIZ ATION 10/04/2023 Domo Santiago [facility] DATE CREATED AUTHOR AUTHOR'S ORGANIZ ATION 01/05/2024 [facility] DATE CREATED AUTHOR AUTHOR'S ORGANIZ ATION 08/29/2024 [facility] DATE CREATED AUTHOR AUTHOR'S ORGANIZ ATION 10/07/2024 [facility] DATE CREATED AUTHOR AUTHOR'S ORGANIZ ATION 10/18/2024 [facility] DATE CREATED AUTHOR AUTHOR'S ORGANIZ ATION 10/20/2024 [facility] FOR RECORDS PERTAINING TO PATIENTS WHO ARE OR HAVE BEEN ENROLLED IN A CHEMICAL DEPENDENCY/SUBSTANCEABUSE PROGRAM, SOME INFORMATION MAY BE OMITTED. This clinical summary was aggregated from multiple sources. Caution should be exercised in using it in the provision of clinical care. This summary normalizes information from multiple sources, and as a consequence, information in this document may materially change the coding, format and clinical context of patient data. In addition, data may be omitted in some cases. CLINICAL DECISIONS SHOULD BE BASED ON THE PRIMARY CLINICAL RECORDS. [facility]. provides no warranty or guarantee of the accuracy or completeness of information in this document.
[2024-11-11 16:31] LABS: Basophils Absolute Auto 0.1 10^3/uL (0.0-0.1); Basophils Percent Auto 0.7 % (0.2-2.0); Eosinophils Absolute Auto 0.1 10^3/uL (0.0-0.7); Eosinophils Percent Auto 0.9 % (0.9-7.0); Hematocrit 44.1 % (42.0-54.0); Hemoglobin 15.2 g/dL (14.0-18.0); Immature Granulocytes Abs Auto 0.05 10^3/uL (0.00-0.03); Immature Granulocytes Pct Auto 0.4 % (0.0-0.5); Lymphocytes Absolute Auto 3.3 10^3/uL (1.2-3.8); Lymphocytes Percent Auto 28.1 % (20.5-60.0); Mean Corpuscular HGB Conc 34.5 g/dL (29.9-35.2); Mean Corpuscular Hemoglobin 33.4 pg (25.9-34.0); Mean Corpuscular Volume 96.9 fL (80.0-94.0); Mean Platelet Volume 8.8 fL (9.5-13.5); Monocytes Absolute Auto 1.1 10^3/uL (0.3-0.8); Monocytes Percent Auto 9.3 % (1.7-12.0); Neutrophils Absolute Auto 7.1 10^3/uL (1.4-6.5); Neutrophils Percent Auto 60.6 % (43.0-75.0); Platelet Count 242 10^3/uL (150-450); Red Blood Count 4.55 10^6/uL (4.70-6.10); White Blood Count 11.8 10^3/uL (4.0-11.0)
[2024-11-11 16:53] LABS: Alanine Aminotransferase 42 U/L (16-63); Albumin Globulin Ratio 0.9; Albumin Level 3.6 g/dL (3.4-5.0); Alkaline Phosphatase 82 U/L (46-116); Anion Gap 10.8; Aspartate Amino Transferase 27 U/L (15-37); BUN Creatinine Ratio 15.2; Bilirubin Total 0.3 mg/dL (0.2-1.0); Calcium 8.8 mg/dL (8.5-10.1); Carbon Dioxide 29.3 mmol/L (21.0-32.0); Chloride 102 mmol/L (98-107); Estimated GFR (African America >60 (>=60 mL/min/1.73m^2); Estimated GFR (Non-African Ame 57 (>=60 mL/min/1.73m^2); Globulin 3.8 g/dL; Glucose 88 mg/dL (74-106); Magnesium 2.2 mg/dL (1.8-2.4); Potassium 4.1 mmol/L (3.5-5.1); Sodium 138 mmol/L (136-145); Total Protein 7.4 g/dL (6.4-8.2)
== END 2024-11-11 16:11 | disposition home or self-care (01) ==
LOC: LAB 16:17
PROVIDERS: Family Provider Family Medicine; PCP Family Medicine; Visit Provider Family Medicine
DX: R55 Syncope and collapse (principal); I50.30 Unspecified diastolic (congestive) heart failure; D64.9 Anemia, unspecified; I11.0 Hypertensive heart disease with heart failure
CPT/HCPCS: 36415; 80053; 83540; 83735; 83880; 85025